=== PATIENT | female | born 1945 | race Caucasian/White ===

== ENCOUNTER 2020-09-14 17:33 | Inpatient (IN) | payer OTHER, MEDICARE ==
[2020-09-14 18:32] VITALS: BMI 41.8
[2020-09-14 18:33] LABS: Absolute Lymphocytes (CBC) 2.8 K/uL (0.7-4.9); Basophils % 0.9 % (0-1.3); Hematocrit 42.2 % (36.0-45.0); Lymphocytes % 29.1 % (15.3-44.8); MPV 9.2 fL (7.6-11.3); RBC Red Blood Cell Count 5.13 M/uL (3.86-4.86)
[2020-09-14 19:06] LABS: Albumin 3.2 g/dL (3.4-5.0); Bilirubin Total 0.3 mg/dL (0.2-1.0); Magnesium 1.7 mg/dL (1.8-2.4); Potassium 4.1 mmol/L (3.5-5.1); Protein, Total 7.8 g/dL (6.4-8.2); Thyroid Stimulating Hormone 3.11 uIU/mL (0.360-3.740)
[2020-09-14] MEDS: CEFTRIAXONE/SWI 1gm 1 GM/10 ML SYR IVP SCH (21:00)
--- NOTE | 2020-09-15 07:11 | HP ---
Date of Admission: 09/14/2020 Chief Complaint: Urinary tract infection. History Of Present Illness: This is a 75-year-old very pleasant female patient, who has ongoing comp laints of urinary frequency, urgency, burning sensation on urination. She was on prophylactic antibi otic with nitrofurantoin 100 mg by mouth daily and last week she had repeat urine culture done while on this prophylactic antibiotic and results came back growing Morganella and it is resistant to all t he oral antibiotics and sensitive to multiple IV antibiotics. The patient came into office today. A fter she was evaluated, results discussed with her and decision was made to admit her to the hospital with failure of outpatient antibiotic therapy. She denies any fever, chills, nausea, vomiting. Medications: List reviewed. Review of Systems: Genitourinary: As mentioned above. Cardiovascular: Chronic leg swelling. All other systems reviewed and negative. Allergies: TO PENICILLIN CAUSING RASH AND ITCHING, SULFA CAUSING RASH AND ITCHING. Past Medical History: Type 2 diabetes mellitus, diabetic retinopathy, hypothyroidism, hypertension, mixed hyperlipidemia, gastroesophageal reflux disease, diverticulosis, osteoarthritis at multiple sit es. Past Surgical History: Cataract surgery, cholecystectomy, hysterectomy, carpal tunnel release. Family History: Father; diabetes and coronary artery disease, lung cancer. Mother; diabetes, hypert ension, kidney cancer. Brother and sister with coronary artery disease. Social History: Negative for smoking and alcohol use. Physical Examination: Vital Signs: Upon admission to the hospital; temperature 98.3, pulse 68, respiratory rate 17, blood pressure 126/65, height 5 feet 6 inches, weight 258 pounds. General: Awake, alert, oriented, not in distress. HEENT: Head atraumatic, normocephalic. Conjunctivae nonerythematous. Sclerae white. Mouth, no thr ush or edema noted. Ears/Nose, no mass, lesion, discharge noted. Neck: Supple. No JVD, lymph nodes, bruit, thyromegaly noted. Lungs: Bilateral good equal air entry. Clear to auscultation. No rhonchi. No rales. Heart: Normal heart sounds, no murmur or gallop. Abdomen: Soft, bowel sounds normal. No guarding, rigidity, tenderness, mass, hepatosplenomegaly, dis tention, or bruit noted. Extremities: Bilateral grade 1 nonpitting pedal edema with dry skin. Skin: No rash, ulcer, cellulitis. Lymphatics: No lymph node enlargement in neck, supraclavicular, infraclavicular region. Neuro: No focal neurological deficit. Chest: Unremarkable. External Genitalia: Deferred. Rectal: Deferred. Laboratory Data: White count 9.5, hemoglobin 14.3, platelets 176. Sodium 141, potassium 4.1, chlori de 107, bicarb 28, BUN 26, creatinine 1.45, glucose 97, estimated GFR 35. Hemoglobin A1c 7.8. Liver function tests unremarkable. Magnesium 1.7. TSH 3.11. Urine culture from 09/05/2020 shows Shavonne caballero. Impression: 1.Urinary tract infection. 2.Hypomagnesemia. 3.Chronic kidney disease, stage 3B. 4.Type 2 diabetes mellitus. 5.Hypertension. 6.Mixed hyperlipidemia. 7.Diverticulosis. 8.Hypothyroidism. Plan: Admit the patient to hospital for further evaluation and management of this problem. The victor hugo ent is appropriate for inpatient and is expected to spend 2 midnights in hospital. We will continue home medications per order. Diabetes will be managed with sliding scale insulin. We will continue h ome medications per order. Start the patient on IV antibiotic, which is ceftriaxone. We will order PICC line and Social Service consultation tomorrow. Details and plan of treatment discussed with her . I will see her tomorrow morning for followup. ISAAC/MODL Voice ID: [id number]
[2020-09-15] MEDS ORDERED: LIDOCAINE 1% MPF 5 ML VIAL IM PRN (08:00)
[2020-09-15] MEDS ORDERED: SODIUM CHLORIDE 0.9% 10ML INJ IV PRN ×2 (08:00)
[2020-09-15] MEDS ORDERED: SODIUM CHLORIDE 0.9% 10ML INJ IV SCH (09:00)
--- NOTE | 2020-09-15 09:12 | RAD REPORT ---
EXAM DESCRIPTION: US - Renal Ultrasound-Complete - 09/15/2020 8:54 am CLINICAL HISTORY: recurrent UTI COMPARISON: Abdomen Pelvis W Contrast dated 03/17/2018 FINDINGS: The right kidney measures 11.4 x 4.7 x 4.8 cm. The left kidney measures 10.2 x 4.6 x 5.6 cm. Cortical thickness is normal in each kidney. There is a slight increase in echogenicity in both k idneys. Given the appearance of the surrounding tissue this is believed to be artifact of body habitu s. No hydronephrosis or suspicious renal mass. Urinary bladder is reported on separate request. IMPRESSION: No hydronephrosis or suspicious renal mass. No other significant findings.
--- NOTE | 2020-09-15 09:14 | RAD REPORT ---
EXAM DESCRIPTION: US - Urinary Bladder - 09/15/2020 8:54 am CLINICAL HISTORY: recurrent UTI COMPARISON: Abdomen Pelvis W Contrast dated 03/17/2018 FINDINGS: Urinary bladder is only partially filled. No bladder wall thickening or mass identified. B ilateral ureteral jets were observed indicating no obstructive process. No stone or other abnormality of the bladder lumen. IMPRESSION: Negative ultrasound of partially filled urinary bladder.
[2020-09-15] MEDS ORDERED: INFLUENZA VACCINE (for 3y+) 0.5 ML DOSE IMVAC ONE (10:00)
[2020-09-15] MEDS ORDERED: PNEUMOCOCCAL VACCINE 0.5 ML IMVAC ONE (10:00)
[2020-09-15] MEDS: CEFTRIAXONE/SWI 1gm 1 GM/10 ML SYR IVP SCH ×2 (10:18→20:56)
[2020-09-15] MEDS: HYDROCODONE/APAP 7.5/325 MG TAB PO SCH ×4 (10:19→22:03)
[2020-09-15] MEDS: PANTOPRAZOLE 40MG TABLET PO SCH (10:20)
[2020-09-15] MEDS: AMILORIDE HCL 5 MG TABLET PO SCH (10:20)
[2020-09-15] MEDS: lisinopriL 20 MG TAB PO SCH (10:20)
[2020-09-15] MEDS: ASPIRIN 81 MG CHEWABLE TABLET PO SCH (10:20)
[2020-09-15] MEDS: atenoloL 50 MG TAB PO SCH (10:20)
[2020-09-15] MEDS: ISOSORBIDE MONO SR 30 MG TAB PO SCH (10:20)
[2020-09-15] MEDS: LEVOTHYROXINE SOD 0.05 MG TABLET PO SCH (10:30)
--- NOTE | 2020-09-15 11:10 | RAD REPORT ---
EXAM DESCRIPTION: RAD - Chest Single View - 09/15/2020 3:00 am CLINICAL HISTORY: Picc line placement COMPARISON: None. TECHNIQUE: AP Chest. FINDINGS: Right subclavian PICC line is positioned in the mid aspect of the superior vena cava. The heart is moderately enlarged. Normal pulmonary vascularity. Lungs are clear. Pleural space are cl ear. Bones appear intact. Left shoulder osteoarthritis is noted. IMPRESSION: 1. Right subclavian PICC line placed without complication. 2. Cardiomegaly. Electronically signed by: Ramona Myrick DO 09/15/2020 3:16 AM FUR FLOOR WORKER Due to temporary technical issues with the PACS/Fluency reporting system, reports are being signed by the in house radiologist without review as a courtesy to ensure prompt reporting. The interpreting r adiologist is fully responsible for the content of the report.
[2020-09-15] MEDS ORDERED: D50W 25 GM/50 ML SYRINGE IV PRN (12:39)
[2020-09-15] MEDS ORDERED: GLUCAGON 1 MG/VIAL IM PRN (12:39)
[2020-09-15] MEDS ORDERED: INSULIN GLARGINE 100 UNITS/ML SQ ONE (12:40)
[2020-09-15] MEDS: INSULIN -REGULAR HUMAN 50 UNIT/0.5 ML ML SQ SCH ×2 (17:24→20:57)
--- NOTE | 2020-09-15 20:10 | DS ---
Date of Discharge: 09/15/2020 Subjective: The patient was seen this morning for followup. No new complaints or problems reported by the patient. Her dysuria complaint has improved after IV antibiotics started. Denies any nausea or vomiting. Objective: Vital Signs: Reviewed. HEENT: Unremarkable. Lungs: Clear to auscultation. Heart: Sounds normal. Abdomen: Soft. Bowel sounds normal. No guarding, rigidity, tenderness, or distention. Extremities: Bilateral chronic leg edema with pink discoloration of skin and dry skin. This are all chronic findings, unchanged. Discharge Medications And Instructions: 1.Continue all prior home medications. 2.Ceftriaxone 1 g IV every 12 hours for 10 days. 3.Follow up at my office next week on Friday or , and the patient to call for appointment . Final Diagnoses: 1.Urinary tract infection. 2.Chronic kidney disease stage 3A. 3.Hypertension. 4.Mixed hyperlipidemia. 5.Diabetes mellitus. Hospital Course: This is a 75-year-old female patient, who came into office and was admitted to the hospital with this urinary tract infection problem. Please see dictated H and P for more information . The patient was taking nitrofurantoin on outpatient basis and her urinalysis and urine culture don e last week has shown evidence of morganella and this particular bacteria is resistant to all old ant ibiotics. After reviewing all these results with her, decision was made to admit her to hospital. S he does have frequency, urgency, and dysuria with this urinary tract infection and today she reported that her dysuria problem has improved. According to sensitivity result, we started her on ceftriaxo ne. PICC line was placed last night and Social Service was consulted to help make arrangements for o utpatient antibiotic therapy and the patient is not able to afford the cost of antibiotics to be give n at home, so Social Service is in process of making arrangements for her to come to hospital 2 times a day for outpatient antibiotic therapy administration for next 10 days. During week days, she will come to same-day surgery for the morning dose and evening dose. She will get it in emergency room a nd . All doses will be in the emergency room. The patient understands this and she is agree able with this treatment plan. Ultrasound of kidney and bladder was ordered today and we will follow up on that result. I have advised her to follow up with her surgeon, who had done her bladder suspe nsion surgery in [place] for this recurrent urinary tract infection that she has been having and the patient informed me that she was told that she does need another surgery, but so far, she has decided not to go for any kind of surgical intervention, but we did discuss about it again today. ISAAC/PAULA Voice ID: [id number] Report ID: [id number]
[2020-09-15] MEDS ORDERED: NORTRIPTYLINE HCL 25 MG CAP PO SCH (21:00)
[2020-09-15] MEDS ORDERED: LOPERAMIDE HCL 2 MG CAPSULE PO PRN (21:31)
[2020-09-16 08:35] VITALS: BP 179/70; TEMP 97.1
[2020-09-16] MEDS: CEFTRIAXONE/SWI 1gm 1 GM/10 ML SYR IVP SCH (09:00)
[2020-09-16] MEDS: LEVOTHYROXINE SOD 0.05 MG TABLET PO SCH (09:03)
[2020-09-16] MEDS: ASPIRIN 81 MG CHEWABLE TABLET PO SCH (09:04)
[2020-09-16] MEDS: lisinopriL 20 MG TAB PO SCH (09:04)
[2020-09-16] MEDS: PANTOPRAZOLE 40MG TABLET PO SCH (09:05)
[2020-09-16] MEDS: HYDROCODONE/APAP 7.5/325 MG TAB PO SCH (09:05)
[2020-09-16] MEDS: ISOSORBIDE MONO SR 30 MG TAB PO SCH (09:05)
[2020-09-16] MEDS: atenoloL 50 MG TAB PO SCH (09:05)
[2020-09-16] MEDS: AMILORIDE HCL 5 MG TABLET PO SCH (09:05)
[2020-09-16] MEDS: INSULIN -REGULAR HUMAN 50 UNIT/0.5 ML ML SQ SCH (09:07)
[2020-09-16 09:20] VITALS: O2SAT 99
--- NOTE | 2020-09-17 03:40 | PN ---
Date of Progress Note: 09/15/2020 Subjective: After I saw the patient, decision was made to go ahead and discharge her to go home. Af ter all the antibiotic arrangements were completed, I did communicate with Social Service during the course of day today and I was informed that the patient will not be able to afford antibiotic treatme nt at home, so other option which was already discussed with the patient by me earlier today was for her to come to emergency room over the weekend and during week days to come to same-day surgery and e mergency room for her antibiotic doses, and the patient was agreeable to do so, so Social Service was informed to go ahead and make that arrangements. After all the arrangements completed, the patient' s antibiotic dose was due at 9 p.m., so she wanted to get the antibiotic dose, then go home instead o f go home, turn around, and come back to emergency room for her nighttime dose and later on after the nighttime dose, the patient requested not to go home until next day morning because she did not have transportation. Physical Examination: HEENT: Unremarkable. Lungs: Clear to auscultation. Heart: Sounds normal. Abdomen: Soft. Bowel sounds normal. No guarding, rigidity, tenderness, or distention. Extremities: Bilateral leg edema, unchanged. Impression: 1.Urinary tract infection. 2.Hypertension. 3.Diabetes mellitus. Plan: We will continue current IV antibiotic, which is ceftriaxone. I will see her tomorrow morning for followup and our plan is to then discharge her to go home tomorrow with outpatient IV antibiotic therapy. ISAAC/MODL Voice ID: [id number] Report ID: [id number]
--- NOTE | 2020-09-17 09:16 | DS ---
Date of Discharge: 09/16/2020 Disposition: Discharged to go home. Discharge Medications And Instructions: 1.Continue all prior home medications. 2.Ceftriaxone 1 g IV every 12 hours for 10 days and the patient to come to same-day surgery for the morning dose during week days and for the evening dose during week and weekend to come to emergen cy room, and morning dose over the weekend will be in emergency room. She was given all the appropri ate instructions. 3.Follow up at my office next week on and the patient will call to schedule appointment. ISAAC/PAULA Voice ID: [id number] Report ID: [id number]
== END 2020-09-16 10:30 | disposition home or self-care (01) | DRG 690 ==
LOC: 2ND 17:33
PROVIDERS: ADMIT Internal Medicine; ATTEND Internal Medicine
PROC: 02HV33Z Insertion of Infusion Device into Superior Vena Cava, Percutaneous Approach (ICD-10-PCS; principal; 2020-09-15)
DX: N39.0 Urinary tract infection, site not specified (principal); K21.9 Gastro-esophageal reflux disease without esophagitis; K57.90 Diverticulosis of intestine, part unspecified, without perforation or abscess without bleeding; E03.9 Hypothyroidism, unspecified; E78.2 Mixed hyperlipidemia; E83.42 Hypomagnesemia; I12.9 Hypertensive chronic kidney disease with stage 1 through stage 4 chronic kidney disease, or unspecified chronic kidney disease; N18.32 Chronic kidney disease, stage 3b; E11.22 Type 2 diabetes mellitus with diabetic chronic kidney disease; Z90.710 Acquired absence of both cervix and uterus; Z88.0 Allergy status to penicillin; Z90.49 Acquired absence of other specified parts of digestive tract; Z88.1 Allergy status to other antibiotic agents; Z20.828 Contact with and (suspected) exposure to other viral communicable diseases
CPT/HCPCS: 36415; 36569; 71045; 76770; 76857; 80053; 82947; 83036; 83735; 84443; 85025; J0696; J1815; U0002

== ENCOUNTER 2021-01-25 13:12 | Inpatient (IN) | payer OTHER, MEDICARE ==
[2021-01-25] MEDS ORDERED: GLUCAGON 1 MG/VIAL IM PRN (15:31)
[2021-01-25] MEDS ORDERED: D50W 25 GM/50 ML VIAL IV PRN (15:46)
--- NOTE | 2021-01-25 16:28 | ER ---
Nurse's Notes [facility] Name: Gladis Cantu Age: 75 yrs Sex: Female : 1945 Arrival Date: 01/25/2021 Time: 13:17 Bed Waiting Private MD: Diagnosis: Pyelonephritis ED Course: 01/25 13:17 Patient arrived in ED. ds1 16:26 Kori Mckeon MD is Hospitalizing Provider. aa5 Administered Medications: No medications were administered Outcome: 16:27 Decision to Hospitalize by Provider. aa5 16:27 Patient left the ED. aa5 16:27 Admitted to Med/surg accompanied by tech, via wheelchair, Other Pt transported to Room aa5 [id number] Signatures: Glenys Hutchinson ds1 Zulema Doherty, RN RN aa5 Rhiannon Madison RN RN ca1 Corrections: (The following items were deleted from the chart) 14:29 14:28 CORONAVIRUS drawn and sent. ca1 EDMS
[2021-01-25 17:14] LABS: Absolute Lymphocytes (CBC) 1.2 K/uL (0.7-4.9); Basophils % 0.6 % (0-1.3); Hematocrit 41.1 % (36.0-45.0); Lymphocytes % 8.8 % (15.3-44.8); MPV 9.3 fL (7.6-11.3); RBC Red Blood Cell Count 4.95 M/uL (3.86-4.86)
[2021-01-25 17:40] LABS: Albumin 2.5 g/dL (3.4-5.0); Bilirubin Total 1.1 mg/dL (0.2-1.0); Magnesium 1.5 mg/dL (1.8-2.4); Potassium 4.1 mmol/L (3.5-5.1); Protein, Total 7.8 g/dL (6.4-8.2)
[2021-01-25] MEDS: Levofloxacin500mg IV 500 MG/100 ML BAG IV SCH (18:19)
[2021-01-25] MEDS: INSULIN -REGULAR HUMAN 50 UNIT/0.5 ML ML SQ SCH ×2 (18:23→21:55)
[2021-01-25 18:33] LABS: Urine Appearance TURBID; Urine Bilirubin NEGATIVE (NEG); Urine Blood 3+ (Negative); Urine Color DK YELLOW; Urine Glucose TRACE (Negative); Urine Protein 3+ (NEG); Urine Specific Gravity 1.015 (1.005-1.030)
[2021-01-25 19:13] VITALS: BMI 40.8
[2021-01-25 19:22] LABS: Urine Bacteria >50 /HPF (<20); Urine RBC >50 /HPF (NONE SEEN)
[2021-01-25] MEDS: ONDANSETRON 4 MG/2 ML VIAL IV PRN (22:21)
[2021-01-26] MEDS: INSULIN -REGULAR HUMAN 50 UNIT/0.5 ML ML SQ SCH ×4 (07:30→22:31)
[2021-01-26] MEDS ORDERED: lisinopriL 20 MG TAB PO ONE (08:23)
[2021-01-26] MEDS ORDERED: atenoloL 50 MG TAB PO ONE (08:30)
[2021-01-26] MEDS: ENOXAPARIN 30 MG/0.3 ML SQ SCH ×2 (08:44→22:27)
[2021-01-26] MEDS ORDERED: atenoloL 25 MG TAB ONE (08:55)
--- NOTE | 2021-01-26 13:02 | RAD REPORT ---
EXAM DESCRIPTION: CT - Stone Protocol - 01/26/2021 12:09 pm CLINICAL HISTORY: Flank pain. r/o stone, use kidney stone protocol COMPARISON: Abdomen Pelvis W Contrast dated 03/17/2018 TECHNIQUE: Axial images were obtained without oral or IV contrast. Lack of contrast limits solid org an and vascular assessment. The [id number] spans the entirety of the system partially obscuring uppermost abdomen and lung bases. Coronal reformatted images were obtained and reviewed. All CT scans are performed using dose optimization technique as appropriate and may include automated exposure control or mA/KV adjustment according to patient size. FINDINGS: The lower lung parra are clear. The liver has a nodular contour compatible with cirrhosis. The spleen is normal sized. The pancreas a nd adrenal glands are normal. Mild bilateral hydronephrosis and hydroureter is seen. No obstructing c alculi identified.Small amount of air is present within the urinary bladder. Moderate fat containing ventral hernia along the midline. No pathologic lymphadenopathy in the abdomen or pelvis. No bowel obstruction, free air, free fluid or abscess. Diverticulosis is present of the colon without diverticulitis.Normal appendix. Mild lumbar degenerative changes are present. Heavy iliac atherosclerosis. IMPRESSION: No urinary tract stones are evident. Bilateral mild hydronephrosis and hydroureter is pr esent appearing similar to prior study from 2018 in may be chronic in this patient. Small amount of air seen in the urinary bladder which may indicate infection or recent instrumentatio n. Nodular liver contour is present suggesting mild cirrhosis.
--- NOTE | 2021-01-26 13:08 | RAD REPORT ---
EXAM DESCRIPTION: US - Urinary Bladder - 01/26/2021 12:36 pm CLINICAL HISTORY: Abdominal pain FINDINGS: Prevoid bladder volume equals 147 cc Bladder wall appears normal. No mass is visualized. No ascites IMPRESSION: No significant abnormality is displayed. However, the bladder is only incompletely diste nded which limits evaluation
--- NOTE | 2021-01-26 13:08 | RAD REPORT ---
EXAM DESCRIPTION: US - Renal Ultrasound-Complete - 01/26/2021 12:43 pm CLINICAL HISTORY: Abdominal pain/pyelonephritis COMPARISON: None FINDINGS: The right kidney measures 10 cm with a normal echotexture. The left kidney measures 11 cm with a normal echotexture. Hydronephrosis is not seen. Renal abscess not noted IMPRESSION: Unremarkable renal ultrasound.
[2021-01-26] MEDS: Levofloxacin500mg IV 500 MG/100 ML BAG IV SCH (16:00)
[2021-01-26] MEDS: ONDANSETRON 4 MG/2 ML VIAL IV PRN (19:59)
--- NOTE | 2021-01-26 20:44 | PN ---
Date of Progress Note: 01/26/2021 Subjective: The patient was seen this morning for followup. No new complaints or problems reported by her. Overall, she feels little better today compared to yesterday. So far, she has received 1 do se of IV Levaquin, which was yesterday, and she will receive second dose today. Denies any nausea or vomiting. Dysuria is still present, but little better. Objective: Vital Signs: Reviewed. HEENT: Unremarkable. Lungs: Clear to auscultation. Heart: Sounds normal. Abdomen: Soft. Bowel sounds normal. No guarding, rigidity, tenderness, or distention. Extremities: Leg edema unchanged. Laboratory Data: The patient had CAT scan of abdomen per kidney stone protocol today, which came nathalie k negative for any kidney stone, shows bilateral mild hydronephrosis, unchanged from prior imaging. Liver has appearance of cirrhosis. No other acute findings. Renal ultrasound was unremarkable and b ladder ultrasound was unremarkable as well. Urine culture growing gram-negative rods. Blood culture negative. Impression: 1.Acute pyelonephritis. 2.Hypertension. 3.Mixed hyperlipidemia. 4.Diabetes mellitus with diabetic retinopathy. Plan: We will go ahead and continue current antibiotic. Follow up on culture results. Hopefully by tomorrow, we should have culture results available to make a final decision on culture specific antibiotics. Meanwhile, continue other current medications and DVT prophylaxis. I will see her paulie rrow for followup. ISAAC/MODL Voice ID: [id number] Report ID: [id number]
--- NOTE | 2021-01-26 22:07 | HP ---
Date of Admission: 01/25/2021 Chief Complaint: Urinary tract infection. History Of Present Illness: This is a 75-year-old very pleasant female patient with history of recur rent urinary tract infection lately, came into office with few days history of urinary frequency, bur tanmay on urination, pain in the lower abdominal area and bladder area as well as pain in her lower nathalie k. The patient also describes having some low-grade fever, chills type of sensation, and having very poor appetite in last 3 days to the extent that her sister informed us that she did not eat anything for last 3 days. She feels very weak. She came into office. After she was evaluated, decision was made to admit her to the hospital. Her urinalysis done at the office was abnormal, consistent with urinary tract infection. Medications: List reviewed. Review of Systems: Genitourinary: As mentioned above. Constitutional: As mentioned above. Cardiovascular: Chronic leg swelling. All other systems reviewed and negative. Allergies: PENICILLIN CAUSING RASH AND ITCHING, SULFA CAUSING RASH AND ITCHING. Past Medical History: Significant for recurrent urinary tract infection, type 2 diabetes mellitus, d iabetic retinopathy, hypothyroidism, hypertension, mixed hyperlipidemia, gastroesophageal reflux dise ase, diverticulosis, osteoarthritis at multiple sites. Past Surgical History: Cataract surgery, cholecystectomy, hysterectomy, carpal tunnel release. Family History: Father had diabetes, coronary artery disease, and lung cancer. Mother with diabetes , hypertension, and kidney cancer. Brother and sister with coronary artery disease. Social History: Negative for smoking or alcohol use. Physical Examination: Vital Signs: Upon admission, temperature 98.8, pulse 66, respiratory rate 20, and blood pressure 175 /71. General: Awake, alert, oriented, not in distress. HEENT: Head atraumatic, normocephalic. Conjunctivae nonerythematous. Sclerae white. Mouth, no thr ush or edema noted. Ears/Nose, no mass, lesion, discharge noted. Neck: Supple. No JVD, lymph nodes, bruit, thyromegaly noted. Lungs: Bilateral good equal air entry. Clear to auscultation. No rhonchi. No rales. Heart: Normal heart sounds. No murmur or gallop. Abdomen: Soft. Bowel sounds normal. No guarding, rigidity, tenderness, mass, hepatosplenomegaly, d istention, or bruit noted. Extremities: Bilateral chronic known pitting leg edema. Left leg has dressing present and the patie nt has wound over left lower extremity, for which [facility] and gets dressing changes as per instruction from Dr. Vaca. Her dressing changes happens every other day with help o f home health nurse. Skin: No rash, ulcer, cellulitis. Lymphatics: No lymph node enlargement in neck, supraclavicular, infraclavicular region. Neuro: No focal neurological deficit. Chest: Unremarkable. External Genitalia: Deferred. Rectal: Deferred. Laboratory Data: White count 13.7, hemoglobin 13.4, and platelet count 147. Sodium 132, potassium 4 .1, chloride 96, bicarb 30, BUN 18, creatinine 1.16, glucose 279, magnesium 1.5, total bilirubin 1.1, AST 15, ALT 17, alkaline phosphatase 106. Urinalysis revealed 3+ leukocyte esterase, WBC more than 50, bacteria more than 50, 3+ protein. COVID-19 test negative. Impression: 1.Acute pyelonephritis. 2.Thrombocytopenia. 3.Hyponatremia. 4.Type 2 diabetes mellitus with diabetic retinopathy. 5.Hypothyroidism. 6.Hypertension. 7.Mixed hyperlipidemia. 8.Lymphedema, legs. 9.Diverticulosis. 10.Osteoarthritis, multiple sites. 11.Gastroesophageal reflux disease. Plan: Admit the patient to the hospital for further evaluation and management of this problem. The patient is appropriate for inpatient and is expected to spend 2 midnights in hospital. We will start empiric antibiotics using Levaquin 500 mg IV every 24 hours and follow up on urine culture and blood culture. Depending on the culture result, we will decide about culture specific antibiotics. Home medications will be continued per order. Diabetes will be managed with insulin per order. We will g renny DVT prophylaxis using Lovenox as per order. Thrombocytopenia and hyponatremia will not require a ny intervention. We will go ahead and do renal ultrasound and CT scan of the abdomen per kidney ston e protocol tomorrow. Details and plan of treatment discussed with the patient and I will see her medhat orrow for followup. ISAAC/MODL Voice ID: [id number]
[2021-01-26 23:49] VITALS: O2SAT 96
[2021-01-27] MEDS: HYDROCODONE/APAP 7.5/325 MG TAB PO PRN ×2 (00:23→12:35)
[2021-01-27 05:30] LABS: Magnesium 1.9 mg/dL (1.8-2.4); Potassium 4.5 mmol/L (3.5-5.1)
[2021-01-27] MEDS: INSULIN -REGULAR HUMAN 50 UNIT/0.5 ML ML SQ SCH ×2 (07:30→11:30)
[2021-01-27] MEDS: ENOXAPARIN 30 MG/0.3 ML SQ SCH (08:13)
[2021-01-27 08:16] VITALS: BP 152/68; TEMP 97.1
[2021-01-27] MEDS: Levofloxacin500mg IV 500 MG/100 ML BAG IV SCH (12:35)
--- NOTE | 2021-01-27 21:00 | DS ---
Date of Discharge: 01/27/2021 Disposition: Discharged to go home. Physical Examination: HEENT: Unremarkable. Lungs: Clear to auscultation. Heart: Sounds normal. Abdomen: Soft. Bowel sounds normal. No guarding, rigidity, tenderness, or distention. Extremities: Bilateral leg edema remains unchanged. Laboratory Data: Upon admission, sodium 132, potassium 4.1, chloride 96, bicarb 30, BUN 18, creatinine 1.16, glucose 279. Liver function tests unremarkable. Today sodium 134, potassium 4.5, chloride 97, bicarb 32, BUN 26, creatinine 1.06. Blood culture negative. Urine culture; Klebsiella sensitive to Levaquin. White count 13.7, hemoglobin 13.4, platelets 147. Kidney ultrasound and bladder ultrasound were unremarkable. CAT scan of the abdomen per kidney stone protocol shows mild hydronephrosis, bilateral, unchanged from before. No other acute abnormality noted. Some changes of cirrhosis of liver noted. Discharge Medications And Instructions: 1. Continue all prior home medications. 2. Take Levaquin 500 mg p.o. daily for 2 weeks. 3. Follow up at my office on 02/01/2021, call office for appointment. Hospital Course: A 75-year-old pleasant female patient, admitted to the hospital with urinary tract infection problem. Please see dictated H and P for more information. After the patient was evaluated at office, she was admitted to the hospital with acute pyelonephritis problem. She was started on empiric IV antibiotic which was Levaquin and blood culture and urine culture was done. Symptoms improved with IV antibiotic therapy and final urine culture results came back today Klebsiella and it is sensitive to multiple different antibiotic including Levaquin that she is currently on. The patient will be discharged to go home in stable condition today with above-mentioned medication and instructions. Final Diagnoses: 1. Acute pyelonephritis. 2. Hyponatremia. 3. Thrombocytopenia. 4. Type 2 diabetes mellitus with diabetic retinopathy. 5. Hypothyroidism. 6. Hypertension. 7. Mixed hyperlipidemia. 8. Lymphedema, legs. 9. Diverticulosis. 10. Osteoarthritis, multiple sites. 11. Gastroesophageal reflux disease. ISAAC/MODL Voice ID: [id number] Report ID: [id number] [facility]
== END 2021-01-27 14:17 | disposition home or self-care (01) | DRG 690 ==
LOC: ER 13:12 → ERHOLD 14:58 → 4TH 16:23
PROVIDERS: ADMIT Internal Medicine; ATTEND Internal Medicine
DX: N10 Acute pyelonephritis (principal); E87.1 Hypo-osmolality and hyponatremia; I10 Essential (primary) hypertension; D69.6 Thrombocytopenia, unspecified; E03.9 Hypothyroidism, unspecified; E78.2 Mixed hyperlipidemia; M19.90 Unspecified osteoarthritis, unspecified site; K21.9 Gastro-esophageal reflux disease without esophagitis; K57.90 Diverticulosis of intestine, part unspecified, without perforation or abscess without bleeding; I89.0 Lymphedema, not elsewhere classified; E11.319 Type 2 diabetes mellitus with unspecified diabetic retinopathy without macular edema; B96.1 Klebsiella pneumoniae [K. pneumoniae] as the cause of diseases classified elsewhere; Z88.0 Allergy status to penicillin; Z88.1 Allergy status to other antibiotic agents; Z90.49 Acquired absence of other specified parts of digestive tract; Z90.710 Acquired absence of both cervix and uterus; Z20.822 Contact with and (suspected) exposure to COVID-19
CPT/HCPCS: 36415; 74176; 76377; 76770; 76857; 80048; 80053; 81001; 82947; 83735; 85025; 87040; 87077; 87086; 87088; 87186; 97116; 97161; J1650; J2405; U0003

== ENCOUNTER 2023-02-28 01:52 | Emergency (ER) | payer OTHER, MEDICARE ==
--- OUTSIDE RECORDS SUMMARY | 2023-02-28 01:55 | XMS REPORT | Continuity of Care Document ---
:1945 Author Organization [facility] t Address [address] [place] [address] Care Team Providers Name Role Phone KEITH BARRIENTOS Primary Care Physician Unavailable [email or web address] Attending Clinician Unavailable Zulma RN, Sirena Attending Clinician Unavailable KATIE BARRIGA Attending Clinician Unavailable Only, Ang Db Test Attending Clinician Unavailable EbrahiKatie Vieira Attending Clinician [email or web address] Admitting Clinician Unavailable Payers Payer Name Policy Type Policy Number Effective Date Expiration Date David jackson MEDICARE B-[place]: [id number] 2007 PlanGrid 00:00:00 [facility] [id number] 2016 OPTIONS (MEDICARE 00:00:00 SUPPLEMENT) Problems Condition Condition Condition Status Onset Resolution Last Treating Co mments Source Name Details Category Date Date Treatment Clinician Date No known No known Disease Metho di active active st problems problems Hospit a l Allergies, Adverse Reactions, Alerts Allergy Allergy Status Severity Reaction(s) Onset Inactive Treating Comm ents Source Name Type Date Date Clinician Codeine Propensi Active 2017-11 Method[facility] ty to 0-12 st adverse 00:00: Hospita reaction 00 l s to drug Penicill Propensi Active Anaphylaxis 2017-11 M ethodi in G ty to 0-12 st adverse 00:00: Hospita reaction 00 l s to drug Sulfa Propensi Active 2017-11 Methodi (Sulfona ty to 0-12 st mide adverse 00:00: Hospita Antibiot reaction 00 l ics) s to drug Pentazoc Propensi Active 2017-11 Method i ine ty to 0-12 st Lactate adverse 00:00: Hospita reaction 00 l s to drug NO KNOWN Drug Active Univers ALLERGIE Class ity of [facility] Family History Family Member Diagnosis Comments Start Date Stop Date Source Natural father Hypertension [facility] Natural father Lung disease [facility] Natural father Arthritis [facility] Natural father Cancer [facility] Natural father Diabetes [facility] Natural father [facility] Natural mother Arthritis [facility] Natural mother Cancer [facility] mother Diabetes [facility] Natural mother Hypertension [facility] Social History Social Habit Start Date Stop Date Quantity Comments Source Exposure to Yes University of SARS-CoV-2 (event) [facility] Gender identity [facility] Sexual orientation [facility] Alcohol intake 2018-08-17 2018-08-17 Current [facility] 00:00:00 00:00:00 non-drinker of Hospital alcohol (finding) Tobacco use and 2018-05-14 2018-05-14 Smokeless [facility] exposure 00:00:00 00:00:00 tobacco non-user Hospital Sex Assigned At [birth year] [facility] 00:00:00 00:00:00 Hospital Smoking Status Start Date Stop Date Source Unknown if ever smoked [facility] y [facility] Never smoked tobacco [facility] Medications Ordered Filled Start Stop Current Ordering Indication Dosage Frequency Signature Comments Components Source Medication Medication Date Date Medication? Clinician (SIG) Name Name insulin asp 2017-11 Yes 56U Inject 56 M ethodi prt-insulin 0-[address] ASPART 10:32: under the Hospit a (NovoLOG 51 skin. l Mix 70-30 U-100 Insuln) 100 unit/mL (70-30) injection insulin asp 2017-11 Yes 56U Inject 56 M ethodi prt-insulin 0-[address] ASPART 10:32: under the Hospit a (NovoLOG 51 skin. l Mix 70-30 U-100 Insuln) 100 unit/mL (70-30) injection insulin asp 2017-11 Yes 56U Inject 56 M ethodi prt-insulin 0-[address] ASPART 10:32: under the Hospit a (NovoLOG 51 skin. l Mix 70-30 U-100 Insuln) 100 unit/mL (70-30) injection AMILoride 0 Yes [facility] (MIDAMOR) 5 - st MG tablet 00:00: Hospita 00 l AMILoride 2018-0 Yes [facility] (MIDAMOR) 5 7- st MG tablet 00:00: Hospita 00 l AMILoride 2018-0 Yes [facility] (MIDAMOR) 5 - st MG tablet 00:00: Hospita 00 l atenolol 2018-0 Yes [facility] (TENORMIN) 05-03 st 50 MG 00:00: Hospita tablet 00 l isosorbide 2018-0 Yes [facility] mononitrate 05-03 st (IMDUR) 30 00:00: Hospita MG 24 hr 00 l tablet levothyroxi 2018-0 Yes Method i ne 05-03 (SYNTHROID, 00:00: Hospit a LEVOXYL) 00 l 175 mcg tablet lisinopril 2018-0 Yes [facility] (PRINIVIL,Z 05-03 ESTRIL) 20 00:00: Hospita mg tablet 00 l atenolol 2018-0 Yes [facility] (TENORMIN) 05-03 50 MG 00:00: Hospita tablet 00 l isosorbide 2018-0 Yes [facility] mononitrate 05-03 (IMDUR) 30 00:00: Hospita MG 24 hr 00 l tablet levothyroxi 2018-0 Yes Method i ne 05-03 (SYNTHROID, 00:00: Hospit a LEVOXYL) 00 l 175 mcg tablet lisinopril 2018-0 Yes [facility] (PRINIVIL,Z 05-03 ESTRIL) 20 00:00: Hospita mg tablet 00 l atenolol 2018-0 Yes [facility] (TENORMIN) 05-03 50 MG 00:00: Hospita tablet 00 l isosorbide 2018-0 Yes [facility] mononitrate 05-03 (IMDUR) 30 00:00: Hospita MG 24 hr 00 l tablet levothyroxi 2018-0 Yes Method i ne 05-03 (SYNTHROID, 00:00: Hospit a LEVOXYL) 00 l 175 mcg tablet lisinopril 2018-0 Yes [facility] (PRINIVIL,Z 05-03 ESTRIL) 20 00:00: Hospita mg tablet 00 l gabapentin 2018-0 Yes [facility] (NEURONTIN) 6-13 st 100 mg 00:00: Hospita capsule 00 l gabapentin 2018-0 Yes [facility] (NEURONTIN) 6-13 st 100 mg 00:00: Hospita capsule 00 l gabapentin 2018-0 Yes [facility] (NEURONTIN) 6-13 st 100 mg 00:00: Hospita capsule 00 l Procedures This patient has no known procedures. Plan of Care Planned Activity Planned Date Details Comments Source Future Scheduled 2023-02-28 COVID-19 VACCINE (#1) [facility] Test 01:54:19 [code = COVID-19 VACCINE (#1)] Future Scheduled 2023-02-28 COLONOSCOPY SCREENING [facility] Test 01:54:19 [code = COLONOSCOPY SCREENING] Future Scheduled 2023-02-28 SHINGLES VACCINES (1 Met [facility] Test 01:54:19 of 2) [code = SHINGLES VACCINES (1 of 2)] Future Scheduled 2023-02-28 65+ [facility] 01:[facility]:19 VACCINE (1 - PCV) [code = 65+ PNEUMOCOCCAL VACCINE (1 - PCV)] Future Scheduled 2023-02-28 INFLUENZA VACCINE [facility] Test 01:54:19 [code = INFLUENZA VACCINE] Future Scheduled 2022-10-17 COVID-19 VACCINE (#1) [facility] Test 04:20:38 [code = COVID-19 VACCINE (#1)] Future Scheduled 2022-10-17 COLONOSCOPY SCREENING [facility] Test 04:20:38 [code = COLONOSCOPY SCREENING] Future Scheduled 2022-10-17 SHINGLES VACCINES (1 Met [facility] Test 04:20:38 of 2) [code = SHINGLES VACCINES (1 of 2)] Future Scheduled 2022-10-17 65+ [facility]OCOCCAL [facility] Test 04:20:38 VACCINE (1 - PCV) [code = 65+ PNEUMOCOCCAL VACCINE (1 - PCV)] Future Scheduled 2022-10-17 INFLUENZA VACCINE [facility] Test 04:20:38 [code = INFLUENZA VACCINE] Future Scheduled 2021-12-04 COVID-19 VACCINE (1) Met [facility] Test 14:20:17 [code = COVID-19 VACCINE (1)] Future Scheduled 2021-12-04 BREAST CANCER [facility] Test 14:20:17 SCREENING [code = BREAST CANCER SCREENING] Future Scheduled 2021-12-04 [facility]ING [facility] Test 14:20:17 [code = COLONOSCOPY SCREENING] Future Scheduled 2021-12-04 SHINGLES VACCINES (#1) [facility] 14:20:17 [code = SHINGLES VACCINES (#1)] Future Scheduled 2021-12-04 65+ [facility]OCOCC[address] [facility] Test 14:20:17 VACCINE (1 of 1 - PPSV23) [code = 65+ PNEUMOCOCCAL VACCINE (1 of 1 - PPSV23)] Future Scheduled 2021-12-04 INFLUENZA VACCINE [facility] Test 14:20:17 [code = INFLUENZA VACCINE] Encounters Start End Encounter Admission Attending Care Care Encounter Source Date/Time Date/Time Type Type Clinicians Facility Department ID 2023-01-21 2023-01-21 Outpatient [facility] PRIV PRIV [id number] [facility] 00:00:00 00:00:00 _Lotze_P [id number] Medic al 2023-01-10 2023-01-10 Outpatient [facility] PRIV PRIV [id number] [facility] 00:00:00 00:00:00 _Lotze_P [id number] Medic al 2023-01-07 2023-01-07 Outpatient [facility] PRIV PRIV [id number] [facility] 00:00:00 00:00:00 _Lotze_P [id number] Medic al 2021-11-18 2021-11-18 Telephone Sirena Maya [id number] Univers 00:00:00 00:00:00 BARBARA [id number] it y of [facility] [id number] Yuriy as [id number] [address] 2021-11-16 2021-11-16 Outpatient R NITHYA [facility] [id number] Univers 14:15:00 15:36:38 KATIE wu [facility] 2021-11-16 2021-11-16 Laboratory Only, Maxim Db Test [facility] [id number] Univers 14:15:00 14:30:00 Only Katie Barriga [facility] [id number] [facility] [id number] Yuriy as PRASHANT?BLEA [id number] Id oscar BARBOSA [address] [place] [address] MEDICAL OFFICE BUILDING Results This patient has no known results.
[2023-02-28] MEDS ORDERED: ONDANSETRON 4 MG/2 ML VIAL ONE (02:32)
[2023-02-28] MEDS ORDERED: FENTANYL CITR 100 MCG/2 ML ONE (02:32)
[2023-02-28] MEDS ORDERED: NA CHLORIDE 0.9% 500 ML ONE (02:32)
[2023-02-28 03:00] LABS: Hematocrit 41.3 % (36.0-45.0); Lymphocytes % 25.3 % (15.3-44.8); MCV 85.3 fL (80-100); MPV 9.2 fL (7.6-11.3); RBC Red Blood Cell Count 4.84 M/uL (3.86-4.86)
[2023-02-28 03:09] LABS: Albumin 2.7 g/dL (3.4-5.0); Bilirubin Total 0.3 mg/dL (0.2-1.0); Potassium 3.8 mEq/L (3.5-5.1)
--- NOTE | 2023-02-28 04:22 | EDPHYS ---
Physician Documentation [facility] Name: Gladis Cantu Age: 77 yrs Sex: Female : 1945 Arrival Date: 02/28/2023 Time: 01:52 Bed 20 Private MD: Lukasz Robledo HPI: 02/28 02:13 This 77 yrs old Female presents to ER via Unassigned with complaints of fall, adolfo back pain. 02:13 Details of fall: The patient fell from an upright position, while standing. Onset: The adolfo symptoms/episode began/occurred just prior to arrival. Associated injuries: The patient sustained upper back injury, injury to the low back. Severity of symptoms: At their worst the symptoms were mild, moderate, in the emergency department the symptoms are unchanged. The patient has not experienced similar symptoms in the past. Historical: - Allergies: 01:55 PENICILLINS; ha1 01:55 Sulfa (Sulfonamide Antibiotics); ha1 01:55 Iodine; ha1 - Home Meds: 01:55 A\T\D ointment [Active]; amlodipine 5 mg tab 1 tab once daily [Active]; aspirin 325 mg ha1 Oral TbEC 1 tab once daily [Active]; atenolol 50 mg Oral tab 1 tab once daily [Active]; lisinopril 20 mg Oral tab 1 tab once daily [Active]; - PMHx: 01:55 Diabetes - IDDM; Hypertension; lypmphoedema; neuropathy; Diverticulitis; ha1 - Immunization history:: Adult Immunizations. - Social history:: Smoking status: unknown. - Family history:: not pertinent. ROS: 02:16 Constitutional: Negative for fever, chills, and weight loss, Eyes: Negative for injury, adolfo pain, redness, and discharge, ENT: Negative for injury, pain, and discharge, Neck: Negative for injury, pain, and swelling, Cardiovascular: Negative for chest pain, palpitations, and edema, Respiratory: Negative for shortness of breath, cough, wheezing, and pleuritic chest pain, Abdomen/GI: Negative for abdominal pain, nausea, vomiting, diarrhea, and constipation, : Negative for injury, bleeding, discharge, and swelling, MS/Extremity: Negative for injury and deformity, Skin: Negative for injury, rash, and discoloration, Neuro: Negative for headache, weakness, numbness, tingling, and seizure, Psych: Negative for depression, anxiety, suicide ideation, homicidal ideation, and hallucinations, Allergy/Immunology: Negative for hives, rash, and allergies, Endocrine: Negative for neck swelling, polydipsia, polyuria, polyphagia, and marked weight changes, Hematologic/Lymphatic: Negative for swollen nodes, abnormal bleeding, and unusual bruising. 02:16 Back: Positive for injury or acute deformity, decreased range of motion, pain at rest, pain with movement, of the thoracic area, left low back and right low back. Exam: 02:16 Constitutional: This is a well developed, well nourished patient who is awake, alert, adolfo and in no acute distress. Head/Face: Normocephalic, atraumatic. Eyes: Pupils equal round and reactive to light, extra-ocular motions intact. Lids and lashes normal. Conjunctiva and sclera are non-icteric and not injected. Cornea within normal limits. Periorbital areas with no swelling, redness, or edema. ENT: Nares patent. No nasal discharge, no septal abnormalities noted. Tympanic membranes are normal and external auditory canals are clear. Oropharynx with no redness, swelling, or masses, exudates, or evidence of obstruction, uvula midline. Mucous membranes moist. Neck: Trachea midline, no thyromegaly or masses palpated, and no cervical lymphadenopathy. Supple, full range of motion without nuchal rigidity, or vertebral point tenderness. No Meningismus. Chest/axilla: Normal chest wall appearance and motion. Nontender with no deformity. No lesions are appreciated. Cardiovascular: Regular rate and rhythm with a normal S1 and S2. No gallops, murmurs, or rubs. Normal PMI, no JVD. No pulse deficits. Respiratory: Lungs have equal breath sounds bilaterally, clear to auscultation and percussion. No rales, rhonchi or wheezes noted. No increased work of breathing, no retractions or nasal flaring. Abdomen/GI: Soft, non-tender, with normal bowel sounds. No distension or tympany. No guarding or rebound. No evidence of tenderness throughout. Female : Normal external genitalia. Skin: Warm, dry with normal turgor. Normal color with no rashes, no lesions, and no evidence of cellulitis. MS/ Extremity: Pulses equal, no cyanosis. Neurovascular intact. Full, normal range of motion. Neuro: Awake and alert, GCS 15, oriented to person, place, time, and situation. Cranial nerves II-XII grossly intact. Motor strength 5/5 in all extremities. Sensory grossly intact. Cerebellar exam normal. Normal gait. Psych: Awake, alert, with orientation to person, place and time. Behavior, mood, and affect are within normal limits. 02:16 Back: pain, that is mild, that is moderate, ROM is painful, normal spinal alignment noted, CVA tenderness, is absent, vertebral tenderness, is not appreciated, muscle spasm, is appreciated in the left low back, left mid back, right mid back and right low back. Vital Signs: 01:55 BP 172 / 93; Pulse 68; Resp 17; Temp 98(O); Pulse Ox 97% on R/A; Weight 117.93 kg (R); aa9 Height 5 ft. 6 in. (R); 01:55 Body Mass Index 41.96 (117.93 kg, 167.64 cm) aa9 MDM: 01:54 Patient medically screened. adolfo 01:54 Patient medically screened. adolfo 02:19 Differential diagnosis: chronic back pain, Fatigue Fracture Neoplasm Obesity Peptic adolfo Ulcer ruptured disc, sickle cell crisis, Ureterolithiasis. Differential diagnosis: closed head injury. Data reviewed: vital signs, nurses notes, EMS record, lab test result(s), radiologic studies, CT scan, plain films. Consideration of Admission/Observation Escalation of care including admission/observation considered. I considered the following discharge prescriptions or medication management in the emergency department Medications were administered in the Emergency Department. See MAR. Test considered but Not performed: MRI: no mri spine. Care significantly affected by the following chronic conditions: Diabetes, Hypertension, neuropathy, diverticulitis. 02/28 01:59 Order name: CBC with Diff; Complete Time: 03:17 [facility] 02/28 01:59 Order name: Comprehensive Metabolic Panel; Complete Time: 03:17 [facility] 02/28 01:59 Order name: Pelvis XRAY [facility] 02/28 01:59 Order name: CT Traumagram (Head C Spine CAP wo con) [facility] 02/28 04:38 Order name: Misc. Order: cath ua [facility] Administered Medications: 02:20 Drug: NS 0.9% IV 500 ml Route: IV; Rate: bolus; Site: left antecubital; ha1 02:23 Drug: Ondansetron IVP 4 mg Route: IVP; Site: left antecubital; ha1 03:00 Follow up: Response: No adverse reaction ha1 02:25 Drug: fentaNYL (PF) IVP 25 mcg Route: IVP; Site: left antecubital; ha1 02:30 Follow up: Response: No adverse reaction; Pain is decreased; RASS: Alert and Calm (0) ha1 04:35 Drug: Rocephin IV 1 grams Route: IV; Rate: per protocol; Site: left antecubital; ha1 04:40 Drug: Flomax PO 0.4 mg Route: PO; ha1 04:50 Follow up: Response: No adverse reaction ha1 07:23 Not Given (Physician Discretion): fentaNYL (PF) IVP 25 mcg IVP once ha1 Disposition Summary: 02/28/23 04:40 Discharge Ordered Location: Home(02/28/23 04:40) adolfo Problem: new(02/28/23 04:40) adolfo Symptoms: have improved(02/28/23 04:40) adolfo Condition: Fair(02/28/23 04:40) adolfo Diagnosis - Fall on same level, unspecified(02/28/23 04:40) adolfo - Morbid (severe) obesity with alveolar hypoventilation adolfo - Strain of muscle and tendon of back wall of thorax adolfo - Lymphedema, not elsewhere classified adolfo - Hydronephrosis with ureteral stricture, not elsewhere classified(02/28/23 04:40) adolfo - UTI/ Urinary tract infection, site not specified adolfo Followup: adolfo - With: Private Physician - When: 2 - 3 days - Reason: Recheck today's complaints, Continuance of care, Re-evaluation by your physician Followup: adolfo - With: Eugenio Mckeon MD - When: 2 - 3 days - Reason: Recheck today's complaints, Continuance of care, Re-evaluation by your physician Followup: adolfo - With: Bryant Ernst MD - When: 2 - 3 days - Reason: Recheck today's complaints, Re-evaluation by your physician Discharge Instructions: - Discharge Summary Sheet adolfo - Acute Back Pain, Adult adolfo - Dysuria adolfo - Fall Prevention in the Home, Adult adolfo - Obesity, Adult adolfo - Urinary Tract Infection, Adult, Ilao-vi-Eock adolfo - Hydronephrosis adolfo Forms: - Medication Reconciliation Form adolfo - Thank You Letter adolfo - Antibiotic Education adolfo - Prescription Opioid Use adolfo Prescriptions: - Flomax 0.4 mg Oral capsule - take 1 capsule by ORAL route every day at bedtime; 20 capsule; Refills: 0, adolfo Product Selection Permitted - acetaminophen-codeine 300-30 mg Oral tablet - take 1 tablet by ORAL route every 4 hours; 20 tablet; Refills: 0, Product adolfo Selection Permitted - Cipro 250 mg Oral Tablet - take 1 tablet by ORAL route every 12 hours; 14 tablet; Refills: 0, Product adolfo Selection Permitted Signatures: Dispatcher [employer] EDLukasz Magana MD MD cha Ayala, Heidy RN RN ha1 Corrections: (The following items were deleted from the chart) 04:39 04:22 Observation adolfo adolfo 04:39 04:22 Diego Glynn adolfo adolfo 04:39 04:22 Telemetry/MedSurg (observation) adolfo adolfo 04:39 04:22 Stable adolfo adolfo 04:39 04:22 new adolfo adolfo 04:39 04:22 have improved adolfo adolfo 04:39 04:22 Standard adolfo adolfo 04:39 04:22 adolfo adolfo 04:39 04:22 Fall on same level, unspecified adolfo adolfo 04:39 04:22 Low back pain adolfo adolfo 04:39 04:22 Hydronephrosis with ureteral stricture, not elsewhere classified adolfo adolfo 04:39 04:22 Morbid (severe) obesity due to excess calories adolfo adolfo
--- NOTE | 2023-02-28 04:22 | ER ---
Nurse's Notes [facility] Name: Gladis Cantu Age: 77 yrs Sex: Female : 1945 Arrival Date: 02/28/2023 Time: 01:52 Bed 20 Private MD: Diagnosis: Fall on same level, unspecified;Morbid (severe) obesity with alveolar hypoventilation;Strain of muscle and tendon of back wall of thorax;Lymphedema, not elsewhere classified;Hydronephrosis with ureteral stricture, not elsewhere classified;UTI/ Urinary tract infection, site not specified Presentation: 02/28 01:54 Chief complaint: EMS states: 77 year old female. reports falling when she was on the ha1 way to the bathroom. she reports hitting her back. she thinks her back is broken. 01:54 Ebola Screen: No symptoms or risks identified at this time. Initial Sepsis Screen: Does ha1 the patient meet any 2 criteria? No. Patient's initial sepsis screen is negative. Does the patient have a suspected source of infection? No. Patient's initial sepsis screen is negative. Risk Assessment: Do you want to hurt yourself or someone else? Patient reports no desire to harm self or others. Onset of symptoms. 01:54 Method Of Arrival: EMS: [facility] ha1 01:54 Acuity: BERNICE 3 ha1 Triage Assessment: 01:55 General: Appears uncomfortable, Behavior is cooperative. Pain: Complains of pain in ha1 back Pain does not radiate. Pain currently is 10 out of 10 on a pain scale. Quality of pain is described as throbbing, Pain began suddenly. EENT: No signs and/or symptoms were reported regarding the EENT system. Neuro: Level of Consciousness is awake, alert, obeys commands, Oriented to person, place, time, situation. Cardiovascular: Capillary refill < 3 seconds Patient's skin is warm and dry. Respiratory: Airway is patent Respiratory effort is even, unlabored, Respiratory pattern is regular, symmetrical. GI: Abdomen is round non-distended. Derm: Skin is pink, warm \T\ dry. Musculoskeletal: Circulation, motion, and sensation intact. Reports pain in back. Historical: - Allergies: 01:55 PENICILLINS; ha1 01:55 Sulfa (Sulfonamide Antibiotics); ha1 01:55 Iodine; ha1 - Home Meds: 01:55 A\T\D ointment [Active]; amlodipine 5 mg tab 1 tab once daily [Active]; aspirin 325 mg ha1 Oral TbEC 1 tab once daily [Active]; atenolol 50 mg Oral tab 1 tab once daily [Active]; lisinopril 20 mg Oral tab 1 tab once daily [Active]; - PMHx: 01:55 Diabetes - IDDM; Hypertension; lypmphoedema; neuropathy; Diverticulitis; ha1 - Immunization history:: Adult Immunizations. - Social history:: Smoking status: unknown. - Family history:: not pertinent. Screenin:23 Abuse screen: Denies threats or abuse. Denies injuries from another. Nutritional ha1 screening: No deficits noted. Tuberculosis screening: No symptoms or risk factors identified. Assessment: 01:55 Reassessment: see triage assessment. ha1 Vital Signs: 01:55 BP 172 / 93; Pulse 68; Resp 17; Temp 98(O); Pulse Ox 97% on R/A; Weight 117.93 kg (R); aa9 Height 5 ft. 6 in. (R); 01:55 Body Mass Index 41.96 (117.93 kg, 167.64 cm) aa9 ED Course: 01:54 Patient arrived in ED. adolfo 01:54 Lukasz Short MD is Attending Physician. adolfo 01:54 Arm band placed on. ha1 01:54 Patient has correct armband on for positive identification. Placed in gown. Bed in low ha1 position. Call light in reach. Side rails up X 1. 02:05 Olga Baumann RN is Primary Nurse. ha1 02:18 Triage completed. ha1 02:22 Maintain EMS IV. Dressing intact. Good blood return noted. Site clean \T\ dry. Gauge \T\ cespedes 1 site: 20 mag at left AC. 02:35 Pelvis XRAY In Process Unspecified. EDMS 02:38 CT Traumagram (Head C Spine CAP wo con) In Process Unspecified. EDMS 02:48 Comprehensive Metabolic Panel Sent. ha1 02:48 CBC with Diff Sent. ha1 04:21 Diego Glynn MD is Hospitalizing Provider. adolfo 04:40 Eugenio Mckeon MD is Referral Physician. adolfo 04:43 Bryant Ernst MD is Referral Physician. adolfo 05:23 IV discontinued, intact, bleeding controlled, No redness/swelling at site. Pressure ha1 dressing applied. 07:21 No provider procedures requiring assistance completed. ha1 Administered Medications: 02:20 Drug: NS 0.9% IV 500 ml Route: IV; Rate: bolus; Site: left antecubital; ha1 02:23 Drug: Ondansetron IVP 4 mg Route: IVP; Site: left antecubital; ha1 03:00 Follow up: Response: No adverse reaction ha1 02:25 Drug: fentaNYL (PF) IVP 25 mcg Route: IVP; Site: left antecubital; ha1 02:30 Follow up: Response: No adverse reaction; Pain is decreased; RASS: Alert and Calm (0) ha1 04:35 Drug: Rocephin IV 1 grams Route: IV; Rate: per protocol; Site: left antecubital; ha1 04:40 Drug: Flomax PO 0.4 mg Route: PO; ha1 04:50 Follow up: Response: No adverse reaction ha1 07:23 Not Given (Physician Discretion): fentaNYL (PF) IVP 25 mcg IVP once ha1 Medication: 05:23 VIS not applicable for this client. ha1 Outcome: 04:22 Decision to Hospitalize by Provider. [facility] 04:40 Discharge ordered by . adolfo 05:23 Patient left the ED. ha1 05:23 Discharged to home via wheelchair, with family. ha1 05:23 Condition: stable ha1 05:23 Discharge instructions given to patient, family, Instructed on discharge instructions, follow up and referral plans. medication usage, Demonstrated understanding of instructions, follow-up care, medications, Prescriptions given X 3. Signatures: Dispatcher [employer] EDLukasz Magana MD MD cha Avalos, Aylin, RN RN aa9 Olga Baumann, RN RN ha1
[2023-02-28] MEDS ORDERED: TAMSULOSIN 0.4 MG SR CAP ONE (05:10)
[2023-02-28] MEDS ORDERED: CEFTRIAXONE 1000 MG/VIAL ONE (05:11)
[2023-02-28 05:32] VITALS: BP 172/93; TEMP 98; O2SAT 97
--- NOTE | 2023-03-01 13:46 | RAD REPORT ---
EXAM DESCRIPTION: RAD - Pelvis - 02/28/2023 2:33 am CLINICAL HISTORY: 77 years, Female, PAIN COMPARISON: None FINDINGS: 1 single frontal view of the pelvis was obtained. Then pelvic brim is intact. No areas of acute bony injuries were demonstrated. No gross soft tissue abnormality is identified. There are no gross intraosseous lesions. No periosteal reaction were seen. Spurring/degenerative changes ar e identified within the anterior superior aspect of the acetabulum as well as iliac bones and greater trochanters. Minimal degenerative changes lower lumbar spine. IMPRESSION: No acute bony injuries were demonstrated. Mild degenerative changes. Electronically signed by: Abdirashid Zayas MD 02/28/2023 2:44 AM CDT Due to temporary technical issues with the PACS/Fluency reporting system, reports are being signed by the in house radiologists without review as a courtesy to insure prompt reporting. The interpreting radiologist is fully responsible for the content of the report.
--- NOTE | 2023-03-01 14:29 | RAD REPORT ---
EXAM DESCRIPTION: CT - Head C Spine Cap Con - 02/28/2023 6:31 am CLINICAL HISTORY: PAIN, FALL TECHNIQUE: Contiguous axial CT images obtained through the brain without IV contrast. Coronal and sa gittal reformatted images were provided. This exam was performed according to our departmental dose-optimization program, which includes autom ated exposure control, adjustment of the mA and/or kV according to patient size and/or use of iterati ve reconstruction technique. COMPARISON: None available for comparison FINDINGS: Brain: No significant white matter changes. No focal mass effect. La-white matter differ entiation is within normal limits. No hemorrhage. Ventricles: No ventriculomegaly or midline shift. Extra-axial spaces: No extra-axial collection or hemorrhage. Paranasal sinuses and mastoid air cells: Well-aerated Bones: Unremarkable Soft tissues: Unremarkable IMPRESSION: No evidence of acute intracranial pathology. EXAM DESCRIPTION: Head C Spine Cap Con CLINICAL HISTORY: PAIN, FALL TECHNIQUE: Contiguous axial CT images obtained through the cervical spine without IV contrast. Cor onal and sagittal reformatted images also provided. This exam was performed according to our departmental dose-optimization program, which includes autom ated exposure control, adjustment of the mA and/or kV according to patient size and/or use of iterati ve reconstruction technique. COMPARISON: None available for comparison FINDINGS: Vertebra: No acute fracture or subluxation. Degenerative changes: Degenerative changes of the cervical spine with multilevel facet joint arthropa thy, large anterior osteophytes and small disc osteophyte complexes. Extensive calcification surround ing the odontoid process. Prevertebral soft tissues: Unremarkable Lung apices: Clear IMPRESSION: No acute cervical spine fracture or malalignment. Degenerative changes of the cervical s pine. EXAM DESCRIPTION: Head C Spine Cap Con CLINICAL HISTORY: PAIN, FALL TECHNIQUE: Contiguous axial images obtained through the chest , abdomen and pelvis without IV contra st. Coronal and sagittal reformatted images provided. This exam was performed according to our departmental dose-optimization program, which includes autom ated exposure control, adjustment of the mA and/or kV according to patient size and/or use of iterati ve reconstruction technique. COMPARISON: No prior exams provided for comparison. FINDINGS: Lungs: No focal consolidation. Airways are patent. Small calcified granuloma in the right middle lobe. Pleura: No effusion. No pneumothorax. Heart and pericardium: The heart is normal in size. No pericardial effusion. Mediastinum and adolph: No pathologically enlarged lymph nodes. Lower neck and chest wall: Unremarkable Vessels: Unremarkable Bones: Unremarkable Liver: Scattered hepatic granuloma. Gallbladder and biliary system: Unremarkable Pancreas: Unremarkable Spleen: Splenic granuloma. Adrenals: Unremarkable Kidneys: Bilateral hydronephrosis with prominent extrarenal pelvis bilaterally. Bilateral hydroureter with tapering distally. No evidence of ureteral calculi. Recommend further eval uation with intravenous contrast for further assessment of the renal collecting systems and ureters. Distal ureteral obstruction or stricture should be considered. Gl : No obstruction. No appreciable mucosal thickening. Scattered colonic diverticula with no evidenc e of diverticulitis. Appendix: No findings to suggest acute appendicitis. Urinary bladder: Cystocele. Reproductive: Status post hysterectomy. Lymph nodes: No pathologically enlarged lymph nodes. Peritoneum: No focal fluid collection. No free air. Vessels: No abdominal aortic aneurysm. Atherosclerotic peripheral vascular disease. Abdominal wall: Fat-containing periumbilical ventral hernia. Bones: Unremarkable IMPRESSION: No evidence of acute thoracic, abdominal or pelvic injury. Evaluation of intra-abdominal viscera is limited without intravenous contrast. Bilateral hydronephrosis with prominent extrarenal pelvis bilaterally. Bilateral hydroureter with tap ering distally. No evidence of ureteral calculi. Distal ureteral obstruction or stricture should be c onsidered. Recommend further evaluation with intravenous contrast for further assessment of the renal collecting systems and ureters. Cystocele. Electronically signed by: Jonas Cruz MD 02/28/2023 4:03 AM CDT Due to temporary technical issues with the PACS/Fluency reporting system, reports are being signed by the in house radiologists without review as a courtesy to insure prompt reporting. The interpreting radiologist is fully responsible for the content of the report.
== END 2023-02-28 05:23 | disposition home or self-care (01) ==
LOC: ER 01:52
DX: S29.012A Strain of muscle and tendon of back wall of thorax, initial encounter (principal); N13.1 Hydronephrosis with ureteral stricture, not elsewhere classified; N39.0 Urinary tract infection, site not specified; I89.0 Lymphedema, not elsewhere classified; E66.2 Morbid (severe) obesity with alveolar hypoventilation; Z68.42 Body mass index [BMI] 45.0-49.9, adult; W18.30XA Fall on same level, unspecified, initial encounter; I10 Essential (primary) hypertension; E11.9 Type 2 diabetes mellitus without complications; Z79.82 Long term (current) use of aspirin; Z88.0 Allergy status to penicillin; Z88.2 Allergy status to sulfonamides; Z91.048 Other nonmedicinal substance allergy status
CPT/HCPCS: 85025; 36415; 80053; 70450; 71250; 72125; 72170; J3010; J2405; J7040; J0696

== ENCOUNTER 2024-09-29 22:14 | Inpatient (IN) | payer OTHER, MEDICARE ==
[2024-09-30] MEDS ORDERED: METOCLOPRAMIDE 10 MG/2mL INJ ONE (00:36)
[2024-09-30] MEDS ORDERED: ONDANSETRON 4 MG/2 ML VIAL ONE (00:36)
[2024-09-30] MEDS ORDERED: FAMOTIDINE 20 MG/2 ML VIAL IV ONE (00:37)
[2024-09-30] MEDS ORDERED: NA CHLORIDE 0.9% 1,000 ML ONE ×2 (00:37→02:08)
[2024-09-30] MEDS ORDERED: MORPHINE 4 MG/ML SYR ONE (00:37)
[2024-09-30 01:01] LABS: Absolute Lymphocytes (CBC) 0.6 K/uL (0.7-4.9); Absolute Monocytes 0.5 K/uL (0.1-1.3); Absolute Neutrophil 11.6 K/uL (1.8-8.0); Basophils % 0.3 % (0-1.3); Eosinophils % 0.2 % (0-4.4); Hematocrit 44.2 % (36.0-45.0); Hemoglobin 14.6 g/dL (12.0-15.0); Lymphocytes % 4.9 % (15.3-44.8); MCH 28.1 pg (27.0-35.0); MCV 85.2 fL (80-100); MPV 9.8 fL (7.6-11.3); Monocytes % 3.9 % (3.3-12.3); Neutrophils % 90.7 % (41.7-73.7); Platelets 132 thou/uL (152-406); RBC Red Blood Cell Count 5.19 M/uL (3.86-4.86); Red Cell Distribution Width 14.1 % (12.1-15.2)
[2024-09-30 01:13] LABS: Albumin 2.4 g/dL (3.4-5.0); Albumin/Globulin Ratio 0.5 (1.1-1.8); Anion Gap 10.3 mEq/L (5.0-15.0); Bilirubin Total 0.7 mg/dL (0.2-1.0); Globulin 4.8 g/dL (2.3-3.5); Potassium 3.3 mEq/L (3.5-5.1); Protein, Total 7.2 g/dL (6.4-8.2); Troponin High Sensitivity 22.4 pg/mL (<58.9)
[2024-09-30 01:19] LABS: C-Reactive Protein 9.39 mg/L (<3.00); Thyroid Stimulating Hormone 1.26 uIU/mL (0.358-3.740)
[2024-09-30] MEDS ORDERED: HALOPERIDOL LACT 5 MG/ML INJ ONE (02:07)
[2024-09-30] MEDS ORDERED: MORPHINE 2 MG/ML SYR ONE (02:08)
[2024-09-30 02:40] LABS: SARS-CoV-2 Antigen CONTROL BLUE LINE VIS/BG OK; SARS-CoV-2 Antigen Rapid Res Negative (Negative)
[2024-09-30 02:54] LABS: Specific Gravity 1.009 (1.005-1.030); Sqamous Epithelial <5 /HPF (None Seen); Urine Bacteria <20 /HPF (<20); Urine Bilirubin NEGATIVE (Negative); Urine Blood Negative (Negative); Urine Clarity Extremely Turbid (Clear); Urine Color Light-Yellow (Yellow); Urine Culture Reflex Order REFLEXED; Urine Glucose 1+ (Negative); Urine Ketones NEGATIVE (Negative); Urine Microscopic Reflex YN ORDER UMIC; Urine Nitrite NEGATIVE (Negative); Urine Protein 3+ (Negative); Urine Urobilinogen Normal (Normal); Urine WBC >50 /HPF (<5); Urine WBC Clump Occasional /HPF (None Seen); Urine pH 6.5 (5.0-7.0)
[2024-09-30 03:53] LABS: Band Neutrophils 23 % (0-1); Differential Total Cells Count 100; Eosinophils 1 % (0-3); Lymphocytes 3 % (15-42); Monocytes 1 % (0-10); Reactive Lymphocytes 1 %; Segmented Neutrophils 71 % (40-80)
[2024-09-30 03:54] LABS: Blood Morphology Comment NOT SEEN (NOT SEEN); Platelet Estimate ADEQ
--- NOTE | 2024-09-30 05:12 | EDPHYS ---
Physician Documentation [facility] Name: Gladis Cantu Age: 79 yrs Sex: Female : 1945 Arrival Date: 09/29/2024 Time: 22:14 Bed 8 Private MD: ED Physician Alejandro Redd HPI: 09/30 05:10 This 79 yrs old Female presents to ER via EMS with complaints of sp4 Nausea/Vomiting/Diarrhea, Abdominal Pain. 06:51 79-year-old female history of diabetes presents with acute nausea vomiting complaint of sp4 abdominal pain and diarrhea starting 3 days ago. Also generalized weakness. Historical: - Allergies: 09/29 22:17 Iodine; al5 22:17 PENICILLINS; al5 22:17 Sulfa (Sulfonamide Antibiotics); al5 - Home Meds: 22:17 atenolol 50 mg Oral tab 1 tab once daily [Active]; gabapentin 100 mg Oral cap [Active]; al5 hydrocodone-acetaminophen 7.5-325 mg Oral tab 1 tab every 6 hours [Active]; nortriptyline 50 mg Oral cap 1 cap once daily [Active]; Novolin 70/30 [place] Sub-Q [Active]; Prilosec 20 mg Oral cpDR 1 cap once daily [Active]; lisinopril 20 mg Oral tab 1 tab once daily [Active]; isosorbide mononitrate 30 mg Oral Tb24 1 tab once daily [Active]; aspirin 81 mg oral tablet, delayed release (enteric coated) 2 times per day [Active]; amiloride 5 mg oral tablet daily [Active]; levothyroxine 175 mcg tablet daily [Active]; - PMHx: 22:17 neuropathy; lypmphoedema; Diverticulitis; Diabetes - IDDM; Hypertension; al5 - Immunization history:: Adult Immunizations up to date. - Infectious Disease History:: Denies. - Social history:: Smoking status: Patient denies any tobacco usage or history of. - Family history:: not pertinent. ROS: 09/30 06:51 Constitutional: Negative for fever, chills, and weight loss, positive nausea vomiting sp4 diarrhea abdominal pain positive generalized weakness All other systems are negative, Exam: 06:51 Constitutional: This is a well developed, well nourished patient who is awake, alert, sp4 and in no acute distress. Head/Face: Normocephalic, atraumatic. Eyes: Pupils equal round and reactive to light, extra-ocular motions intact. Lids and lashes normal. Conjunctiva and sclera are not injected. Cornea within normal limits. Periorbital areas with no swelling, redness, or edema. ENT: Nares patent. No nasal discharge, no septal abnormalities noted. Tympanic membranes are normal and external auditory canals are clear. Oropharynx with no redness, swelling, or masses, exudates, or evidence of obstruction, uvula midline. Mucous membranes moist. Neck: Trachea midline, no thyromegaly or masses palpated, and no cervical lymphadenopathy. Supple, full range of motion without nuchal rigidity, or vertebral point tenderness. Chest/axilla: Normal chest wall appearance and motion. Nontender with no deformity. No lesions are appreciated. Cardiovascular: Regular rate and rhythm with a normal S1 and S2. No gallops, murmurs, or rubs. Normal PMI, no JVD. No pulse deficits. Respiratory: Lungs have equal breath sounds bilaterally, clear to auscultation and percussion. No rales, rhonchi or wheezes noted. No increased work of breathing, no retractions or nasal flaring. Abdomen/GI: Soft, with normal bowel sounds. No distension or tympany. No guarding or rebound. No evidence of tenderness throughout. Back: No spinal tenderness. No costovertebral tenderness. Female : Normal external genitalia. Skin: Warm, dry with normal turgor. Normal color with no rashes, no lesions, and no evidence of cellulitis. MS/ Extremity: Pulses equal, no cyanosis. Neurovascular intact. Full, normal range of motion. Neuro: Awake and alert, GCS 15, oriented to person, place, time, and situation. Cranial nerves II-XII grossly intact. Motor strength 5/5 in all extremities. Sensory grossly intact. Psych: Awake, alert, with orientation to person, place and time. Behavior, mood, and affect are within normal limits 06:51 ECG was reviewed by the Attending Physician. EKG at 0022 normal sinus rhythm rate 68, right bundle branch block otherwise normal. Vital Signs: 09/29 22:16 BP 170 / 57; Pulse 69; Resp 18; Temp 99.5; Pulse Ox 97% on R/A; Weight 107 kg; Height 5 al5 ft. 6 in. ; 23:15 BP 141 / 50; Pulse 65; Resp 16; Pulse Ox 98% on R/A; jb4 09/30 02:00 BP 129 / 54; Pulse 63; Resp 16; Pulse Ox 96% on R/A; jb4 02:30 BP 133 / 48; Pulse 61; Resp 16; Pulse Ox 96% on R/A; al5 03:00 BP 145 / 52; Pulse 62; Resp 14; Pulse Ox 98% on R/A; al5 03:30 BP 134 / 50; Pulse 58; Resp 15; Pulse Ox 100% on R/A; al5 04:00 BP 138 / 51; Pulse 52; Resp 15; Pulse Ox 99% on R/A; al5 04:30 BP 142 / 55; Pulse 57; Resp 17; Pulse Ox 98% on R/A; al5 05:00 BP 167 / 74; Pulse 55; Resp 16; Pulse Ox 99% on R/A; al5 05:30 BP 142 / 43; Pulse 49; Resp 15; Pulse Ox 100% on R/A; al5 06:00 BP 137 / 51; Pulse 51; Resp 17; Pulse Ox 100% on R/A; al5 09/29 22:16 Body Mass Index 38.07 (107.00 kg, 167.64 cm) al5 Holger Coma Score: 06:51 Eye Response: spontaneous(4). Motor Response: obeys commands(6). Verbal Response: sp4 oriented(5). Total: 15. MDM: 09/29 22:31 Medical Screening Exam initiated sp4 09/30 05:03 ED course: COMPARISON: CT Chest Abdomen Pelvis 02/28/2023. FINDINGS: CHEST: Lungs: sp4 Mosaic attenuation. Scattered bilateral subsegmental atelectasis/pleural parenchymal scar. No mass. Pleural space: Unremarkable. No significant effusion. No pneumothorax. Heart: The heart is mildly enlarged. Coronary artery and mitral annular calcification. No significant pericardial effusion. ABDOMEN: Liver: Hepatic parenchymal calcifications compatible with remote granulomatous organism exposure. Gallbladder and bile ducts: The gallbladder is not visualized, presumably surgically absent. Mild biliary dilatation similar to the prior. Pancreas: Mild to moderate pancreatic parenchymal atrophy. No ductal dilation. Spleen: Splenic parenchymal calcifications compatible with remote granulomatous organism exposure. Adrenals: Unremarkable. No mass. Kidneys and ureters: No calculi. No hydronephrosis. Mild to moderate bilateral hydroureter less pronounced on the current study. Stomach and bowel: Colonic diverticula without adjacent inflammatory change. No obstruction. No mucosal thickening. PELVIS: Appendix: Normal caliber appendix. No findings to suggest acute appendicitis. Bladder: The urinary bladder is decompressed by a Ashley catheter. No stones. Reproductive: Unremarkable as visualized. CHEST, ABDOMEN and PELVIS: Intraperitoneal space: Unremarkable. No significant fluid collection. No free air. Bones/joints: Multilevel spondylosis. No acute fracture. No dislocation. Soft tissues: Small to moderate fat-containing periumbilical hernia. Vasculature: Moderate to severe atherosclerotic disease. No aortic aneurysm. Lymph nodes: Unremarkable. No enlarged lymph nodes. IMPRESSION: 1. Mosaic attenuation within the lungs bilaterally. Differential considerations include small airways disease, small vessel disease and interstitial infiltrates. 2. No bowel obstruction. 3. Mild to moderate bilateral hydroureter less pronounced on the current study. No renal, ureteral or bladder calculi. Vesicoureteral reflux or the possibility of distal ureteral strictures may be considered. 4. Other findings as above. . 05:12 Differential diagnosis: Nonspecific abd pain, gastritis, cholecystitis, pancreatitis, sp4 diverticulitis, viral gastroenteritis, gastroenteritis. Data reviewed: vital signs, nurses notes, EMS record, lab test result(s), radiologic studies, CT scan. 06:51 Consideration of Admission/Observation Patient was admitted/placed on observation. sp4 Escalation of care including admission/observation considered. Management of patient was discussed with the following: Primary Care Provider: Linda VALENZUELA . 09/29 22:29 Order name: CBC with Diff; Complete Time: 05:00 sp4 09/29 22:29 Order name: CMP; Complete Time: 05:00 sp4 09/29 22:29 Order name: Lipase; Complete Time: 05:00 sp4 09/29 22:29 Order name: Urinalysis w/ reflexes; Complete Time: 05:00 sp4 09/29 22:29 Order name: Troponin High Sensitivity; Complete Time: 05:00 sp4 09/29 22:29 Order name: BNP; Complete Time: 05:00 sp4 09/29 22:30 Order name: T4 Free; Complete Time: 05:00 sp4 09/29 22:30 Order name: TSH; Complete Time: 05:00 sp4 09/29 22:31 Order name: SARS RAPID; Complete Time: 05:00 4 09/29 22:31 Order name: Influenza Screen (a \T\ B); Complete Time: 05:00 [facility] 09/29 22:31 Order name: CRP; Complete Time: 05:00 [facility] 09/30 01:10 Order name: Manual Differential; Complete Time: 05:00 EDPA 09/30 03:27 Order name: Urine Culture [facility] 09/30 05:03 Order name: Blood Culture Adult (2) [facility] 09/30 00:42 Order name: CT Chest Abdomen Pelvis W/O Contrast [facility] 09/29 22:29 Order name: IV Saline Lock; Complete Time: 00:33 [facility] 09/29 22:29 Order name: Labs collected and sent; Complete Time: : sp4 EC:51 Rate is 68 beats/min. Rhythm is regular, Normal Sinus Rhythm. QRS [place] is Normal. [place] sp4 interval is normal. QRS interval is prolonged. QT interval is normal. No Q waves. T waves are Normal. No ST changes noted. Clinical impression: No evidence of ischemia. Interpreted by me. Reviewed by me. Administered Medications: 00:47 Drug: Famotidine IVP 20 mg IVP once; dilute with 10 mL 0.9% NaCl; give over 2 minutes jb4 Route: IVP; Site: left hand; 02:19 Follow up: Response: No adverse reaction; Marked relief of symptoms jb4 00:47 Drug: Ondansetron IVP 4 mg IVP once; over 2 minutes Route: IVP; Site: left hand; jb4 01:10 Follow up: Response: No adverse reaction; Marked relief of symptoms; Nausea is decreasedjb4 00:47 Drug: morphine IVP or IV 4 mg IVP once over 4 mins Route: IVP; Infused Over: 4 mins; jb4 Site: left hand; 01:10 Follow up: Response: No adverse reaction; Marked relief of symptoms; Pain is decreased; jb4 RASS: Alert and Calm (0) 00:47 Drug: NS 0.9% IV 1000 ml IV at 1 bolus Per protocol; to be given as a bolus over 60 jb4 minutes Route: IV; Rate: 1 bolus; Site: left hand; 01:47 Follow up: Response: No adverse reaction; Marked relief of symptoms; IV Status: jb4 Completed infusion; IV Intake: 1000ml 00:48 Drug: metoCLOPramide IVP 10 mg IVP once; over 1 to 2 minutes Route: IVP; Site: left 4 hand; 02:19 Follow up: Response: No adverse reaction; Marked relief of symptoms; Nausea is decreasedjb4 02:19 Not Given (Other Intervention Used): haloperidol2.5 mg/50 ml 2.5 mg IVP once; Place jb4 patient on a cardiac cath lab manager 02:19 Drug: NS 0.9% IV 1000 ml IV at 125 ml/hr continuous Route: IV; Rate: 125 ml/hr; Site: [facility] left hand; 06:13 Follow up: Response: No adverse reaction; IV Status: Infusion continued upon admission al5 02:19 Drug: morphine IVP or IV 2 mg IVP once over 4 mins Route: IVP; Infused Over: 4 mins; [facility] Site: left hand; 06:12 Follow up: Response: No adverse reaction; Pain is decreased al5 02:21 Drug: Haloperidol Lactate IM 2.5 mg IM once Route: IM; Site: right deltoid; [facility] 06:12 Follow up: Response: No adverse reaction al5 07:10 Drug: Rocephin - Rocephin (cefTRIAXone) IVPB 1 grams IVPB once over 30 mins; (mix in 50 al5 mL NS) Route: IVPB; Infused Over: 30 mins; Site: left hand; 07:10 Follow up: Response: No adverse reaction; IV Status: Infusion continued upon admission al5 07:10 Drug: metroNIDAZOLE IVPB 500 mg 100 ml IVPB at 200 ml/hr once over 30 mins Volume: 100 al5 ml; Route: IVPB; Rate: 200 ml/hr; Infused Over: 30 mins; Site: left hand; 07:10 Follow up: Response: No adverse reaction; IV Status: Infusion continued upon admission al5 Disposition Summary: 09/30/24 05:11 Hospitalization Ordered Notes: Hospitalization Status: Observation sp4 Provider: Eugenio Mckeon sp4 Location: Telemetry/[facility] (observation) sp4 Condition: Stable sp4 Problem: new sp4 Symptoms: have improved sp4 Bed/Room Type: Standard sp4 Room Assignment: 216(09/30/24 06:36) rv1 Diagnosis - Acute viral gastroenteritis, moderate dehydration, acute renal insufficiency sp4 Forms: - Medication Reconciliation Form sp4 - SBAR form sp4 - Leadership Thank You Letter sp4 Signatures: Dispatcher [employer] EDPA Juan Bob, RN RN jb4 Megan Sagastume rv1 Alejandro Redd MD MD sp4 Kira Renteria RN RN al5 Corrections: (The following items were deleted from the chart) 09/29 22:31 22:31 THYROID STIMULAT HORMONE+C.LAB.BRZ ordered. EDMS EDMS 09/30 00:45 09/29 22:29 Abdomen Pelvis W Con+CT.RAD.BRZ ordered. EDMS EDMS 09/30 06:36 05:11 sp4 rv1
--- NOTE | 2024-09-30 05:12 | ER ---
Nurse's Notes [facility] Name: Gladis Cantu Age: 79 yrs Sex: Female : 1945 Arrival Date: 09/29/2024 Time: 22:14 Bed 8 Private MD: Diagnosis: Acute viral gastroenteritis, moderate dehydration, acute renal insufficiency Presentation: 09/29 22:16 Chief complaint: EMS states: c/o n/v/d and abdominal pain. Coronavirus screen: At this al5 time, the client does not indicate any symptoms associated with coronavirus-19. Ebola Screen: No symptoms or risks identified at this time. Initial Sepsis Screen: Does the patient meet any 2 criteria? No. Patient's initial sepsis screen is negative. Does the patient have a suspected source of infection? No. Patient's initial sepsis screen is negative. Risk Assessment: Do you want to hurt yourself or someone else? Patient reports no desire to harm self or others. Onset of symptoms was September 29, 2024. 22:16 Method Of Arrival: EMS: [facility] al5 22:16 Acuity: BERNICE 3 al5 Triage Assessment: 22:22 General: Appears in no apparent distress. uncomfortable, Behavior is calm, cooperative. al5 Pain: Complains of pain in abdomen. EENT: No signs and/or symptoms were reported regarding the EENT system. Neuro: Level of Consciousness is awake, alert, obeys commands, Oriented to person, place, time, situation. Cardiovascular: Capillary refill < 3 seconds Patient's skin is warm and dry. Respiratory: Airway is patent Respiratory effort is even, unlabored, Respiratory pattern is regular, symmetrical. GI: Abdomen is round distended, obese, Reports lower abdominal pain, upper abdominal pain, diarrhea, nausea, vomiting. : No signs and/or symptoms were reported regarding the genitourinary system. Derm: Skin is intact, Skin is pink, warm \T\ dry. normal. Musculoskeletal: No signs and/or symptoms reported regarding the musculoskeletal system. Historical: - Allergies: 22:17 Iodine; al5 22:17 PENICILLINS; al5 22:17 Sulfa (Sulfonamide Antibiotics); al5 - Home Meds: 22:17 atenolol 50 mg Oral tab 1 tab once daily [Active]; gabapentin 100 mg Oral cap [Active]; al5 hydrocodone-acetaminophen 7.5-325 mg Oral tab 1 tab every 6 hours [Active]; nortriptyline 50 mg Oral cap 1 cap once daily [Active]; Novolin 70/30 [place] Sub-Q [Active]; Prilosec 20 mg Oral cpDR 1 cap once daily [Active]; lisinopril 20 mg Oral tab 1 tab once daily [Active]; isosorbide mononitrate 30 mg Oral Tb24 1 tab once daily [Active]; aspirin 81 mg oral tablet, delayed release (enteric coated) 2 times per day [Active]; amiloride 5 mg oral tablet daily [Active]; levothyroxine 175 mcg tablet daily [Active]; - PMHx: 22:17 neuropathy; lypmphoedema; Diverticulitis; Diabetes - IDDM; Hypertension; al5 - Immunization history:: Adult Immunizations up to date. - Infectious Disease History:: Denies. - Social history:: Smoking status: Patient denies any tobacco usage or history of. - Family history:: not pertinent. Screenin:23 [facility] ED Fall Risk Assessment (Adult) History of falling in the last 3 months, al5 including since admission No falls in past 3 months (0 pts) Confusion or Disorientation No (0 pts) Intoxicated or Sedated No (0 pts) Impaired Gait Yes (1 pt) Mobility Assist Device Used Yes (1 pt) Altered Elimination Yes (1 pt) Score/Fall Risk Level 3 or more points = High Risk Oriented to surroundings, Maintained a safe environment, Apply high fall risk patient identification: yellow non skid footwear/ fall signage. Abuse screen: Denies threats or abuse. Denies injuries from another. Nutritional screening: No deficits noted. Tuberculosis screening: No symptoms or risk factors identified. Assessment: 22:23 Reassessment: see triage assessment. al5 23:30 Reassessment: Patient appears in no apparent distress at this time. Patient and/or jb4 family updated on plan of care and expected duration. Pain level reassessed. Patient is alert, oriented x 3, equal unlabored respirations, skin warm/dry/pink. 09/30 00:30 Reassessment: Patient appears in no apparent distress at this time. Patient and/or jb4 family updated on plan of care and expected duration. Pain level reassessed. Patient is alert, oriented x 3, equal unlabored respirations, skin warm/dry/pink. 01:30 Reassessment: Patient appears in no apparent distress at this time. Patient and/or jb4 family updated on plan of care and expected duration. Pain level reassessed. Patient is alert, oriented x 3, equal unlabored respirations, skin warm/dry/pink. Patient states feeling better. 02:23 Reassessment: Patient appears in no apparent distress at this time. Patient and/or jb4 family updated on plan of care and expected duration. Pain level reassessed. Patient is alert, oriented x 3, equal unlabored respirations, skin warm/dry/pink. 04:45 Reassessment: Patient appears in no apparent distress at this time. No changes from al5 previously documented assessment. Patient and/or family updated on plan of care and expected duration. Pain level reassessed. Patient is alert, oriented x 3, equal unlabored respirations, skin warm/dry/pink. 06:09 Reassessment: Patient appears in no apparent distress at this time. No changes from al5 previously documented assessment. Patient and/or family updated on plan of care and expected duration. Pain level reassessed. Patient is alert, oriented x 3, equal unlabored respirations, skin warm/dry/pink. Vital Signs: 09/29 22:16 BP 170 / 57; Pulse 69; Resp 18; Temp 99.5; Pulse Ox 97% on R/A; Weight 107 kg; Height 5 al5 ft. 6 in. ; 23:15 BP 141 / 50; Pulse 65; Resp 16; Pulse Ox 98% on R/A; jb4 09/30 02:00 BP 129 / 54; Pulse 63; Resp 16; Pulse Ox 96% on R/A; jb4 02:30 BP 133 / 48; Pulse 61; Resp 16; Pulse Ox 96% on R/A; al5 03:00 BP 145 / 52; Pulse 62; Resp 14; Pulse Ox 98% on R/A; al5 03:30 BP 134 / 50; Pulse 58; Resp 15; Pulse Ox 100% on R/A; al5 04:00 BP 138 / 51; Pulse 52; Resp 15; Pulse Ox 99% on R/A; al5 04:30 BP 142 / 55; Pulse 57; Resp 17; Pulse Ox 98% on R/A; al5 05:00 BP 167 / 74; Pulse 55; Resp 16; Pulse Ox 99% on R/A; al5 05:30 BP 142 / 43; Pulse 49; Resp 15; Pulse Ox 100% on R/A; al5 06:00 BP 137 / 51; Pulse 51; Resp 17; Pulse Ox 100% on R/A; al5 09/29 22:16 Body Mass Index 38.07 (107.00 kg, 167.64 cm) al5 Holger Coma Score: 06:51 Eye Response: spontaneous(4). Motor Response: obeys commands(6). Verbal Response: sp4 oriented(5). Total: 15. ED Course: 09/29 22:16 Patient arrived in ED. al5 22:17 Triage completed. al5 22:23 Arm band placed on right wrist. Patient placed in the treatment room, on a stretcher. al5 22:24 Kira Renteria RN is Primary Nurse. al5 22:24 Alejandro Redd MD is Attending Physician. al5 22:24 Patient has correct armband on for positive identification. Placed in gown. Bed in low al5 position. Call light in reach. Side rails up X2. Provided Education on: plan of care. 22:24 No provider procedures requiring assistance completed. Maintain EMS IV. Dressing al5 intact. Good blood return noted. Site clean \T\ dry. Gauge \T\ site: 22G L Hand. 09/30 01:05 Ashley cath inserted, using sterile technique, 16 Fr., by me, balloon inflated, to bc6 gravity drainage, urine specimen collected. other CHG WIPES USED IN PLACE OF IODINE DUE TO ALLERGY. 02:06 CT Chest Abdomen Pelvis W/O Contrast In Process Unspecified. EDMS 05:11 Eugenio Mckeon MD is Hospitalizing Provider. sp4 06:12 Patient admitted, IV remains in place. al5 Administered Medications: 00:47 Drug: Famotidine IVP 20 mg IVP once; dilute with 10 mL 0.9% NaCl; give over 2 minutes jb4 Route: IVP; Site: left hand; 02:19 Follow up: Response: No adverse reaction; Marked relief of symptoms jb4 00:47 Drug: Ondansetron IVP 4 mg IVP once; over 2 minutes Route: IVP; Site: left hand; jb4 01:10 Follow up: Response: No adverse reaction; Marked relief of symptoms; Nausea is decreasedjb4 00:47 Drug: morphine IVP or IV 4 mg IVP once over 4 mins Route: IVP; Infused Over: 4 mins; [facility] Site: left hand; 01:10 Follow up: Response: No adverse reaction; Marked relief of symptoms; Pain is decreased; [facility] RASS: Alert and Calm (0) 00:47 Drug: NS 0.9% IV 1000 ml IV at 1 bolus Per protocol; to be given as a bolus over 60 jb4 minutes Route: IV; Rate: 1 bolus; Site: left hand; 01:47 Follow up: Response: No adverse reaction; Marked relief of symptoms; IV Status: 4 Completed infusion; IV Intake: 1000ml 00:48 Drug: metoCLOPramide IVP 10 mg IVP once; over 1 to 2 minutes Route: IVP; Site: left [facility] hand; 02:19 Follow up: Response: No adverse reaction; Marked relief of symptoms; Nausea is decreasedjb4 02:19 Not Given (Other Intervention Used): haloperidol2.5 mg/50 ml 2.5 mg IVP once; Place 4 patient on a rn cardiac rehab 02:19 Drug: NS 0.9% IV 1000 ml IV at 125 ml/hr continuous Route: IV; Rate: 125 ml/hr; Site: [facility] left hand; 06:13 Follow up: Response: No adverse reaction; IV Status: Infusion continued upon admission al5 02:19 Drug: morphine IVP or IV 2 mg IVP once over 4 mins Route: IVP; Infused Over: 4 mins; [facility] Site: left hand; 06:12 Follow up: Response: No adverse reaction; Pain is decreased al5 02:21 Drug: Haloperidol Lactate IM 2.5 mg IM once Route: IM; Site: right deltoid; [facility] 06:12 Follow up: Response: No adverse reaction al5 07:10 Drug: Rocephin - Rocephin (cefTRIAXone) IVPB 1 grams IVPB once over 30 mins; (mix in 50 al5 mL NS) Route: IVPB; Infused Over: 30 mins; Site: left hand; 07:10 Follow up: Response: No adverse reaction; IV Status: Infusion continued upon admission al5 07:10 Drug: metroNIDAZOLE IVPB 500 mg 100 ml IVPB at 200 ml/hr once over 30 mins Volume: 100 al5 ml; Route: IVPB; Rate: 200 ml/hr; Infused Over: 30 mins; Site: left hand; 07:10 Follow up: Response: No adverse reaction; IV Status: Infusion continued upon admission al5 Medication: 09/29 22:23 VIS not applicable for this client. al5 Intake: 09/30 01:47 IV: 1000ml; Total: 1000ml. jb4 Outcome: 05:11 Decision to Hospitalize by Provider. sp4 07:52 Patient left the ED. bp Signatures: Dispatcher [employer] EDJuan Benedict RN RN jb4 Juan Antonio Sheffield RN RN bp Melissa Man Sergey, MD MD sp4 Kira Renteria RN RN al5
--- NOTE | 2024-09-30 05:30 | RAD REPORT ---
EXAM: CT Chest, Abdomen and Pelvis Without Intravenous Contrast CLINICAL HISTORY: Rule out obstruction. TECHNIQUE: Axial computed tomography images of the chest, abdomen and pelvis without intravenous contrast. Sag ittal and coronal reformatted images were created and reviewed. This CT exam was performed using one or more of the following dose reduction techniques: automated exposure control, adjustment of t he mA and/or kV according to patient size, and/or use of iterative reconstruction technique. COMPARISON: CT Chest Abdomen Pelvis 02/28/2023. FINDINGS: CHEST: Lungs: Mosaic attenuation. Scattered bilateral subsegmental atelectasis/pleural parenchymal scar. No mass. Pleural space: Unremarkable. No significant effusion. No pneumothorax. Heart: The heart is mildly enlarged. Coronary artery and mitral annular calcification. No signifi cant pericardial effusion. ABDOMEN: Liver: Hepatic parenchymal calcifications compatible with remote granulomatous organism exposure. Gallbladder and bile ducts: The gallbladder is not visualized, presumably surgically absent. Mild b iliary dilatation similar to the prior. Pancreas: Mild to moderate pancreatic parenchymal atrophy. No ductal dilation. Spleen: Splenic parenchymal calcifications compatible with remote granulomatous organism exposure. Adrenals: Unremarkable. No mass. Kidneys and ureters: No calculi. No hydronephrosis. Mild to moderate bilateral hydroureter less pro nounced on the current study. Stomach and bowel: Colonic diverticula without adjacent inflammatory change. No obstruction. No mucosal thickening. PELVIS: Appendix: Normal caliber appendix. No findings to suggest acute appendicitis. Bladder: The urinary bladder is decompressed by a Ashley catheter. No stones. Reproductive: Unremarkable as visualized. CHEST, ABDOMEN and PELVIS: Intraperitoneal space: Unremarkable. No significant fluid collection. No free air. Bones/joints: Multilevel spondylosis. No acute fracture. No dislocation. Soft tissues: Small to moderate fat-containing periumbilical hernia. Vasculature: Moderate to severe atherosclerotic disease. No aortic aneurysm. Lymph nodes: Unremarkable. No enlarged lymph nodes. IMPRESSION: 1. Mosaic attenuation within the lungs bilaterally. Differential considerations include small airwa ys disease, small vessel disease and interstitial infiltrates. 2. No bowel obstruction. 3. Mild to moderate bilateral hydroureter less pronounced on the current study. No renal, ureteral or bladder calculi. Vesicoureteral reflux or the possibility of distal ureteral strictures may be considered. 4. Other findings as above. Electronically signed by: Jorge Laughlin MD 09/30/2024 03:08 AM [facility] Due to temporary technical issues with the PACS/[employer] reporting system, reports are being rula d by the in-house radiologist without review as a courtesy to ensure prompt reporting the interpreting radiologist is fully responsible for the content of the report. Transcribed Date/Time: 09/30/2024 5:30 AM
[2024-09-30] MEDS ORDERED: CEFTRIAXONE 1000 MG/VIAL ONE (06:55)
[2024-09-30] MEDS ORDERED: NA CHLORIDE 0.9% 50 ML ONE (06:55)
[2024-09-30] MEDS ORDERED: METRONIDAZOLE 500mg IVPB 500 MG/100 ML BAG IV ONE (06:55)
[2024-09-30] MEDS ORDERED: GLUCAGON 1 MG/VIAL IM PRN (08:08)
[2024-09-30] MEDS ORDERED: ACETAMINOPHEN 325 MG TABLET PO PRN (08:08)
[2024-09-30] MEDS ORDERED: D10W 125 ML IV PRN (08:08)
[2024-09-30] MEDS: NA CHLORIDE 0.9% 1,000 ML IV SCH (08:08)
[2024-09-30] MEDS ORDERED: ALBUTEROL 2.5 MG/3 ML NEB SOL NEB PRN (08:08)
[2024-09-30] MEDS ORDERED: ONDANSETRON 4 MG/2 ML VIAL IV PRN (08:08)
[2024-09-30] MEDS: Levofloxacin500mg IV 500 MG/100 ML BAG IV SCH (09:56)
[2024-09-30] MEDS: AMILORIDE HCL 5 MG TABLET PO SCH (09:56)
[2024-09-30] MEDS: ISOSORBIDE MONO SR 30 MG TAB PO SCH (09:57)
[2024-09-30] MEDS: lisinopriL 20 MG TAB PO SCH ×2 (09:57→21:16)
[2024-09-30] MEDS: INSULIN REGULAR (HUMAN) 100 UNIT/ML SQ SCH (09:58)
[2024-09-30 12:34] LABS: Specific Gravity 1.014 (1.005-1.030); Transitional Epithelial <5 /HPF (None Seen); Urine Bacteria <20 /HPF (<20); Urine Bilirubin NEGATIVE (Negative); Urine Blood 3+ (Negative); Urine Clarity Extremely Turbid (Clear); Urine Color Yellow (Yellow); Urine Culture Reflex Order REFLEXED; Urine Glucose 4+ (Over) (Negative); Urine Ketones NEGATIVE (Negative); Urine Microscopic Reflex YN ORDER UMIC; Urine Mucus Slight /HPF (None Seen); Urine Nitrite NEGATIVE (Negative); Urine Protein 3+ (Negative); Urine RBC >50 /HPF (None Seen); Urine Urobilinogen Normal (Normal); Urine WBC >50 /HPF (<5); Urine WBC Clump Occasional /HPF (None Seen)
--- NOTE | 2024-09-30 13:23 | HP ---
Date of Admission: 09/30/2024 Chief Complaint: Nausea, vomiting, and diarrhea. History Of Present Illness: This is a 79-year-old pleasant female patient who came into emergency ro om with about 3-4 days history of diarrhea associated with lot of nausea and some vomiting. She desc ribes her diarrhea as about 3-4 times a day, really watery stool. She has had some chills, but denie s having any fever. After she was evaluated in the emergency room, she was admitted to the hospital. She denies any abdominal pain, but has had some abdominal cramps with this. Allergies: PENICILLIN CAUSING RASH AND ITCHING. SULFA CAUSING RASH AND ITCHING. Review of Systems: GI: As mentioned above. All other systems reviewed and negative. Medications: [place] 7.5 mg, she takes it as needed prescribed by her pain management physician, amilo ride 5 mg daily, aspirin 81 mg daily, atenolol 50 mg daily; Humulin 70/30 insulin and she takes 50-60 units 2 times a day, isosorbide mononitrate 30 mg daily, levothyroxine 200 mcg daily, lisinopril 20 mg two times a day, nortriptyline 50 mg daily at bedtime, Prilosec 20 mg daily, Gabapentin 100 mg 2 t imes a day. Past Medical History: Significant for hypertension, type 2 diabetes mellitus, chronic kidney disease stage 3A, diabetes mellitus with chronic kidney disease, mixed hyperlipidemia, diverticulosis, hypot hyroidism, chronic leg edema, thrombocytopenia, cervical spondylosis, osteoarthritis at multiple site s. Past Surgical History: Significant for cataract surgery, cholecystectomy, hysterectomy, carpal tunne l release. Family History: Father , had coronary artery disease, diabetes, and lung cancer. Mother , h ad diabetes, hypertension and kidney cancer. Brother with coronary artery disease and sister with co ronary artery disease. Social History: Negative for smoking and alcohol use. Physical Examination: Vital Signs: Temperature 99.5, pulse 69, respiratory rate 18, blood pressure 170/57 with oxygen satu ration 97%. Height 5 feet 6 inches, weight 235 pounds. General: Awake, alert, oriented, not in distress. HEENT: Head atraumatic, normocephalic. Conjunctivae nonerythematous. Sclerae white. Mouth, no thr ush or edema noted. Ears/Nose, no mass, lesion, discharge noted. Neck: Supple. No JVD, lymph nodes, bruit, thyromegaly noted. Lungs: Bilateral good equal air entry. Clear to auscultation. No rhonchi. No rales. Heart: Normal heart sounds, no murmur or gallop. Abdomen: Soft, bowel sounds normal. No guarding, rigidity, tenderness, mass, hepatosplenomegaly, dis tention, or bruit noted. Extremities: Bilateral trace leg edema, which is significantly better than where I have seen her as outpatient. Skin: Has significantly dry skin involving both lower legs from the knee all the way down to her toe s and deep of the right great toe and deep of the left second toe has dry scaly callus type of hard s kin. No open wound. No discharge. Lymphatics: No lymph node enlargement in neck, supraclavicular, infraclavicular region. Vascular: Unable to feel pulses in both feet involving dorsalis pedis and posterior tibial. Neuro: No focal neurological deficit. Chest: Unremarkable. External Genitalia: Deferred. Rectal: Deferred. Laboratory Data: WBC 12.7, hemoglobin 14.6, platelets 132. Sodium 135, potassium 3.3, chloride 103, bicarb 25, BUN 19, creatinine 1.18, glucose 145. Liver function tests unremarkable. Troponin 22.4. ProBNP 3501. Lipase 17. TSH 1.260. C-reactive protein 9.39. Urinalysis; leukocyte esterase 500, WBC more than 50, glucose 1+, COVID-19 test negative. CAT scan of the chest, abdomen, pelvis withou t contrast shows mosaic attenuation, scattered bilateral subsegmental atelectasis/pleural and parench ymal scarring. No evidence of bowel obstruction. Mild to moderate bilateral hydroureter less pronou nced on current study compared to prior study. No renal bladder or ureteral calculi presence. Prese nce of splenic parenchymal calcification compatible with granulomatous disease and presence of divert iculosis without any evidence of diverticulitis. Impression: 1.Acute gastroenteritis. 2.Urinary tract infection. 3.Hypertension. 4.Type 2 diabetes mellitus with chronic kidney disease. 5.Chronic kidney disease, stage IIIA. 6.Mixed hyperlipidemia. 7.Hypothyroidism. 8.Diverticulosis. 9.Osteoarthritis, multiple sites. 10.Thrombocytopenia. 11.Peripheral vascular disease. Plan: We will go ahead and admit the patient to hospital for further evaluation and management of th is problem. The patient is appropriate for inpatient and [facility] [place] We will leave her on clear liquid diet for her gastroenteritis and empiric antibiotic Levaquin wa s started. Depending on how she does today, we will make decision regarding advancing her diet tomor row. For urinary tract infection, we will start this antibiotic Levaquin. Follow up on urine cultur e and depending on the culture results, we will decide about culture specific antibiotic. For hypert ension, we will continue her antihypertensive medication and monitor blood pressure and if necessary, adjust medication. Her diabetes will be managed with sliding scale insulin at this time and no need for further intervention. For her hypothyroidism, continue levothyroxine. Per order her TSH is wit hin normal range. I am concerned about peripheral vascular disease and we will go ahead and get an a rterial Doppler study done on her lower extremities. I have reviewed her CAT scan findings and on ba sis of that as well as her clinical picture, I am not concerned about any pneumonia at this point. Steve kemp time spent 85 minutes including review of last office visit record from 07/20/2024, communicatio n with ER physician, review of emergency room visit record, and performing today's evaluation and man agement. Lovenox was ordered for DVT prophylaxis. ISAAC/MODL Voice ID: [id number]
[2024-09-30] MEDS: POTASSIUM CL SA 10 MEQ TAB PO ONE (13:26)
[2024-09-30] MEDS: ENOXAPARIN 40 MG/0.4 ML SQ SCH (18:29)
--- NOTE | 2024-09-30 20:48 | RAD REPORT ---
EXAMINATION: US LOWER EXTREMITIES ARTERIAL DOPPLER BILATERAL CLINICAL INDICATION: Female, 79 years old. PVD TECHNIQUE: Arterial duplex ultrasound was performed of the legs bilaterally with real-time and Dopple r evaluation. [id number]. COMPARISON: No prior exam. FINDINGS: Right leg Doppler: Common femoral artery: Waveform: Biphasic Peak systolic velocity (cm/sec): 70 Femoral : Waveform: Biphasic Peak systolic velocity (cm/sec): 84 Popliteal Waveform: Biphasic Peak systolic velocity (cm/sec): 58 Tibial: Waveform: Biphasic Peak systolic velocity (cm/sec): 40 Left leg Doppler: Common femoral artery: Waveform: Biphasic Peak systolic velocity (cm/sec): 90 Femoral: Waveform: Biphasic Peak systolic velocity (cm/sec): 94 Popliteal Waveform: Biphasic Peak systolic velocity (cm/sec): 36 Tibial: Waveform: Biphasic Peak systolic velocity (cm/sec): 75 IMPRESSION: No acute or significant abnormalities. Biphasic arterial waveforms throughout the lower extremities.
[2024-09-30] MEDS: Mupirocin NASAL 2 APPL/1 GM TUBE NAS SCH (21:16)
[2024-09-30] MEDS: GABAPENTIN 100 MG CAP PO SCH (21:17)
[2024-09-30] MEDS: NORTRIPTYLINE HCL 25 MG CAP PO SCH (21:19)
[2024-09-30] MEDS: HYDROCODONE/APAP 5/325 MG TAB PO PRN (21:26)
[2024-09-30 23:16] VITALS: O2SAT 97
[2024-10-01 05:27] LABS: Absolute Eosinophils 0.2 K/uL (0-0.5); Absolute Lymphocytes (CBC) 1.5 K/uL (0.7-4.9); Absolute Monocytes 0.8 K/uL (0.1-1.3); Absolute Neutrophil 5.9 K/uL (1.8-8.0); Basophils % 0.4 % (0-1.3); Hematocrit 38.4 % (36.0-45.0); Lymphocytes % 17.8 % (15.3-44.8); MCH 28.8 pg (27.0-35.0); MCHC 33.9 g/dL (32.0-36.0); Neutrophils % 70.8 % (41.7-73.7); Nucleated Red Blood Cells % 0.1 % (0-0); Platelets 122 thou/uL (152-406); RBC Red Blood Cell Count 4.51 M/uL (3.86-4.86)
[2024-10-01 05:42] LABS: Anion Gap 7.7 mEq/L (5.0-15.0); Potassium 3.7 mEq/L (3.5-5.1)
[2024-10-01] MEDS: LEVOTHYROXINE SOD 0.1 MG TAB PO SCH (05:42)
[2024-10-01] MEDS: atenoloL 50 MG TAB PO SCH (05:42)
[2024-10-01] MEDS: PANTOPRAZOLE 40MG TABLET PO SCH (05:42)
[2024-10-01] MEDS: cloNIDine HCL 0.1 MG TAB PO PRN (12:33)
[2024-10-01 13:36] VITALS: TEMP 97.4
[2024-10-01 14:58] VITALS: BP 161/70
[2024-10-01 16:55] VITALS: BMI 37.9
--- NOTE | 2024-10-02 11:56 | DS ---
Date of Discharge: 10/01/2024 Disposition: Discharged to go home. Physical Examination: HEENT: Unremarkable. Lungs: Clear to auscultation. Heart: Sounds normal. Abdomen: Soft. Bowel sounds normal. No guarding, rigidity, tenderness, or distention. Extremities: No leg edema. Laboratory Data: Yesterday, sodium 135, potassium 3.3, chloride 103, bicarb 25, BUN 19, creatinine 1 .18, glucose 145. Troponin 22.4. ProBNP 3501. TSH 1.260. WBC 12.7, hemoglobin 14.6, platelets 132 . Urinalysis; 500 leukocyte esterase, 5 to 10 rbc's, more than 50 wbc's. Urine culture is growing S treptococcus hemolyticus. Definite sensitivity result pending, and 1 bottle out of 4 bottles on the blood culture came back positive, which I will follow up on it as outpatient as I suspect this is lik glen going to be skin contamination. COVID-19 test was negative. Today, WBC 8.4, hemoglobin 13, plat elets 122. For chemistry, today, sodium 134, potassium 3.7, chloride 105, bicarb 25, BUN 21, creatin ine 1.13, and her hemoglobin A1c done during this hospitalization is 8.9. Discharge Medications And Instructions: 1.Continue all prior home medications. 2.Start Levaquin 500 mg daily for 1 week. 3.Follow up at my office next week. Hospital Course: A 79-year-old female patient who was admitted to the hospital with nausea, vomiting , and diarrhea. Please see dictated H and P for more information. The patient was admitted to the ostal with these complaints with acute gastroenteritis and urinary tract infection. Her nausea, vo miting, diarrhea problem has resolved. She is tolerating diet very well. For urinary tract infectio n, she was started on Levaquin, which she has tolerated very well. Out of 4 bottles on the blood cul ture, 1 bottle has started to grow some bacteria, which I suspect will likely be going to be skin con taminant. Urine culture, final result is pending, and I will follow up on that on an outpatient kevyn garcia. The patient has tolerated antibiotic very well. Hemodynamically, she is stable for discharge. I did order arterial Doppler on her leg as I am concerned about peripheral vascular disease and has bi phasic waves all throughout both lower extremities. With her longstanding history of hypertension, h yperlipidemia, and diabetes, I suspect she does have some atherosclerosis and peripheral vascular dis ease involving both lower extremities, but there was no hemodynamically significant stenotic lesion. I did discuss with her about this and suggested for her to have a followup with [facility] on outp atient basis for cardiac workup because she is at high risk of having cardiovascular disease in view of her underlying chronic comorbidities. Final Diagnoses: 1.Acute gastroenteritis. 2.Urinary tract infection. 3.Thrombocytopenia. 4.Peripheral vascular disease. 5.Hypertension. 6.Type 2 diabetes mellitus with chronic kidney disease. 7.Type 2 diabetes mellitus, uncontrolled. 8.Chronic kidney disease stage 3A. 9.Mixed hyperlipidemia. 10.Hypothyroidism. 11.Diverticulosis. 12.Osteoarthritis, multiple sites. ISAAC/MODL Voice ID: [id number] Report ID: [id number]
--- NOTE | 2024-10-04 10:22 | EKG ---
Test Date: 2024-09-30 Test Time: 00:22:01 [employer]: MEASUREMENT RESULTS: Intervals: Rate: 68 CO: 194 QRSD: 124 QT: 428 QTc: 455 Mobile: P: 44 CO: 194 QRS: 92 T: 5 INTERPRETIVE STATEMENTS: Normal sinus rhythm with sinus arrhythmia Right bundle branch block Cannot rule out Anterior infarct, age undetermined T wave abnormality, consider inferior ischemia Abnormal ECG Compared to ECG 12/04/2014 07:03:18 Right bundle-branch block now present Myocardial infarct finding now present T-wave abnormality now present Possible ischemia now present Electronically Signed On 10-04-24 10:20:54 FAMILY MEDICINE PHYSICIAN by Axel Capone
== END 2024-10-01 18:04 | disposition home or self-care (01) | DRG 392 ==
LOC: ER 22:14 → 2ND 09-30 06:27 → OBSVTOIN 09-30 12:58
PROVIDERS: ADMIT Internal Medicine; ATTEND Internal Medicine
PROC: 02HV33Z Insertion of Infusion Device into Superior Vena Cava, Percutaneous Approach (ICD-10-PCS; principal; 2024-09-30)
PROC: 0T9B70Z Drainage of Bladder with Drainage Device, Via Natural or Artificial Opening (ICD-10-PCS; 2024-09-30)
DX: A08.4 Viral intestinal infection, unspecified (principal); N39.0 Urinary tract infection, site not specified; E86.0 Dehydration; E78.2 Mixed hyperlipidemia; E03.9 Hypothyroidism, unspecified; I12.9 Hypertensive chronic kidney disease with stage 1 through stage 4 chronic kidney disease, or unspecified chronic kidney disease; N18.31 Chronic kidney disease, stage 3a; E11.22 Type 2 diabetes mellitus with diabetic chronic kidney disease; E11.51 Type 2 diabetes mellitus with diabetic peripheral angiopathy without gangrene; E11.40 Type 2 diabetes mellitus with diabetic neuropathy, unspecified; D69.6 Thrombocytopenia, unspecified; M19.09 Primary osteoarthritis, other specified site; K57.90 Diverticulosis of intestine, part unspecified, without perforation or abscess without bleeding; B95.0 Streptococcus, group A, as the cause of diseases classified elsewhere; Z88.0 Allergy status to penicillin; Z88.2 Allergy status to sulfonamides; Z79.4 Long term (current) use of insulin; Z79.82 Long term (current) use of aspirin; Z11.52 Encounter for screening for COVID-19; Z79.899 Other long term (current) drug therapy; Z90.49 Acquired absence of other specified parts of digestive tract; Z90.710 Acquired absence of both cervix and uterus
CPT/HCPCS: 36415; 51702; 71250; 74176; 80048; 80053; 81001; 82947; 83036; 83690; 83880; 84439; 84443; 84484; 85025; 86140; 87040; 87077; 87086; 87088; 87186; 87205; 87804; 87811; 93005; 93925; 96361; 96372; 96374; 96375; 99284; G0378; J0696; J1630; J1650; J2270; J2405; J2765; J7030

== ENCOUNTER 2024-10-04 17:50 | Inpatient (IN) | payer OTHER, MEDICARE ==
[2024-10-04] MEDS ORDERED: ACETAMINOPHEN 500 MG TAB PO PRN (21:37)
[2024-10-04] MEDS: VANCOMYCIN 1 GM in NA CHLORIDE 0.9% 250 ML IVPB SCH (22:00)
[2024-10-04] MEDS: NORTRIPTYLINE HCL 25 MG CAP PO SCH (22:00)
[2024-10-04] MEDS: GABAPENTIN 100 MG CAP PO SCH (22:16)
[2024-10-04] MEDS: lisinopriL 20 MG TAB PO SCH (22:16)
[2024-10-04 22:27] LABS: Absolute Basophils 0.1 K/uL (0-0.5); Absolute Eosinophils 0.2 K/uL (0-0.5); Absolute Lymphocytes (CBC) 2.4 K/uL (0.7-4.9); Absolute Monocytes 0.6 K/uL (0.1-1.3); Absolute Neutrophil 3.1 K/uL (1.8-8.0); Basophils % 1.2 % (0-1.3); Eosinophils % 2.4 % (0-4.4); Hematocrit 41.2 % (36.0-45.0); Hemoglobin 13.8 g/dL (12.0-15.0); Lymphocytes % 37.9 % (15.3-44.8); MCH 28.5 pg (27.0-35.0); MCHC 33.5 g/dL (32.0-36.0); MPV 9.3 fL (7.6-11.3); Monocytes % 9.6 % (3.3-12.3); Neutrophils % 48.9 % (41.7-73.7); Platelets 145 thou/uL (152-406); RBC Red Blood Cell Count 4.84 M/uL (3.86-4.86); Red Cell Distribution Width 14.2 % (12.1-15.2)
[2024-10-04 22:39] LABS: Albumin 2.4 g/dL (3.4-5.0); Albumin/Globulin Ratio 0.5 (1.1-1.8); Anion Gap 8.2 mEq/L (5.0-15.0); Bilirubin Total 0.4 mg/dL (0.2-1.0); Globulin 4.5 g/dL (2.3-3.5); Magnesium 1.6 mg/dL (1.6-2.4); Potassium 4.2 mEq/L (3.5-5.1); Protein, Total 6.9 g/dL (6.4-8.2)
[2024-10-04] MEDS: NA CHLORIDE 0.9% 500 ML ONE (22:42)
[2024-10-04] MEDS: VANCOMYCIN 2 GM in NA CHLORIDE 0.9% 500 ML IVPB ONE (23:00)
[2024-10-04] MEDS: HYDROCODONE/APAP 5/325 MG TAB PO PRN (23:08)
[2024-10-04] MEDS: VANCOMYCIN 1 GM/VIAL ONE (23:09)
[2024-10-05] MEDS: MAGNESIUM SULFATE 1 gm IVPB 1 GM/100 ML BAG IV ONE (04:16)
[2024-10-05] MEDS: PANTOPRAZOLE 40MG TABLET PO SCH (05:43)
[2024-10-05] MEDS: LEVOTHYROXINE SOD 0.1 MG TAB PO SCH (05:43)
[2024-10-05] MEDS: atenoloL 50 MG TAB PO SCH (05:44)
--- NOTE | 2024-10-05 06:04 | RAD REPORT ---
EXAM DESCRIPTION: Chest Single View CLINICAL HISTORY: RUE PICC placement verification COMPARISON: None TECHNIQUE: Single AP view of the chest. FINDINGS: Right upper extremity PICC tip likely in the superior cavoatrial junction. Lung volumes adequate. Cardiac silhouette is normal in size. No pneumothorax. No large pleural effusion. No focal consolidation. No acute bony finding. IMPRESSION: Right upper extremity PICC tip likely in the superior cavoatrial junction. Electronically signed by: Tara Cintron MD 10/05/2024 05:32 AM [facility] Z9 Due to temporary technical issues with the PACS/[employer] reporting system, reports are being rula d by the in-house radiologist without review as a courtesy to ensure prompt reporting the interpreting radiologist is fully responsible for the content of the report. Transcribed Date/Time: 10/05/2024 6:04 AM
--- NOTE | 2024-10-05 07:48 | PN ---
Date of Progress Note: 10/05/2024 Subjective: The patient was seen this morning for followup. No new complaints or problems reported by the patient. She was lying in bed, not in distress. Has a PICC line in place in her right arm. Physical Examination: Vital Signs: Reviewed. This morning, temperature 97.4, pulse 60, respiratory rate 15, blood pressur e 171/88, oxygen saturation 98%. HEENT: Unremarkable. Lungs: Clear to auscultation. Heart: Sounds normal. Abdomen: Soft. Bowel sounds normal. No guarding, rigidity, tenderness, distention. Extremities: No leg edema. Impression: 1.Sepsis. 2.Urinary tract infection. 3.Hypertension. 4.Type 2 diabetes mellitus. 5.Chronic kidney disease stage IIIA. 6.Hyperlipidemia. Plan: We will go ahead and continue current vancomycin. We will have Social Service make arrangemen ts for home IV antibiotic therapy. We will get echo with Doppler on her today and continue current a ntihypertensive medication. Continue current diabetes management and we will see her tomorrow for yogesh mathews. ISAAC/MODL Voice ID: [id number] Report ID: [id number]
--- NOTE | 2024-10-05 08:12 | HP ---
Date of Admission: 10/04/2024 Reason For Admission: Sepsis. History Of Present Illness: This is a 79-year-old female patient who was admitted to the hospital on 09/30/2024 and was discharged to go home on 10/01/2024. During her last hospital admission, her blo od 1 bottle out of 4 bottles had grown gram-positive cocci and definite final culture result was not available. I informed the patient that this could be very likely skin contamination, but we will con tinue to follow up on the results and once that is available we will communicate with the patient, so I continued to follow up on the results and today we got the final results back and that is showing all her 4 bottles of the blood culture now positive for Staphylococcus aureus and her urine culture h as grown Enterococcus avium. The patient was discharged to go home for urinary tract infection with oral antibiotic, which was Levaquin and obviously after looking at this sensitivity result, decision was made to contact the patient to admit to the hospital. Details about all these test results and p araceli of treatment was discussed with the patient. The patient has had some dysuria in the past that h as improved now. She denies any fever, chills, nausea, vomiting since her discharge from the [facility]. Allergies: TO PENICILLIN CAUSING RASH AND ITCHING. SULFA CAUSING RASH AND ITCHING. Review of Systems: Genitourinary: As mentioned above. All other systems reviewed and negative. Medications: [place] 7.5 mg as prescribed by Pain Management, amiloride 5 mg daily, aspirin 81 mg don y, atenolol 50 mg daily, Humulin 70/30 insulin and takes 50-60 units 2 times a day, isosorbide mononi trate 30 mg daily, levothyroxine 200 mcg daily, lisinopril 20 mg 2 times a day. Nortriptyline 50 mg daily at bedtime. Prilosec 20 mg daily. Gabapentin 100 mg 2 times a day. Levaquin 500 mg daily. Past Medical History: Significant for hypertension; type 2 diabetes mellitus; chronic kidney disease , stage IIIA; diabetes mellitus with chronic kidney disease; mixed hyperlipidemia; diverticulosis; hy pothyroidism; chronic leg edema; thrombocytopenia; cervical spondylosis; osteoarthritis at multiple s ites; peripheral vascular disease. Past Surgical History: Significant for cataract surgery, cholecystectomy, hysterectomy, carpal tunne l release. Family History: Father , had coronary artery disease, diabetes, lung cancer. Mother , had d iabetes, hypertension, kidney cancer. Brother with coronary artery disease and sister with coronary artery disease. Social History: Negative for smoking and alcohol use. Physical Examination: VITAL SIGNS: Temperature 97.6, pulse 88, respiratory rate 16, blood pressure 177/74, oxygen saturati on 99%. Height 5 feet 6 inches, weight 248 pounds. General: Awake, alert, oriented, not in distress. HEENT: Head atraumatic, normocephalic. Conjunctivae nonerythematous. Sclerae white. Mouth, no thr ush or edema noted. Ears/Nose, no mass, lesion, discharge noted. Neck: Supple. No JVD, lymph nodes, bruit, thyromegaly noted. Lungs: Bilateral good equal air entry. Clear to auscultation. No rhonchi. No rales. Heart: Normal heart sounds, no murmur or gallop. Abdomen: Soft, bowel sounds normal. No guarding, rigidity, tenderness, mass, hepatosplenomegaly, dis tention, or bruit noted. Extremities: No leg edema. No calf tenderness. Skin: No rash, ulcer, cellulitis. Lymphatics: No lymph node enlargement in neck, supraclavicular, infraclavicular region. Neuro: No focal neurological deficit. Chest: Unremarkable. External Genitalia: Deferred. Rectal: Deferred. Laboratory Data: White count 6.4, hemoglobin 13.8, platelets 145. Sodium 135, potassium 4.2, chlori de 104, bicarb 27, BUN 19, creatinine 1.56, glucose 296. Liver function tests unremarkable. Impression: 1.Sepsis, organism Staphylococcus aureus. 2.Urinary tract infection. 3.Hypertension. 4.Type 2 diabetes mellitus, uncontrolled. 5.Diabetes mellitus with chronic kidney disease. 6.Chronic kidney disease, stage IIIA. 7.Mixed hyperlipidemia. 8.Diverticulosis. 9.Hypothyroidism. 10.Osteoarthritis, multiple sites. Plan: 1.Admit the patient to hospital for further evaluation and management of this problem. The patient is appropriate for inpatient and is expected to spend 2 midnights in hospital. We will start the pat ient on IV vancomycin therapy per order and a PICC line was ordered. We will continue home medicatio ns per order. We will consult Social Service to make arrangements for home IV antibiotic therapy and plan is for the patient to receive total of 2 weeks of vancomycin therapy. We will get echo with Do [facility] tomorrow. 2.For hypertension, we will continue antihypertensive medication per order. No need for further int ervention. 3.For her diabetes, we will manage that with sliding scale insulin per order. 4.For hypothyroidism, continue to manage that with levothyroxine and no need for further interventio n. 5.For gastroesophageal reflux disease, we will manage that with continuation of her proton pump inhi bitor therapy. 6.Lovenox was ordered for DVT prophylaxis. Total time spent was 90 minutes that includes multiple attempts throughout the day today to contact t he patient to inform her about her need to get hospitalized and finally we were able to get in touch with her and making arrangements for the hospital admission and performing evaluation and management for this hospital admission. I will see her tomorrow for followup. ISAAC/PAULA Voice ID: [id number]
[2024-10-05] MEDS: ISOSORBIDE MONO SR 30 MG TAB PO SCH (08:49)
[2024-10-05] MEDS: ENOXAPARIN 30 MG/0.3 ML SQ SCH (08:49)
[2024-10-05] MEDS: ASPIRIN EC 81 MG TAB PO SCH (08:50)
[2024-10-05] MEDS: Mupirocin NASAL 2 APPL/1 GM TUBE NAS SCH (08:50)
[2024-10-05] MEDS: AMILORIDE HCL 5 MG TABLET PO SCH (08:50)
[2024-10-05] MEDS: INSULIN REGULAR (HUMAN) 100 UNIT/ML SQ SCH (08:50)
[2024-10-05 15:27] VITALS: O2SAT 97
[2024-10-05] MEDS: cloNIDine HCL 0.1 MG TAB PO PRN (17:00)
[2024-10-05] MEDS ORDERED: MAGNESIUM SULFATE 1 gm IVPB 1 GM/100 ML BAG IV ONE (21:00)
[2024-10-05 22:34] VITALS: BMI 38.7
[2024-10-06 05:00] LABS: Anion Gap 8.9 mEq/L (5.0-15.0); Magnesium 1.8 mg/dL (1.6-2.4); Potassium 3.9 mEq/L (3.5-5.1)
[2024-10-06] MEDS: MAGNESIUM SULFATE 1 gm IVPB 1 GM/100 ML BAG IV ONE (06:18)
[2024-10-06] MEDS: cloNIDine HCL 0.1 MG TAB PO SCH (09:24)
[2024-10-06] MEDS: POTASSIUM CL SA 10 MEQ TAB PO ONE (09:25)
--- NOTE | 2024-10-06 18:20 | PN ---
Date of Progress Note: 10/06/2024 Subjective: The patient was seen this morning for followup. She was lying in bed, not in any distre ss. Denies any new complaints this morning. Objective: Vital Signs: Reviewed. HEENT: Unremarkable. Lungs: Clear to auscultation. Heart: Sounds normal. Abdomen: Soft. Bowel sounds normal. No guarding, rigidity, tenderness, distention. Extremities: No leg edema. Labs: Sodium 135, potassium 3.9, chloride 103, bicarb 27, BUN 18, creatinine 1.23, glucose 267, magn esium 1.8. Impression: 1.Sepsis. 2.Urinary tract infection. 3.Diabetes mellitus, uncontrolled. 4.Hypertension. Plan: We will go ahead and continue current medication, continue current antibiotics. Vancomycin tr ough level will be done this evening around 8 p.m., and after that, pharmacy will provide us with rec ommendation about dose of vancomycin that needs to be arranged for outpatient use, so possible discha pa to go home tomorrow. I will see her tomorrow for followup. Continue current antihypertensive me dication order. Clonidine was ordered yesterday for p.r.n. use, but I had ordered it also to be give n 0.1 mg 2 times a day on a scheduled basis and will monitor her blood pressure. Continue diabetes management with sliding scale insulin p er order. ISAAC/MODL Voice ID: [id number] Report ID: [id number]
[2024-10-06] MEDS: VANCOMYCIN 2 GM in NA CHLORIDE 0.9% 500 ML IVPB SCH (20:26)
[2024-10-06 22:16] VITALS: TEMP 97.6
[2024-10-06] MEDS ORDERED: VANCOMYCIN 2 GM in NA CHLORIDE 0.9% 500 ML IVPB SCH (23:00)
[2024-10-07 06:58] LABS: Anion Gap 7.3 mEq/L (5.0-15.0); Magnesium 1.8 mg/dL (1.6-2.4); Potassium 4.3 mEq/L (3.5-5.1)
[2024-10-07] MEDS: ENOXAPARIN 40 MG/0.4 ML SQ SCH (09:08)
[2024-10-07] MEDS: VANCOMYCIN 1 GM in NA CHLORIDE 0.9% 250 ML IVPB SCH (09:08)
[2024-10-07 13:04] VITALS: BP 157/68
--- NOTE | 2024-10-07 13:26 | ECHO ---
HEIGHT: 5 ft 6 in WEIGHT: 240 lb 0 oz DATE OF STUDY: 10/06/[address]: Eugenio Mckeon MD 2-DIMENSIONAL: YES M.MODE: YES DOPPLER: YES COLOR FLOW: YES TDS: YES PORTABLE: YES DEFINITY: NO BUBBLE STUDY: NO DIAGNOSIS: SEPSIS, RULE OUT ENDOCARDITIS CARDIAC HISTORY: CATHERIZATION: NO SURGERY: NO PROSTHETIC VALVE: NO PACEMAKER: NO MEASUREMENTS (cm) DIASTOLIC (NORMALS) SYSTOLIC (NORMALS) IVSd 1.2 (0.6-1.2) LA Diam 2.7 (1.9-4.0) LVEF 60-65% LVIDd 4.6 (3.5-5.7) LVIDs 3.0 (2.0-3.5) %FS 35% LVPWd 1.3 (0.6-1.2) Ao Diam 2.6 (2.0-3.7) 2 DIMENSIONAL ASSESSMENT: RIGHT ATRIUM: NORMAL LEFT ATRIUM: NORMAL RIGHT VENTRICLE: NORMAL LEFT VENTRICLE: NORMAL TRICUSPID VALVE: NORMAL MITRAL VALVE: MODERATE MITRAL ANNULAR CALCIFICATION PULMONIC VALVE: NORMAL AORTIC VALVE: NORMAL PERICARDIAL EFFUSION: NONE AORTIC ROOT: NORMAL LEFT VENTRICULAR WALL MOTION: NORMAL LEFT VENTRICULAR SYSTOLIC FUNCTION. DOPPLER/COLOR FLOW: DIASTOLIC DYSFUNCTION. COMMENTS: 1. NORMAL LEFT VENTRICULAR SYSTOLIC FUNCTION. LEFT VENTRICULAR EJECTION FRACTION 60-65%. NORMAL WALL MOTION. 2. DIASTOLIC DYSFUNCTION. TECHNOLOGIST: TERRY MILNER
== END 2024-10-07 15:07 | disposition home health service (06) | DRG 872 ==
LOC: 2ND 19:51
PROVIDERS: ADMIT Internal Medicine; ATTEND Internal Medicine
DX: A41.01 Sepsis due to Methicillin susceptible Staphylococcus aureus (principal); N39.0 Urinary tract infection, site not specified; A41.81 Sepsis due to Enterococcus; I12.9 Hypertensive chronic kidney disease with stage 1 through stage 4 chronic kidney disease, or unspecified chronic kidney disease; N18.31 Chronic kidney disease, stage 3a; E11.22 Type 2 diabetes mellitus with diabetic chronic kidney disease; E11.51 Type 2 diabetes mellitus with diabetic peripheral angiopathy without gangrene; E03.9 Hypothyroidism, unspecified; E78.2 Mixed hyperlipidemia; K21.9 Gastro-esophageal reflux disease without esophagitis; M19.09 Primary osteoarthritis, other specified site; K57.90 Diverticulosis of intestine, part unspecified, without perforation or abscess without bleeding; Z88.0 Allergy status to penicillin; Z88.2 Allergy status to sulfonamides; Z79.4 Long term (current) use of insulin; Z79.82 Long term (current) use of aspirin; Z90.49 Acquired absence of other specified parts of digestive tract; Z79.890 Hormone replacement therapy; Z79.899 Other long term (current) drug therapy; Z90.710 Acquired absence of both cervix and uterus
CPT/HCPCS: 36415; 36569; 71045; 80048; 80053; 80202; 82947; 83735; 85025; 93306; 97110; 97116; 97161; 97530; J1650; J3475; J7040; J7050

== ENCOUNTER 2024-11-21 23:17 | Inpatient (IN) | payer OTHER, MEDICARE ==
[2024-11-21] MEDS ORDERED: VANCOMYCIN 1 GM/VIAL ONE (23:47)
[2024-11-21] MEDS ORDERED: ACETAMINOPHEN 500 MG TAB ONE (23:47)
[2024-11-21] MEDS ORDERED: IBUPROFEN 400 MG TAB ONE (23:48)
[2024-11-21] MEDS ORDERED: NA CHLORIDE 0.9% 2,000 ML ONE (23:48)
[2024-11-21] MEDS ORDERED: NA CHLORIDE 0.9% 1,000 ML ONE (23:48)
[2024-11-21] MEDS ORDERED: CEFEPIME 2 GM VIAL ONE (23:48)
[2024-11-21] MEDS ORDERED: NA CHLORIDE 0.9% 100 ML ONE (23:49)
[2024-11-22 00:07] LABS: Absolute Lymphocytes (CBC) 0.5 K/uL (0.7-4.9); Absolute Monocytes 0.3 K/uL (0.1-1.3); Absolute Neutrophil 11.6 K/uL (1.8-8.0); Basophils % 0.2 % (0-1.3); Eosinophils % 0.3 % (0-4.4); Hemoglobin 13.8 g/dL (12.0-15.0); Lymphocytes % 3.7 % (15.3-44.8); MCH 28.5 pg (27.0-35.0); MCHC 33.8 g/dL (32.0-36.0); MCV 84.2 fL (80-100); Monocytes % 2.4 % (3.3-12.3); Neutrophils % 93.4 % (41.7-73.7); Nucleated Red Blood Cells % 0.2 % (0-0); Platelets 163 thou/uL (152-406); RBC Red Blood Cell Count 4.86 M/uL (3.86-4.86)
[2024-11-22 00:14] LABS: PT Prothrombin Time 13.2 SECONDS (9.4-12.5)
[2024-11-22 00:15] LABS: PTT, Activated Partial Thromb 27.8 SECONDS (24.3-36.9); Protime INR 1.26
[2024-11-22 00:18] LABS: Albumin 2.3 g/dL (3.4-5.0); Albumin/Globulin Ratio 0.4 (1.1-1.8); Anion Gap 12.2 mEq/L (5.0-15.0); Bilirubin Total 1.3 mg/dL (0.2-1.0); Globulin 5.2 g/dL (2.3-3.5); Potassium 4.2 mEq/L (3.5-5.1); Protein, Total 7.5 g/dL (6.4-8.2)
[2024-11-22 00:37] LABS: SARS-CoV-2 Antigen CONTROL BLUE LINE VIS/BG OK; SARS-CoV-2 Antigen Rapid Res Negative (Negative)
--- NOTE | 2024-11-22 00:55 | RAD REPORT ---
EXAM DESCRIPTION: Head Brain Wo Cont CLINICAL HISTORY: 79 years Female, CONFUSED TECHNIQUE: Helical CT axial images are obtained from the base of skull through the vertex without IV contrast. Multiplanar reconstruction. This exam was performed according to our departmental dose-optimization program, which includes automated exposure control, adjustment of the mA and/or kV according to patient size and/or use of iterative reconstruction technique. COMPARISON: Prior images of CT brain February 28, 2023 were not made available at time of this interpret ation, inference from the prior report may be made. FINDINGS: BRAIN: No infarcts. No parenchymal hemorrhage, intra-axial mass, mass effect, or midline shift. No ab normal extra-axial fluid collections. Mild periventricular white matter hypodensities. VENTRICLES: Ventricles are normal in size and configuration. No hydrocephalus. CALVARIUM: Hyperostosis interna frontalis, normal variant. Bone windows show no skull fracture or chauncey varial lesions. PARANASAL SINUSES AND MASTOIDS: Clear paranasal sinuses. Mastoid air cells are clear. IMPRESSION: 1. No acute intracranial disease. 2. Mild chronic small vessel ischemic white matter changes. Electronically signed by: Judah Bang MD 11/22/2024 12:49 AM [facility] N Due to temporary technical issues with the PACS/[employer] reporting system, reports are being rula d by the in-house radiologist without review as a courtesy to ensure prompt reporting the interpreting radiologist is fully responsible for the content of the report. Transcribed Date/Time: 11/22/2024 12:55 AM
[2024-11-22 01:10] LABS: Thyroid Stimulating Hormone 1.04 uIU/mL (0.358-3.740); Troponin High Sensitivity 17.3 pg/mL (<58.9)
--- NOTE | 2024-11-22 01:10 | RAD REPORT ---
Clinical Indication: Bed Name: 6; ABDOMINAL DISTENTION Comparison: September 30, 2024 TECHNIQUE: Sequential trans-axial images were obtained through the chest, abdomen and pelvis without iodinated contrast or oral contrast. Coronal and sagittal reconstructions were obtained and provided as separate series. All CT scans at this location are performed using dose optimization techniques as appropriate to perf orm the study. Radiation dose reduction technique was utilized including one or more of the following: Automated exp osure control, adjustment of the mA and/or kV according to patient size and use of iterative reconstruction technique. CT Radiation Dose DLP 2632.2 mGy-cm FINDINGS: CT CHEST: LUNG PARENCHYMA AND PLEURA: No pulmonary opacities are noted. . There are no lung nodules. There is n o significant interstitial lung disease. There are no pleural effusions. There is no pneumothorax. AIRWAY: The central airway is patent MEDIASTINUM: No mediastinal lymphadenopathy is noted. HEART: The heart is borderline enlarged with trace pericardial effusion. Extensive mitral valve calci fications are noted. Aortic valve calcifications are seen. Coronary artery calcifications are noted.. VASCULAR STRUCTURES: The pulmonary arteries and great vessels are normal in caliber. The thoracic a amina is normal in caliber. The superior vena cava is unremarkable. Mild pulmonary vascular congestion is noted. The azygos vein is distended measuring 12 mm in diameter. The main pulmonary art viktor is dilated measuring 3.6 cm in diameter. This is consistent with pulmonary hypertension. OSSEOUS STRUCTURES: There are no acute osseous abnormalities seen. ESOPHAGUS: No gross abnormalities. CT ABDOMEN/PELVIS: NON-CONTRAST ENHANCED SOLID ORGANS: LIVER: Calcified granuloma are noted within the liver. GALLBLADDER: The gallbladder is not visualized and may be surgically absent or contracted. INTRAHEPATIC BILE DUCT AND EXTRAHEPATIC BILE DUCT: Unremarkable. PANCREAS: The pancreas is atrophic. SPLEEN: Unremarkable. ADRENALS: Unremarkable. KIDNEYS: The renal contours are normal. There is no hydronephrosis. No calcified renal stones a re noted. No surrounding fat stranding is noted. Moderate bilateral hydroureter is noted. No stones are noted within the distal ureters. These findings could be consistent with vesicoureteral re flux. Bladder outlet obstruction cannot be completely excluded. STOMACH: Evaluation of the stomach and bowel is limited due to lack of oral contrast. No gross abno rmalities of the stomach are noted. BOWEL: The non-contrast opacified small bowel loops in the abdomen and pelvis appear unremarkable. Th e noncontrast opacified colonic loops in the abdomen and pelvis appear unremarkable. APPENDIX: The appendix is normal in caliber without surrounding inflammatory changes. PERITONEUM AND RETROPERITONEUM: No ascites or free air. No loculated fluid collection noted. The abdo tawny aorta is normal in caliber. LYMPH NODES: Unremarkable. PELVIS: No pelvic mass or adenopathy. . The patient is status post hysterectomy. BLADDER: Unremarkable. OSSEOUS STRUCTURES: No acute abnormality seen. SOFT TISSUES: Small umbilical hernia is noted containing fat only. IMPRESSION: 1. Cardiomegaly with mild pulmonary vascular congestion. 2. Bilateral hydroureter. Differential diagnosis would include vesicoureteral reflux and/or bladder o utlet obstruction, less likely. Electronically signed by: Wes Gaffney MD 11/22/2024 01:03 AM [facility] Due to temporary technical issues with the PACS/[employer] reporting system, reports are being rula d by the in-house radiologist without review as a courtesy to ensure prompt reporting the interpreting radiologist is fully responsible for the content of the report. Transcribed Date/Time: 11/22/2024 1:09 AM
[2024-11-22 01:20] LABS: Blood O2 Saturation 96.5 % (92-98.5)
[2024-11-22 01:21] LABS: Arterial Blood Carboxyhemoglob 2.1 % (0-1.5); Blood Gas Oxyhemoglobin 92.6 % (94-97); Blood Gas THB 13.1 g/dl (12-18)
[2024-11-22] MEDS ORDERED: LIDOCAINE 1% 20 ML MDV ONE (01:33)
[2024-11-22 01:48] LABS: Band Neutrophils 14 % (0-1); Blood Morphology Comment NOT SEEN (NOT SEEN); Differential Total Cells Count 100; Lymphocytes 5 % (15-42); Monocytes 2 % (0-10); Platelet Estimate ADEQ; Segmented Neutrophils 79 % (40-80)
[2024-11-22 02:06] LABS: Specific Gravity 1.009 (1.005-1.030); Sqamous Epithelial None Seen /HPF (None Seen); Urine Bacteria None Seen /HPF (<20); Urine Bilirubin NEGATIVE (Negative); Urine Blood 1+ (Negative); Urine Clarity Extremely Turbid (Clear); Urine Color Yellow (Yellow); Urine Culture Reflex Order REFLEXED; Urine Glucose 3+ (Negative); Urine Ketones NEGATIVE (Negative); Urine Microscopic Reflex YN ORDER UMIC; Urine Mucus Slight /HPF (None Seen); Urine Nitrite NEGATIVE (Negative); Urine Protein 3+ (Negative); Urine RBC >50 /HPF (None Seen); Urine Urobilinogen Normal (Normal); Urine WBC >50 /HPF (<5); Urine WBC Clump Many /HPF (None Seen)
--- NOTE | 2024-11-22 02:11 | ER ---
Nurse's Notes [facility] Name: Gladis Cantu Age: 79 yrs Sex: Female : 1945 Arrival Date: 11/21/2024 Time: 23:17 Bed 17 Private MD: Diagnosis: Pyelonephritis acute;Severe sepsis without septic shock;Acute hypoactive delirium, small suprapubic abscess, suprapubic folliculitis,;Right great toe diabetic ulcer with infection;Right great toe distal phalanx osteomyelitis Presentation: 11/21 23:25 Chief complaint: EMS states: altered mental status, weak, and fever. Coronavirus ha1 screen: Client denies travel out of the [place] in the last 14 days. Ebola Screen: No symptoms or risks identified at this time. Initial Sepsis Screen: Does the patient meet any 2 criteria? Temp <36.0*C (96.8*F)) or > 38.3*C (100.9*F). Altered Mental Status. HR > 90 bpm. Yes Does the patient have a suspected source of infection? No. Patient's initial sepsis screen is negative. Risk Assessment: Do you want to hurt yourself or someone else? Patient reports no desire to harm self or others. Onset of symptoms was November 21, 2024. 23:25 Method Of Arrival: EMS: [facility] ha1 23:25 Acuity: BERNICE 2 ha1 Triage Assessment: 23:25 General: Appears uncomfortable, Behavior is cooperative. Pain: Unable to use pain ha1 scale. FLACC scale score is 0 out of 10. Neuro: Level of Consciousness is awake, confused, lethargic, Oriented to person. Cardiovascular: Capillary refill < 3 seconds Patient's skin is warm and dry. Respiratory: Airway is patent Respiratory effort is even, unlabored, Respiratory pattern is regular, symmetrical. GI: Abdomen is round obese. : Swelling noted on labia. Derm: Skin is fragile, Skin is normal, Skin temperature is hot. Musculoskeletal: Circulation, motion, and sensation intact. Historical: - Allergies: 23:27 Iodine; ha1 23:27 PENICILLINS; ha1 23:27 Sulfa (Sulfonamide Antibiotics); ha1 11/22 04:57 Vancomycin; ha1 - Home Meds: 11/21 23:27 amiloride 5 mg Oral Tablet daily [Active]; atenolol 50 mg Oral tab 1 tab once daily ha1 [Active]; gabapentin 100 mg Oral cap [Active]; isosorbide mononitrate 30 mg Oral Tb24 1 tab once daily [Active]; lisinopril 20 mg Oral tab 1 tab once daily [Active]; nortriptyline 50 mg Oral cap 1 cap once daily [Active]; levothyroxine 175 mcg Tablet daily [Active]; hydrocodone-acetaminophen 7.5-325 mg Oral tab 1 tab every 6 hours [Active]; Prilosec 20 mg Oral cpDR 1 cap once daily [Active]; aspirin 81 mg Oral tablet 2 times per day [Active]; Novolin 70/30 Innolet Sub-Q [Active]; 11/22 01:34 Imodium A-D oral for diarrhea [Active]; ha1 - PMHx: 11/21 23:27 Diabetes - IDDM; Diverticulitis; Hypertension; lypmphoedema; neuropathy; Hypothyroidism;ha1 - Immunization history:: Adult Immunizations unknown. - Infectious Disease History:: Denies. - Social history:: Smoking status: unknown. - Family history:: not pertinent. Screenin:32 [facility] ED Fall Risk Assessment (Adult) History of falling in the last 3 months, ha1 including since admission Yes- physiologic fall (2 pts) Confusion or Disorientation Yes (5 pts) Intoxicated or Sedated No (0 pts) Impaired Gait Yes (1 pt) Mobility Assist Device Used Yes (1 pt) Altered Elimination Yes (1 pt) Score/Fall Risk Level 3 or more points = High Risk Oriented to surroundings, Maintained a safe environment, Educated pt \T\ family on fall prevention, incl call for assistance when getting out of bed, Hourly rounding (assess needs \T\ fall precautionary measures) done, Used ambulatory aids as needed (educated on \T\ assisted with), Apply high fall risk patient identification: yellow non skid footwear/ fall signage. Abuse screen: Denies threats or abuse. Denies injuries from another. Nutritional screening: No deficits noted. Tuberculosis screening: No symptoms or risk factors identified. Assessment: 23:55 Reassessment: see triage assessment. ha1 11/22 00:14 Reassessment: Patient and/or family updated on plan of care and expected duration. Pain ha1 level reassessed. Patient is alert, oriented x 3, equal unlabored respirations, skin warm/dry/pink. 01:00 Reassessment: Patient and/or family updated on plan of care and expected duration. Pain ha1 level reassessed. Patient is alert, oriented x 3, equal unlabored respirations, skin warm/dry/pink. 02:17 Reassessment: Patient and/or family updated on plan of care and expected duration. Pain ha1 level reassessed. Patient is alert, oriented x 3, equal unlabored respirations, skin warm/dry/pink. Patient states feeling better. Patient states symptoms have improved. 03:40 Reassessment: Patient and/or family updated on plan of care and expected duration. Pain ha1 level reassessed. Reassessment: NOTIFIED DR. REDD. Derm: Skin is pink, red, on the cheeks and neck. 04:00 Reassessment: Patient and/or family updated on plan of care and expected duration. Pain ha1 level reassessed. Respiratory: Airway is patent Respiratory effort is even, unlabored, Respiratory pattern is regular, symmetrical. 04:15 Reassessment: Patient and/or family updated on plan of care and expected duration. Pain ha1 level reassessed. Patient is alert, oriented x 3, equal unlabored respirations, skin warm/dry/pink. PATIENT DRINKING WATER. 04:30 Reassessment: Patient and/or family updated on plan of care and expected duration. Pain ha1 level reassessed. Patient is alert, oriented x 3, equal unlabored respirations, skin warm/dry/pink. Patient states feeling better. Patient states symptoms have improved. Vital Signs: 11/21 23:25 BP 173 / 74; Pulse 106; Resp 22 S; Temp 101.5; Pulse Ox 98% on R/A; Weight 88.45 kg; ha1 Height 5 ft. 5 in. ; 11/22 00:15 BP 177 / 70; Pulse 102; Resp 20 S; Pulse Ox 99% ; ha1 01:03 BP 135 / 58; Pulse 74; Resp 17 S; Temp 98.1(O); Pulse Ox 100% ; ha1 02:00 BP 122 / 46; Pulse 68; Resp 18 S; Pulse Ox 96% on R/A; ha1 11/21 23:25 Body Mass Index 32.45 (88.45 kg, 165.1 cm) ha1 Holger Coma Score: 02:18 Eye Response: spontaneous(4). Motor Response: obeys commands(6). Verbal Response: sp4 confused(4). Total: 14. ED Course: 11/21 23:24 Patient arrived in ED. vc1 23:25 Patient has correct armband on for positive identification. Placed in gown. Bed in low ha1 position. Call light in reach. Side rails up X2. 23:25 Arm band placed on right wrist. ha1 23:27 Triage completed. ha1 23:32 Alejandro Redd MD is Attending Physician. sp4 23:34 Maintain EMS IV. Dressing intact. Site clean \T\ dry. Gauge \T\ site: 22 G left hand . cespedes 1 Flushed with 10 mL NS. 23:51 Inserted saline lock: 20 gauge in right forearm, using aseptic technique. Blood mm11 collected. Flushed with 10 mL NS. 23:52 CRP Sent. mm11 23:52 BNP Sent. mm11 23:52 Troponin High Sensitivity Sent. mm11 23:52 SARS RAPID Sent. mm11 23:52 Influenza Screen (a \T\ B) Sent. mm11 23:53 Blood Culture Adult (2) Sent. mm11 23:53 CBC with Diff Sent. mm11 23:53 CMP Sent. mm11 23:53 Lactate w/ 2H reflex if indic. Sent. mm11 23:53 Protime (+inr) Sent. mm11 23:53 Ptt, Activated Sent. mm11 11/22 00:12 Olga Baumann, RN is Primary Nurse. ha1 00:12 Blood Culture Adult (2) Sent. ha1 00:12 CBC with Diff Sent. ha1 00:12 CMP Sent. ha1 00:12 Lactate w/ 2H reflex if indic. Sent. ha1 00:12 Protime (+inr) Sent. ha1 00:12 Ptt, Activated Sent. ha1 00:27 CT Head Brain wo Cont In Process Unspecified. EDMS 00:29 CT Chest Abdomen Pelvis W/O Contrast In Process Unspecified. EDMS 01:00 Ashley cath inserted, using sterile technique, 16 Fr., by station mechanic apprentice, balloon inflated, to ha1 gravity drainage, urine specimen collected. 02:10 Eugenio Mckeon MD is Hospitalizing Provider. sp4 03:00 Provided Education on: NEED FOR ADMIT . ha1 03:30 No provider procedures requiring assistance completed. Patient admitted, IV remains in ha1 place. Administered Medications: 11/21 23:50 Drug: Ibuprofen PO 800 mg PO once Route: PO; ha1 11/22 00:40 Follow up: Response: No adverse reaction; Temperature is decreased ha1 11/21 23:50 Drug: NS 0.9% IV (30 ml/kg) 30 ml/kg IV at bolus once; Sepsis Protocol; to be given as ha1 a bolus over 90 minutes Route: IV; Rate: bolus; Site: right forearm; 11/22 04:00 Follow up: Response: No adverse reaction; IV Status: Completed infusion; IV Intake: ha1 2600ml 11/21 23:55 Drug: Acetaminophen PO 1000 mg PO once Route: PO; ha1 11/22 00:40 Follow up: Response: No adverse reaction; Temperature is decreased ha1 00:00 Drug: Cefepime IVPB 2 grams IVPB at 200 ml/hr once over 30 mins; (mix in NS 100 mL) ha1 Route: IVPB; Rate: 200 ml/hr; Infused Over: 30 mins; Site: right forearm; 01:05 Follow up: Response: No adverse reaction; IV Status: Completed infusion; IV Intake: ha1 100ml 01:30 Drug: vancoMYCIN IVPB 2 grams IVPB at calculated rate once Route: IVPB; Rate: ha1 calculated rate; Site: right forearm; 02:00 Follow up: Response: No adverse reaction; IV Status: Infusion continued ha1 03:40 Follow up: Response: Adverse reaction, Physician notified; IV Status: Completed ha1 infusion; IV Intake: 500ml 02:00 Drug: Lidocaine Infiltration (1 %) 20 ml 20 ml Infiltration once; to bedside {Note: ha1 administered by doctor Tramaine .} Volume: 20 ml; Route: Infiltration; 03:50 Drug: diphenhydrAMINE IVP 25 mg IVP once Route: IVP; Site: right forearm; ha1 04:30 Follow up: Response: No adverse reaction; Marked relief of symptoms ha1 Medication: 00:15 VIS not applicable for this client. ha1 Intake: 01:05 IV: 100ml; Total: 100ml. ha1 03:40 IV: 500ml; Total: 600ml. ha1 04:00 IV: 2600ml; Total: 3200ml. ha1 Outcome: 02:10 Decision to Hospitalize by Provider. sp4 03:30 Admitted to ER Hold. Please see [facility] for further documentation. ha1 03:30 Condition: stable 03:30 Instructed on the need for admit, Demonstrated understanding of instructions, 08:21 Patient left the ED. ld1 Signatures: Dispatcher [employer] EDMS Radha Coffman RN RN ld1 Aura Trevino RN RN 1 Olga Baumann RN RN ha1 Alejandro Redd MD MD sp4 emmanuel donald mm11
--- NOTE | 2024-11-22 02:11 | EDPHYS ---
Physician Documentation [facility] Name: Gladis Cantu Age: 79 yrs Sex: Female : 1945 Arrival Date: 11/21/2024 Time: 23:17 Bed 17 Private MD: ED Physician Alejandro Redd HPI: 11/21 23:32 This 79 yrs old Female presents to ER via EMS with complaints of Altered sp4 Mental Status. 11/22 02:23 79-year-old female presents with EMS for acute fever and delirium. Patient has recent sp4 admission here on 10/04/2024 for sepsis secondary to Staphylococcus aureus, UTI, hypertension, type 2 diabetes mellitus, hyperglycemia, chronic kidney disease, mixed hyperlipidemia, diverticulosis, hypothyroidism, and osteoarthritis. Patient has secondary complaint of suprapubic abscess also another complaint of right great toe diabetic ulcer.. Historical: - Allergies: 11/21 23:27 Iodine; ha1 23:27 PENICILLINS; ha1 23:27 Sulfa (Sulfonamide Antibiotics); ha1 11/22 04:57 Vancomycin; ha1 - Home Meds: 11/21 23:27 amiloride 5 mg Oral Tablet daily [Active]; atenolol 50 mg Oral tab 1 tab once daily ha1 [Active]; gabapentin 100 mg Oral cap [Active]; isosorbide mononitrate 30 mg Oral Tb24 1 tab once daily [Active]; lisinopril 20 mg Oral tab 1 tab once daily [Active]; nortriptyline 50 mg Oral cap 1 cap once daily [Active]; levothyroxine 175 mcg Tablet daily [Active]; hydrocodone-acetaminophen 7.5-325 mg Oral tab 1 tab every 6 hours [Active]; Prilosec 20 mg Oral cpDR 1 cap once daily [Active]; aspirin 81 mg Oral tablet 2 times per day [Active]; Novolin 70/30 Innolet Sub-Q [Active]; 11/22 01:34 Imodium A-D oral for diarrhea [Active]; ha1 - PMHx: 11/21 23:27 Diabetes - IDDM; Diverticulitis; Hypertension; lypmphoedema; neuropathy; Hypothyroidism;ha1 - Immunization history:: Adult Immunizations unknown. - Infectious Disease History:: Denies. - Social history:: Smoking status: unknown. - Family history:: not pertinent. ROS: 11/22 02:23 Constitutional: Positive fever, positive altered mental status, positive for right sp4 great toe ulcer, positive suprapubic abscess. All other systems are negative, Unable to obtain ROS due to altered mental status, Exam: 02:18 Constitutional: Patient is frail elderly female, morbidly overweight, ill-appearing sp4 and pale febrile on arrival Head/Face: Normocephalic, atraumatic. Eyes: Pupils equal round and reactive to light, extra-ocular motions intact. Lids and lashes normal. Conjunctiva and sclera are not injected. Cornea within normal limits. Periorbital areas with no swelling, redness, or edema. ENT: Nares patent. No nasal discharge, no septal abnormalities noted. Tympanic membranes are normal and external auditory canals are clear. Oropharynx with no redness, swelling, or masses, exudates, or evidence of obstruction, uvula midline. Mucous membranes moist. Neck: Trachea midline, no thyromegaly or masses palpated, and no cervical lymphadenopathy. Supple, full range of motion without nuchal rigidity, or vertebral point tenderness. Chest/axilla: Normal chest wall appearance and motion. Nontender with no deformity. No lesions are appreciated. Cardiovascular: Regular rate and rhythm with a normal S1 and S2. No gallops, murmurs, or rubs. Normal PMI, no JVD. No pulse deficits. Respiratory: Lungs have equal breath sounds bilaterally, clear to auscultation and percussion. No rales, rhonchi or wheezes noted. No increased work of breathing, no retractions or nasal flaring. Abdomen/GI: Soft, with normal bowel sounds. No distension or tympany. No guarding or rebound. No evidence of tenderness throughout. Back: No spinal tenderness. No costovertebral tenderness. Female : Normal external genitalia. No areas of suprapubic folliculitis also small suprapubic abscess with induration. Skin: Warm, dry with normal turgor. Normal color with no rashes, no lesions, and no evidence of cellulitis. MS/ Extremity: Pulses equal, no cyanosis. Neurovascular intact. Full, normal range of motion. Bilateral lower extremity venous stasis ulcers with bilateral lower extremity chronic appearing edema Neuro: Awake and alert, GCS 14 oriented to person, Cranial nerves II-XII grossly intact. Motor strength 5/5 in all extremities. Sensory grossly intact. Grossly no lateralizing deficits, alert and oriented to self and others. 02:19 ECG was reviewed by the Attending Physician. EKG at 0202 sp4 Vital Signs: 11/21 23:25 BP 173 / 74; Pulse 106; Resp 22 S; Temp 101.5; Pulse Ox 98% on R/A; Weight 88.45 kg; ha1 Height 5 ft. 5 in. ; 11/22 00:15 BP 177 / 70; Pulse 102; Resp 20 S; Pulse Ox 99% ; ha1 01:03 BP 135 / 58; Pulse 74; Resp 17 S; Temp 98.1(O); Pulse Ox 100% ; ha1 02:00 BP 122 / 46; Pulse 68; Resp 18 S; Pulse Ox 96% on R/A; ha1 11/21 23:25 Body Mass Index 32.45 (88.45 kg, 165.1 cm) 1 Holger Coma Score: 02:18 Eye Response: spontaneous(4). Motor Response: obeys commands(6). Verbal Response: sp4 confused(4). Total: 14. Procedures: 02:04 I \T\ D: Incision and drainage was performed for an abscess of the right groin - sp4 suprapubic small abscess just to the right of midline Prepped with Betadine, Anesthetized with 20 ml's 1% Lidocaine. Incised with #11 blade. Drained moderate amount purulent fluid. bloody fluid. Dressing: sterile 4x4 gauze, the patient tolerated the procedure well, Small suprapubic abscess drained in ER . MDM: 11/21 23:35 Medical Screening Exam initiated sp4 11/22 01:19 ED course: EXAM DESCRIPTION: Head Brain Wo Cont CLINICAL HISTORY: 79 years Female, sp4 CONFUSED TECHNIQUE: Helical CT axial images are obtained from the base of skull through the vertex without IV contrast. Multiplanar reconstruction. This exam was performed according to our departmental dose-optimization program, which includes automated exposure control, adjustment of the mA and/or kV according to patient size and/or use of iterative reconstruction technique. COMPARISON: Prior images of CT brainApril 2022 were not made available at time of this interpretation, inference from the prior report may be made. FINDINGS: BRAIN: No infarcts. No parenchymal hemorrhage, intra-axial mass, mass effect, or midline shift. No abnormal extra-axial fluid collections. Mild periventricular white matter hypodensities. VENTRICLES: Ventricles are normal in size and configuration. No hydrocephalus. CALVARIUM: Hyperostosis interna frontalis, normal variant. Bone windows show no skull fracture or calvarial lesions. PARANASAL SINUSES AND MASTOIDS: Clear paranasal sinuses. Mastoid air cells are clear. IMPRESSION: 1. No acute intracranial disease. 2. Mild chronic small vessel ischemic white matter changes.. ED course: STOMACH: Evaluation of the stomach and bowel is limited due to lack of oral contrast. No gross abnormalities of the stomach are noted. BOWEL: The non-contrast opacified small bowel loops in the abdomen and pelvis appear unremarkable. The noncontrast opacified colonic loops in the abdomen and pelvis appear unremarkable. APPENDIX: The appendix is normal in caliber without surrounding inflammatory changes. PERITONEUM AND RETROPERITONEUM: No ascites or free air. No loculated fluid collection noted. The abdominal aorta is normal in caliber. LYMPH NODES: Unremarkable. PELVIS: No pelvic mass or adenopathy. . The patient is status post hysterectomy. BLADDER: Unremarkable. OSSEOUS STRUCTURES: No acute abnormality seen. SOFT TISSUES: Small umbilical hernia is noted containing fat only. IMPRESSION: 1. Cardiomegaly with mild pulmonary vascular congestion. 2. Bilateral hydroureter. Differential diagnosis would include vesicoureteral reflux and/or bladder outlet obstruction, less likely. . 01:37 ED course: Echocardiogram report from - 10/07/2024 COMMENTS: 1. NORMAL LEFT VENTRICULAR sp4 SYSTOLIC FUNCTION. LEFT VENTRICULAR EJECTION FRACTION 60-65%. NORMAL WALL MOTION. 2. DIASTOLIC DYSFUNCTION. TECHNOLOGIST: TERRY MILNER Dictated By: Axel Capone MD 10/07/24 1300. 02:04 Differential Diagnosis: electrolyte abnormality, hypoglycemia, pneumonia, seizure, sp4 sepsis, UTI. Data reviewed: vital signs, nurses notes, EMS record, old medical records, lab test result(s), EKG, radiologic studies, CT scan. Consideration of Admission/Observation Patient was admitted/placed on observation. Escalation of care including admission/observation considered. Management of patient was discussed with the following: Primary Care Provider: Linda VALENZUELA . 02:26 ED course: EXAM DESCRIPTION: Foot Right 3 View RadLex: XR FOOT 3 OR MORE VIEWS RIGHT sp4 CLINICAL HISTORY: 79 years Female, right great toe ulcer COMPARISON: None. FINDINGS: 3 views of the right foot. Osseous demineralization. There is some cortical irregularity and loss at the tip of the great toe distal phalanx, suspicious for acute osteomyelitis. There is some distal soft tissue irregularity/lucency, suspicious for ulceration. Multifocal degenerative changes. Vascular calcifications. Dorsal soft tissue edema. Plantar posterior calcaneal spurs. IMPRESSION: Findings suspicious for acute osteomyelitis at the tip of the of the great toe distal phalanx with overlying soft tissue ulceration. . 11/21 23:33 Order name: Blood Culture Adult (2) 11/21 23:33 Order name: CBC with Diff; Complete Time: 02:07 4 11/21 23:33 Order name: CMP; Complete Time: : [facility] 11/21 23:33 Order name: Lactate w/ 2H reflex if indic.; Complete Time: : 11/21 23:33 Order name: Protime (+inr); Complete Time: : 4 11/21 23:33 Order name: Ptt, Activated; Complete Time: : 11/21 23:33 Order name: Urinalysis w/ reflexes; Complete Time: 03:23 4 11/21 23:33 Order name: ABG; Complete Time: 01:30 4 11/21 23:33 Order name: Influenza Screen (a \T\ B); Complete Time: :12 4 11/21 23:33 Order name: SARS RAPID; Complete Time: :12 4 11/21 23:35 Order name: TSH; Complete Time: : 4 11/21 23:35 Order name: Troponin High Sensitivity; Complete Time: : 11/21 23:35 Order name: BNP; Complete Time: : 4 11/21 23:35 Order name: CRP; Complete Time: : 4 11/22 00:11 Order name: Manual Differential; Complete Time: 02:07 EDMS 11/22 07:41 Order name: Glucose, Ancillary Testing EDPA 11/21 23:34 Order name: CT Head Brain wo Cont 4 11/21 23:34 Order name: CT Chest Abdomen Pelvis W/O Contrast 4 11/22 01:07 Order name: Foot Right 3 View XRAY 4 11/22 05:56 Order name: RAD ED 11/21 23:35 Order name: EKG; Complete Time: 23:35 4 11/21 23:33 Order name: Accucheck; Complete Time: 00:12 4 11/21 23:33 Order name: Cardiac monitoring; Complete Time: 00:10 4 11/21 23:33 Order name: Cath; Complete Time: 02:24 sp4 11/21 23:33 Order name: EKG - Nurse/Tech; Complete Time: 00:10 4 11/21 23:33 Order name: IV Saline Lock - Large Bore; Complete Time: 23:53 sp4 11/21 23:33 Order name: Labs collected and sent; Complete Time: 23:53 4 11/21 23:33 Order name: O2 Per Protocol; Complete Time: 00:12 4 11/21 23:33 Order name: O2 Sat Monitoring; Complete Time: 00:12 4 11/21 23:33 Order name: Vital Signs; Complete Time: 00:12 4 11/22 01:07 Order name: Dressing - Wound; Complete Time: 02:13 4 11/22 01:07 Order name: Gloves, Sterile; Complete Time: 02:13 sp4 11/22 01:07 Order name: Setup Suture Tray; Complete Time: 02:13 4 EC:02 Rate is 102 beats/min. Rhythm is regular, Sinus tachycardia. QRS [place] is Normal. MS sp4 interval is normal. QRS interval is prolonged. QT interval is normal. No Q waves. T waves are Normal. No ST changes noted. Clinical impression: No evidence of ischemia. Interpreted by me. Reviewed by me. Administered Medications: 11/21 23:50 Drug: Ibuprofen PO 800 mg PO once Route: PO; [facility] 11/22 00:40 Follow up: Response: No adverse reaction; Temperature is decreased [facility] 11/21 23:50 Drug: NS 0.9% IV (30 ml/kg) 30 ml/kg IV at bolus once; Sepsis Protocol; to be given as ha1 a bolus over 90 minutes Route: IV; Rate: bolus; Site: right forearm; 11/22 04:00 Follow up: Response: No adverse reaction; IV Status: Completed infusion; IV Intake: ha1 2600ml 11/21 23:55 Drug: Acetaminophen PO 1000 mg PO once Route: PO; 1 11/22 00:40 Follow up: Response: No adverse reaction; Temperature is decreased ha1 00:00 Drug: Cefepime IVPB 2 grams IVPB at 200 ml/hr once over 30 mins; (mix in NS 100 mL) ha1 Route: IVPB; Rate: 200 ml/hr; Infused Over: 30 mins; Site: right forearm; 01:05 Follow up: Response: No adverse reaction; IV Status: Completed infusion; IV Intake: ha1 100ml 01:30 Drug: vancoMYCIN IVPB 2 grams IVPB at calculated rate once Route: IVPB; Rate: ha1 calculated rate; Site: right forearm; 02:00 Follow up: Response: No adverse reaction; IV Status: Infusion continued ha1 03:40 Follow up: Response: Adverse reaction, Physician notified; IV Status: Completed ha1 infusion; IV Intake: 500ml 02:00 Drug: Lidocaine Infiltration (1 %) 20 ml 20 ml Infiltration once; to bedside {Note: ha1 administered by doctor Tramaine .} Volume: 20 ml; Route: Infiltration; 03:50 Drug: diphenhydrAMINE IVP 25 mg IVP once Route: IVP; Site: right forearm; ha1 04:30 Follow up: Response: No adverse reaction; Marked relief of symptoms ha1 Disposition: 02:10 Critical Care:. sp4 Disposition Summary: 11/22/24 02:10 Hospitalization Ordered Notes: Hospitalization Status: Inpatient Admission sp4 Provider: Eugenio Mckeon spDarlyn Condition: Fair sp4 Problem: new sp4 Symptoms: have improved sp4 Bed/Room Type: Standard sp4 Location: Telemetry/MedSurg (Inpatient)(11/22/24 07:28) bd Room Assignment: [id number](11/22/24 07:28) bd Diagnosis - Pyelonephritis acute sp4 - Severe sepsis without septic shock sp4 - Acute hypoactive delirium, small suprapubic abscess, suprapubic folliculitis, sp4 - Right great toe diabetic ulcer with infection sp4 - Right great toe distal phalanx osteomyelitis sp4 Forms: - Medication Reconciliation Form sp4 - SBAR form sp4 - Leadership Thank You Letter sp4 Critical care time excluding procedures: 02:10 Critical care time: Bedside Care: 36 minutes, Consultation: 12 minutes, Family sp4 Intervention: 12 minutes. Total time: 60 minutes Signatures: Dispatcher [employer] Maria Fernandesara Aura Trevino RN RN vc1 Olga Baumann RN RN ha1 Alejandro Redd MD MD sp4 Corrections: (The following items were deleted from the chart) 11/21 23:34 23:34 Arterial Blood Gas+[id number] ordered. [facility] EDMS 11/22 03:13 02:10 Telemetry/MedSurg (Inpatient) sp4 vc1 03:13 02:10 sp4 vc1 07:28 03:13 [facility] ER HOLD vc1 bd 07:28 03:13 ERHOLD- vc1 bd
[2024-11-22] MEDS ORDERED: DIPHENHYDRAMINE 50 MG/ML VIAL ONE (03:50)
--- NOTE | 2024-11-22 05:56 | RAD REPORT ---
EXAM DESCRIPTION: Foot Right 3 View RadLex: XR FOOT 3 OR MORE VIEWS RIGHT CLINICAL HISTORY: 79 years Female, right great toe ulcer COMPARISON: None. FINDINGS: 3 views of the right foot. Osseous demineralization. There is some cortical irregularity and loss at the tip of the great toe distal phalanx, suspicious for acute osteomyelitis. There is some distal soft tissue irregularity/lucency, suspicious for ulceration. Multifocal degenerative changes. Vascula r calcifications. Dorsal soft tissue edema. Plantar posterior calcaneal spurs. IMPRESSION: Findings suspicious for acute osteomyelitis at the tip of the of the great toe distal phalanx with ov erlying soft tissue ulceration. Electronically signed by: Tanya Dia MD 11/22/2024 01:[address] [facility] Due to temporary technical issues with the PACS/Hopela reporting system, reports are being rula d by the in-house radiologist without review as a courtesy to ensure prompt reporting the interpreting radiologist is fully responsible for the content of the report. Transcribed Date/Time: 11/22/2024 5:56 AM
[2024-11-22] MEDS ORDERED: D10W 125 ML IV PRN (07:11)
[2024-11-22] MEDS ORDERED: ALBUTEROL 2.5 MG/3 ML NEB SOL NEB PRN ×2 (07:11→10:49)
[2024-11-22] MEDS ORDERED: ACETAMINOPHEN 325 MG TABLET PO PRN (07:11)
[2024-11-22] MEDS ORDERED: GLUCAGON 1 MG/VIAL IM PRN (07:11)
[2024-11-22] MEDS: NA CHLORIDE 0.9% 1,000 ML IV SCH (07:11)
[2024-11-22] MEDS ORDERED: ONDANSETRON 4 MG/2 ML VIAL IV PRN (07:11)
[2024-11-22] MEDS ORDERED: MAGNESIUM HYDROXIDE 8% 30 ML PO PRN (07:11)
[2024-11-22] MEDS: INSULIN REGULAR (HUMAN) 100 UNIT/ML SQ SCH (07:30)
[2024-11-22] MEDS ORDERED: FLU (Fluarix Triv) TS24-25(6MOS UP)/PF 45 MCG/0.5 ML Syringe IM ONE (07:45)
[2024-11-22] MEDS ORDERED: PNEUMOCOCCAL VACCINE 0.5 ML IMVAC ONE (08:00)
[2024-11-22] MEDS ORDERED: INSULIN REGULAR (HUMAN) 100 UNIT/ML ONE (08:04)
[2024-11-22] MEDS ORDERED: NA CHLORIDE 0.9% 1,000 ML ONE (08:05)
[2024-11-22] MEDS: VANCOMYCIN 1.75 GM in NA CHLORIDE 0.9% 500 ML IVPB SCH (08:20)
--- NOTE | 2024-11-22 12:24 | RAD REPORT ---
EXAMINATION: XR LEFT FOOT CLINICAL INDICATION: r/o ostomyelitis 2nd toe left foot TECHNIQUE: Multiple projections of the left foot were obtained. COMPARISON: 2017 FINDINGS: Bony destructive changes are seen affecting the distal phalanx of the second toe compatible with osteomyelitis. There is prominent soft tissue gas in the region. No fracture. Small calcaneal spurs.
[2024-11-22] MEDS: Levofloxacin 750mg IV 750 MG/150 ML BAG IV SCH (13:26)
--- NOTE | 2024-11-22 16:26 | CON ---
History Of Present Illness: This is a 79-year-old female, who is coming in for fever, delirium. The patient was recently diagnosed with sepsis on October 04. She has significant past medical histor y of hypertension, type 2 diabetes mellitus, hyperglycemia, chronic kidney disease, hyperlipidemia, d iverticulosis, hypothyroidism, osteoarthritis, came in with urinary tract infection. The patient is currently getting Levaquin and vancomycin. X-ray of the foot shows patient has acute osteomyelitis o f the right great toe with inflammatory changes around it. Past Medical History: As per HPI. Social History: Nonsmoker, nondrinker. Family History: Noncontributory. Medications: Vancomycin and Levaquin. See MAR for other medications. Allergies: PENICILLIN, SULFA DRUGS, CODEINE. Review of Systems: A 10-point review was performed. Physical Examination: General: This is a 79-year-old female, lying in bed, not in any acute cardiopulmonary distress. Vital Signs: Temperature 98, pulse 68, respirations 17, blood pressure 104/49. HEENT: Unremarkable. Neck: Supple. Lungs: Basal crackles. Heart: S1, S2. Regular. Abdomen: Soft, nontender. Bowel sounds present. Extremity: Right big toe and left second toe ulceration noted. Laboratory Data: Shows WBC 12.5, hemoglobin 13.8, platelets are 163. Chemistry shows BUN 20, creati nine 1.3, albumin level of 2.3. Urinalysis shows WBC more than 50, RBC more than 50. Micro data is pending. Assessment And Plan: Urinary tract infection and urosepsis in a 79-year-old female with significant history of diabetes mellitus with diabetic neuropathy. Also, currently being treated with Levaquin a nd vancomycin. X-ray shows patient has osteomyelitis of right big toe and has hammertoe deformity ca using her to have left second toe ulceration also with cellulitis of the right foot and osteomyelitis of the big toe. We will recommend to continue treatment for 6 weeks consider applying Betadine and foam dressing to the wound site. Consider vascular surgery evaluation. Consider long-term acute car e. Continue antibiotic for 5 days for urinary tract infection depending on culture results. We will follow this is closely. Thank you Dr. Mckeon for consult. NF/MODL Voice ID: [id number] Report ID: [id number]
--- NOTE | 2024-11-22 18:02 | HP ---
Date of Admission: 11/22/2024 Chief Complaint: Altered mental status. History Of Present Illness: This is a 79-year-old pleasant female patient, who lives at home with her sister, was brought into emergency room via ambulance with altered mental status problem. The patient says she really does not know what happened at home, but she was sent to the hospital in ambulance and her sister called ambulance. She really does not know exactly for what reason, but as per my review from emergency room visit record as well as communication with the ER physician, she was brought in with altered mental status and the patient says her sister called ambulance, but she does not remember ambulance ride at all. This morning, she is offering questions appropriately. She is having some burning sensation on urination. Denies any hematuria. No cough or congestion. No shortness of breath. She also has occasional discharge from her right foot great toe from the tip part of the toe area and has some dry skin over the tip of the right great toe as well as tip of the left second toe. She reports that she has sensation in both feet and toes, but it is not normal and this is chronic from diabetic neuropathy problem. She denies any fever, chills, nausea, vomiting. After she was evaluated in emergency room, she was admitted to hospital with sepsis and urinary tract infection as well as osteomyelitis of the right foot great toe. The patient received 1 dose of cefepime in the emergency room and 1 dose of vancomycin and nurse on the floor informed me that the patient's face had turned red when she was getting vancomycin in the emergency room, so nursing staff has labeled her as allergic to vancomycin and I did discuss with the nurse to inform her that this is Tricia syndrome type of side effect from rather rapid infusion of vancomycin IV and if we slow it down, then she should not have such problem and I have also requested nurse to remove vancomycin allergy label from her chart as this will be vital antibiotic for somebody like her. Allergies: TO PENICILLIN CAUSING RASH AND ITCHING. SULFA CAUSING RASH AND ITCHING. 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 All other systems reviewed and negative. Medications: [place] 7.5 mg as prescribed by Pain Management, amiloride 5 mg daily, aspirin 81 mg daily, atenolol 50 mg daily, Humulin 70/30 insulin and takes 50-60 units 2 times a day, isosorbide mononitrate 30 mg daily, levothyroxine 200 mcg daily, lisinopril 20 mg 2 times a day. Nortriptyline 50 mg daily at bedtime. Prilosec 20 mg daily. Gabapentin 100 mg 2 times a day. Levaquin 500 mg daily. Past Medical History: Significant for hypertension; type 2 diabetes mellitus; chronic kidney disease, stage IIIA; diabetes mellitus with chronic kidney disease; mixed hyperlipidemia; diverticulosis; hypothyroidism; chronic leg edema; thrombocytopenia; cervical spondylosis; osteoarthritis at multiple sites; peripheral vascular disease. Past Surgical History: Significant for cataract surgery, cholecystectomy, hysterectomy, carpal tunnel release. Family History: Father , had coronary artery disease, diabetes, lung cancer. Mother , had diabetes, hypertension, kidney cancer. Brother with coronary artery disease and sister with coronary artery disease. Social History: Negative for smoking and alcohol use. Physical Examination: Vital Signs: This morning, temperature 98.1, pulse 56, respiratory rate 17, blood pressure 104/49, oxygen saturation 98%. Height 5 feet 7 inches, weight 193 pounds. General: Awake, alert, oriented, not in distress. HEENT: Head atraumatic, normocephalic. Conjunctivae nonerythematous. Sclerae white. Mouth, no thrush or edema noted. Ears/Nose, no mass, lesion, discharge noted. Neck: Supple. No JVD, lymph nodes, bruit, thyromegaly noted. Lungs: Bilateral good equal air entry. Clear to auscultation. No rhonchi. No rales. Heart: Normal heart sounds, no murmur or gallop. Abdomen: Soft, bowel sounds normal. No guarding, rigidity, tenderness, mass, hepatosplenomegaly, distention, or bruit noted. Extremities: Bilateral trace leg edema. Right leg skin is slightly pink and warm to touch involving most of the right leg and right foot great toe has pink warm skin and tip of the great toe on the right foot has dry skin. No active discharge or bleeding. Left foot second toe skin is pink and warm and tip of the left foot second toe skin is also dry skin without any discharge or bleeding. Skin: No rash, ulcer, cellulitis. Lymphatics: No lymph node enlargement in neck, supraclavicular, infraclavicular region. Neuro: No focal neurological deficit. Chest: Unremarkable. External Genitalia: Deferred. Rectal: Deferred. Vascular: Peripheral pulses, unable to feel dorsalis pedis or posterior tibial artery pulsation. Laboratory Data: WBC 12.5, hemoglobin 13.8, platelets 163. Arterial blood gas; pH 7.42, pCO2 35.8, pO2 82.3, oxygen saturation 96% on room air. COVID-19 test negative. Sodium 129, potassium 4.2, chloride 96, bicarb 25, BUN 20, creatinine 1.36, glucose 292, lactic acid 1.7. Liver function tests unremarkable. Troponin 17.3. C-reactive protein 113. ProBNP 4052. TSH 1.040. Urinalysis, 1+ blood, 500 leukocytes, more than 50 wbc. X-ray of the right foot shows findings suspicious for acute myelitis at the tip of right great toe distal phalanx. CAT scan of the head was negative for any acute intracranial changes. It did show mild chronic small vessel ischemic changes. CAT scan of chest, abdomen, and pelvis done in emergency room showed cardiomegaly with mild pulmonary vascular congestion, bilateral hydroureter, and this could be due to vesicoureteral reflux or bladder outlet obstruction, which is less likely. Arterial Doppler from September 30, 2024, shows no acute or significant abnormality, but the patient was noted to have biphasic arterial waveforms throughout both lower extremities. Impression: 1. Sepsis. 2. Urinary tract infection. 3. Osteomyelitis, right foot great toe. 4. Rule out osteomyelitis, left foot second toe. 5. Peripheral vascular disease. 6. Type 2 diabetes mellitus, uncontrolled. 7. Diabetes mellitus with peripheral neuropathy. 8. Hypertension. 9. Diabetes mellitus with chronic kidney disease. 10. Chronic kidney disease stage IIIA. 11. Hyperlipidemia. 12. Diverticulosis. 13. Hypothyroidism. 14. Osteoarthritis, multiple sites. Plan: We will admit the patient to hospital for further evaluation and management of this problem. The patient is appropriate for inpatient and is expected to spend 2 midnights in hospital. For her urinary tract infection, we will give empiric antibiotics. I will start her on Levaquin starting today and follow up on urine culture and make adjustment on antibiotic if it becomes necessary. Her sepsis is due to underlying urinary tract infection problem and we will follow up on blood culture and urine culture and then make a decision regarding culture-specific antibiotic. The patient received IV fluid per order in the emergency room. We will continue current maintenance IV fluid. DVT prophylaxis will be given using Lovenox. For osteomyelitis, we will go ahead and get an MRI done on the right foot and I have ordered x-ray and MRI of the left foot. I have also requested consultation from infectious disease specialist, Dr. Sotomayor, as well as general surgeon, Dr. Vaca, who was contacted by me today and details were discussed with him. We will continue vancomycin per order and I have written nursing instruction to give vancomycin IV slowly to avoid any chances of Tricia syndrome type of side effect. Diabetes will be managed with sliding scale insulin and no need for further intervention on it. For neuropathy, she is on gabapentin and we will continue that per order. No need for any further intervention. Peripheral vascular disease, the patient already had arterial Doppler study done about 6 weeks ago. No need to repeat that and no need for any further intervention except to continue aspirin. Continue statin therapy and control diabetes. For her hyperlipidemia, we will continue her statin therapy per order and no need for further intervention. Hypothyroidism will not require any further intervention except continuation of levothyroxine. We will order PICC line as the patient will need 6 weeks of IV antibiotic therapy and I have discussed this with her and she informed me that it will be very difficult for her to go back to her sister's house with what is going on and she is requesting to go to [facility] facility at least for short time and I have requested Social Service consultation to assist with discharge planning and the patient states that she will also talk to her sister about the same thing. Total time spent 85 minutes that includes communication with emergency room physician, review of emergency room visit, communication with general surgeon, Dr. Vaca, review of emergency room visit record, performing today's evaluation and management, and review of last hospital admission record from 10/04/2024 and from September 2024. I will see her tomorrow for followup. ISAAC/MODL Voice ID: [id number] SINGH
[2024-11-22] MEDS: ENOXAPARIN 40 MG/0.4 ML SQ SCH (18:34)
--- NOTE | 2024-11-22 18:54 | RAD REPORT ---
EXAM: Foot Left Wo Cont HISTORY: rule out osteomyelitis COMPARISON: Radiograph 11/22/2024 TECHNIQUE: Multiplanar multisequence MR images were obtained of the imaged foot without contrast. FINDINGS: Soft tissue gas is present at the tip of the second toe. No fluid collections identified. Absent seco nd distal phalangeal tuft which is presumably secondary to osteomyelitis with destruction. The middle and proximal phalanx are intact. IMPRESSION: Near complete osseous destruction of the second distal phalanx with some soft tissue gas. This is pre sumably secondary to osteomyelitis. The second middle phalanx has normal marrow signal and is without evidence of osteomyelitis. No other acute findings identified within the left foot.
--- NOTE | 2024-11-22 19:17 | RAD REPORT ---
EXAM: Foot Right Wo Cont HISTORY: rule out osteomyelitis COMPARISON: 11/22/2024 TECHNIQUE: Multiplanar multisequence MR images were obtained of the imaged foot without contrast. FINDINGS: Destructive osseous changes are present at the tip of the great toe with destruction of the entire gr eat toe distal phalangeal tuft. The mid and proximal portion of the great toe distal phalanx is intact though there is some mild increased T2 signal. This is consistent with osteomyelitis. No absce ss identified. No fracture. IMPRESSION: Osteomyelitis at the great toe distal phalanx with complete destruction of the phalangeal tuft.
--- NOTE | 2024-11-22 19:32 | CON ---
Date of Consultation: 11/22/2024 Reason For Consultation: Infected wounds both lower extremities. History Of Present Illness: The patient is a 79-year-old female who presented to the emergency room with altered mental status. Workup revealed sepsis secondary to UTI and she was also found to have w ounds on her right great toe and left second toe, which she was complaining about and she had x-rays done which findings were significant for osteomyelitis and some gas in the left second toe. Therefor e, I was consulted. The patient is awake, alert. She is confused, but she is not in any acute distr ess. She has had a similar episode of sepsis secondary to UTI back in October. In September, she di d have arterial Dopplers done, which showed biphasic flow with no restrictive lesions identified. No sore throat, runny nose, cough, headaches, or dizziness. No chest pain. No fever or chills. No pu rulent discharge from the wounds. Review of Systems: Otherwise unremarkable. Past Medical History: Significant for hypertension, type 2 diabetes, chronic kidney disease, diabete s with chronic kidney disease, hyperlipidemia, hypothyroidism, chronic leg edema/lymphedema, history of thrombocytopenia, osteoarthritis, peripheral vascular disease. Past Surgical History: Cataract surgery, cholecystectomy, hysterectomy, carpal tunnel disease. Allergies: INCLUDE SULFA AND PENICILLIN. Social History: The patient does not smoke or drink alcohol. Family History: Significant for coronary artery disease, diabetes, lung cancer in the father and kid shaunna cancer in the mother. Physical Examination: Vital Signs: Stable. She is currently afebrile. General: She is awake and alert. Head and Neck: No masses. Chest: Clear. Heart: S1-S2. Abdomen: Soft. Extremities: Toxis-djl-ehwn patient has very dry skin and probably lymphedema. She has dorsalis ped is and posterior tibial palpable slightly diminished, however, equal bilaterally. On the left second toe, she has approximately a 2 cm area of ecchymosis with some flocculence, redness on the forefoot and the toe and edema and some tenderness on the right great toe. She has a similarly 10 cm area of eschar, but no fluctuance as such. There is redness on the top of the foot as well. Skin is very dr y. Laboratory Data: Reviewed. White count is 12.5 with a left shift on admission. INR is 1.26. Chemi stry reviewed. Her sodium is 127. Lactic acid was 1.7. Sugar was slightly elevated. BUN and creat inine are slightly elevated. C-reactive protein, however, was 113. X-ray of the second toe of left foot revealed bony destructive changes are seen affecting the distal phalanx of the second toe, bandar tible with osteo. There is prominent soft tissue gas in the region. No fractures. Small calcaneal spur seen and the patient also had x-ray of the right foot which showed a finding suspicious for acut e osteo at the tip of the great toe distal phalanx with overlying soft tissue ulceration. The patien t's urinalysis shows turbid clarity, 3+ glucose, 1+ blood. Estrace 500, RBC greater than 50, WBC gre ater than 50. Her cultures are pending. Assessment: A 79-year-old female with multiple medical problems including urinary tract infection wi th leukocytosis and bilateral foot osteomyelitis on the right first toe and the left second toe. Recommendation: Patient will need 6 weeks IV antibiotics. The patient's most recent vascular studie s were adequate for wound healing. Therefore, I think we should proceed with debridement of both toe s to get rid of the infected tissues that are present and do OR cultures and wound care. The patient understands risks, benefits, alternatives and agrees to procedure. I will try to contact her sister as well as the patient is somewhat confused at times and discuss the plan of care with Dr. Mckeon. Th e patient would benefit from long-term acute care setting and we will await the recommendations by Infectious Disease for radha t purpose. /MODL Voice ID: [id number] Report ID: [id number]
[2024-11-22] MEDS: NORTRIPTYLINE HCL 25 MG CAP PO SCH (20:16)
[2024-11-22] MEDS: Mupirocin NASAL 2 APPL/1 GM TUBE NAS SCH (20:16)
[2024-11-22] MEDS: lisinopriL 20 MG TAB PO SCH (20:17)
[2024-11-22] MEDS: GABAPENTIN 100 MG CAP PO SCH (20:17)
[2024-11-22] MEDS: HYDROCODONE/APAP 10/325 TAB PO PRN (20:21)
[2024-11-22] MEDS: ZOLPIDEM TARTRATE 5 MG TABLET PO PRN (20:21)
[2024-11-23] MEDS: LEVOTHYROXINE SOD 0.1 MG TAB PO SCH (06:23)
[2024-11-23 07:27] LABS: Anion Gap 10.6 mEq/L (5.0-15.0); Potassium 3.6 mEq/L (3.5-5.1)
[2024-11-23] MEDS ORDERED: propofoL 200 MG/20 ML VIAL IV ONE (08:06)
[2024-11-23] MEDS ORDERED: LIDOCAINE 2% MPF 5 ML VIAL ONE (08:15)
[2024-11-23] MEDS ORDERED: MIDAZOLAM HCL 2 MG/2 ML INJ ONE (08:16)
[2024-11-23] MEDS ORDERED: FENTANYL CITR 100 MCG/2 ML ONE (08:16)
[2024-11-23] MEDS ORDERED: EPHEDRINE SULF 50 MG/ML VIAL ONE (08:16)
[2024-11-23] MEDS ORDERED: SUCCINYLCHOLINE 20 MG/ML (10 ML) IV ONE (08:36)
[2024-11-23] MEDS: Ringers Lactate 1,000 ML IV ONE (08:55)
[2024-11-23] MEDS ORDERED: HOME MED 1 EA UNK (Omeprazole Magnesium [Prilosec Otc] 20 MG Tablet.Dr) PO SCH (09:00)
[2024-11-23] MEDS: INSULIN GLARGINE 100 UNIT/ML SQ SCH (09:00)
[2024-11-23] MEDS ORDERED: LEVOTHYROXINE SODIUM 175 MCG PO SCH (09:00)
[2024-11-23] MEDS ORDERED: KETOROLAC 30 MG/ML INJ ONE (09:29)
[2024-11-23] MEDS ORDERED: ONDANSETRON 4 MG/2 ML VIAL ONE (09:29)
[2024-11-23] MEDS ORDERED: METOCLOPRAMIDE 10 MG/2mL INJ ONE (09:29)
[2024-11-23] MEDS: COLLAGENASE 30 GM OINTMENT TOP ONE (09:50)
--- NOTE | 2024-11-23 09:59 | P.OP ---
Date of Service: 11/23/24 Preop diagnosis: Infected left second toe wound with osteomyelitis, infected right first toe with osteomyelitis Postop diagnosis: Same Procedure performed: Debridement of left second toe infected wound to subcutaneous tissue and bone, debridement of right first toe infected wound to subcutaneous tissue and bone and trimming of toenails Surgeon: Margarito Vaca MD Doping Supervisor: Talisha ZAMORA Estimated blood loss: Minimal Specimen: Pus, tissue and bone for culture Findings: As above Anesthesia: General Complications: None Drains: None Fluids and blood products: Nonapplicable Disposition: Recovery room Operative note: Patient brought to the OR and placed in supine position. General anesthesia began. Patient prepped and draped in the usual sterile fashion. Marcaine 0.5% infiltrated locally for postop pain control. Scissors, bone cutters and rongeur is used to debride both wounds to the bone. On the left second toe there was pus encountered and cultures were done. Bone cultures were done as well. Good healthy tissue was obtained after aggressive debridement of both wounds. Bleeding controlled with pressure and cautery. Patient also had very large toenails which were trimmed. Santyl sterile dressing were applied to both wounds. Patient tolerated the procedure in stable condition taken to recovery room in good general condition. CC: Dr. Mckeon's office
[2024-11-23] MEDS: FENTANYL CITR 100 MCG/2 ML ONE (10:19)
[2024-11-23] MEDS: ONDANSETRON 4 MG/2 ML VIAL ONE (10:27)
[2024-11-23] MEDS: ISOSORBIDE MONO SR 30 MG TAB PO SCH (12:08)
[2024-11-23] MEDS: ASPIRIN 81 MG CHEWABLE TABLET PO SCH (12:09)
[2024-11-23] MEDS: PANTOPRAZOLE 40MG TABLET PO SCH (12:09)
[2024-11-23] MEDS: atenoloL 50 MG TAB PO SCH (12:42)
[2024-11-23] MEDS: VANCOMYCIN 1.5 GM in NA CHLORIDE 0.9% 500 ML IVPB SCH (15:24)
--- NOTE | 2024-11-23 18:40 | PN ---
Date of Progress Note: 11/23/2024 Subjective: The patient was seen this afternoon for followup. She was sitting in chair. No new com plaints or problems reported by her. She had debridement done by Dr. Vaca on her right foot great t oe and left foot second toe. She denies any new complaints today. Objective: Vital Signs: Reviewed. HEENT: Unremarkable. Lungs: Clear to auscultation. Heart: Sounds normal. Abdomen: Soft. Bowel sounds normal. No guarding, rigidity, tenderness, distention. Extremities: Trace leg edema. Surgical dressing present over right foot great toe and left foot sec ond toe. Laboratory Data: Today, sodium 135, potassium 3.6, chloride 104, bicarb 24, BUN 29, creatinine 1.51, glucose 158. Impression: 1.Osteomyelitis, right foot great toe and left foot second toe. 2.Hypertension. 3.Type 2 diabetes mellitus, uncontrolled. 4.Chronic kidney disease, stage IIIB. 5.Diabetes mellitus with chronic kidney disease. Plan: We will go ahead and continue current insulin. For diabetes management, continue current anti hypertensive medication. We will continue current antibiotic. Follow up on culture results. Follow up with infectious disease specialist and yesterday the patient was leaning towards going to either long-term acute care facility or [facility]. Today, she tells me that she has talked to her sister and she would like to go home instead of going to any facility, so we will have Social Service assist her with appropriate arrangements. ISAAC/MODL Voice ID: [id number] Report ID: [id number]
--- NOTE | 2024-11-24 10:34 | PN ---
Date of Progress Note: 11/24/2024 Subjective: The patient is awake, alert. No complaint. Objective: Vital Signs: Stable, afebrile. Extremities: Examination of the wound reveals decreased erythema and edema and warmth. The wound it self is clean. There is no purulent discharge. There is some minimal fibrin present on both sites. Laboratory Data: Blood cultures are growing Staph aureus, sensitive to vancomycin. Her cultures fro m the surgery is pending. She has 3+ gram-negative rods and 3+ Staph coag positive. Assessment: Status post debridement of infected wounds of bilateral lower feet, right first toe and left second toe. Recommendations: Continue IV antibiotics. Check cultures and adjust antibiotics. The patient will need 6 weeks IV antibiotics. Wound care as ordered. [facility] charge. Discharge planning in place. SUZETTE/PAULA Voice ID: [id number] Report ID: [id number]
--- NOTE | 2024-11-24 14:42 | RAD REPORT ---
EXAMINATION: ONE VIEW CHEST XR CLINICAL INDICATION: picc line placement TECHNIQUE: Frontal chest projection is submitted. Examination is limited by patient positioning and t echnique. COMPARISON: 10/05/2024 FINDINGS: Right-sided PICC line is in place with its tip in the SVC. The lungs are grossly clear. The heart is mildly enlarged.
--- NOTE | 2024-11-24 20:23 | PN ---
Date of Progress Note: 11/24/2024 Subjective: The patient was seen this morning for followup. She was sitting with her legs in depend ent position and complaining of bilateral leg swelling and redness of dorsum feet and both lower legs . The patient has been spending lot of time in sitting position with her legs in dependent position and I have advised her to try to keep her legs elevated with her resting in bed all day today and I e xpect her leg to show improvement overnight. Objective: Vital Signs: Reviewed. HEENT: Unremarkable. Lungs: Clear to auscultation. Heart: Sounds normal. Abdomen: Soft. Bowel sounds normal. No guarding, rigidity, tenderness, distention. Extremities: Bilateral grade 1 leg edema and skin over both lower extremities pink and both dorsum f eet swollen with pink discoloration of skin. Laboratory Data: Blood culture is growing Staph aureus. Impression: 1.Sepsis, organism Staph aureus. 2.Osteomyelitis, left foot second toe and right foot great toe. 3.Hypertension. 4.Type 2 diabetes mellitus, uncontrolled. Plan: We will continue current diabetes management. Continue current antihypertensive medication an d we will continue current antibiotic which is Levaquin and vancomycin. Dr. Vaca has obtained some wound culture. We will follow up on those. He also has obtained bone culture along with purulent ma terial that was collected from left foot second toe. This culture results are pending. Social Servi ce consultation was requested as the patient wants to go home and not to go to any facility, so she will need 6 weeks of IV antibiotic therapy upon discharge. I will see her tomorrow for followup. ISAAC/MODL Voice ID: [id number] Report ID: [id number]
[2024-11-25 06:24] LABS: Absolute Eosinophils 0.2 K/uL (0-0.5); Absolute Lymphocytes (CBC) 1.7 K/uL (0.7-4.9); Absolute Monocytes 0.7 K/uL (0.1-1.3); Absolute Neutrophil 4.4 K/uL (1.8-8.0); Basophils % 0.5 % (0-1.3); Eosinophils % 3.2 % (0-4.4); Hematocrit 33.1 % (36.0-45.0); Hemoglobin 11.6 g/dL (12.0-15.0); Lymphocytes % 24.4 % (15.3-44.8); MCH 28.9 pg (27.0-35.0); MCV 82.5 fL (80-100); MPV 8.4 fL (7.6-11.3); Monocytes % 9.6 % (3.3-12.3); Neutrophils % 62.3 % (41.7-73.7); Platelets 152 thou/uL (152-406); RBC Red Blood Cell Count 4.02 M/uL (3.86-4.86); Red Cell Distribution Width 13.8 % (12.1-15.2)
[2024-11-25 06:40] LABS: Anion Gap 8.4 mEq/L (5.0-15.0); Magnesium 1.1 mg/dL (1.6-2.4); Potassium 3.4 mEq/L (3.5-5.1)
[2024-11-25] MEDS: FUROSEMIDE 20 MG/ 2ML VIAL IV ONE (09:02)
[2024-11-25] MEDS: cloNIDine HCL 0.1 MG TAB PO SCH (09:02)
--- NOTE | 2024-11-25 13:05 | EKG ---
Test Date: 2024-11-22 Test Time: 00:02:18 Workforce Management Analyst: EVELIN MEASUREMENT RESULTS: Intervals: Rate: 102 UT: 202 QRSD: 136 QT: 368 QTc: 479 [place]: P: 10 UT: 202 QRS: 86 T: 0 INTERPRETIVE STATEMENTS: Sinus tachycardia Right bundle branch block Inferior infarct, age undetermined Abnormal ECG Compared to ECG 09/30/2024 00:22:01 Sinus rhythm no longer present Sinus arrhythmia no longer present T-wave abnormality no longer present Possible ischemia no longer present Myocardial infarct finding still present Electronically Signed On 11-25-24 13:00:33 DIRECTOR OF PUBLIC HEALTH by Axel Capone
[2024-11-25] MEDS: Meropenem 1,000 MG in NA CHLORIDE 0.9% 100 ML IV SCH (13:42)
[2024-11-25] MEDS ORDERED: CHLORHEXIDINE GLUCO 4% 120 ML TOP SCH (15:00)
--- NOTE | 2024-11-25 15:20 | PN ---
Subjective: Patient lying in bed. No new acute event. Chart reviewed. Objective: Vital Signs: Temperature 97, pulse 78, respirations 16, blood pressure 150/74. Lungs: Basal crackles. Heart: S1, S2. Regular. Abdomen: Soft, nontender. Bowel sounds present. Extremities: Wounds noted on her feet. Laboratory Data: WBC 7.1, down from 12.5, hemoglobin 11.6, platelets are 152. Chemistry shows BUN o f 22, creatinine 1.1. The patient currently on meropenem and vancomycin. Levaquin has been stopped as her cultures are geogre wing Morganella morganii and MRSA from the left foot toe and bone cultures are growing Staph aureus. Urine culture is more than 100,000 colony yeast, most likely contamination. Blood cultures are also growing Staph aureus. We will continue current treatment. Consider long-term acute care. Consider wound care per surgical team. We will follow the patient closely. NF/MODL Voice ID: [id number] Report ID: [id number]
--- NOTE | 2024-11-25 17:56 | PN ---
Date of Progress Note: 11/25/2024 Subjective: The patient is awake, alert, no new complaint. Objective: Vital Signs: Stable, afebrile. Extremities: On physical exam, the dressing is clean, dry, intact. Laboratory Data: Her laboratory data and cultures reviewed. Her left toe wound culture is growing o ut MRSA as well as Morganella morganii. Sensitivities reviewed, sensitive to vancomycin and meropene m which the patient is on. Assessment: Osteomyelitis, cellulitis, infected wounds, bilateral lower extremity in the right first toe and left second toe. Recommendations: Await antibiotic recommendation by Dr. Sotomayor and discharge planning. Wound care a s ordered. The [facility]. /MODL Voice ID: [id number] Report ID: [id number]
--- NOTE | 2024-11-25 21:20 | PN ---
Date of Progress Note: 11/25/2024 Subjective: The patient was seen this morning for followup. No new complaints or problems reported by the patient. She was lying in bed, not in distress. Leg swelling remains unchanged, but redness from lower leg is better today she reports. Objective: Vital Signs: Reviewed. HEENT: Unremarkable. Lungs: Clear to auscultation. Heart: Sounds normal. Abdomen: Soft. Bowel sounds normal. No guarding, rigidity, tenderness, distention. Extremities: Bilateral grade 2 pedal edema. Dry skin over both lower extremity and redness from bot h lower legs and dorsum feet area is better today. Laboratory Data: WBC 7.10, hemoglobin 11.6, platelets 152. Sodium 138, potassium 3.4, chloride 112, bicarb 21, BUN 22, creatinine 1.14, glucose 165, magnesium 1.1. Impression: 1.Osteomyelitis, right foot great toe, left foot second toe. 2.Hypertension. 3.Type 2 diabetes mellitus, uncontrolled. 4.Chronic diastolic heart failure. 5.Chronic kidney disease. 6.Anemia, unspecified. 7.Hypertension. Plan: We will go ahead and start the patient on clonidine 0.1 mg 2 times a day. Give 1 dose of Lasi x 20 mg IV. We will correct low potassium and low magnesium with help of electrolyte replacement pro tocol and continue current antibiotic. Follow up on pending culture results. Continue to follow with Dr. Vaca and Dr. Sotomayor. I will see her tomorrow for paco hayes. ISAAC/MODL Voice ID: [id number] Report ID: [id number]
[2024-11-26] MEDS: VANCOMYCIN 1.25 GM in NA CHLORIDE 0.9% 250 ML IVPB SCH (06:43)
[2024-11-26] MEDS: FUROSEMIDE 20 MG/ 2ML VIAL IV ONE (08:59)
[2024-11-26] MEDS: Meropenem 1,000 MG in NA CHLORIDE 0.9% 100 ML IV SCH (08:59)
--- NOTE | 2024-11-26 17:50 | PN ---
Subjective: The patient is sitting in easy chair. Denies any headache, nausea, vomiting, chest pain , abdominal pain, constipation, or diarrhea. Objective: Vital Signs: Temperature 98, pulse 65, respirations 18, blood pressure 189/62. Lungs: Basal crackles. Heart: S1, S2. Regular. Abdomen: Soft, nontender. Bowel sounds present. Extremities: 1+ edema. Wounds on toes noted. Laboratory Data: Shows WBC 7.1, hemoglobin 11.6, platelets are 152. Chemistry shows BUN 22, creatin ine 1.1. Medications: Currently, patient is on Merrem and vancomycin. Assessment And Plan: Bacteremia secondary to methicillin-resistant Staphylococcus aureus, osteomyeli tis of left foot with cultures growing methicillin-resistant Staphylococcus aureus and Morganella mor ganii. We will continue vancomycin and meropenem for 6 weeks. Continue current treatment. We will follow the patient as needed. NF/MODL Voice ID: [id number] Report ID: [id number]
[2024-11-26 18:14] LABS: Magnesium 1.1 mg/dL (1.6-2.4); Phosphorus 2.8 mg/dL (2.5-4.9); Potassium 3.7 mEq/L (3.5-5.1)
--- NOTE | 2024-11-26 18:59 | PN ---
Date of Progress Note: 11/26/2024 Subjective: The patient was seen this morning for followup. She was lying in bed, not in distress. Denies any new complaints. Continues to have leg swelling, but the redness has improved from dorsal feet. Objective: Vital Signs: Reviewed. HEENT: Unremarkable. Lungs: Clear to auscultation. Heart: Sounds normal. Abdomen: Soft. Bowel sounds normal. No guarding, rigidity, tenderness, distention. Extremities: Bilateral leg edema, unchanged from yesterday. Laboratory Data: No new labs today, but her wound culture from left toe is growing Morganella and it is resistant to Levaquin, but sensitive to meropenem and it is also growing MRSA. Tissue culture fr om the foot and I believe this was collected by Dr. Vaca at the time of surgery is growing Staph aur eus. Impression: 1.Osteomyelitis, right foot great toe and left foot second toe. 2.Sepsis. 3.Peripheral vascular disease. 4.Chronic diastolic heart failure. 5.Hypertension. 6.Hyperlipidemia. 7.Type 2 diabetes mellitus, uncontrolled. Plan: We will go ahead and continue meropenem which was started yesterday and Levaquin was discontin ued. We will continue vancomycin. The patient will need 6 weeks of IV antibiotic therapy with these 2 antibiotics. We still have couple of culture results that is pending and hopefully it will be brooke ilable over the weekend, so we can decide to discharge the patient to go home beginning of next week and this was discussed with her. We will give another dose of Lasix 20 mg IV today. Discontinue IV fluid. Continue current antihypertensive medication and diabetes management and I will see her tomorrow for followup. ISAAC/MODL Voice ID: [id number] Report ID: [id number]
[2024-11-27 06:18] LABS: Absolute Eosinophils 0.2 K/uL (0-0.5); Absolute Lymphocytes (CBC) 2.3 K/uL (0.7-4.9); Absolute Monocytes 0.8 K/uL (0.1-1.3); Absolute Neutrophil 3.9 K/uL (1.8-8.0); Basophils % 0.5 % (0-1.3); Eosinophils % 3.4 % (0-4.4); Hematocrit 33.5 % (36.0-45.0); Hemoglobin 11.6 g/dL (12.0-15.0); Lymphocytes % 31.7 % (15.3-44.8); MCH 28.5 pg (27.0-35.0); MCHC 34.5 g/dL (32.0-36.0); MCV 82.6 fL (80-100); Monocytes % 11.1 % (3.3-12.3); Neutrophils % 53.3 % (41.7-73.7); Nucleated Red Blood Cells % 0.1 % (0-0); Platelets 166 thou/uL (152-406); RBC Red Blood Cell Count 4.06 M/uL (3.86-4.86); Red Cell Distribution Width 13.7 % (12.1-15.2)
[2024-11-27 06:31] LABS: Anion Gap 7.7 mEq/L (5.0-15.0); Magnesium 1.3 mg/dL (1.6-2.4); Potassium 3.7 mEq/L (3.5-5.1)
[2024-11-27] MEDS: Magnesium Sulfate 2gm IVPB 2 G/50 ML BAG IV ONE (07:45)
[2024-11-27] MEDS: POTASSIUM CL SA 10 MEQ TAB PO ONE (08:45)
[2024-11-27] MEDS: APIXABAN 5 MG TABLET PO SCH (09:57)
[2024-11-27] MEDS: FUROSEMIDE 40 MG/4 ML VIAL IV ONE (09:57)
--- NOTE | 2024-11-27 12:01 | PN ---
Date of Progress Note: 11/27/2024 Subjective: Patient was seen this morning for followup. No new complaints or problems reported by h er. She was sitting at bedside, complaining of leg swelling and reported that overnight when she was keeping her leg elevated, it was much better and after she started putting her legs down, it started swelling up again. Denies any shortness of breath at nighttime. Objective: Vital Signs: Reviewed. HEENT: Unremarkable. Lungs: Bilateral good equal air entry. Presence of basal rales. Not using any accessory muscles of respiration. Heart: Sounds normal. Abdomen: Soft. Bowel sounds normal. No guarding, rigidity, tenderness, or distention. Extremities: Grade 3 bilateral leg edema with pink discoloration of the skin over both lower extremi ties unchanged. Laboratory Data: WBC 7.3, hemoglobin 11.6, platelets 166, sodium 138, potassium 3.7, chloride 107, b icarb 27, BUN 21, creatinine 1.34, glucose 97, magnesium 1.3. Impression: 1.Paroxysmal atrial fibrillation. 2.Sepsis. 3.Osteomyelitis: Right foot, great toe; left foot, second toe. 4.Hypertension. 5.Diabetes mellitus, uncontrolled. Plan: The patient had short run of paroxysmal atrial fibrillation last night and she converted to si nus rhythm on her own. Her [id number] score is 7, which is high and I have recommended her to start a nticoagulation therapy which is Eliquis 5 mg 2 times a day and she is agreeable. We will consult car diologist for this atrial fibrillation. Her rate is well controlled right now and she is in sinus rh ythm. We will continue current antibiotic which is meropenem and vancomycin. Social Service was req uested to make arrangements for 5 weeks of IV vancomycin and meropenem to be given at home upon disch arge and possible discharge to go home on Friday or Friday of this coming week. Continue current an tihypertensive medication and diabetes management. The patient wanted me to call her sister at , and she was contacted and details were explained to her. ISAAC/MODL Voice ID: [id number] Report ID: [id number]
[2024-11-27] MEDS: ALTEPLASE 2 MG/VIAL IV SCH (12:39)
[2024-11-27] MEDS ORDERED: APIXABAN 5 MG TABLET PO SCH (21:00)
[2024-11-28] MEDS: Magnesium Sulfate 2gm IVPB 2 G/50 ML BAG IV ONE ×2 (08:06→12:07)
[2024-11-28] MEDS: POTASSIUM CL SA 10 MEQ TAB PO SCH (10:40)
[2024-11-28] MEDS: FUROSEMIDE 40 MG/4 ML VIAL IV SCH (10:43)
--- NOTE | 2024-11-28 11:25 | PN ---
Date of Progress Note: 11/28/2024 Subjective: Patient was seen this morning for followup. She was sitting in chair. Denies any new c omplaints. Objective: HEENT: Unremarkable. Lungs: Clear to auscultation except minimal basal rales, unchanged. Not using accessory muscles of respiration. Heart: Sounds normal. Abdomen: Soft. Bowel sounds normal. No guarding, rigidity, tenderness, distention. Extremities: Bilateral leg edema, slightly better today than yesterday. Her leg edema today is 2+, yesterday it was 3+. Laboratory Data: Vancomycin trough level 20. Impression: 1.Congestive heart failure, chronic, diastolic, with acute exacerbation. 2.Sepsis, organism Staph aureus. 3.Osteomyelitis: Right foot, great toe; left foot, second toe. Organism: Staph aureus, MRSA, and morganella. 4.Hypertension. 5.Type 2 diabetes mellitus. Plan: We will go ahead and continue current blood pressure and diabetes management. Continue vancom ycin and meropenem per order. We will go ahead and have Social Service make arrangements for patient to receive 5 weeks of IV antibiotic at home upon discharge and possible discharge to go home tomorro w. ISAAC/MODL Voice ID: [id number] Report ID: [id number]
[2024-11-28] MEDS: VANCOMYCIN 1 GM in NA CHLORIDE 0.9% 250 ML IVPB SCH (17:49)
[2024-11-28] MEDS: FLUOCINONIDE 0.05% CREAM 30GM TOP PRN (20:28)
[2024-11-29] MEDS: HYDRALAZINE HCL 20 MG/ML VIAL IV PRN (05:02)
[2024-11-29 05:57] LABS: Absolute Eosinophils 0.3 K/uL (0-0.5); Absolute Lymphocytes (CBC) 1.6 K/uL (0.7-4.9); Absolute Monocytes 0.6 K/uL (0.1-1.3); Absolute Neutrophil 3.6 K/uL (1.8-8.0); Basophils % 0.6 % (0-1.3); Eosinophils % 4.7 % (0-4.4); Hematocrit 31.5 % (36.0-45.0); Hemoglobin 10.9 g/dL (12.0-15.0); Lymphocytes % 26.6 % (15.3-44.8); MCH 28.4 pg (27.0-35.0); MCHC 34.7 g/dL (32.0-36.0); MCV 81.7 fL (80-100); MPV 8.5 fL (7.6-11.3); Monocytes % 10.4 % (3.3-12.3); Neutrophils % 57.7 % (41.7-73.7); Nucleated Red Blood Cells % 0.1 % (0-0); Platelets 161 thou/uL (152-406); RBC Red Blood Cell Count 3.85 M/uL (3.86-4.86); Red Cell Distribution Width 13.9 % (12.1-15.2)
[2024-11-29 05:58] LABS: Anion Gap 8.5 mEq/L (5.0-15.0); Magnesium 1.6 mg/dL (1.6-2.4); Potassium 3.5 mEq/L (3.5-5.1)
[2024-11-29] MEDS: DIPHENHYDRAMINE 25 MG TAB/CAP PO ONE (08:25)
--- NOTE | 2024-11-29 12:25 | P.CNS ---
Date of Consult: 11/29/24 Chief Complaint: atrial fibrillation History of Present Illness: Patient with PMH of diastolic heart failure, HTN, presented with OM, sepsis, patient is having paroxysmal AF during her hospital stay, patient report occasional palpitations in the past, also report TRIANA, and chest pain that start around her chest on both sides and move to her back, denies syncope. Allergies Penicillins Allergy (Unknown, Verified 09/14/20 23:27) Anaphylaxis Sulfa (Sulfonamide Antibiotics) Allergy (Unknown, Verified 09/14/20 23:27) Hives codeine Allergy (Verified 09/14/20 23:27) Anaphylaxis pentazocine lactate [From Talwin] Allergy (Verified 09/14/20 23:) Anaphylaxis Home medications list reviewed: Yes Home Medications: Insulin 70/30 NPH/Reg Human [Novolin 70/30*] 56 unit SQ SEECOM 09/14/20 Isosorbide Mononitrate [Isosorbide Mononitrate ER] 30 mg PO DAILY 09/14/20 Levothyroxine Sodium [Euthyrox] 175 mcg PO DAILY 09/14/20 Lisinopril [Zestril] 20 mg PO DAILY 09/14/20 atenoloL [Tenormin] 50 mg PO DAILY 09/14/20 Amiloride HCl 1 tab PO DAILY 12/13/20 Aspirin [Joseph Chewable] 81 mg PO BID 01/25/21 Hydrocodone Bit/Acetaminophen [Hydrocodon-Acetaminoph 7.5-325] 1 each PO Q6HP PRN MDD 4 01/25/21 Nortriptyline HCl [Pamelor] 50 mg PO DAILY 02/26/22 Gabapentin [Neurontin] 100 mg PO DAILY 11/22/24 Loperamide HCl [Imodium A-D] 2 mg PO PRN PRN 11/22/24 Omeprazole Magnesium [Prilosec Otc] 20 mg PO DAILY 11/22/24 - Past Medical/Surgical History Diabetic: Yes -: htn -: hypothyroid -: arrhythmias -: diverticulitis -: lymphedema -: endometrial CA Hx -: IDDM -: neck sx -: hysterectomy -: matthew -: carpal tunnel -: bilateral shoulder sx - Family History Father Medical History: Hypertension, Diabetes, Cancer Mother Medical History: Hypertension, Diabetes, Cancer Brother Medical History: Hypertension, Diabetes Sister Medical History: Diabetes - Social History Smoking Status: Unknown if ever smoked Alcohol use: No CD- Drugs: No Caffeine use: Yes Place of Residence: Home Review of Systems 10-point ROS is otherwise unremarkable Physical Examination Temp Pulse Resp BP Pulse Ox 97.7 F 74 18 181/66 H 98 11/29/24 08:00 11/29/24 08:00 11/29/24 08:00 11/29/24 08:00 11/29/24 08:00 General: Alert, In no apparent distress HEENT: Atraumatic, PERRLA, Mucous membr. moist/pink, EOMI, Sclerae nonicteric Neck: Supple, 2+ carotid pulse no bruit, No LAD, Without JVD or thyroid abnormality Respiratory: Clear to auscultation bilaterally, Normal air movement Cardiovascular: Regular rate/rhythm, Normal S1 S2 Gastrointestinal: Normal bowel sounds, No tenderness Musculoskeletal: No tenderness Integumentary: No rashes Neurological: Normal gait, Normal speech, Normal tone, Normal affect Lymphatics: No axilla or inguinal lymphadenopathy - Problems (1) Atrial fibrillation Current Visit: Yes Status: Acute Plan: patient is currently in sinus rhythm recommend low dose Toprol XL 25 mg daily if BP permit agree with Eliquis 5 mg po BID Outpatient follow up with cardiology. (2) Acute on chronic diastolic heart failure Current Visit: Yes Status: Acute Plan: continue lisinopril continue lasix 40 mg IV BID while in patient then switch to lasix 40 mg daily on discharge. continue to monitor input and output and electrolytes.
--- NOTE | 2024-11-29 16:37 | PN ---
Subjective: The patient sitting in easy chair, not in any acute distress. Objective: Vital Signs: Temperature 97, pulse 74, respirations 18, blood pressure 181/66. Lungs: Basal crackles. Heart: S1, S2. Regular. Abdomen: Soft, nontender. Bowel sounds present. Extremities: Wounds noted. Laboratory Data: Shows WBC 6.3, hemoglobin 10.9, platelets 161. Chemistry shows BUN of 32, creatini ne 1.4. Currently, patient on meropenem and vancomycin. Assessment And Plan: Staph aureus bacteremia and osteomyelitis of left foot which shows MRSA and Mor ganella morganii. Bone cultures are also growing Staph aureus and Morganella morganii. Bacteremia secondary to Staph aureus. Repeat blood cultures are pending. Continue antibiotics for 4 2 days. Diabetes mellitus, diabetic neuropathy, renal insufficiency, anemia of chronic disease. Darius kocytosis has improved. We will follow the patient as needed. NF/MODL Voice ID: [id number] Report ID: [id number]
[2024-11-29] MEDS: VANCOMYCIN 0.75 GM in NA CHLORIDE 0.9% 150 ML IVPB SCH (16:58)
--- NOTE | 2024-11-30 01:34 | PN ---
Date of Progress Note: 11/29/2024 History: The patient was seen this morning for followup, no new complaints or problems reported by t he patient. She was sitting in chair. Denied any new complaints. Physical Examination: Vital Signs: Reviewed. HEENT: Unremarkable. Lungs: Bilateral good equal air entry. Clear to auscultation. Heart: Sounds normal. Abdomen: Soft, bowel sounds normal. No guarding, rigidity, tenderness, or distention. Extremities: Bilateral grade 2 pedal edema, slightly better today than yesterday. Laboratory Data: WBC 6.3, hemoglobin 10.9, platelets 161. Sodium 135, potassium 3.5, chloride 101, bicarb 29, BUN 22, creatinine 1.40, glucose 185, magnesium 1.6. Impression: 1.Sepsis, organism Staph aureus. 2.Osteomyelitis, right foot great toe, left second toe. 3.Type 2 diabetes mellitus, uncontrolled. 4.Hypertension. 5.Chronic kidney disease, stage IIIB. 6.Anemia due to chronic kidney disease. Plan: We will go ahead and continue current medications, continue current antibiotic, which is merop enem and vancomycin. Continue IV Lasix 40 mg twice a day. I will see her tomorrow morning for followup, possible discharge to go home tomorrow. ISAAC/MODL Voice ID: [id number] Report ID: [id number]
[2024-11-30] MEDS: POTASSIUM CL SA 10 MEQ TAB PO SCH (10:32)
[2024-11-30] MEDS: METOLAZONE 2.5 MG TABLET PO SCH (11:39)
--- NOTE | 2024-11-30 12:08 | P.PN ---
Subjective Date of Service: 11/30/24 Chief Complaint: atrial fibrillation Subjective: No new changes, No C/O voiced, Tolerating diet, Ambulating, Improving Review of Systems 10-point ROS is otherwise unremarkable Physical Examination - Vital Signs Temperature: 97.9 F Blood Pressure: 146/64 Pulse: 85 Respirations: 18 Pulse Ox (%): 98 - Physical Exam General: Alert, In no apparent distress HEENT: Atraumatic, PERRLA, EOMI Neck: Supple, JVD not distended Respiratory: Clear to auscultation bilaterally, Normal air movement Cardiovascular: Regular rate/rhythm, Normal S1 S2 Gastrointestinal: Normal bowel sounds, No tenderness Musculoskeletal: No tenderness Integumentary: No rashes Neurological: Normal speech, Normal tone, Normal affect Lymphatics: No axilla or inguinal lymphadenopathy - Studies Medications List Reviewed: Yes Assessment And Plan - Current Problems (Diagnosis) (1) Atrial fibrillation Current Visit: Yes Status: Acute Plan: patient is currently in sinus rhythm recommend low dose Toprol XL 25 mg daily if BP permit agree with Eliquis 5 mg po BID Outpatient follow up with cardiology. (2) Acute on chronic diastolic heart failure Current Visit: Yes Status: Acute Plan: continue lisinopril continue lasix 40 mg IV BID while in patient then switch to lasix 40 mg daily on discharge. continue to monitor input and output and electrolytes.
--- NOTE | 2024-11-30 15:49 | PN ---
Subjective: The patient is sitting in easy chair, not in any acute distress. No new acute event. Objective: Vital Signs: Reviewed. Lungs: Clear to auscultation. Heart: S1, S2. Regular. Abdomen: Soft. Bowel sounds present. Extremities: 2+ edema. Wounds noted. Laboratory Data: Shows hemoglobin of 10.9, BUN of 22, creatinine 1.4, albumin level of 2.3. The patient is currently on meropenem and vancomycin. Assessment And Plan: Bacteremia secondary to Staph aureus. Repeat blood cultures are pending. Cont inue total antibiotic course of 42 days. We will follow the patient as needed. Anemia of chronic di sease. Moderate protein-calorie malnourishment. Diabetes mellitus. Diabetic neuropathy. Diabetic foot ulcers. We will follow the patient as needed. NF/MODL Voice ID: [id number] Report ID: [id number]
[2024-11-30] MEDS: INSULIN REGULAR (HUMAN) 100 UNIT/ML SQ SCH (16:34)
[2024-12-01] MEDS: VANCOMYCIN 0.75 GM in NA CHLORIDE 0.9% 150 ML IVPB SCH (04:22)
[2024-12-01 06:42] LABS: Absolute Eosinophils 0.3 K/uL (0-0.5); Absolute Lymphocytes (CBC) 2.2 K/uL (0.7-4.9); Absolute Monocytes 0.7 K/uL (0.1-1.3); Absolute Neutrophil 2.3 K/uL (1.8-8.0); Basophils % 0.6 % (0-1.3); Eosinophils % 4.9 % (0-4.4); Hematocrit 31.9 % (36.0-45.0); Hemoglobin 10.7 g/dL (12.0-15.0); Lymphocytes % 39.6 % (15.3-44.8); MCHC 33.7 g/dL (32.0-36.0); MPV 8.1 fL (7.6-11.3); Monocytes % 12.5 % (3.3-12.3); Neutrophils % 42.4 % (41.7-73.7); Nucleated Red Blood Cells % 0.2 % (0-0); Platelets 188 thou/uL (152-406); RBC Red Blood Cell Count 3.84 M/uL (3.86-4.86); Red Cell Distribution Width 13.8 % (12.1-15.2)
[2024-12-01] MEDS: DIPHENHYDRAMINE 25 MG TAB/CAP PO ONE (06:58)
[2024-12-01 06:59] LABS: Anion Gap 9.3 mEq/L (5.0-15.0); Magnesium 1.8 mg/dL (1.6-2.4); Potassium 3.3 mEq/L (3.5-5.1)
--- NOTE | 2024-12-01 07:02 | PN ---
Date of Progress Note: 11/30/2024 Subjective: The patient was seen this morning for followup. No new complaints or problems reported by the patient. She was lying in bed, not in distress. No shortness of breath overnight. Objective: Vital Signs: Reviewed. HEENT: Unremarkable. Lungs: Bilateral good equal air entry. Clear to auscultation except minimal basal rales. Heart: Sounds normal. Abdomen: Soft. Bowel sounds normal. No guarding, rigidity, tenderness, distention. Extremities: Bilateral grade 2 to grade 3 pedal edema with skin in both lower leg appears pink in co rishi, which has not changed. Impression: 1.Chronic diastolic heart failure, with acute exacerbation. 2.Sepsis. 3.Osteomyelitis, right foot great toe, left foot second toe. 4.Hypertension. 5.Diabetes mellitus with chronic kidney disease. Plan: Continue current diabetes management. Continue current antihypertensive medication. We will continue current vancomycin and meropenem. Her vancomycin trough level will be done this afternoon a nd then pharmacist will decide if there is any dose adjustment that is required or not. Currently, s he is on 750 mg every 24 hours of vancomycin and meropenem is 1000 mg every 8 hours. Depending on he r trough level and recommendation from pharmacist, Social Service will make arrangements for 5 weeks of outpatient antibiotic therapy. We will continue IV Lasix 40 mg twice a day and as of today, we wi ll add metolazone 2.5 mg daily. We will monitor blood work tomorrow and I will see her tomorrow for followup. Her echocardiogram from September of 2024 reviewed showing normal ejection fraction with diastolic dysfunction. ISAAC/MODL Voice ID: [id number] Report ID: [id number]
[2024-12-01] MEDS: MAGNESIUM SULFATE 1 gm IVPB 1 GM/100 ML BAG IV ONE (09:30)
[2024-12-01] MEDS: Meropenem 1,000 MG in NA CHLORIDE 0.9% 100 ML IV SCH (09:30)
[2024-12-01] MEDS: POTASSIUM 25 MEQ EFFERV TAB PO ONE (09:33)
--- NOTE | 2024-12-01 12:08 | P.PN ---
Subjective Date of Service: 12/01/24 Chief Complaint: atrial fibrillation Subjective: No new changes, No C/O voiced, Tolerating diet, Ambulating, Improving Review of Systems 10-point ROS is otherwise unremarkable Physical Examination - Vital Signs Temperature: 98 F Blood Pressure: 151/69 Pulse: 60 Respirations: 20 Pulse Ox (%): 98 - Physical Exam General: Alert, In no apparent distress HEENT: Atraumatic, PERRLA, EOMI Neck: Supple, JVD not distended Respiratory: Clear to auscultation bilaterally, Normal air movement Cardiovascular: Regular rate/rhythm, Normal S1 S2 Gastrointestinal: Normal bowel sounds, No tenderness Musculoskeletal: No tenderness Integumentary: No rashes Neurological: Normal speech, Normal tone, Normal affect Lymphatics: No axilla or inguinal lymphadenopathy - Studies Medications List Reviewed: Yes Assessment And Plan - Current Problems (Diagnosis) (1) Atrial fibrillation Current Visit: Yes Status: Acute Plan: patient is currently in sinus rhythm continue atenolol 50 mg daily agree with Eliquis 5 mg po BID Outpatient follow up with cardiology. (2) Acute on chronic diastolic heart failure Current Visit: Yes Status: Acute Plan: continue lisinopril continue lasix 40 mg IV BID while in patient then switch to lasix 40 mg daily on discharge. agree with Metolazone would recommend re starting patient Amiloride to help diuresis and maintain K level continue to monitor input and output and electrolytes.
--- NOTE | 2024-12-01 17:38 | PN ---
Subjective: The patient lying in bed. No new acute event. Chart reviewed. Somnolent. Objective: Vital Signs: Temperature 98, pulse 60, respirations 18, blood pressure 151/69. Lungs: B robert crackles. Heart: S1, S2. Regular. Abdomen: Soft, nontender. Bowel sounds present. Extremities: 2+ edema. Laboratory Data: WBC 5.5, hemoglobin 10.7, platelets 188. BUN of 29, creatinine 1.3. Assessment And Plan: Bacteremia secondary to Staph aureus. Repeat cultures pending. Osteomyelitis of foot, status post debridement of the toe, diabetes mellitus, diabetic foot ulcer, diabetic neuropa thy, sepsis improved, anemia of chronic disease, renal insufficiency, osteomyelitis secondary to Meth icillin-resistant Staphylococcus aureus and Morganella morganii bacteremia secondary to Staph aureus. The patient is currently being treated with meropenem and vancomycin. Continue current treatment f or a total of 6 weeks. We will follow the patient as needed. NF/MODL Voice ID: [id number] Report ID: [id number]
--- NOTE | 2024-12-01 21:33 | PN ---
Date of Progress Note: 12/01/2024 Subjective: The patient was seen this morning for followup. No new complaints or problems reported by the patient. She was lying in bed, not in distress. Objective: Vital Signs: Reviewed. HEENT: Unremarkable. Lungs: Bilateral good equal air entry. Clear to auscultation. Heart: Sounds normal. Abdomen: Soft. Bowel sounds normal. No guarding, rigidity, tenderness, distention. Extremities: Bilateral leg edema present, but better today than yesterday. Laboratory Data: WBC 5.5, hemoglobin 10.7, platelets 188. Sodium 135, potassium 3.3, chloride 98, b icarb 31, BUN 29, creatinine 1.33, glucose 150, magnesium 1.8. Yesterday evening, vancomycin trough level was 19.7, this morning was 16.6. Impression: 1. Sepsis. 2. Osteomyelitis, right foot great toe, left foot second toe. 3. Hypertension. 4. Hyperlipidemia. 5. Diabetes mellitus with chronic kidney disease. Plan: We will go ahead and continue meropenem and vancomycin. I have communicated with pharmacist elias carpenter and we will change vancomycin dose to 500 mg IV every 24 hours and meropenem 1000 mg IV every 12 hours. Continue metolazone and Lasix per order. Possible discharge to go home either tomorrow or day after tomorrow depending on her condition. The patient will need 5 weeks of IV antibiotic therapy upon discharge. ISAAC/MODL Voice ID: [id number] Report ID: [id number]
[2024-12-02 04:45] VITALS: BMI 38.7
[2024-12-02 08:16] LABS: Absolute Eosinophils 0.3 K/uL (0-0.5); Absolute Lymphocytes (CBC) 2.3 K/uL (0.7-4.9); Absolute Monocytes 0.6 K/uL (0.1-1.3); Absolute Neutrophil 2.6 K/uL (1.8-8.0); Basophils % 0.5 % (0-1.3); Eosinophils % 5.4 % (0-4.4); Hematocrit 31.2 % (36.0-45.0); Hemoglobin 10.6 g/dL (12.0-15.0); Lymphocytes % 39.7 % (15.3-44.8); MCH 28.2 pg (27.0-35.0); MCHC 33.9 g/dL (32.0-36.0); MCV 83.3 fL (80-100); MPV 8.4 fL (7.6-11.3); Monocytes % 10.3 % (3.3-12.3); Neutrophils % 44.1 % (41.7-73.7); Nucleated Red Blood Cells % 0.1 % (0-0); Platelets 175 thou/uL (152-406); RBC Red Blood Cell Count 3.75 M/uL (3.86-4.86); Red Cell Distribution Width 13.6 % (12.1-15.2)
[2024-12-02 08:22] LABS: Anion Gap 6.3 mEq/L (5.0-15.0); Magnesium 1.8 mg/dL (1.6-2.4); Potassium 3.3 mEq/L (3.5-5.1)
[2024-12-02] MEDS: DIPHENHYDRAMINE 25 MG TAB/CAP PO SCH (08:53)
[2024-12-02] MEDS: VANCOMYCIN 500 MG in NA CHLORIDE 0.9% 100 ML IVPB SCH (08:54)
--- NOTE | 2024-12-02 09:39 | P.PN ---
Subjective Date of Service: 12/02/24 Chief Complaint: atrial fibrillation Subjective: No new changes, No C/O voiced, Tolerating diet, Ambulating, Improving Review of Systems 10-point ROS is otherwise unremarkable Physical Examination - Vital Signs Temperature: 97.4 F Blood Pressure: 171/65 Pulse: 50 Respirations: 18 Pulse Ox (%): 99 - Physical Exam General: Alert, In no apparent distress HEENT: Atraumatic, PERRLA, EOMI Neck: Supple, JVD not distended Respiratory: Clear to auscultation bilaterally, Normal air movement Cardiovascular: Regular rate/rhythm, Normal S1 S2 Gastrointestinal: Normal bowel sounds, No tenderness Musculoskeletal: No tenderness Integumentary: No rashes Neurological: Normal speech, Normal tone, Normal affect Lymphatics: No axilla or inguinal lymphadenopathy - Studies Medications List Reviewed: Yes Assessment And Plan - Current Problems (Diagnosis) (1) Atrial fibrillation Current Visit: Yes Status: Acute Plan: patient is currently in sinus rhythm continue atenolol 50 mg daily agree with Eliquis 5 mg po BID Outpatient follow up with cardiology. (2) Acute on chronic diastolic heart failure Current Visit: Yes Status: Acute Plan: continue lisinopril continue lasix 40 mg IV BID while in patient then switch to lasix 40 mg daily on discharge. agree with Metolazone would recommend re starting patient Amiloride to help diuresis and maintain K level continue to monitor input and output and electrolytes.
[2024-12-02] MEDS: POTASSIUM CL SA 10 MEQ TAB PO ONE (12:09)
[2024-12-02 14:46] VITALS: O2SAT 99
[2024-12-02] MEDS ORDERED: DIPHENHYDRAMINE 25 MG TAB/CAP PO SCH (15:30)
--- NOTE | 2024-12-03 11:50 | PN ---
Date of Progress Note: 12/02/2024 Subjective: The patient was seen this morning for followup. No new complaints or problems reported. The patient was sleeping, not in distress, lying in bed. Denies any new complaints. Objective: Vital Signs: Reviewed. HEENT: Unremarkable. Lungs: Clear to auscultation. Heart: Sounds normal. Abdomen: Soft. Bowel sounds normal. No guarding, rigidity, tenderness, or distention. Extremities: Bilateral leg edema present all the way up to her knee, but better today than yesterday , but still has significant edema about grade 2. Laboratory Data: Reviewed. Impression: 1. Sepsis, organism Staphylococcus aureus. 2. Osteomyelitis, right foot great toe and left foot second toe. 3. Hypertension. 4. Type 2 diabetes mellitus. 5. Chronic diastolic heart failure. Plan: We will go ahead and continue current IV Lasix, and we will also go ahead and continue current oral metolazone. The patient is responding well to this combination therapy. Continue current IV a ntibiotics, which are vancomycin and meropenem and the plan is to discharge her to go home tomorrow. I have discussed this with the patient. ISAAC/MODL Voice ID: [id number] Report ID: [id number]
[2024-12-03 17:25] VITALS: BP 154/67; TEMP 97.6
--- NOTE | 2024-12-03 21:46 | DS ---
Date of Discharge: 12/03/2024 Disposition: Discharged to go home. Physical Examination: HEENT: Unremarkable. Lungs: Clear to auscultation. Heart: Sounds normal. Abdomen: Soft. Bowel sounds normal. No guarding, rigidity, tenderness, distention. Extremities: Bilateral grade 1 pedal edema with brown to pink discoloration of skin. It is more bro wnish discoloration than pink discoloration now since the leg swelling has improved. Discharge Medications And Instructions: Continue all prior home medication except following changes: 1. Start meropenem 1000 mg IV every 12 hours for 5 weeks and vancomycin 500 mg IV every 24 hours for 5 weeks. Last dose of IV antibiotics on 01/03/2025. 2. Home health nurse to draw blood for CBC, basic metabolic panel, and vancomycin trough level every Friday and to bring this specimen to hospital lab for the testing. 3. Furosemide 40 mg take 1 tablet by mouth 2 times a day. 4. Metolazone 2.5 mg take 1 tablet by mouth daily. 5. . 6. . Hospital Course: Ms. Cantu is a 79-year-old pleasant female patient, who came into emergency room w ith altered mental status and after she was evaluated in emergency room, she was admitted to hospital . Initially, we were concerned about sepsis, urinary tract infection, and osteomyelitis of the foot. Further testing proved that the patient has osteomyelitis of the right foot great toe and left foot second toe. Dr. Vaca was consulted from General Surgery and he did perform debridement of this bot h toes and provided daily wound care dressing change instructions. Her blood culture all the 4 bottl es grew Staph aureus and her wound culture from left foot second toe had some purulent material which was collected at the time of debridement by Dr. Vaca and was sent for culture which grew Morganella and MRSA. Her bone culture was also sent by Dr. Vaca which grew Staph aureus and Morganella. The patient was given appropriate culture-specific antibiotic which is vancomycin and meropenem and PICC line was placed. Physical Therapy was consulted. The patient started to ambulate well. She has glenda erated this antibiotic therapy very well. Initially, she thought about going to shelter, but gramajo bsequently she changed her mind after talking to her sister and wanted to go home and I also communic ated with the patient's sister few days ago as per the patient's request and all the details were dis cussed with her as well. The patient will need total 6 weeks of IV antibiotic therapy and her last d ose of IV antibiotic at home will be on January 03, 2025. After that, home health nurse to remove PICC line. The patient had problem with her leg swelling and chronic diastolic heart failure, which was m anaged with IV Lasix and she did not respond as well as expected and once we added metolazone 2.5 mg on a daily basis, she has responded well to it. Today, the patient will be discharged to go home in stable condition with following discharge medications and instructions. Laboratory Data: Blood culture grew Staph aureus all the 4 bottles and wound culture from left foot second toe, wound culture grew Morganella morganii and MRSA, and bone culture grew Staph aureus and M organella. Upon admission, her test results showed . Last blood work shows . M RI of both feet showed osteomyelitis of right foot great toe and left foot second toe. Final Diagnoses: 1. Sepsis, organism Staph aureus. 2. Osteomyelitis, right foot great toe and left foot second toe. Organism: Staph aureus, MRSA, and Morganella. 3. Urinary tract infection. 4. Peripheral vascular disease. 5. Chronic diastolic heart failure, with acute exacerbation. 6. Type 2 diabetes mellitus, uncontrolled. 7. Diabetes mellitus with chronic kidney disease. 8. Diabetes mellitus with peripheral neuropathy. 9. Hypertension. 10. Chronic kidney disease stage IIIA. 11. Hyperlipidemia. 12. Diverticulosis. 13. Hypothyroidism. 14. Osteoarthritis, multiple sites. Discharge Instructions: The patient to follow up at my office next week. Total time spent today 45 minutes. ISAAC/MODL Voice ID: [id number] Report ID: [id number]
== END 2024-12-03 19:20 | disposition home health service (06) | DRG 853 ==
LOC: ER 23:17 → ERHOLD 11-22 01:25 → 4TH 11-22 07:43
PROVIDERS: ADMIT Internal Medicine; ATTEND Internal Medicine
PROC: 4A033R1 Measurement of Arterial Saturation, Peripheral, Percutaneous Approach (ICD-10-PCS; 2024-11-22)
PROC: 0H9AXZZ Drainage of Inguinal Skin, External Approach (ICD-10-PCS; 2024-11-22)
PROC: 0QBR0ZZ Excision of Left Toe Phalanx, Open Approach (ICD-10-PCS; 2024-11-23)
PROC: 0QBQ0ZZ Excision of Right Toe Phalanx, Open Approach (ICD-10-PCS; principal; 2024-11-23 09:00)
PROC: 02HV33Z Insertion of Infusion Device into Superior Vena Cava, Percutaneous Approach (ICD-10-PCS; 2024-11-24)
PROC: 0T9B70Z Drainage of Bladder with Drainage Device, Via Natural or Artificial Opening (ICD-10-PCS; 2024-11-24)
DX: A41.01 Sepsis due to Methicillin susceptible Staphylococcus aureus (principal); I50.33 Acute on chronic diastolic (congestive) heart failure; I13.0 Hypertensive heart and chronic kidney disease with heart failure and stage 1 through stage 4 chronic kidney disease, or unspecified chronic kidney disease; L02.214 Cutaneous abscess of groin; N10 Acute pyelonephritis; M86.171 Other acute osteomyelitis, right ankle and foot; L03.115 Cellulitis of right lower limb; M86.172 Other acute osteomyelitis, left ankle and foot; E44.0 Moderate protein-calorie malnutrition; Z68.41 Body mass index [BMI] 40.0-44.9, adult; E11.52 Type 2 diabetes mellitus with diabetic peripheral angiopathy with gangrene; R65.20 Severe sepsis without septic shock; A41.02 Sepsis due to Methicillin resistant Staphylococcus aureus; A41.89 Other specified sepsis; E11.69 Type 2 diabetes mellitus with other specified complication; E03.9 Hypothyroidism, unspecified; E78.2 Mixed hyperlipidemia; N18.32 Chronic kidney disease, stage 3b; E11.22 Type 2 diabetes mellitus with diabetic chronic kidney disease; E11.42 Type 2 diabetes mellitus with diabetic polyneuropathy; E11.621 Type 2 diabetes mellitus with foot ulcer; L97.519 Non-pressure chronic ulcer of other part of right foot with unspecified severity; D63.1 Anemia in chronic kidney disease; M19.09 Primary osteoarthritis, other specified site; I48.0 Paroxysmal atrial fibrillation; L73.8 Other specified follicular disorders; K57.90 Diverticulosis of intestine, part unspecified, without perforation or abscess without bleeding; Z11.52 Encounter for screening for COVID-19; Z88.0 Allergy status to penicillin; Z88.2 Allergy status to sulfonamides; Z88.1 Allergy status to other antibiotic agents; Z79.82 Long term (current) use of aspirin; Z79.890 Hormone replacement therapy; Z79.899 Other long term (current) drug therapy
CPT/HCPCS: 36415; 36600; 51702; 70450; 71045; 71250; 74176; 80048; 80053; 80202; 81001; 82805; 82947; 83605; 83735; 83880; 84100; 84132; 84443; 84484; 85025; 85610; 85730; 86140; 87040; 87070; 87075; 87077; 87086; 87088; 87176; 87186; 87205; 87804; 87811; 88304; 93005; 94010; 94760; 96365; 96366; 96367; 96375; 97110; 97116; 97161; 97530; 99285; J0360; J0692; J1200; J1650; J1940; J2003; J2185; J2250; J2405; J2704; J2765; J2997; J3010; J3475; J3590; J7030; J7040; J7050; J7120

== ENCOUNTER 2024-12-23 12:43 | Observation (INO) | payer OTHER, MEDICARE ==
[2024-12-23 14:03] LABS: Absolute Basophils 0.1 K/uL (0-0.5); Absolute Eosinophils 0.5 K/uL (0-0.5); Absolute Lymphocytes (CBC) 1.9 K/uL (0.7-4.9); Absolute Monocytes 0.7 K/uL (0.1-1.3); Absolute Neutrophil 3.4 K/uL (1.8-8.0); Basophils % 0.9 % (0-1.3); Eosinophils % 8.2 % (0-4.4); Hematocrit 37.3 % (36.0-45.0); Hemoglobin 12.4 g/dL (12.0-15.0); Lymphocytes % 29.3 % (15.3-44.8); MCH 27.4 pg (27.0-35.0); MCHC 33.3 g/dL (32.0-36.0); MCV 82.2 fL (80-100); MPV 9.8 fL (7.6-11.3); Monocytes % 9.9 % (3.3-12.3); Neutrophils % 51.7 % (41.7-73.7); Platelets 123 thou/uL (152-406); RBC Red Blood Cell Count 4.54 M/uL (3.86-4.86); Red Cell Distribution Width 13.7 % (12.1-15.2)
--- NOTE | 2024-12-23 14:11 | RAD REPORT ---
EXAMINATION: ONE VIEW CHEST XR CLINICAL INDICATION: CHEST PAIN TECHNIQUE: Frontal chest projection is submitted. Examination is limited by patient positioning and t echnique. COMPARISON: 11/24/2024 FINDINGS: The lungs are well inflated and clear. The heart is moderately enlarged. No displaced fractures ident ified. Right-sided PICC line is tip in SVC.
[2024-12-23 14:24] LABS: ALT/SGPT 16 U/L (13-56); AST/SGOT 19 U/L (15-37); Albumin 2.5 g/dL (3.4-5.0); Albumin/Globulin Ratio 0.5 (1.1-1.8); Alkaline Phosphatase 115 U/L (45-117); Anion Gap 6.2 mEq/L (5.0-15.0); BUN Blood Urea Nitrogen 52 mg/dL (7-18); Bicarbonate 36 mEq/L (21-32); Bilirubin Total 0.7 mg/dL (0.2-1.0); Globulin 5.3 g/dL (2.3-3.5); Glomerular Filtration Rate 24 ml/min (=/>90); Glucose Level 206 mg/dL (74-106); Magnesium 1.8 mg/dL (1.6-2.4); NT PRO-BNP 2188 pg/mL (<450); Potassium 3.2 mEq/L (3.5-5.1); Protein, Total 7.8 g/dL (6.4-8.2); Sodium Level 132 mEq/L (136-145)
[2024-12-23 14:25] LABS: Bilirubin Direct < 0.2 mg/dL (0-0.2); Bilirubin Indirect, Calculated 0.5 mg/dL (0.2-0.8)
[2024-12-23 15:13] LABS: PT Prothrombin Time 16.8 SECONDS (9.4-12.5); Protime INR 1.61
[2024-12-23] MEDS ORDERED: NA CHLORIDE 0.9% 1,000 ML ONE (15:24)
--- NOTE | 2024-12-23 15:24 | EDPHYS ---
Physician Documentation [facility] Name: Gladis Cantu Age: 79 yrs Sex: Female : 1945 Arrival Date: 12/23/2024 Time: 12:43 Bed 14 Private MD: ED Physician Zoran Perez HPI: 12/23 13:16 This 79 yrs old Female presents to ER via Ambulatory with complaints of Low BP. sp3 13:16 79-year-old female with history of diabetes, hypertension, lymphedema, recent sepsis sp3 due to UTI presents to the ED with chief complaint chest pain and episodes of low diastolic blood pressure in the early hours of this morning spanning systolic in the 130s and diastolic in the 40s. Patient currently is having no active chest pain. She contacted her PCP Dr. Mckeon who advised her to come to the ED for further evaluation. She denies any headache, fever, ongoing chest pain, back pain, shortness of breath, abdominal pain, nausea, vomit, diarrhea, syncope, near syncope, fever, known sick contacts, prolonged immobilization, or any other signs or symptoms on ROS at this time.. Historical: - Allergies: 12:57 Iodine; ap3 12:57 PENICILLINS; ap3 12:57 Sulfa (Sulfonamide Antibiotics); ap3 12:57 Vancomycin; ap3 - PMHx: 12:57 Diabetes - IDDM; Diverticulitis; Hypertension; Hypothyroidism; lypmphoedema; neuropathy;ap3 - Immunization history:: Client reports having NOT received the Covid vaccine. Flu vaccine is not up to date. - Infectious Disease History:: Denies. - Social history:: Smoking status: Patient denies any tobacco usage or history of. ROS: 13:17 Constitutional: Negative for fever, chills, and weight loss, Eyes: Negative for injury, sp3 pain, redness, and discharge, ENT: Negative for injury, pain, and discharge, Neck: Negative for injury, pain, and swelling, Cardiovascular: Negative for chest pain, palpitations, and edema, Respiratory: Negative for shortness of breath, cough, wheezing, and pleuritic chest pain, Abdomen/GI: Negative for abdominal pain, nausea, vomiting, diarrhea, and constipation, Back: Negative for injury and pain, Skin: Negative for injury, rash, and discoloration, Neuro: Negative for headache, weakness, numbness, tingling, and seizure, 13:17 All other systems are negative, Exam: 13:17 Constitutional: This is a well developed, well nourished patient who is awake, alert, sp3 and in no acute distress. Head/Face: Normocephalic, atraumatic. Eyes: Pupils equal round and reactive to light, extra-ocular motions intact. Lids and lashes normal. Conjunctiva and sclera are non-icteric and not injected. Cornea within normal limits. Periorbital areas with no swelling, redness, or edema. ENT: Nares patent. No nasal discharge, no septal abnormalities noted. External auditory canals are clear. Oropharynx with no redness, swelling, or masses, exudates, or evidence of obstruction, uvula midline. Mucous membranes moist. Neck: Trachea midline, no thyromegaly or masses palpated, and no cervical lymphadenopathy. Supple, full range of motion without nuchal rigidity, or vertebral point tenderness. No Meningismus. Chest/axilla: Normal chest wall appearance and motion. Nontender with no deformity. No lesions are appreciated. Cardiovascular: Regular rate and rhythm with a normal S1 and S2. No gallops, murmurs, or rubs. Normal PMI, no JVD. No pulse deficits. Respiratory: Lungs have equal breath sounds bilaterally, clear to auscultation and percussion. No rales, rhonchi or wheezes noted. No increased work of breathing, no retractions or nasal flaring. Abdomen/GI: Soft, non-tender, with normal bowel sounds. No distension or tympany. No guarding or rebound. No evidence of tenderness throughout. Back: No spinal tenderness. No costovertebral tenderness. Full range of motion. Skin: Warm, dry with normal turgor. Normal color with no rashes, no lesions, and no evidence of cellulitis. MS/ Extremity: Pulses equal, no cyanosis. Neurovascular intact. Full, normal range of motion. Neuro: Awake and alert, GCS 15, oriented to person, place, time, and situation. Cranial nerves II-XII grossly intact. Motor strength 5/5 in all extremities. Sensory grossly intact. Cerebellar exam normal. Normal gait. Psych: Awake, alert, with orientation to person, place and time. Behavior, mood, and affect are within normal limits. 14:01 ECG was reviewed by the Attending Physician. EKG demonstrates sinus bradycardia at 54 sp3 bpm with a first-degree AV block with OK interval 244 with a QTc of 455 and right bundle branch block with nonspecific diffuse ST changes without evidence of acute ischemia. Vital Signs: 12:53 BP 191 / 75; Pulse 73; Resp 18; Temp 98.5(O); Pulse Ox 100% ; Weight 113.4 kg; Height 5 ap3 ft. 6 in. ; Pain 7/10; 15:30 BP 199 / 75; Pulse 60; Resp 16; Pulse Ox 99% on R/A; db 16:30 BP 199 / 70; Pulse 58; Resp 18; Pulse Ox 98% on R/A; db 17:30 BP 194 / 64; Pulse 53; Resp 18; Pulse Ox 100% on R/A; db 18:30 BP 191 / 67; Pulse 56; Resp 18; Pulse Ox 100% on R/A; db 12:53 Body Mass Index 40.35 (113.40 kg, 167.64 cm) ap3 12:53 Pain Scale: Adult ap3 MDM: 13:02 Medical Screening Exam initiated sp3 13:18 Data reviewed: vital signs, nurses notes, old medical records, lab test result(s), EKG, sp3 radiologic studies. ED course: 79-year-old female with PMH above now with chest pain. Differential diagnosis includes faulty blood pressure reading, acute coronary syndrome, recurrent sepsis, other electrolyte abnormality, pneumonia, pleurisy, musculoskeletal pain, among others. I am not highly suspicious of PE, aortic pathology or or any other critical process. Workup will include EKG, chest x-ray and routine labs including troponin. Disposition pending workup and patient course with possible admission to Dr. Mckeon if indicated.. 15:23 ED course: Discussed with Dr. Mckeon. Will place patient in observation and continue sp3 hydration. She is on outpatient vancomycin and meropenem I do not believe she has an active ongoing infection. Her outpatient meds to her PICC line are for her osteomyelitis recent admission.. 12/23 13:03 Order name: Basic Metabolic Panel; Complete Time: 15:14 sp3 12/23 13:03 Order name: CBC with Diff; Complete Time: 14:25 sp3 12/23 13:03 Order name: LFT's; Complete Time: 15:14 sp3 12/23 13:03 Order name: Magnesium; Complete Time: 15:14 sp3 12/23 13:03 Order name: NT PRO-BNP; Complete Time: 15:14 sp3 12/23 13:03 Order name: PT-INR; Complete Time: 15:14 sp3 12/23 13:03 Order name: Troponin HS; Complete Time: 15:14 sp3 12/23 15:18 Order name: UAM sp3 12/23 16:07 Order name: Urine Culture EDMS 12/23 16:23 Order name: Basic Metabolic Panel EDMS 12/23 16:23 Order name: Basic Metabolic Panel EDMS 12/23 16:23 Order name: CBC with Automated Diff EDMS 12/23 16:23 Order name: CBC with Automated Diff EDMS 12/23 16:23 Order name: Troponin High Sensitivity EDMS 12/23 16:23 Order name: Troponin High Sensitivity EDMS 12/23 16:23 Order name: Troponin High Sensitivity EDMS 12/23 18:22 Order name: Vancomycin Level Trough EDMS 12/23 21:43 Order name: Glucose, Ancillary Testing EDMS 12/23 13:03 Order name: XRAY Chest (1 view); Complete Time: 14:25 3 12/23 13:03 Order name: EKG; Complete Time: 13:04 3 12/23 16:23 Order name: EKG Electrocardiogram EDMS 12/23 16:23 Order name: EKG Electrocardiogram EDMS 12/23 16:23 Order name: EKG Electrocardiogram EDMS 12/23 16:23 Order name: EKG Electrocardiogram EDMS 12/23 13:03 Order name: Cardiac monitoring; Complete Time: 13:58 3 12/23 13:03 Order name: EKG - Nurse/Tech; Complete Time: 13:58 3 12/23 13:03 Order name: IV Saline Lock; Complete Time: 13:58 3 12/23 13:03 Order name: Labs collected and sent; Complete Time: 13:58 3 12/23 13:03 Order name: O2 Per Protocol; Complete Time: 13:58 3 12/23 13:03 Order name: O2 Sat Monitoring; Complete Time: 13:58 3 12/23 14:08 Order name: Labs - recollect needed: blue top (fill to top); Complete Time: 15:14 bc6 Administered Medications: 15:30 Drug: NS 0.9% IV 1000 ml IV at 1 bolus Per protocol; to be given as a bolus over 60 db minutes Route: IV; Rate: 1 bolus; Site: left antecubital; 19:04 Follow up: Response: No adverse reaction; IV Status: Completed infusion; IV Intake: db 1000ml Disposition Summary: 12/23/24 15:24 Hospitalization Ordered Notes: Hospitalization Status: Observation sp3 Provider: Eugenio Mckeon sp3 Condition: Stable sp3 Problem: an acute exacerbation sp3 Symptoms: have worsened sp3 Bed/Room Type: Standard 3 Location: Telemetry/MedSurg (observation)(12/24/24 04:23) cg Room Assignment: [facility](12/24/24 04:23) Diagnosis - Dehydration, acute on chronic renal insufficiency, prerenal azotemia, hyponatremia, sp3 hypokalemia Forms: - Medication Reconciliation Form sp3 - SBAR form sp3 - Leadership Thank You Letter sp3 Signatures: Dispatcher [employer] EDMS Bri Moran RN RN Kira Guy RN RN ap3 Zoran Perez MD MD sp3 Kaylyn Apple RN RN db Melissa Man bc6 Corrections: (The following items were deleted from the chart) 21:38 15:24 Telemetry/MedSurg (observation) sp3 21:38 15:24 sp3 cg 12/24 03:04 12/23 16:23 Troponin High Sensitivity ordered. EDTN EDMS 12/24 04:23 12/23 21:38 [facility] ER HOLD cg cg 12/24 04:23 12/23 21:38 ERHOLD- cg cg
--- NOTE | 2024-12-23 15:24 | ER ---
Nurse's Notes [facility] Name: Gladis Cantu Age: 79 yrs Sex: Female : 1945 Arrival Date: 12/23/2024 Time: 12:43 Bed 14 Private MD: Diagnosis: Dehydration, acute on chronic renal insufficiency, prerenal azotemia, hyponatremia, hypokalemia Presentation: 12/23 12:53 Chief complaint: Patient states: she woke up this morning, and was more uncomfortable ap3 this morning with pain in her shoulders and neck. family reports the patients blood pressure machine was reading "error" then was given a reading of 131/46. Patient's family called the patients PCP, who told them to come get evaluated. Patient reports that during that time she was feeling "terrible and feeling tight around my chest but once i got up and moving i felt better". Coronavirus screen: At this time, the client does not indicate any symptoms associated with coronavirus-19. Ebola Screen: No symptoms or risks identified at this time. Initial Sepsis Screen: Does the patient meet any 2 criteria? No. Patient's initial sepsis screen is negative. Does the patient have a suspected source of infection? No. Patient's initial sepsis screen is negative. Risk Assessment: Do you want to hurt yourself or someone else? Patient reports no desire to harm self or others. Onset of symptoms was December 23, 2024. 12:53 Method Of Arrival: Ambulatory ap3 12:53 Acuity: BERNICE 2 ap3 Triage Assessment: 12:58 General: Appears in no apparent distress. Behavior is calm, cooperative, appropriate ap3 for age. Pain: Complains of pain in left trapezius, right trapezius and chest Pain currently is 7 out of 10 on a pain scale. Neuro: Level of Consciousness is awake, alert, obeys commands, Oriented to person, place, time, situation, Appropriate for age. Cardiovascular: Reports chest pain, chest tightness that goes through to her back and up into her neck Patient's skin is warm and dry. Respiratory: Airway is patent Respiratory effort is even, unlabored, Respiratory pattern is regular, symmetrical. Historical: - Allergies: 12:57 Iodine; ap3 12:57 PENICILLINS; ap3 12:57 Sulfa (Sulfonamide Antibiotics); ap3 12:57 Vancomycin; ap3 - PMHx: 12:57 Diabetes - IDDM; Diverticulitis; Hypertension; Hypothyroidism; lypmphoedema; neuropathy;ap3 - Immunization history:: Client reports having NOT received the Covid vaccine. Flu vaccine is not up to date. - Infectious Disease History:: Denies. - Social history:: Smoking status: Patient denies any tobacco usage or history of. Screenin:59 Abuse screen: Denies threats or abuse. Nutritional screening: No deficits noted. ap3 Tuberculosis screening: No symptoms or risk factors identified. 19:05 [facility] ED Fall Risk Assessment (Adult) History of falling in the last 3 months, rg5 including since admission No falls in past 3 months (0 pts) Confusion or Disorientation No (0 pts) Intoxicated or Sedated No (0 pts) Impaired Gait Yes (1 pt) Mobility Assist Device Used Yes (1 pt) Altered Elimination No (0 pt) Score/Fall Risk Level 0 - 2 = Low Risk Oriented to surroundings, Maintained a safe environment, Provided non-skid footwear, Hourly rounding (assess needs \\T\\ fall precautionary measures) done. Assessment: 01:15 Reassessment: Patient appears in no apparent distress at this time. Patient and/or db family updated on plan of care and expected duration. Pain level reassessed. Patient is alert, oriented x 3, equal unlabored respirations, skin warm/dry/pink. 16:00 Reassessment: Patient appears in no apparent distress at this time. Patient and/or db family updated on plan of care and expected duration. Pain level reassessed. Patient is alert, oriented x 3, equal unlabored respirations, skin warm/dry/pink. General: Appears in no apparent distress. comfortable, Behavior is calm, cooperative. Neuro: Level of Consciousness is awake, alert, obeys commands, Oriented to person, place, time, situation. Respiratory: Airway is patent Respiratory effort is even, unlabored, Respiratory pattern is regular, symmetrical. 17:10 Reassessment: Patient appears in no apparent distress at this time. Patient and/or db family updated on plan of care and expected duration. Pain level reassessed. Patient is alert, oriented x 3, equal unlabored respirations, skin warm/dry/pink. PATIENT AMBULATORY TO RESTROOM. 19:05 General: Appears in no apparent distress. comfortable, Behavior is appropriate for age. rg5 19:05 Pain: Denies pain. Neuro: Level of Consciousness is awake, alert, obeys commands, rg5 Oriented to person, place, time, situation. Cardiovascular: Denies chest pain. Respiratory: Airway is patent Trachea midline Respiratory effort is even, unlabored, Respiratory pattern is regular, symmetrical. GI: Abdomen is round non-distended. : No signs and/or symptoms were reported regarding the genitourinary system. EENT: No deficits noted. Derm: Skin is intact, Skin is dry, Skin is normal, Skin temperature is warm. Musculoskeletal: Circulation, motion, and sensation intact. Range of motion: intact in all extremities. Vital Signs: 12:53 BP 191 / 75; Pulse 73; Resp 18; Temp 98.5(O); Pulse Ox 100% ; Weight 113.4 kg; Height 5 ap3 ft. 6 in. ; Pain 7/10; 15:30 BP 199 / 75; Pulse 60; Resp 16; Pulse Ox 99% on R/A; db 16:30 BP 199 / 70; Pulse 58; Resp 18; Pulse Ox 98% on R/A; db 17:30 BP 194 / 64; Pulse 53; Resp 18; Pulse Ox 100% on R/A; db 18:30 BP 191 / 67; Pulse 56; Resp 18; Pulse Ox 100% on R/A; db 12:53 Body Mass Index 40.35 (113.40 kg, 167.64 cm) ap3 12:53 Pain Scale: Adult ap3 ED Course: 12:46 Patient arrived in ED. mr 12:49 Zoran Perez MD is Attending Physician. sp3 12:57 Triage completed. ap3 12:59 Arm band placed on left wrist. ap3 13:02 Patient placed in an exam room, on a stretcher. ll1 13:55 Kaylyn Apple, JOLANTA is Primary Nurse. db 13:58 Inserted saline lock: 22 gauge in left forearm, using aseptic technique. Blood kc6 collected. Flushed with 10 mL NS. 14:04 XRAY Chest (1 view) In Process Unspecified. EDMS 15:23 Eugenio Mckeon MD is Hospitalizing Provider. sp3 19:05 Patient has correct armband on for positive identification. Placed in gown. Bed in low rg5 position. Call light in reach. Side rails up X 1. Door closed. Noise minimized. Warm blanket given. 19:05 No provider procedures requiring assistance completed. Patient admitted, IV remains in rg5 place. intact, No redness/swelling at site. 19:10 Provided Education on: need for admit. rg5 19:11 Aleaxnder Hardy, RN is Primary Nurse. rg5 Administered Medications: 15:30 Drug: NS 0.9% IV 1000 ml IV at 1 bolus Per protocol; to be given as a bolus over 60 db minutes Route: IV; Rate: 1 bolus; Site: left antecubital; 19:04 Follow up: Response: No adverse reaction; IV Status: Completed infusion; IV Intake: db 1000ml Medication: 19:05 VIS not applicable for this client. rg5 Intake: 19:04 IV: 1000ml; Total: 1000ml. db Outcome: 15:24 Decision to Hospitalize by Provider. sp3 19:05 Admitted to ER Hold. Please see [facility] for further documentation. rg5 19:05 Condition: stable 19:05 Instructed on the need for admit, 12/24 05:30 Patient left the ED. rg5 Signatures: Dispatcher [employer] EDMS RejiFaith, Reg Reg mr AjithalieKira, RN RN ap3 Yunior Mraley, RN RN ll1 Zoran Perez MD MD sp3 Brittani Cummins RN RN kc6 Kaylyn Apple RN RN db Alexander Hardy, RN RN rg5
[2024-12-23 16:02] LABS: Specific Gravity 1.008 (1.005-1.030); Sqamous Epithelial None Seen /HPF (None Seen); Urine Bacteria None Seen /HPF (<20); Urine Bilirubin NEGATIVE (Negative); Urine Blood 1+ (Negative); Urine Clarity Turbid (Clear); Urine Color Colorless (Yellow); Urine Culture Reflex Order REFLEXED; Urine Glucose NEGATIVE (Negative); Urine Ketones NEGATIVE (Negative); Urine Micro Reflex YN NO BILL MICROSCOPIC; Urine Nitrite NEGATIVE (Negative); Urine Protein 1+ (Negative); Urine RBC 21-50 /HPF (None Seen); Urine Urobilinogen Normal (Normal); Urine WBC >50 /HPF (<5); Urine WBC Clump Rare /HPF (None Seen); Urine Yeast (Budding) Occasional /HPF (None Seen); Urine pH 6.5 (5.0-7.0)
[2024-12-23] MEDS ORDERED: ONDANSETRON 4 MG/2 ML VIAL IV PRN (16:17)
[2024-12-23] MEDS: NA CHLORIDE 0.9% 1,000 ML IV SCH (17:00)
--- NOTE | 2024-12-23 20:51 | HP ---
Date of Admission: 12/23/2024 Chief Complaint: Low blood pressure and pain. History Of Present Illness: This is a 79-year-old female patient, who started to have pain in her mid back and upper back area today and yesterday she had 4 episodes of diarrhea and her blood pressure was low today with systolic blood pressure around 100. She called office with this and was asked to come to emergency room and after she was evaluated in ER, decision was made to admit her to hospital. The patient's sister also informed that the patient was weaker than normal and more sleepier at home today, so we were concerned about dehydration, sepsis, or any myocardial infarction type of problem and she was instructed to come to emergency room. Initially, she was refusing, but subsequently upon recurrent request from office, she did come to emergency room and after she was evaluated, ER physician contacted me and decision was made to admit her to hospital for observation. I saw her in emergency room this evening for this admission. She denies any chest pain or any shortness of breath. No abdominal pain. No nausea, vomiting. No blood in stool. She takes her IV antibiotics at home, which is meropenem as well as vancomycin. Allergies: TO PENICILLIN CAUSING RASH AND ITCHING. SULFA CAUSING RASH AND ITCHING. Review of Systems: Cardiovascular: As mentioned above. All other systems reviewed and negative. Medications: [place] 7.5 mg as prescribed by Pain Management, atenolol 50 mg daily, Humulin 70/30 insulin and takes 50-60 units 2 times a day, isosorbide mononitrate 30 mg daily, levothyroxine 200 mcg daily, lisinopril 20 mg 2 times a day. Nortriptyline 50 mg daily at bedtime. Prilosec 20 mg daily. Gabapentin 100 mg 2 times a day. meropenem 1000 mg 2 times a day, vancomycin 500 mg IV daily, eliquis 5 mg 2 times a day, furosemide 40 mg 2 times a day, metolazone 2.5 mg daily, clonidine 0.2 mg 2 times a day, potassium chloride 20 meq 2 times a day, magnesium oxide 400 mg 2 times a day. Past Medical History: Significant for paroxysmal atrial fibrillation, chronic diastolic heart failure, hypertension; type 2 diabetes mellitus; chronic kidney disease, stage IIIA; diabetes mellitus with chronic kidney disease; mixed hyperlipidemia; diverticulosis; hypothyroidism; chronic leg edema; thrombocytopenia; cervical spondylosis; osteoarthritis at multiple sites; peripheral vascular disease. Past Surgical History: Significant for cataract surgery, cholecystectomy, hysterectomy, carpal tunnel release. Family History: Father , had coronary artery disease, diabetes, lung cancer. Mother , had diabetes, hypertension, kidney cancer. Brother with coronary artery disease and sister with coronary artery disease. Social History: Negative for smoking and alcohol use. Physical Examination: Vital Signs: Height 5 feet 6 inches, weight 113.4 kg, temperature 98.5, pulse 73, respiratory rate 18, blood pressure 191/75, oxygen saturation 100%. General: Awake, alert, oriented, not in distress. HEENT: Head atraumatic, normocephalic. Conjunctivae nonerythematous. Sclerae white. Mouth, no thrush or edema noted. Ears/Nose, no mass, lesion, discharge noted. Neck: Supple. No JVD, lymph nodes, bruit, thyromegaly noted. Lungs: Bilateral good equal air entry. Clear to auscultation. No rhonchi. No rales. Heart: Normal heart sounds, no murmur or gallop. Abdomen: Soft, bowel sounds normal. No guarding, rigidity, tenderness, mass, hepatosplenomegaly, distention, or bruit noted. Extremities: Bilateral lower leg has dressing present over both feet, which was not removed and she is under care of Dr. Vaca at [facility]. The patient has fine PICC line present in right arm and PICC line site appears normal. Skin: No rash, ulcer, cellulitis. Lymphatics: No lymph node enlargement in neck, supraclavicular, infraclavicular region. Neuro: No focal neurological deficit. Chest: Unremarkable. External Genitalia: Deferred. Rectal: Deferred. Laboratory Data: WBC 6.6, hemoglobin 12.4, platelets 123. Sodium 132, potassium 3.2, chloride 93, bicarb 36, BUN 52, creatinine 2.05, glucose 206. Liver function tests unremarkable. Troponin 22. ProBNP 2188. Liver function tests unremarkable. Urinalysis, leukocyte esterase 250, rbc 21 to 50, wbc more than 50, bacteria not seen. Chest x-ray, no acute cardiopulmonary changes. Impression: 1. Acute kidney injury. 2. Volume depletion. 3. Hypokalemia. 4. Sepsis, organism Staph aureus. 5. Osteomyelitis, right foot great toe and left foot second toe, organism Staph aureus, MRSA, and Morganella. 6. Peripheral vascular disease. 7. Chronic diastolic heart failure. 8. Type 2 diabetes mellitus, uncontrolled. 9. Diabetes mellitus with peripheral neuropathy. 10. Hypertension. 11. Hyperlipidemia. 12. Diverticulosis. 13. Hypothyroidism. 14. Osteoarthritis, multiple sites. 15. Paroxysmal atrial fibrillation. Plan: We will go ahead and admit the patient to hospital for further evaluation and management of this problem. The patient is appropriate for observation. We will continue IV fluid per order. Repeat blood work tomorrow morning. We will get serial cardiac enzymes to rule out myocardial infarction, which appears to be less likely at this point as a possibility. For her sepsis and osteomyelitis, she is on meropenem as well as vancomycin. We will continue this as per order. For her hypertension, we will not give any antihypertensive medication, but starting tonight, we will restart her lisinopril and clonidine. For chronic diastolic heart failure, she takes furosemide and metolazone. We will only start furosemide and not metolazone. For diabetes, we will give long- acting insulin, Semglee 20 units daily at bedtime and sliding scale insulin was ordered. The patient is on Eliquis 5 mg twice a day for her atrial fibrillation. We will continue that. I have reviewed last hospital admission record from 11/22/2024 including H and P, discharge summary, lab results, and outpatient lab results which she had it last week and week before after her hospital discharge. Total time spent today 80 minutes including communication with the patient and the patient's sister prior to this hospital admission, communication with ER physician, performing today's evaluation and management, and review of prior office and hospital record as outlined above. I will see her tomorrow morning for followup. ISAAC/MODL Voice ID: [id number] MTDD
[2024-12-23] MEDS ORDERED: ENOXAPARIN 40 MG/0.4 ML SQ SCH (21:00)
[2024-12-23] MEDS: INSULIN GLARGINE 100 UNIT/ML SQ SCH (21:00)
[2024-12-23] MEDS: INSULIN REGULAR (HUMAN) 100 UNIT/ML SQ SCH (21:00)
[2024-12-23] MEDS: VANCOMYCIN 2 GM in NA CHLORIDE 0.9% 500 ML IV SCH (23:00)
[2024-12-24] MEDS: APIXABAN 5 MG TABLET PO SCH
[2024-12-24] MEDS: cloNIDine HCL 0.1 MG TAB PO SCH
[2024-12-24] MEDS: POTASSIUM CL SA 10 MEQ TAB PO SCH
[2024-12-24] MEDS: lisinopriL 20 MG TAB PO SCH
[2024-12-24] MEDS: Meropenem 1,000 MG in NA CHLORIDE 0.9% 100 ML IV SCH (01:00)
[2024-12-24] MEDS ORDERED: APIXABAN 5 MG TABLET ONE (03:06)
[2024-12-24] MEDS ORDERED: POTASSIUM CL SA 10 MEQ TAB PO ONE ×2 (03:06→11:14)
[2024-12-24] MEDS ORDERED: lisinopriL 20 MG TAB ONE (03:06)
[2024-12-24] MEDS ORDERED: cloNIDine HCL 0.1 MG TAB ONE (03:07)
[2024-12-24] MEDS ORDERED: NA CHLORIDE 0.9% 1,000 ML ONE (03:07)
[2024-12-24] MEDS ORDERED: Meropenem 1000 MG/VIAL IV ONE (03:07)
[2024-12-24] MEDS ORDERED: NA CHLORIDE 0.9% 100 ML ONE (03:07)
[2024-12-24 05:41] LABS: Absolute Basophils 0.1 K/uL (0-0.5); Absolute Eosinophils 0.5 K/uL (0-0.5); Absolute Lymphocytes (CBC) 2.3 K/uL (0.7-4.9); Absolute Monocytes 0.9 K/uL (0.1-1.3); Absolute Neutrophil 5.2 K/uL (1.8-8.0); Basophils % 1.1 % (0-1.3); Eosinophils % 5.7 % (0-4.4); Hematocrit 39.1 % (36.0-45.0); Hemoglobin 13.5 g/dL (12.0-15.0); Lymphocytes % 25.9 % (15.3-44.8); MCH 28.3 pg (27.0-35.0); MCHC 34.5 g/dL (32.0-36.0); MPV 9.8 fL (7.6-11.3); Monocytes % 9.8 % (3.3-12.3); Neutrophils % 57.5 % (41.7-73.7); Nucleated Red Blood Cells % 0.1 % (0-0); Platelets 158 thou/uL (152-406); RBC Red Blood Cell Count 4.77 M/uL (3.86-4.86); Red Cell Distribution Width 13.8 % (12.1-15.2)
[2024-12-24 05:44] VITALS: BMI 40.3
[2024-12-24 05:57] LABS: Anion Gap 9.1 mEq/L (5.0-15.0); Potassium 3.1 mEq/L (3.5-5.1)
[2024-12-24] MEDS: FUROSEMIDE 40 MG TABLET PO SCH (08:43)
--- NOTE | 2024-12-24 11:16 | DS ---
Date of Discharge: 12/24/2024 Disposition: The patient will be discharged to go home. Physical Examination: HEENT: Unremarkable. Lungs: Clear to auscultation. Heart: Sounds normal. Abdomen: Soft. Bowel sounds normal. No guarding, rigidity, tenderness, distention. Extremities: No leg edema. Laboratory Data: Upon admission yesterday, sodium 132, potassium 3.2, chloride 93, bicarb 36, BUN 52, creatinine 2.05, glucose 206. Liver function tests unremarkable. ProBNP 2188. Troponin first set, 22 seconds at 32.3, third set 41.5. This morning, sodium 137, potassium 3.1, chloride 96, bicarb 35, BUN 43, creatinine 1.63, glucose 343. For CBC yesterday, white count 6.6, hemoglobin 12.4, platelets 123. This morning, white count 9, hemoglobin 13.5, platelets 158. Final Diagnoses: 1. Acute kidney injury. 2. Volume depletion. 3. Hypokalemia. 4. Sepsis, organism Staph aureus. 5. Osteomyelitis, right foot great toe, left foot second toe, organism Morganella and Staph aureus, methicillin-resistant Staphylococcus aureus. 6. Peripheral vascular disease. 7. Chronic diastolic heart failure. 8. Type 2 diabetes mellitus, uncontrolled. 9. Diabetes mellitus with peripheral neuropathy. 10. Hypertension. 11. Hyperlipidemia. 12. Diverticulosis. 13. Osteoarthritis, multiple sites. 14. Hypothyroidism. 15. Paroxysmal atrial fibrillation. Hospital Course: This is a 79-year-old female patient who was admitted to the hospital after she came into emergency room yesterday with pain and diarrhea and low blood pressure. Please see dictated H and P for more information. After patient was evaluated, admitted to the hospital, she was given IV fluid and her volume depletion and acute kidney injury problem has improved. The patient continues to have hypokalemia, which will continue to replace and monitor. On outpatient basis, she has had hypokalemia also which is nothing new for her. The patient started to have diarrhea probably 2 days before she came into the hospital and last night after I saw her in the emergency room between that time and this morning, the patient states she had 2 diarrhea stool also. Denies any blood in stool. We will go ahead and order stool for C difficile. Plan to discharge her to go home sometime this afternoon. She takes metolazone 2.5 mg tablets daily and I have instructed her to take it every other day. Discharge Medications And Instructions: Continue all prior medications except following changes: 1. Metolazone 2.5 mg, take 1 tablet by mouth every other day. 2. Potassium chloride 20 meq, take 1 tablet by mouth three times a day. 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 Home health nurse to draw blood next week on Friday or Friday for Vancomycin trough leve, CBC, BMP and send result to Dr Mckeon's office. Home health nurse to remove PICC line after last dose of IV antibiotic on 01/03/2025. Followup with Dr Mckeon next week Total time spent today, 40 minutes. ISAAC/MODL Voice ID: [id number] Report ID: [id number] MTDNena
[2024-12-24] MEDS ORDERED: COLLAGENASE 30 GM OINTMENT TOP SCH (12:00)
[2024-12-25 01:19] VITALS: TEMP 98.5
[2024-12-25 01:24] VITALS: O2SAT 100
[2024-12-25 01:26] VITALS: BP 191/67
--- NOTE | 2024-12-27 12:16 | EKG ---
Test Date: 2024-12-23 Test Time: 13:21:41 [employer] Quality Leader: DANTE MEASUREMENT RESULTS: Intervals: Rate: 54 PA: 244 QRSD: 146 QT: 480 QTc: 455 [place]: P: -6 PA: 244 QRS: -20 T: 48 INTERPRETIVE STATEMENTS: Sinus bradycardia with 1st degree AV block Right bundle branch block Abnormal ECG Compared to ECG 11/22/2024 00:02:18 First degree AV block now present Sinus tachycardia no longer present Myocardial infarct finding no longer present Electronically Signed On 12-27-24 12:12:36 BUS DRIVER/MONITOR by Axel Capone
== END 2024-12-24 12:15 | disposition home or self-care (01) ==
LOC: ER 12:43 → ERHOLD 12-24 04:10 → INTOOBSV 12-24 04:10 → 4TH 12-24 05:10
PROVIDERS: ADMIT Internal Medicine; ATTEND Internal Medicine
DX: A41.02 Sepsis due to Methicillin resistant Staphylococcus aureus (principal); R65.20 Severe sepsis without septic shock; B95.62 Methicillin resistant Staphylococcus aureus infection as the cause of diseases classified elsewhere; N17.9 Acute kidney failure, unspecified; E86.9 Volume depletion, unspecified; E87.6 Hypokalemia; M86.8X7 Other osteomyelitis, ankle and foot; N18.9 Chronic kidney disease, unspecified; R79.89 Other specified abnormal findings of blood chemistry; I95.9 Hypotension, unspecified; R19.7 Diarrhea, unspecified; E87.1 Hypo-osmolality and hyponatremia; E86.0 Dehydration; M54.9 Dorsalgia, unspecified; I73.9 Peripheral vascular disease, unspecified; I50.32 Chronic diastolic (congestive) heart failure; E11.9 Type 2 diabetes mellitus without complications; I10 Essential (primary) hypertension; E78.5 Hyperlipidemia, unspecified; E03.9 Hypothyroidism, unspecified; K57.90 Diverticulosis of intestine, part unspecified, without perforation or abscess without bleeding; I48.0 Paroxysmal atrial fibrillation; Z88.0 Allergy status to penicillin
CPT/HCPCS: 96361; 93005; 87088; 85025 ×2; 81001; 87086; 80048 ×2; 36415; 83735; 85610; 82947 ×2; 80076; 84484 ×3; 83880; 71045; 96360; 99285; J3590; J2185 ×2; J7040; J7030 ×2; G0378

== ENCOUNTER 2025-02-03 15:40 | Inpatient (IN) | payer OTHER, MEDICARE ==
[2025-02-03 20:42] LABS: Absolute Basophils 0.1 K/uL (0-0.5); Absolute Eosinophils 0.6 K/uL (0-0.5); Absolute Lymphocytes (CBC) 1.7 K/uL (0.7-4.9); Absolute Neutrophil 9.8 K/uL (1.8-8.0); Basophils % 0.5 % (0-1.3); Eosinophils % 4.9 % (0-4.4); Hematocrit 37.2 % (36.0-45.0); Hemoglobin 12.6 g/dL (12.0-15.0); Lymphocytes % 12.9 % (15.3-44.8); MCH 27.7 pg (27.0-35.0); MCHC 33.8 g/dL (32.0-36.0); MCV 81.7 fL (80-100); MPV 9.1 fL (7.6-11.3); Monocytes % 7.7 % (3.3-12.3); Platelets 183 thou/uL (152-406); RBC Red Blood Cell Count 4.55 M/uL (3.86-4.86); Red Cell Distribution Width 14.1 % (12.1-15.2)
[2025-02-03] MEDS: NORTRIPTYLINE HCL 25 MG CAP PO SCH (21:00)
[2025-02-03] MEDS ORDERED: CEFEPIME 1 GM in NA CHLORIDE 0.9% 100 ML IV SCH (21:00)
[2025-02-03] MEDS: CEFEPIME 1 GM in NA CHLORIDE 0.9% 100 ML IV SCH (21:05)
[2025-02-03] MEDS: HYDRALAZINE HCL 10 MG TABLET PO SCH (21:12)
[2025-02-03] MEDS: cloNIDine HCL 0.1 MG TAB PO SCH (21:12)
[2025-02-03] MEDS: INSULIN REGULAR (HUMAN) 100 UNIT/ML SQ SCH (21:13)
[2025-02-03] MEDS: GABAPENTIN 100 MG CAP PO SCH (21:13)
[2025-02-03] MEDS: POTASSIUM CL SA 10 MEQ TAB PO SCH (21:13)
[2025-02-03] MEDS: MAGNESIUM OXIDE 400 MG TAB PO SCH (21:13)
[2025-02-03] MEDS: APIXABAN 5 MG TABLET PO SCH (21:13)
[2025-02-03 21:22] LABS: ALT/SGPT < 14 U/L (13-56); AST/SGOT 13 U/L (15-37); Albumin 2.7 g/dL (3.4-5.0); Albumin/Globulin Ratio 0.5 (1.1-1.8); Alkaline Phosphatase 134 U/L (45-117); Anion Gap 9.9 mEq/L (5.0-15.0); BUN Blood Urea Nitrogen 48 mg/dL (7-18); Bicarbonate 31 mEq/L (21-32); Bilirubin Total 0.6 mg/dL (0.2-1.0); Globulin 5.4 g/dL (2.3-3.5); Glomerular Filtration Rate 27 ml/min (=/>90); Glucose Level 369 mg/dL (74-106); Magnesium 1.9 mg/dL (1.6-2.4); Potassium 2.9 mEq/L (3.5-5.1); Protein, Total 8.1 g/dL (6.4-8.2); Sodium Level 131 mEq/L (136-145)
[2025-02-03] MEDS: CETIRIZINE HCL 5 MG TABLET PO SCH (22:00)
[2025-02-03] MEDS: DIPHENHYDRAMINE 25 MG TAB/CAP PO PRN (22:18)
[2025-02-03] MEDS: INSULIN GLARGINE 100 UNIT/ML SQ SCH (22:20)
--- NOTE | 2025-02-03 22:20 | HP ---
Date of Admission: 02/03/2025 Chief Complaint: Itching. History Of Present Illness: This is a 79-year-old female patient who came into office today with 3 days history of itching and rash over different parts of her body. She denies any fever. Because of her itching problem, she has been scratching her leg also and was noted to have significant area of cellulitis involving right lower extremity, and after patient was evaluated, decision was made to admit her to the hospital with this cellulitis problem. The [facility] and she does not know exactly when was the last time she went to [facility], but reports that after her last visit at [facility], she noted that her toe is turning black. Denies any injury to her foot. After I saw her, decision was made to admit her to hospital for further evaluation and management of this problem. Arrangements were made for the patient to be admitted to hospital. Allergies: TO PENICILLIN, CAUSING RASH AND ITCHING AND SULFA ALSO CAUSING RASH AND ITCHING. Medications: List reviewed. Review of Systems: Dermatology: As mentioned above. All other systems reviewed and negative. Medications: [place] 7.5 mg as prescribed by Pain Management, atenolol 50 mg daily, Humulin 70/30 insulin and takes 50-60 units 2 times a day, isosorbide mononitrate 30 mg daily, levothyroxine 200 mcg daily, lisinopril 20 mg 2 times aday. Nortriptyline 50 mg daily at bedtime. Prilosec 20 mg daily. Gabapentin 100 mg 2 times a day. eliquis 5 mg 2 times a day, furosemide 40 mg 2 times a day, metolazone 2.5 mg every other day, clonidine 0.2 mg 2 times a day, potassium chloride 20 meq 3 times a day, magnesium oxide 400 mg 2 times a day. Past Medical History: Significant for paroxysmal atrial fibrillation, chronic diastolic heart failure, hypertension; type 2 diabetes mellitus; chronic kidney disease, stage IIIA; diabetes mellitus with chronic kidney disease; mixed hyperlipidemia; diverticulosis; hypothyroidism; chronic leg edema; thrombocytopenia; cervical spondylosis; osteoarthritis at multiple sites; peripheral vascular disease. Past Surgical History: Significant for cataract surgery, cholecystectomy, hysterectomy, carpal tunnel release. Family History: Father , had coronary artery disease, diabetes, lung cancer.Mother , had diabetes, hypertension, kidney cancer. Brother with coronary artery disease and sister with coronary artery disease. Social History: Negative for smoking and alcohol use. Physical Examination: Vital Signs: Blood pressure was 180/81, pulse 88, temperature 97.3, respiratory rate 16, weight 222.6 pounds, and height 65 inches. General: Awake, alert, oriented, not in distress. HEENT: Head atraumatic, normocephalic. Conjunctivae nonerythematous. Sclerae white. Mouth, no thrush or edema noted. Ears/Nose, no mass, lesion, discharge noted. Neck: Supple. No JVD, lymph nodes, bruit, thyromegaly noted. Lungs: Bilateral good equal air entry. Clear to auscultation. No rhonchi. No rales. Heart: Normal heart sounds, no murmur or gallop. Abdomen: Soft, bowel sounds normal. No guarding, rigidity, tenderness, mass, hepatosplenomegaly, distention, or bruit noted. Extremities: Bilateral leg edema present involving both lower extremity and right lower extremity between knee and ankle, one-half to two-third of the skin has pink warm skin. The patient has some pink macular rash over her back. Right foot plantar aspect proximal to base of 5th toe has about 4 to 5 cm black color skin, no discharge or bleeding. Skin: No rash, ulcer, cellulitis. Lymphatics: No lymph node enlargement in neck, supraclavicular, infraclavicular region. Neuro: No focal neurological deficit. Chest: Unremarkable. External Genitalia: Deferred. Rectal: Deferred. Laboratory Data: WBC 13.3, hemoglobin 12.6 platelets 183. Sodium , potassium , chloride , bicarb , BUN , creatinine , glucose, , liver function tests , magnesium . Impression: 1. Cellulitis, right leg. 2. Rule out osteomyelitis right foot 3. Hypertension. 4. Type 2 diabetes mellitus with polyneuropathy. 5. Hypothyroidism. 6. Mixed hyperlipidemia. 7. Gastroesophageal reflux disease. 8. Diverticulosis. 9. Osteoarthritis, multiple sites. 10. Chronic kidney disease stage 3A. Plan: We will go ahead and admit the patient to hospital for further evaluation and management of this problem. The patient is appropriate for inpatient and is expected to spend 2 midnights in hospital. We will go ahead and start the patient on empiric antibiotic cefepime per order. We will consult general surgeon for further evaluation and management of the presenting problem. For hypertension, we will continue antihypertensive medication per order and monitor blood pressure, if necessary adjust medication. For her diabetes, we will monitor fingerstick blood sugar and manage it with sliding scale and long-acting insulin. For hypothyroidism, continue levothyroxine. No need for any further intervention. For gastroesophageal reflux disease, continue pantoprazole and no need for further intervention. The patient has hypomagnesemia and takes magnesium replacement therapy, which we will continue that and monitor blood was while in the hospital. Total time spent 80 minutes including review for last hospital admission as well as last office visit record, making arrangements for today's admission, performing today's evaluation and management. She normally sees Dr. Vaca on outpatient basis. Dr. Vaca will be out of town as per my discussion with him, so we will go ahead and consult Dr. Carlisle and I will discuss details with him. ISAAC/MODL Voice ID: [id number] SINGH
[2025-02-04] MEDS: HYDROCODONE/APAP 5/325 MG TAB PO PRN (01:58)
[2025-02-04] MEDS: PANTOPRAZOLE 40MG TABLET PO SCH (05:31)
[2025-02-04] MEDS: LEVOTHYROXINE SOD 0.1 MG TAB PO SCH (05:31)
[2025-02-04] MEDS: atenoloL 50 MG TAB PO SCH (05:31)
[2025-02-04] MEDS: FUROSEMIDE 40 MG TABLET PO SCH (09:29)
[2025-02-04] MEDS: METOLAZONE 2.5 MG TABLET PO SCH (09:30)
[2025-02-04] MEDS: FEXOFENADINE 180 MG TAB PO SCH (09:38)
--- NOTE | 2025-02-04 09:56 | RAD REPORT ---
EXAMINATION: XR RIGHT FOOT CLINICAL INDICATION: Female, 79 years old. rule out osteomyelitis R 5th metatarsal TECHNIQUE: Multiple views of the right foot were obtained. COMPARISON: No prior exam. FINDINGS: Moderate destructive changes distal phalanx great toe with surrounding soft tissue swelling likely representing osteomyelitis. Diffuse osteopenia is seen elsewhere without definitive destructive changes. Moderate soft tissue swelling. Large calcaneal spurs.
--- NOTE | 2025-02-04 12:29 | RAD REPORT ---
EXAMINATION:Lower Extremity Arterial Bilat CLINICAL INDICATION: Female, 79 years old. PVD TECHNIQUE: Arterial duplex ultrasound was performed of the bilateral lower extremities with real-time , color-flow, and spectral wave Doppler evaluation. Ankle brachial indices were not performed. COMPARISON: No prior exam. FINDINGS: Mild plaque throughout the evaluated arterial system. Biphasic waveforms are seen throughout the evaluated left lower extremity arterial system, to the lev el of the dorsalis pedis artery. No other suspicious findings. Monophasic waveforms are seen throughout the evaluated right lower extremity arterial system, to the level of the dorsalis pedis artery. No other suspicious findings. IMPRESSION: Diffusely monophasic and blunted waveforms seen right lower extremity arterial system suggests signif icant inflow stenosis.
--- NOTE | 2025-02-04 14:50 | PN ---
Date of Progress Note: 02/04/2025 Subjective: The patient was seen this morning for followup. No new complaints or problems reported by the patient. She was lying in bed, not in distress. No new complaints. Objective: Vital Signs: Reviewed. HEENT: Unremarkable. Lungs: Clear to auscultation. Heart: Sounds normal. Abdomen: Soft. Bowel sounds normal. No guarding, rigidity, tenderness, or distention. Extremities: Redness from right lower extremity is slightly better today than yesterday. A black ar ea on the right plantar aspect of the foot proximal to the base of the fifth toe, has remained unchan ged. Impression: 1. Cellulitis, right leg. 2. Rule out osteomyelitis, right foot. 3. Peripheral vascular disease. 4. Hypertension. 5. Type 2 diabetes mellitus. Plan: We will go ahead and continue current antibiotic. Follow up with general surgeon. Get MRI of the right foot along with x-ray of the right foot. Arterial Doppler of both lower extremity. Last arterial Doppler test was September 2024, results reviewed. Continue current antihypertensive medicat ion and current diabetes management. We will continue current antibiotic. The patient has itching a ll over her body and it is something that she started in last few days. She was ordered to receive Z yrtec which she did not take it last night and just took Benadryl and I have instructed her to take Zyrtec as prescribed and as of this morning I cespedes ve added Heather. ISAAC/MODL Voice ID: [id number] Report ID: [id number]
--- NOTE | 2025-02-04 16:55 | RAD REPORT ---
EXAM: Foot Right Wo Cont HISTORY: rule out osteomyelitis R 5th metatarsal COMPARISON: Same-day radiograph, MRI would 25 TECHNIQUE: Multiplanar multisequence MR images were obtained of the imaged foot without contrast. FINDINGS: Suboptimal evaluation of the fifth toe due to poor signal along the lateral aspect of the foot. There is suspected bone marrow edema and cortical destruction at the fifth toe involving the fifth middle and proximal phalanx. Findings are suspicious for abnormal bone marrow edema at the fifth meta tarsal head though this is more equivocal. No abscess identified. Question operative changes from partial amputation of the right toe distal phalanx. Generalized subcutaneous edema present of the foot. IMPRESSION: Bone marrow edema at the fifth middle and proximal phalanx concerning for osteomyelitis. Equivocal findings at the fifth metatarsal head for osteomyelitis.
[2025-02-04] MEDS: INSULIN REGULAR (HUMAN) 100 UNIT/ML ONE (21:03)
[2025-02-05 08:13] LABS: Absolute Basophils 0.1 K/uL (0-0.5); Absolute Eosinophils 0.6 K/uL (0-0.5); Absolute Lymphocytes (CBC) 1.6 K/uL (0.7-4.9); Absolute Monocytes 0.9 K/uL (0.1-1.3); Absolute Neutrophil 7.1 K/uL (1.8-8.0); Basophils % 0.6 % (0-1.3); Eosinophils % 5.6 % (0-4.4); Hemoglobin 11.4 g/dL (12.0-15.0); Lymphocytes % 16.1 % (15.3-44.8); MCH 27.7 pg (27.0-35.0); MCHC 34.5 g/dL (32.0-36.0); MCV 80.3 fL (80-100); MPV 9.2 fL (7.6-11.3); Monocytes % 8.6 % (3.3-12.3); Neutrophils % 69.1 % (41.7-73.7); Nucleated Red Blood Cells % 0.1 % (0-0); Platelets 173 thou/uL (152-406); RBC Red Blood Cell Count 4.12 M/uL (3.86-4.86); Red Cell Distribution Width 13.9 % (12.1-15.2)
[2025-02-05 08:20] LABS: Anion Gap 9.6 mEq/L (5.0-15.0); Magnesium 1.3 mg/dL (1.6-2.4); Potassium 3.6 mEq/L (3.5-5.1)
[2025-02-05] MEDS: MONTELUKAST 10 MG TAB PO SCH (08:42)
--- NOTE | 2025-02-05 09:10 | PN ---
Date of Progress Note: 02/05/2025 Subjective: The patient was seen this morning for followup. No new complaints or problems reported by patient except ongoing generalized itching, which is something she started few days before she cam e to the hospital. Physical Examination: Vital Signs: Reviewed. HEENT: Unremarkable. Lungs: Clear to auscultation. Heart: Sounds normal. Abdomen: Soft. Bowel sounds normal. No guarding, rigidity, tenderness, distention. Extremities: Right leg redness remains unchanged from yesterday. Right foot exam remains unchanged. Laboratory Data: CBC and chemistry from this morning is pending. Fingerstick blood sugar readings r eviewed. Yesterday's foot x-ray and MRI of the right foot both have shown osteomyelitis and arterial Doppler shows some significant peripheral vascular disease involving right leg. Impression: 1. Osteomyelitis, right foot. 2. Cellulitis, right leg. 3. Peripheral vascular disease. 4. Diabetes mellitus, type 2, uncontrolled. 5. Hypertension. 6. Itching. Plan: The patient has generalized itching and that started few days before this hospitalization. Patria kelly took Levaquin that was given from [facility] about 2 weeks ago or so, but oth erwise she has not taken any new medication. I have gone over her last 3 hospital admission records and medication changes made during those admission and I will go ahead and discontinue her metolazone . We will continue her Benadryl as needed. Continue Heather in the morning, Zyrtec and I have added montelukast to see if that helps with her itching. If she does not improve, we may have to consider adding a short course of steroid therapy. For her peripheral vascular disease, consultation was armani silveira from clinical study manager and for osteomyelitis, I have requested consultation from general surgeon an d infectious disease specialist. She will continue insulin sliding scale and her long-acting insulin . She takes 20 units at bedtime, will be increased to 30 units at bedtime starting tonight. ISAAC/MODL Voice ID: [id number] Report ID: [id number]
--- NOTE | 2025-02-05 15:25 | CON ---
History Of Present Illness: This is the case of a 79-year-old patient admitted to the hospital with cellulitis of the bilateral lower extremities. I saw the patient briefly yesterday before she was go ing to MRI. I could not evaluate her since she was going to MRI. I came today and I got some inform ation on her. She has been dealing with this for some time. It is hard to understand what is she tr eating at this moment, but apparently she has been at the wound healing center before, I believe Dr. Vaca is the one taking care of her, so we are going to have to contact him to see and get some infor mation about wound care. She came here with cellulitis. Apparently, she told me she just finished 6 weeks of IV antibiotics that she claimed is for the legs. Apparently, she went to the primary docto r 3 days ago with itchiness and found to have once again cellulitis of the area and the patient was a dmitted to the hospital. Allergies: PENICILLIN, SULFA. Medications: As above. Social History: She does not smoke. She does not drink alcohol. Medications reviewed. Past Medical History: Include atrial fibrillation, heart disease, diabetes, venous stasis disease. Past Surgical History: Cholecystectomy, cataracts, hysterectomy. Physical Examination: Vital Signs: Reviewed. General: The patient is awake, alert, in no distress. HEENT: Pupils anicteric. Chest: Clear. Abdomen: Soft and depressible. Extremities: The patient has other right leg area cellulitis from just below the knee all the way do wn to her toes. There is necrotic ulcer at the base of the right fifth toe. It looks dry. No fluct uance seen. Also the first toe, she has a tiny ulcer present in that area. Data: Blood work reviewed with a white count of 13. Plan: Continue the antibiotics. I am going to trying to review this with the Wound Center if it is possible to see what has been the plan for that ulcer or this is something new. I discussed with the patient the possibility of debridement in the next 24-48 hours, but we cannot lose focus on the cell ulitis of the entire leg. This may or may not be the source of it. The white count is 13.3. The MR I of the foot shows bone marrow edema of the fifth, middle and proximal phalanx concerning for osteom yelitis. Once again, I am not sure if this is new or old. I have to review with the Wound Center. The arterial Doppler shows diffusely monophasic waveforms. I am trying to see if there is any venous Doppler done recently. I see arterial but not venous. Since she has been worked up for the last fe w weeks I am going to discuss possibly with Dr. Vaca since he took the patient a few months ago to [facility] for debridement of the right first toe. JACQUES/PAULA Voice ID: [id number] Report ID: [id number]
[2025-02-05] MEDS: INSULIN GLARGINE 100 UNIT/ML SQ SCH (20:47)
[2025-02-06] MEDS: PANTOPRAZOLE 40MG TABLET PO SCH (08:31)
[2025-02-06] MEDS: COLLAGENASE 30 GM OINTMENT TOP SCH (10:45)
--- NOTE | 2025-02-06 11:26 | PN ---
Date of Progress Note: 02/06/2025 Subjective: The patient was seen this morning for followup. No new complaints or problems reported by the patient. She continues to have itching, which has not changed any since yesterday. Objective: Vital Signs: Reviewed. HEENT: Unremarkable. Lungs: Clear to auscultation. Heart: Sounds normal. Abdomen: Soft. Bowel sounds normal. No guarding, rigidity, tenderness, or distention. Extremities: Bilateral grade 1 edema, right lower extremity. Redness of skin between knee and ankle have remained unchanged. Impression: 1. Cellulitis, right leg. 2. Osteomyelitis, right foot. 3. Type 2 diabetes mellitus, uncontrolled. 4. Hypertension. 5. Peripheral vascular disease. Plan: We will go ahead and continue current diabetes management. Fingerstick blood sugar readings r eviewed, and after increasing dose of long-acting insulin yesterday, this morning her blood sugar is much better. We will continue current empiric antibiotic. I have requested consultation from Infect ious Disease specialist, Dr. Sotomayor, for antibiotic management for osteomyelitis and cellulitis. Con sultation from Dr. Carlisle is appreciated, and we will continue to follow up with him. Yesterday, m etolazone was discontinued to see whether that helps to improve her itching problem or not. We will go ahead and continue current furosemide and I will see her tomorrow for followup. Continue current ant ihypertensive medication. ISAAC/MODL Voice ID: [id number] Report ID: [id number]
[2025-02-06 16:25] VITALS: BMI 40.1
--- NOTE | 2025-02-06 18:39 | P.CNS ---
Date of Consult: 02/06/25 Chief Complaint: PAD/OM History of Present Illness: Patient presented with right lower extremity redness, swelling and possible OM getting treated with IV ABX, arterial doppler done and shows monophasic flow in the right lower extremity, cardiology were consulted for PAD. Allergies Penicillins Allergy (Unknown, Verified 09/14/20 23:27) Anaphylaxis Sulfa (Sulfonamide Antibiotics) Allergy (Unknown, Verified 09/14/20 23:27) Hives codeine Allergy (Verified 09/14/20 23:27) Anaphylaxis pentazocine lactate [From Talwin] Allergy (Verified 09/14/20 23:27) Anaphylaxis Home medications list reviewed: Yes Home Medications: Insulin 70/30 NPH/Reg Human [Novolin 70/30*] 28 unit SQ BID 09/14/20 Isosorbide Mononitrate [Isosorbide Mononitrate ER] 30 mg PO DAILY 09/14/20 Levothyroxine Sodium [Euthyrox] 200 mcg PO DAILY 09/14/20 atenoloL [Tenormin] 1 tab PO DAILY 09/14/20 lisinopriL [Zestril] 1 tab PO BID 09/14/20 Hydrocodone Bit/Acetaminophen [Hydrocodon-Acetaminoph 7.5-325] 1 each PO Q6HP PRN MDD 4 01/25/21 Nortriptyline HCl [Pamelor] 1 cap PO DAILY 02/26/22 Gabapentin [Neurontin] 100 mg PO BID 11/22/24 Omeprazole Magnesium [Prilosec Otc] 1 tab PO DAILY 11/22/24 Apixaban [Eliquis] 1 tab PO BID 12/24/24 Clonidine HCl [Catapres*] 1 tab PO BID 12/24/24 Diphenhydramine [Benadryl Tab/Cap] 1 tab PO DAILY PRN 12/24/24 Furosemide [Lasix] 40 mg PO BID 12/24/24 Magnesium Oxide [Mag 0X Tab] 400 mg PO BID 12/24/24 Potassium Chloride [Klor-Con M20] 20 meq PO BID 12/24/24 metOLazone [Zaroxolyn] 2.5 mg PO DAILY 12/24/24 - Past Medical/Surgical History Diabetic: Yes -: htn -: hypothyroid -: arrhythmias -: diverticulitis -: lymphedema -: endometrial CA Hx -: IDDM -: neck sx -: hysterectomy -: matthew -: carpal tunnel -: bilateral shoulder sx - Family History Father Medical History: Hypertension, Diabetes, Cancer Mother Medical History: Hypertension, Diabetes, Cancer Brother Medical History: Hypertension, Diabetes Sister Medical History: Diabetes - Social History Smoking Status: Unknown if ever smoked Alcohol use: No CD- Drugs: No Caffeine use: No Place of Residence: Home Review of Systems 10-point ROS is otherwise unremarkable Physical Examination Temp Pulse Resp BP Pulse Ox 98 F 50 18 187/80 H 97 02/06/25 16:00 02/06/25 16:00 02/06/25 16:00 02/06/25 16:00 02/06/25 16:00 General: Alert, In no apparent distress HEENT: Atraumatic, PERRLA, Mucous membr. moist/pink, EOMI, Sclerae nonicteric Neck: Supple, 2+ carotid pulse no bruit, No LAD, Without JVD or thyroid abnormality Respiratory: Clear to auscultation bilaterally, Normal air movement Cardiovascular: Regular rate/rhythm, Normal S1 S2 Gastrointestinal: Normal bowel sounds, No tenderness Musculoskeletal: No tenderness Integumentary: No rashes Neurological: Normal gait, Normal speech, Normal tone, Normal affect Lymphatics: No axilla or inguinal lymphadenopathy - Problems (1) PAD (peripheral artery disease) Current Visit: Yes Status: Acute Plan: Aterial duplex shows significant right PAD, discussed with patient risks and benefits of periphral angiogram, plan is to proceed with peripheral angiogram in am, Hold Eliquis (2) Chronic diastolic heart failure Current Visit: Yes Status: Acute Plan: Patient looks euvolemic on exam. continue current medications (3) Atrial fibrillation Current Visit: No Status: Acute Plan: continue to monitor on tele hold eliquis for peripheral angiogram.
--- NOTE | 2025-02-06 20:51 | PN ---
Date of Progress Note: 02/06/2025 Reason For Service: Right lower extremity necrotic ulcer and cellulitis. Subjective: The patient is doing better. She has bilateral lower extremity cellulitis, right side m ore than left. Right side happened to have also a necrotic ulcer on the lateral aspect of the foot. That area will need debridement. She is right now being worked up for multiple medical things inclu ding IV antibiotics and there is also possibility of an angio. Objective: Chest: Clear. Abdomen: Soft and depressible. Extremities: Good capillary refill except diminished pulses bilaterally and also on the right latera l foot area, patient has a necrotic wound present. Plan: Will be for excisional debridement of the right foot. The benefits, alternatives, and risks w ere fully explained, which include, but not limited to infection, bleeding, damage to adjacent struct ures, anesthesia complication, nonhealing wound, [place], and even . She also understands this may n ot relieve symptoms. She might need more than one surgical intervention. I noted Dr. Vaca did surg viktor on her in November. He is not available at this moment. I will see how it goes tomorrow. If by any chance tomorrow the angio is not done. Then, we will proceed with debridement. If the angio is done, then we might have to wait until we have clearance from them and then at that moment, we will d ecide if Dr. Vaca or me will do the debridement. JACQUES/PAULA Voice ID: [id number] Report ID: [id number]
[2025-02-07 08:28] LABS: Absolute Basophils 0.1 K/uL (0-0.5); Absolute Eosinophils 0.7 K/uL (0-0.5); Absolute Lymphocytes (CBC) 1.6 K/uL (0.7-4.9); Absolute Monocytes 0.9 K/uL (0.1-1.3); Absolute Neutrophil 6.8 K/uL (1.8-8.0); Basophils % 0.7 % (0-1.3); Eosinophils % 7.1 % (0-4.4); Hematocrit 34.2 % (36.0-45.0); Hemoglobin 11.7 g/dL (12.0-15.0); Lymphocytes % 15.9 % (15.3-44.8); MCH 27.9 pg (27.0-35.0); MCHC 34.4 g/dL (32.0-36.0); MCV 81.1 fL (80-100); MPV 8.9 fL (7.6-11.3); Monocytes % 8.7 % (3.3-12.3); Neutrophils % 67.6 % (41.7-73.7); Platelets 194 thou/uL (152-406); RBC Red Blood Cell Count 4.21 M/uL (3.86-4.86); Red Cell Distribution Width 14.1 % (12.1-15.2)
[2025-02-07] MEDS ORDERED: LIDOCAINE 1% 20 ML MDV ONE (08:53)
[2025-02-07] MEDS ORDERED: HEPA 1000U/500MLS 2,000 UNIT/1,000 ML BAG IV ONE (08:53)
[2025-02-07] MEDS ORDERED: ASPIRIN 325 MG TAB ONE (08:53)
[2025-02-07] MEDS ORDERED: TICAGRELOR 90 MG TABLET PO ONE (08:53)
[2025-02-07] MEDS ORDERED: HEPARIN 10,000 UNIT/10 ML VIAL IV ONE (08:53)
[2025-02-07] MEDS ORDERED: MIDAZOLAM HCL 2 MG/2 ML INJ ONE (08:53)
[2025-02-07] MEDS ORDERED: CLOPIDOGREL 75 MG TABLET ONE (08:53)
[2025-02-07] MEDS ORDERED: FLUMAZENIL 0.1 MG/ML (5 mL VIAL) IV ONE (08:54)
[2025-02-07] MEDS ORDERED: FENTANYL CITR 100 MCG/2 ML ONE (08:54)
[2025-02-07] MEDS ORDERED: NALOXONE 0.4 MG/ML VIAL ONE (08:54)
[2025-02-07] MEDS ORDERED: NA CHLORIDE 0.9% 500 ML ONE (09:23)
[2025-02-07] MEDS ORDERED: HYDRALAZINE HCL 20 MG/ML VIAL ONE (10:00)
--- NOTE | 2025-02-07 11:04 | P.PN ---
Subjective Date of Service: 02/07/25 Chief Complaint: PAD/OM Subjective: No new changes, No C/O voiced, Tolerating diet, Ambulating, Improving Review of Systems 10-point ROS is otherwise unremarkable Physical Examination - Vital Signs Temperature: 97.5 F Blood Pressure: 209/85 Pulse: 57 Respirations: 18 Pulse Ox (%): 97 - Physical Exam General: Alert, In no apparent distress HEENT: Atraumatic, PERRLA, EOMI Neck: Supple, JVD not distended Respiratory: Clear to auscultation bilaterally, Normal air movement Cardiovascular: Regular rate/rhythm, Normal S1 S2 Gastrointestinal: Normal bowel sounds, No tenderness Musculoskeletal: No tenderness Integumentary: No rashes Neurological: Normal speech, Normal tone, Normal affect Lymphatics: No axilla or inguinal lymphadenopathy - Studies Laboratory Data (last 24 hrs) 02/07/25 02/07/25 08:10 08:10 WBC 10.10 Hgb 11.7 L Hct 34.2 L Plt Count 194 Sodium 133 L Potassium 4.0 BUN 39 H Creatinine 1.51 H Glucose 212 H Medications List Reviewed: Yes Assessment And Plan - Current Problems (Diagnosis) (1) PAD (peripheral artery disease) Current Visit: Yes Status: Acute Plan: Aterial duplex shows significant right PAD, Peripheral angiogram done today and shown significant right 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 ASA 81 mg daily Plavix 75 mg daily for 12 months Lipitor 40 mg daily (2) Chronic diastolic heart failure Current Visit: Yes Status: Acute Plan: Patient looks euvolemic on exam. continue current medications (3) Atrial fibrillation Current Visit: No Status: Acute Plan: continue to monitor on tele Eliquis was on hold for peripheral angiogram, patient still surgical debridement can resume after surgery.
[2025-02-07] MEDS: CLOPIDOGREL 75 MG TABLET PO ONE (20:19)
--- NOTE | 2025-02-07 20:59 | P.CNS ---
Date of Consult: 02/07/25 Reason for consult: RLE cellulitis with possible OM HPI: Pt is a 79 years old female here for RLE cellulitis. it is unknown how long she was on abx previously before but pt states that she had itching since she was put on her last abx. According to her H&P from Dec, she was on vanco and meropenem. Allergies: PCN and sulfa abx PMH: paroxysmal atrial fibrillation, chronic diastolic heart failure, hypertension; type 2 diabetes mellitus; chronic kidney disease, mixed hyperlipidemia; diverticulosis; hypothyroidism; chronic leg edema; thrombocytopenia; cervical spondylosis; osteoarthritis at multiple sites; peripheral vascular disease. ROS: pt report itching everywhere in her body constanza her hands and back. She stated she started itching since she started abx but wasnt able to give a date. otherwise all other ROS are negative PE: Temp Pulse Resp BP Pulse Ox 97.6 F 55 18 176/76 H 98 02/07/25 16:00 02/07/25 16:00 02/07/25 16:00 02/07/25 16:00 02/07/25 16:00 General: Awake, alert, oriented, not in distress. HEENT: Head atraumatic, normocephalic. PERRLA Neck: Supple. No JVD Lungs: Clear to auscultation. Heart: Normal heart sounds, no murmur or gallop. Abdomen: Soft, bowel sounds normal. ND Extremities: Bilateral leg edema Skin: RLE cellulitis. rashes on hands, anterior chest and back. dressing to right foot. theres also necrotic ulcer noted on 5th toe near plantar side Neuro: AOx3. Imaging right foot MRI 02/04/25: Bone marrow edema at the fifth middle and proximal p halanx concerning for osteomyelitis. Equivocal findings at the fifth metatarsal head for osteomyelitis. Labs: wbc 10.10 hgb 11.7, BUN 39, cr 1.51 Assessment and planning RLE cellulitis with right foot OM pending excisional debridement of right foot continue cefepime IV start on doxycyline 100 mg bid. continue both abx for a total of 6 weeks itching and rashes continue roger and vee thank you for consult case reviewed and in agreement with Dr white
--- NOTE | 2025-02-07 21:17 | OP ---
Date of Procedure: 02/07/2025 Surgeon: Axel Capone Procedures Performed: 1. Peripheral angiogram. 2. QUICK SERVICE TECHNICIAN of the right common femoral artery with a 7.0 drug-coated balloon. Indication For Procedure: Peripheral artery disease, abnormal JOAO with right foot osteomyelitis. Complications: None. Estimated Blood Loss: Less than 50 cc. Access: Left common femoral artery, closed by an Angio-Seal. Sedation Time: 30 minutes with 2 of Versed and 50 of fentanyl. Description Of Procedure: After risks, benefits, and alternatives were explained to the patient, the patient agreed to proceed with procedure and signed informed consent. The patient was moved back to the laboratory supervisor, prepped and draped in sterile fashion. Time-out was performed. Sedation was administ ered. Next, ultrasound-guided left common femoral artery access was obtained using ultrasound-guided micropuncture technique. We introduced a 5-St Helenian sheath. Then, an Omni Flush catheter was advance d to the lower abdominal aorta for the abdominal aortogram and iliacs and that was exchanged for an I MA catheter for the right lower extremity runoff and that was later exchanged with 6-St Helenian destinati on sheath over a [place] advanced wire. We pre-dilated the common femoral artery stenosis with regular balloon 6 mm in size and then that was followed by QUICK SERVICE TECHNICIAN with a drug-coated balloon 7 mm for 2 minutes . Repeat angiogram shows CAITIE-3 flow. At the end of procedure, we pulled back the wire. We pulled back the destination sheath and the left lower extremity runoff was done through the 6-St Helenian sheath. At the end of procedure, sheath was removed. Angio-Seal was applied. Hemostasis was achieved and the patient was moved back to recovery in stable condition. Findings: 1. Lower abdominal aorta is patent. 2. Right common iliac/internal iliac/external iliac arteries are patent. 3. Right common femoral artery with focal calcified 60% to 70% disease, status post QUICK SERVICE TECHNICIAN, stenosis is down to less than 10% to 20% after QUICK SERVICE TECHNICIAN with drug-coated balloon. 4. Right SFA/profunda/popliteal is patent. 5. Right anterior tibial/posterior tibial/peroneal arteries are patent. 6. Three vessel runoff on the right lower extremity. 7. Left common iliac artery is patent. 8. Left internal iliac/external iliac/common femoral artery/profunda is patent. 9. Left popliteal artery is patent. 10. Left anterior tibial/peroneal is patent. 11. Left posterior tibial diffuse moderate disease. 12. Three vessel runoff on the left leg. Assessment: 1. Significant right common femoral artery disease, status post QUICK SERVICE TECHNICIAN with drug-coated balloon, stenosi s is down to 10% after QUICK SERVICE TECHNICIAN. 2. Three runoff on both legs. Plan: 1. Aspirin 81 mg daily for life. 2. Plavix 75 mg daily for 12 months. Continue medical management for PAD. LISA/PAULA Voice ID: [id number] Report ID: [id number]
[2025-02-07] MEDS: DOXYCYCLINE 100 MG CAP PO SCH (21:36)
--- NOTE | 2025-02-07 23:57 | PN ---
Date of Progress Note: 02/07/2025 Subjective: The patient was seen this morning for followup. No new complaints or problems reported by the patient. She continues to have generalized itching. Objective: Vital Signs: Reviewed. HEENT: Unremarkable. Lungs: Clear to auscultation. Heart: Sounds normal. Abdomen: Soft. Bowel sounds normal. No guarding, rigidity, tenderness, distention. Extremities: Leg edema unchanged. Skin: Right leg redness remains unchanged. Impression: 1. Osteomyelitis, right foot. 2. Cellulitis, right leg. 3. Hypertension. 4. Type 2 diabetes mellitus, uncontrolled. 5. Peripheral vascular disease. Plan: Continue current medications. Continue current Eliquis antibiotic. Continue to follow up wit h general surgeon and consultation from Infectious Disease specialist is pending for final recommenda tion on antibiotic therapy. We will continue Heather, Zyrtec, and Benadryl. The patient continues t o have generalized itching problem and today she had angiogram with angioplasty of right leg without any stent placement and Dr. Capone called me and informed me that he wants patient to stay on aspirin , Plavix, and Eliquis for 2 weeks and after that, aspirin can be discontinued and he would like for t he patient to stay on Plavix and Eliquis, and he has communicated details with Dr. Carlisle as well. I will see her tomorrow for followup. ISAAC/MODL Voice ID: [id number] Report ID: [id number]
[2025-02-08] MEDS: METHYLPREDNISOLONE 40 MG INJ IV ONE (07:15)
[2025-02-08] MEDS: ASPIRIN 81 MG CHEWABLE TABLET PO SCH (08:38)
[2025-02-08] MEDS: CLOPIDOGREL 75 MG TABLET PO SCH (08:38)
--- NOTE | 2025-02-08 09:24 | P.PN ---
Subjective Date of Service: 02/08/25 Chief Complaint: PAD/OM Subjective: No new changes, No C/O voiced, Tolerating diet, Ambulating, Improving Review of Systems 10-point ROS is otherwise unremarkable Physical Examination - Vital Signs Temperature: 97.6 F Blood Pressure: 162/64 Pulse: 58 Respirations: 16 Pulse Ox (%): 99 - Physical Exam General: Alert, In no apparent distress HEENT: Atraumatic, PERRLA, EOMI Neck: Supple, JVD not distended Respiratory: Clear to auscultation bilaterally, Normal air movement Cardiovascular: Regular rate/rhythm, Normal S1 S2 Gastrointestinal: Normal bowel sounds, No tenderness Musculoskeletal: No tenderness Integumentary: No rashes Neurological: Normal speech, Normal tone, Normal affect Lymphatics: No axilla or inguinal lymphadenopathy - Studies Medications List Reviewed: Yes Assessment And Plan - Current Problems (Diagnosis) (1) PAD (peripheral artery disease) Current Visit: Yes Status: Acute Plan: Aterial duplex shows significant right PAD, Peripheral angiogram done and shown 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 ASA 81 mg daily for 14 days then stop Plavix 75 mg daily for 6 months Lipitor 40 mg daily (2) Chronic diastolic heart failure Current Visit: Yes Status: Acute Plan: Patient looks euvolemic on exam. continue current medications (3) Atrial fibrillation Current Visit: No Status: Acute Plan: continue to monitor on tele she is on Eliquis 5 mg po BID can resume after surgery.
[2025-02-08] MEDS: NA CHLORIDE 0.9% 1,000 ML ONE (11:40)
[2025-02-08] MEDS ORDERED: LIDOCAINE 2% MPF 5 ML VIAL ONE (13:12)
[2025-02-08] MEDS ORDERED: ONDANSETRON 4 MG/2 ML VIAL ONE (13:12)
[2025-02-08] MEDS ORDERED: propofoL 200 MG/20 ML VIAL IV ONE (13:13)
[2025-02-08] MEDS ORDERED: FENTANYL CITR 100 MCG/2 ML ONE (13:13)
[2025-02-08] MEDS ORDERED: EPHEDRINE SULF 50 MG/ML VIAL ONE (13:28)
--- NOTE | 2025-02-08 14:04 | P.BOP ---
Preoperative diagnosis: right foor necrotic ulcer Postoperative diagnosis: same Primary procedure: Excisional debridement of right foot necrotic ulcer 7x5.5 cm Estimated blood loss: <10cc Specimen: culture Findings: necrotic tissue Anesthesia: General Complications: None Transferred to: Recovery Room Condition: Good
--- NOTE | 2025-02-08 16:03 | PN ---
Subjective: The patient is going for surgery today. Denies any other problems. Objective: Vital Signs: Reviewed. Lungs: Basal crackles. Heart: S1, S2. Regular. Abdomen: Soft, nontender. Bowel sounds present. Extremities: Wound noted. Laboratory Data: WBC 10.1, hemoglobin 11.7, platelets 194. Chemistry: BUN of 39, creatinine 1.5. Glucose is 273. MRI of the foot on February 04 showed the patient has bone marrow edema of the fifth, mi ddle, and proximal phalanx and osteomyelitis. Assessment And Plan: 1. Right foot osteomyelitis of the fifth toe. Continue current antibiotics with cefepime and doxycyc line, total of 6 weeks. 2. Diabetes mellitus. 3. Hypothyroidism. 4. Right lower extremity cellulitis. 5. Peripheral vascular disease. Continue current antibiotics and wound care. We will follow the patient as needed. NF/MODL Voice ID: [id number] Report ID: [id number]
[2025-02-08] MEDS: INSULIN GLARGINE 100 UNIT/ML SQ SCH (21:09)
--- NOTE | 2025-02-08 21:09 | OP ---
Date of Procedure: 02/08/2025 Surgeon: Tarun Carlisle MD Preoperative Diagnosis: Diabetic necrotic foot ulcer. Postoperative Diagnosis: Diabetic necrotic foot ulcer. Procedure: Excisional debridement of the right foot necrotic ulcer, 7 x 5.5 cm. Estimated Blood Loss: Less than 10 cc. Specimen: Culture. Findings: Necrotic tissue. Anesthesia: General plus local. Indications: This is a case of a 79-year-old patient who comes to us with necrotic ulcer on the righ t foot and history of diabetes, here for debridement. The benefits, alternatives, and risks of debri nazia were fully explained, which include, but not limited to infection, bleeding, damage to adjacen t structures, anesthesia complication, nonhealing wound, PR, and even . She also understands th is may not relieve symptoms. She might need more than one surgical intervention. She also understan ds the need for diabetes control, offloading, and proper wound care. She signed a consent. The area of concern was marked by me and the patient in the holding room. Description Of Procedure: The patient was brought to the operating room, placed in supine position. Anesthesia was done without complication. Right foot was prepped and draped in sterile fashion. Lo chauncey anesthesia was applied after time-out. Then, using a sharp knife, we proceeded to do sharp debri nazia of the necrotic ulcer. Hemostasis was obtained with Bovie and pressure. The patient tolerated the procedure well. Area was covered with sterile dressings. The patient was sent to [facility] in stable condition. JACQUES/PAULA Voice ID: [id number] Report ID: [id number]
--- NOTE | 2025-02-09 05:48 | PN ---
Date of Progress Note: 02/08/2025 Subjective: The patient was seen this morning for followup. She was lying in bed. Continues to hav e generalized itching, has not improved since she has been in the hospital, and this started a few da ys prior to hospital admission. Objective: Vital Signs: Reviewed. HEENT: Unremarkable. Lungs: Clear to auscultation. Heart: Sounds normal. Abdomen: Soft. Bowel sounds normal. No guarding, rigidity, tenderness, distention. Extremities: Leg edema remains unchanged, but redness from right leg is better today; instead of pin k discoloration, it has started to look little brownish-color discoloration between knee and ankle on the right leg. Impression: 1. Cellulitis, right leg. 2. Osteomyelitis, right foot. 3. Peripheral vascular disease, status post angioplasty of right leg. 4. Hypertension. 5. Type 2 diabetes mellitus, uncontrolled. Plan: We will go ahead and continue current medication. Continue current antibiotic. Consultation from Infectious Disease appreciated. The patient is on cefepime. Doxycycline was added by Infectiou s Disease and we will continue that. Continue current diabetes management. Fingerstick blood sugar readings reviewed, and I will increase the dose of insulin from 30 units to 35 units daily at bedtime . I have ordered 1 dose of Solu-Medrol 40 mg IV this morning to help deal with her itching problem. Continue Heather and Zyrtec per order. I will see her tomorr ow for followup. ISAAC/MODL Voice ID: [id number] Report ID: [id number]
[2025-02-09] MEDS: METHYLPREDNISOLONE 40 MG INJ IV ONE (08:47)
--- NOTE | 2025-02-09 15:44 | P.PN ---
Date of Service: 02/09/25 Subjective: The patient report did debridement yday 02/08/25. Denies any other problems.report itching has improved Objective: Vital Signs: Reviewed. Temp Pulse Resp BP Pulse Ox 97.5 F 48 L 16 128/60 94 02/09/25 12:00 02/09/25 12:00 02/09/25 13:47 02/09/25 12:00 02/09/25 13:47 Neuro: aox3 Lungs: CTA Heart: S1, S2. Regular. Abdomen: Soft, nontender. Bowel sounds present. Extremities: Wound debridement to right lateral side of foot. sanguineous drainage noted. skin: rashes noted to anterior chest and hands Laboratory Data: WBC 10.1, hemoglobin 11.7, platelets 194. Chemistry: BUN of 39, creatinine 1.5. Glucose is 273. MRI of the foot on February 04: Bone marrow edema at the fifth middle and proximal phalanx concerning for osteomyelitis. Equivocal findings at the fifth metatarsal head for osteomyelitis. middle, and proximal phalanx and osteomyelitis. Assessment And Plan: 1. Right foot osteomyelitis of the fifth toe. Continue current antibiotics with cefepime and doxycycline, total of 6 weeks. 2. Diabetes mellitus. 3. Hypothyroidism. 4. Right lower extremity cellulitis. 5. Peripheral vascular disease. Continue current antibiotics and wound care. We will follow the patient as needed.
[2025-02-09 19:19] LABS: Magnesium 1.8 mg/dL (1.6-2.4)
[2025-02-09] MEDS: SOD POLYSTYREN SUL 15 GM/60 ML UCUP PO ONE (20:03)
[2025-02-09] MEDS: INSULIN GLARGINE 100 UNIT/ML SQ SCH (20:45)
--- NOTE | 2025-02-09 22:19 | PN ---
Date of Progress Note: 02/09/2025 Subjective: The patient was seen this morning for followup. No new complaints or problems reported by the patient except ongoing itching, which is not improving any. She received first dose of IV roxy roid yesterday, which really has not helped. Objective: Vital Signs: Reviewed. HEENT: Unremarkable. Lungs: Clear to auscultation. Heart: Sounds normal. Abdomen: Soft. Bowel sounds normal. No guarding, rigidity, tenderness, distention. Extremities: No leg edema. Right leg skin between knee and ankle is brown in color and as of yester day this has started to look much better than before. Laboratory Data: Fingerstick blood sugar readings reviewed. Impression: 1. Osteomyelitis, right foot. 2. Cellulitis, right leg. 3. Type 2 diabetes mellitus, uncontrolled. 4. Hypertension. 5. Itching. Plan: We will go ahead and discontinue Eliquis, which was one of the new medications started in last couple of months. Metolazone was discontinued few days ago, which was also one of the newer medicat ions for her. We will increase the insulin dose to 45 units subcutaneous injection daily. Continue sliding scale insulin, and 40 mg of Solu-Medrol IV was ordered to be given 1 time this morning. Cont inue current antibiotic. I will see her tomorrow for followup. Eliquis was discontinued and starting tomorrow we will consider to start her on Xarelto. ISAAC/MODL Voice ID: [id number] Report ID: [id number]
[2025-02-09 23:32] VITALS: O2SAT 99
[2025-02-10] MEDS: METHYLPREDNISOLONE 40 MG INJ IV ONE (08:10)
[2025-02-10] MEDS: Mupirocin NASAL 2 APPL/1 GM TUBE NAS SCH (09:36)
[2025-02-10] MEDS: POTASSIUM CL SA 10 MEQ TAB PO SCH (12:00)
--- NOTE | 2025-02-10 19:49 | PN ---
Date of Progress Note: 02/10/2025 Subjective: Status post debridement of the right foot. Patient is doing well. Objective: Chest: Clear. Abdomen: Soft and depressible. Extremities: Good capillary refill. Intact surgical site. Plan: Continue dressing changes. Offloading. [facility] gets [facility]. JACQUES/PAULA Voice ID: [id number] Report ID: [id number]
--- NOTE | 2025-02-10 20:14 | PN ---
Date of Progress Note: 02/10/2025 Subjective: The patient was seen this morning for followup. She was lying in bed, not in distress. Her itching was little bit better, not much. No new complaints or problems reported. Objective: Vital Signs: Reviewed. HEENT: Unremarkable. Lungs: Clear to auscultation. Heart: Sounds normal. Abdomen: Soft. Bowel sounds normal. No guarding, rigidity, tenderness, distention. Extremities: Trace leg edema. Right leg exam, area of cellulitis has significantly improved. Skin between right knee and right ankle has very faint brown discoloration and overall this is significant ly better than before. Impression: 1. Cellulitis, right leg. 2. Osteomyelitis, right foot. 3. Hypertension. 4. Type 2 diabetes mellitus. 5. Hyperkalemia. Plan: Yesterday, patient's potassium was high, so Kayexalate was ordered. Potassium will be discont inued. We will continue current antibiotic, which is cefepime and doxycycline. Continue to follow w [facility] general surgeon as well as Infectious Disease specialist. PICC line was ordered, so Social Servi ce can subsequently assist with discharge planning. We will give another dose of Solu-Medrol 40 mg I V today and we will consider to start her on Xarelto as Eliquis was discontinued because of her itching problem not knowing if it is a potential side effect of Eliquis o r something else. ISAAC/MODL Voice ID: [id number] Report ID: [id number]
--- NOTE | 2025-02-10 21:50 | RAD REPORT ---
EXAMINATION: ONE VIEW CHEST XR CLINICAL INDICATION: Female, 79 years old.,picc placement TECHNIQUE: Frontal chest projection is submitted. Examination is limited by patient positioning and t echnique. COMPARISON: 12/23/2024 FINDINGS: The lungs are well inflated and clear allowing for somewhat kyphotic positioning. Right arm PICC in p lace with catheter tip at the superior cavoatrial junction. No pneumothorax or sizable effusion. The heart is normal in size. Mediastinal contours are unremarkable. IMPRESSION: Satisfactory right arm PICC positioning. No acute intrathoracic abnormalities.
--- NOTE | 2025-02-10 22:44 | PN ---
Date of Progress Note: 02/10/2025 Subjective: The patient is lying in bed. No new complaints. Denies any chest pain, abdominal pain, constipation, or diarrhea. Objective: Vital Signs: Temperature 96.3, pulse 52, respirations 16, blood pressure 169/70. Lungs: Basilar crackles. Heart: S1, S2. Regular. Abdomen: Soft, nontender. Bowel sounds present. Extremities: Wound noted. Laboratory Data: WBC 10, hemoglobin 11.7, platelets are 194 from 02/07. Wound culture grew Staph au reus. Assessment And Plan: 1. Right foot osteomyelitis of the fifth toe, status post debridement. Continue current antibiotic, total of 42 days or 6 weeks. 2. Diabetes mellitus. 3. Hypothyroidism. 4. Right lower extremity cellulitis. 5. Peripheral vascular disease. 6. Monitor signs of infection with WBC and fever trends. NF/MODL Voice ID: [id number] Report ID: [id number]
[2025-02-11 06:19] LABS: Absolute Basophils 0.1 K/uL (0-0.5); Absolute Eosinophils 0.4 K/uL (0-0.5); Absolute Lymphocytes (CBC) 2.8 K/uL (0.7-4.9); Absolute Monocytes 0.7 K/uL (0.1-1.3); Absolute Neutrophil 4.4 K/uL (1.8-8.0); Basophils % 0.8 % (0-1.3); Eosinophils % 5.3 % (0-4.4); Hematocrit 27.1 % (36.0-45.0); Hemoglobin 9.2 g/dL (12.0-15.0); Lymphocytes % 33.2 % (15.3-44.8); MCH 27.9 pg (27.0-35.0); MPV 8.9 fL (7.6-11.3); Monocytes % 8.2 % (3.3-12.3); Neutrophils % 52.5 % (41.7-73.7); Nucleated Red Blood Cells % 0.2 % (0-0); Platelets 164 thou/uL (152-406); Red Cell Distribution Width 14.4 % (12.1-15.2)
[2025-02-11 06:49] LABS: Anion Gap 7.4 mEq/L (5.0-15.0); Magnesium 1.4 mg/dL (1.6-2.4); Potassium 3.4 mEq/L (3.5-5.1)
[2025-02-11] MEDS: POTASSIUM CL SA 10 MEQ TAB PO ONE (09:55)
[2025-02-11] MEDS: Magnesium Sulfate 2gm IVPB 2 G/50 ML BAG IV ONE (11:31)
--- NOTE | 2025-02-11 12:15 | PN ---
Date of Progress Note: 02/11/2025 Subjective: The patient was seen this morning for followup. She was sleeping, easily arousable. He r itching is better she says, still has it, but little bit better compared to before as she reports. Objective: Vital Signs: Reviewed. HEENT: Unremarkable. Lungs: Clear to auscultation. Heart: Sounds normal. Abdomen: Soft. Bowel sounds normal. No guarding, rigidity, tenderness, distention. Extremities: Right leg exam remains unchanged from yesterday. Laboratory Data: WBC 8.3, hemoglobin 9.2, platelets 164. Sodium 137, potassium 3.4, chloride 102, b icarb 31, BUN 49, creatinine 1.52, glucose 119, magnesium 1.4. Impression: 1. Cellulitis, right leg. 2. Osteomyelitis, right foot. 3. Hypokalemia. 4. Hypertension. 5. Type 2 diabetes mellitus, uncontrolled. 6. Itching. Plan: We will go ahead and continue current antibiotic which is cefepime and doxycycline. The patie nt has a PICC line present now in right arm. Social Service was consulted to help make arrangements for home IV antibiotic with cefepime and we will continue current antihypertensive medication. We wi ll continue current insulin and antihypertensive medication. The patient was advised to use skin lot ion couple of times a day and that may help her with some itching sensation. Possible discharge to go home over the weekend depending on her condition. ISAAC/MODL Voice ID: [id number] Report ID: [id number]
[2025-02-11] MEDS: RIVAROXABAN 20 MG TABLET PO SCH (17:46)
[2025-02-11 18:10] LABS: Magnesium 1.9 mg/dL (1.6-2.4)
--- NOTE | 2025-02-11 18:37 | P.PN ---
Date of Service: 02/11/25 Subjective: Denies any concern . report itching has improved Objective: Vital Signs: Reviewed. Temp Pulse Resp BP Pulse Ox 97.5 F 48 L 16 128/60 94 02/09/25 12:00 02/09/25 12:00 02/09/25 13:47 02/09/25 12:00 02/09/25 13:47 Neuro: aox3 Lungs: CTA Heart: S1, S2. Regular. Abdomen: Soft, nontender. Bowel sounds present. Extremities: Wound debridement to right lateral side of foot covered with dressing. skin: rashes noted to anterior chest and hands Laboratory Data: WBC 8.3, hemoglobin 9.2, platelets 164. Chemistry: BUN of 49, creatinine 1.52. Glucose is 273. MRI of the foot on February 04: Bone marrow edema at the fifth middle and proximal phalanx concerning for osteomyelitis. Equivocal findings at the fifth metatarsal head for osteomyelitis. middle, and proximal phalanx and osteomyelitis. wound culture 02/08/25 staph aureus Assessment And Plan: 1. Right foot osteomyelitis of the fifth toe s/p debridement on 02/09/25. Continue current antibiotics with cefepime and doxycycline, total of 6 weeks. 2. Diabetes mellitus. 3. Hypothyroidism. 4. Right lower extremity cellulitis. 5. Peripheral vascular disease. Continue current antibiotics and wound care. We will follow the patient as needed. case discussed AND In agreement with Dr white
--- NOTE | 2025-02-12 10:05 | PN ---
Date of Progress Note: 02/12/2025 Subjective: The patient was seen this morning for followup. Her itching is better, so in last 2 day s, she has shown slight improvement, but progressive improvement in her itching. Today, she also glenda d me that in last 2 days she just has not felt strong enough and just has this generalized weakness a nd fatigue problem where she feels like she is not able to do as much therapy and ambulation najera. S he is not able to do as much as she did before and also describes some sensation of chest heaviness a cross her chest as if elephant sitting on her chest in her exact words. No diaphoresis or shortness of breath. Objective: Vital Signs: Reviewed. HEENT: Unremarkable. Lungs: Clear to auscultation. Heart: Sounds normal. Abdomen: Soft. Bowel sounds normal. No guarding, rigidity, tenderness, distention. Extremities: Leg edema and brownish discoloration from right leg remains unchanged. Laboratory Data: After I saw her, stat EKG was done which has not shown any acute ST-T changes and h er troponin level was done, which came back 11.2. Impression: 1. Osteomyelitis, right foot. 2. Cellulitis, right leg. 3. Chest pain, atypical. 4. Hypertension. 5. Hyperlipidemia. 6. Type 2 diabetes mellitus, uncontrolled. Plan: We will go ahead and continue current antibiotic which is doxycycline and cefepime. Continue current diabetes management and current antihypertensive medications. The patient is on Heather in t he morning and Zyrtec at bedtime which we will continue that, but I will discontinue her Benadryl to see the symptoms that she described today is due to Benadryl or not. Depending on how her itching is and how she is responding when I see her tomorrow, we will decide if we can discontinue her Zyrtec o r not. The patient received steroid for 3 to 4 days. Now I am not giving her any more steroid and h er itching has improved in last 2 days and I believe that if the itching continues to show improvemen t, then I will have to think about Eliquis as underlying cause of the itching as Eliquis was disconti nued few days ago and then her itching started to improve. ISAAC/MODL Voice ID: [id number] Report ID: [id number]
[2025-02-12] MEDS: LOPERAMIDE HCL 2 MG CAPSULE PO PRN (20:17)
[2025-02-13 05:52] LABS: Absolute Basophils 0.1 K/uL (0-0.5); Absolute Eosinophils 0.6 K/uL (0-0.5); Absolute Lymphocytes (CBC) 2.4 K/uL (0.7-4.9); Absolute Monocytes 0.9 K/uL (0.1-1.3); Absolute Neutrophil 4.9 K/uL (1.8-8.0); Basophils % 0.6 % (0-1.3); Eosinophils % 7.3 % (0-4.4); Hematocrit 26.5 % (36.0-45.0); Hemoglobin 9.2 g/dL (12.0-15.0); Lymphocytes % 27.2 % (15.3-44.8); MCH 28.3 pg (27.0-35.0); MCHC 34.5 g/dL (32.0-36.0); MPV 8.6 fL (7.6-11.3); Monocytes % 9.6 % (3.3-12.3); Neutrophils % 55.3 % (41.7-73.7); Nucleated Red Blood Cells % 0.1 % (0-0); Platelets 158 thou/uL (152-406); RBC Red Blood Cell Count 3.23 M/uL (3.86-4.86); Red Cell Distribution Width 14.4 % (12.1-15.2)
[2025-02-13 06:00] LABS: Anion Gap 6.1 mEq/L (5.0-15.0); Magnesium 1.6 mg/dL (1.6-2.4); Potassium 4.1 mEq/L (3.5-5.1)
[2025-02-13] MEDS: MAGNESIUM SULFATE 1 gm IVPB 1 GM/100 ML BAG IV ONE (07:25)
--- NOTE | 2025-02-13 13:06 | PN ---
Date of Progress Note: 02/13/2025 Subjective: The patient was seen this morning for followup. She still feels sluggish and tired as s he reports. Her itching problem has improved over last 3 days, but still continues to have some itch ing. I had instructed her to try to resist and avoid any itching and use her skin lotion 2-3 times a day. Objective: Vital Signs: Reviewed. HEENT: Unremarkable. Lungs: Clear to auscultation. Heart: Sounds normal. Abdomen: Soft. Bowel sounds normal. No guarding, rigidity, tenderness, or distention. Extremities: Trace leg edema and right lower extremity has very faint brown discoloration of the ski n that has remained unchanged in the last 2-3 days. Laboratory Data: WBC 8.9, hemoglobin 9.2, platelets 158. Sodium 140, potassium 4.1, chloride 106, b icarb 32, BUN 40, creatinine 1.35, glucose 83, and subsequently her last glucose was 65 this morning with magnesium 1.6. Impression: 1. Right leg cellulitis. 2. Right foot osteomyelitis. 3. Atrial fibrillation. 4. Chronic anticoagulation therapy. 5. Hypertension. 6. Type 2 diabetes mellitus. 7. Hypoglycemia. Plan: We will go ahead and reduce her dose of long-acting insulin, she takes 45 units at bedtime, an d I will reduce it to 20 units at bedtime considering this low blood sugar problem, this morning. Th e patient did require higher dose of insulin when she was taking IV steroid which we have stopped it now about 2 days ago or so. Yesterday, her Benadryl was discontinued. Today, I will discontinue Zyr joaquin and we will see if that helps to improve her sluggishness, tiredness that she is feeling. There is no other medication that I can think about would be contributing or causing such problem, at this time. She takes Heather in the morning, we will continue that, and add Claritin 10 mg daily at bedti me. Continue current antibiotic, cefepime, and doxycycline. Possible discharge to go home tomorrow depending on her condition. ISAAC/MODL Voice ID: [id number] Report ID: [id number]
[2025-02-13] MEDS: INSULIN GLARGINE 100 UNIT/ML SQ SCH (20:26)
[2025-02-13] MEDS: LORATADINE 10 MG TAB PO SCH (20:26)
--- NOTE | 2025-02-14 10:53 | EKG ---
Test Date: 2025-02-12 Test Time: 07:42:57 Aerial Sprayer: [place] MEASUREMENT RESULTS: Intervals: Rate: 54 [place]: 244 QRSD: 140 QT: 486 QTc: 460 [place]: P: 56 [place]: 244 QRS: 83 T: 10 INTERPRETIVE STATEMENTS: Sinus bradycardia with marked sinus arrhythmia with 1st degree AV block Right bundle branch block Abnormal ECG Compared to ECG 12/23/2024 13:21:41 No significant changes Electronically Signed On 02-14-25 10:49:03 CDT by Axel Capone
--- NOTE | 2025-02-14 12:06 | P.PN ---
Subjective Date of Service: 02/14/25 Chief Complaint: PAD/OM Subjective: Tolerating diet, Improving Physical Examination - Vital Signs Temperature: 97.8 F Blood Pressure: 119/56 Pulse: 62 Respirations: 20 Pulse Ox (%): 100 - Physical Exam General: Alert, In no apparent distress HEENT: PERRLA Neck: Supple Respiratory: Normal air movement Gastrointestinal: Soft and benign Integumentary: Diabetic ulcer (Right foot hand dry cleaner with granulation forming) - Studies Microbiology Data (last 24 hrs): 02/08/25 13:49 Body Fluid - Other Gram Stain - Final 02/08/25 13:49 Body Fluid - Other Anaerobic Culture - Final NO ANAEROBES GROWN. Medications List Reviewed: Yes Assessment And Plan - Plan mercedes farrar foot off loading diabetes control f/u at [facility] Dipesh
--- NOTE | 2025-02-14 16:57 | P.PN ---
Date of Service: 02/14/25 Subjective: Denies any concern . report itching has improved Objective: Vital Signs: Reviewed. Temp Pulse Resp BP Pulse Ox 97.8 F 62 20 119/56 L 100 02/14/25 12:05 02/14/25 12:05 02/14/25 12:05 02/14/25 12:05 02/14/25 12:05 Neuro: aox3 Lungs: CTA Heart: S1, S2. Regular. Abdomen: Soft, nontender. Bowel sounds present. Extremities: Wound dressing to right lateral side of foot skin: rashes noted to anterior chest and hands Laboratory Data: WBC 8.3, hemoglobin 9.2, platelets 164. Chemistry: BUN of 49, c reatinine 1.52. Glucose is 273. MRI of the foot on February 04: Bone marrow edema at the fifth middle and proximal phalanx concerning for osteomyelitis. Equivocal findings at the fifth metatarsal head for osteomyelitis. middle, and proximal phalanx and osteomyelitis. wound culture 02/08/25 staph aureus Assessment And Plan: 1. Right foot osteomyelitis of the fifth toe s/p debridement on 02/09/25. Continue current antibiotics with cefepime and doxycycline, total of 6 weeks. 2. Diabetes mellitus. 3. Hypothyroidism. 4. Right lower extremity cellulitis. 5. Peripheral vascular disease. Continue current antibiotics and wound care. We will follow the patient as needed. case discussed AND In agreement with Dr white
[2025-02-14 17:08] VITALS: BP 180/74; TEMP 97.4
[2025-02-14] MEDS ORDERED: ATORVASTATIN 40 MG TAB PO SCH (21:00)
--- NOTE | 2025-02-15 06:26 | DS ---
Date of Discharge: 02/14/2025 Disposition: Discharged to go home. Physical Examination: HEENT: Unremarkable. Lungs: Clear to auscultation. Heart: Sounds normal. Abdomen: Soft. Bowel sounds normal. No guarding, rigidity, tenderness, distention. Extremities: Bilateral leg edema unchanged. Skin: Right leg between knee and ankle has faint brown discoloration of the skin, which is chronic a nd unchanged today compared to last few days. Laboratory Data: Upon admission, WBC 13.3, hemoglobin 12.6, platelets 183. Yesterday, WBC 8.9, hemo globin 9.2, and platelets 158. Chemistry: Yesterday, sodium 140, potassium 4.1, chloride 106, bicar b 32, BUN 40, creatinine 1.35, glucose 83. Magnesium 1.6. Upon admission, sodium 131, potassium 2.9 , chloride 93, bicarb 31, BUN 48, creatinine 1.90, glucose 369. Liver function test unremarkable. Hospital Course: This is a 79-year-old female patient who came into office with complaints of genera lized itching. Please see dictated H and P for more information. The patient also reported that she had some black discoloration of the right foot fifth toe area. After the patient was evaluated, she was admitted to the hospital. There were no new medications started recently except Eliquis and met olazone were started within last 2 months or so, but her itching just started few days prior to her h ospital admission. The [facility], and I saw th at she had necrotic type of area involving right lateral foot, proximal to the base of the fifth toe on the plantar aspect. X-ray and MRI of the foot was done. Arterial Doppler of lower extremity was done. Arterial Doppler showed some significant peripheral vascular disease. An x-ray and MRI of the foot showed evidence of osteomyelitis involving the right foot fifth metatarsal bone. Dr. Carlisle was consulted from General Surgery since Dr. Vaca was out of town and he did perform debridement, bu t prior to debridement, Dr. Capone from Cardiology did angiogram with angioplasty of the right leg fo r severe proximal stenosis of her leg. Physical Therapy was consulted. The patient was started on I V antibiotic, which was cefepime and Infectious Disease consultation was obtained from Dr. Sotomayor who also added doxycycline. He has suggested both antibiotics to be given for a total of 6 weeks. The patient has tolerated medications very well, antibiotics very well. For her generalized itching, we were not sure about the exact underlying etiology, so we started her on antihistamine, which she did not respond quite as well, so we also had to start her on IV steroids. She received Solu-Medrol 40 m g IV daily for a few days and then we discontinued that as her itching started to get better. She wa s given Heather in the morning, Zyrtec at bedtime, and Benadryl as needed, but with this combination of medication, she started to have excess amount of drowsiness and just feeling weak, tired, and slee py, so initially we discontinued her Benadryl and subsequently we discontinued Zyrtec. After removin g both of those medications, she started to show improvement. Now what we have her on is Heather in the morning and Claritin in the evening time. Social Service was consulted to help make arrangements for antibiotics therapy to be continued at home and PICC line was placed. I did communicate details with Dr. Carlisle today. From his point of view, the patient can go home. Medically, she is stable for discharge. The patient was discharged to go home in stable condition with following discharge m edications and instructions. I did communicate after her angioplasty with cafe cook and he wanted the patient to be on aspirin, Plavix, and anticoagulation therapy, which was Eliquis, so triple ther apy and after 2 weeks of triple therapy, he informed me that we can discontinue aspirin, but the victor hugo ent should continue her Eliquis and Plavix until further notice, so we did provide this recommended t herapy, but subsequently during this hospitalization, I did make a decision to discontinue Eliquis be cause her itching did not improve. After we discontinued Eliquis and metolazone, which was discontin ued originally, during later part of this hospital stay, we saw that her itching was getting better. We did start her on Xarelto 20 mg daily to replace Eliquis. Discharge Diagnoses: 1. Osteomyelitis, acute, right foot. 2. Cellulitis, right leg. 3. Peripheral vascular disease, bilateral legs. 4. Itching. 5. Hypertension. 6. Type 2 diabetes mellitus with polyneuropathy. 7. Type 2 diabetes mellitus, uncontrolled. 8. Hypothyroidism. 9. Mixed hyperlipidemia. 10. Gastroesophageal reflux disease. 11. Diverticulosis. 12. Osteoarthritis, multiple sites. 13. Chronic kidney disease, stage 3A. Discharge Medications And Instructions: 1. . 2. . 3. . Total time spent today 45 minutes. ISAAC/PAULA Voice ID: [id number] Report ID: [id number]
== END 2025-02-14 17:13 | disposition home health service (06) | DRG 253 ==
LOC: 2ND 15:40
PROVIDERS: ADMIT Internal Medicine; ATTEND Internal Medicine
PROC: 047K3Z1 Dilation of Right Femoral Artery using Drug-Coated Balloon, Percutaneous Approach (ICD-10-PCS; principal; 2025-02-07)
PROC: 0JBQ0ZZ Excision of Right Foot Subcutaneous Tissue and Fascia, Open Approach (ICD-10-PCS; 2025-02-08)
PROC: 02HV33Z Insertion of Infusion Device into Superior Vena Cava, Percutaneous Approach (ICD-10-PCS; 2025-02-10)
DX: E11.52 Type 2 diabetes mellitus with diabetic peripheral angiopathy with gangrene (principal); I13.0 Hypertensive heart and chronic kidney disease with heart failure and stage 1 through stage 4 chronic kidney disease, or unspecified chronic kidney disease; L03.115 Cellulitis of right lower limb; I50.32 Chronic diastolic (congestive) heart failure; M86.171 Other acute osteomyelitis, right ankle and foot; E11.69 Type 2 diabetes mellitus with other specified complication; E11.649 Type 2 diabetes mellitus with hypoglycemia without coma; E11.42 Type 2 diabetes mellitus with diabetic polyneuropathy; E11.22 Type 2 diabetes mellitus with diabetic chronic kidney disease; E11.51 Type 2 diabetes mellitus with diabetic peripheral angiopathy without gangrene; N18.31 Chronic kidney disease, stage 3a; E78.2 Mixed hyperlipidemia; I48.0 Paroxysmal atrial fibrillation; M19.09 Primary osteoarthritis, other specified site; E87.5 Hyperkalemia; E87.6 Hypokalemia; E03.9 Hypothyroidism, unspecified; K21.9 Gastro-esophageal reflux disease without esophagitis; K57.90 Diverticulosis of intestine, part unspecified, without perforation or abscess without bleeding; R07.89 Other chest pain; Z88.0 Allergy status to penicillin; Z88.2 Allergy status to sulfonamides; Z90.49 Acquired absence of other specified parts of digestive tract; Z90.710 Acquired absence of both cervix and uterus
CPT/HCPCS: 36200; 36415; 71045; 75630; 76937; 80048; 80053; 82947; 83735; 84132; 84484; 85025; 85347; 87070; 87075; 87077; 87186; 87205; 88304; 92920; 93005; 93925; 99152; 99153; C1725; C1760; C1769; C1893; G0269; J0360; J0692; J1815; J2003; J2250; J2310; J2405; J2704; J2919; J3010; J3475; J3590; J7030; J7040

== ENCOUNTER 2025-06-07 20:35 | Inpatient (IN) | payer OTHER, MEDICARE ==
--- NOTE | 2025-06-07 21:18 | RAD REPORT ---
EXAMINATION: ONE VIEW CHEST XR CLINICAL INDICATION: syncope TECHNIQUE: Frontal chest projection is submitted. Examination is limited by patient positioning and t echnique. COMPARISON: 05/02/2025 FINDINGS: Mild bilateral pulmonary edema is suspected. The heart is moderately enlarged in size. No displaced f ractures identified. Aortic atherosclerosis. IMPRESSION: Mild CHF versus volume overload pattern is suspected.
[2025-06-07 21:48] LABS: PT Prothrombin Time 13.5 SECONDS (10-13.0); PTT, Activated Partial Thromb 30.6 SECONDS (27.2-37.4); Protime INR 1.2
[2025-06-07 21:53] LABS: Absolute Lymphocytes (CBC) 2.1 K/uL (0.7-4.9); Hematocrit 34.0 % (36.0-45.0); Hemoglobin 10.9 g/dL (12.0-15.0); MCH 24.4 pg (27.0-35.0); MCHC 32.1 g/dL (32.0-36.0); MCV 76.0 fL (80-100); MPV 8.3 fL (7.6-11.3); Nucleated RBC Absolute Count 0.0 (0-0); Nucleated Red Blood Cells % 0.1 % (0-0); RBC Red Blood Cell Count 4.48 M/uL (3.86-4.86); White Blood Count 14.40 thou/uL (4.3-10.9)
[2025-06-07 21:53] LABS: Influenza A Ag Negative; Influenza B Ag Negative; SARS-CoV-2 Antigen Rapid Res Negative (Negative)
[2025-06-07 21:56] LABS: AST/SGOT 19 U/L (15-37); Albumin 2.3 g/dL (3.4-5.0); Albumin/Globulin Ratio 0.5 (1.1-1.8); Alkaline Phosphatase 219 U/L (45-117); Anion Gap 9.6 mEq/L (5.0-15.0); BUN Blood Urea Nitrogen 28 mg/dL (7-18); Globulin 5.1 g/dL (2.3-3.5); Glucose Level 275 mg/dL (74-106); Magnesium 1.8 mg/dL (1.6-2.4); Potassium 4.6 mEq/L (3.5-5.1); Troponin High Sensitivity 7.6 pg/mL (<58.9)
[2025-06-07 22:09] LABS: ALT/SGPT < 14 U/L (13-56); Bilirubin Indirect, Calculated 0.1 mg/dL (0.2-0.8)
[2025-06-07 23:33] LABS: Sqamous Epithelial <5 /HPF (None Seen); Urine Culture Reflex Order REFLEXED; Urine Microscopic Reflex YN ORDER UMIC; Urine WBC Clump Occasional /HPF (None Seen); Urine Yeast (Budding) Occasional /HPF (None Seen)
[2025-06-08] MEDS ORDERED: CEFTRIAXONE 1000 MG/VIAL ONE (01:30)
[2025-06-08] MEDS ORDERED: AZITHROMYCIN 500 MG INJ IVPB ONE (02:18)
[2025-06-08] MEDS ORDERED: NA CHLORIDE 0.9% 250 ML ONE (02:18)
--- NOTE | 2025-06-08 02:26 | ER ---
Nurse's Notes [facility] Name: Gladis Cantu Age: 79 yrs Sex: Female : 1945 Arrival Date: 06/07/2025 Time: 20:35 Bed 15 Private MD: Diagnosis: UTI/ Urinary tract infection, site not specified;Pneumonia in diseases classified elsewhere;Syncope Presentation: 06/07 20:41 Chief complaint: EMS states: facility staff where pt lives reports syncopal episode. kj2 Coronavirus screen: Client denies travel out of the [place] in the last 14 days. Ebola Screen: No symptoms or risks identified at this time. 20:41 Method Of Arrival: EMS: [facility] kj2 20:48 Initial Sepsis Screen: Does the patient meet any 2 criteria? No. Patient's initial kj2 sepsis screen is negative. Does the patient have a suspected source of infection? No. Patient's initial sepsis screen is negative. Risk Assessment: Do you want to hurt yourself or someone else? Patient reports no desire to harm self or others. Onset of symptoms was June 07, 2025. 20:48 Acuity: BERNICE 3 kj2 Triage Assessment: 20:43 General: Appears in no apparent distress. Behavior is calm, cooperative. Pain: kj2 Complains of pain in back of neck Pain currently is 4 out of 10 on a pain scale. Neuro: Level of Consciousness is awake, alert, Oriented to person, place, Reports. Cardiovascular: Patient's skin is warm and dry. Respiratory: Airway is patent Respiratory effort is unlabored. GI: No signs and/or symptoms were reported involving the gastrointestinal system. : No signs and/or symptoms were reported regarding the genitourinary system. Historical: - Allergies: 20:43 Iodine; kj2 20:43 PENICILLINS; kj2 20:43 Sulfa (Sulfonamide Antibiotics); kj2 - PMHx: 20:43 Diabetes - IDDM; Diverticulitis; Hypertension; Hypothyroidism; lypmphoedema; neuropathy;kj2 - Immunization history:: Adult Immunizations unknown. - Infectious Disease History:: Denies. - Social history:: Smoking status: unknown. Screenin:47 [facility] ED Fall Risk Assessment (Adult) History of falling in the last 3 months, kj2 including since admission No falls in past 3 months (0 pts) Confusion or Disorientation No (0 pts) Intoxicated or Sedated No (0 pts) Impaired Gait Yes (1 pt) Mobility Assist Device Used Yes (1 pt) Altered Elimination No (0 pt) Score/Fall Risk Level 0 - 2 = Low Risk Maintained a safe environment, Hourly rounding (assess needs \T\ fall precautionary measures) done. Abuse screen: Denies threats or abuse. Denies injuries from another. Nutritional screening: No deficits noted. Tuberculosis screening: No symptoms or risk factors identified. Assessment: 20:45 General: see triage assessment. kj2 21:45 Reassessment: Patient appears in no apparent distress at this time. Patient and/or kj2 family updated on plan of care and expected duration. Pain level reassessed. Patient is alert, oriented x 3, equal unlabored respirations, skin warm/dry/pink. 22:40 Reassessment: Patient appears in no apparent distress at this time. Patient and/or kj2 family updated on plan of care and expected duration. Pain level reassessed. Patient is alert, oriented x 3, equal unlabored respirations, skin warm/dry/pink. 23:52 Reassessment: Patient appears in no apparent distress at this time. Patient and/or kj2 family updated on plan of care and expected duration. Pain level reassessed. Patient is alert, oriented x 3, equal unlabored respirations, skin warm/dry/pink. 06/08 01:44 Reassessment: Patient is alert, oriented x 3, equal unlabored respirations, skin tb4 warm/dry/pink. General: Appears in no apparent distress. received in bed with eyes close, no s/s of distress noted, respiration even and unlabored.. Neuro: Level of Consciousness is unresponsive, Oriented to Patient is sleeping, family is at bedside. Cardiovascular: Rhythm is sinus rhythm. Respiratory: Airway is patent Trachea midline Respiratory effort is even, unlabored, Respiratory pattern is regular, symmetrical. GI: Abdomen is round obese, Bowel sounds present X 4 quads. : Patient is incontinent of urine. Musculoskeletal: Capillary refill < 3 seconds, is brisk, in bilateral fingers. Vital Signs: 06/07 20:41 BP 156 / 49; Pulse 76; Resp 18; Pulse Ox 98% ; kj2 20:47 Weight 48.08 kg; Height 5 ft. 6 in. ; kj2 21:45 BP 138 / 61; Pulse 70; Resp 18; Pulse Ox 98% on R/A; kj2 23:52 BP 119 / 58; Pulse 70; Resp 18; Pulse Ox 100% on R/A; kj2 06/08 01:00 BP 121 / 52; Pulse 64; Resp 18; Temp 97.6(A); Pulse Ox 100% on R/A; Pain 0/10; tb4 02:15 BP 144 / 53; Pulse 67; Resp 18; Pulse Ox 97% on R/A; tb4 03:11 BP 125 / 50; Pulse 66; Resp 18; Temp 97.3(A); Pulse Ox 97% on R/A; tb4 06/07 20:47 Body Mass Index 17.11 (48.08 kg, 167.64 cm) kj2 06/08 01:00 Pain Scale: Adult tb4 ED Course: 06/07 20:40 Patient arrived in ED. kj2 20:42 Lukasz Fox PA is PHCP. cp 20:44 Lukasz Fox PA is PHCP. cp 20:44 Jonathan Glynn MD is Attending Physician. cp 20:47 Arm band placed on Patient placed on a stretcher. kj2 20:48 Triage completed. kj2 20:48 Patient has correct armband on for positive identification. Bed in low position. Call kj2 light in reach. Side rails up X 1. Provided Education on: call light. 21:14 Chest Single View XRAY In Process Unspecified. EDMS 21:26 Karina Fong, JOLANTA is Primary Nurse. kj2 21:27 Inserted saline lock: 20 gauge in left antecubital area, using aseptic technique. Blood kj2 collected. Flushed with 10 mL NS. 06/08 00:02 EKG done, by ED staff, reviewed by Lukasz LEWIS. hw 00:17 CT Head Brain wo Cont In Process Unspecified. EDMS 00:17 CT Chest Abdomen Pelvis W/O Contrast In Process Unspecified. EDMS 01:25 First set of blood cultures drawn by [facility]. tb4 01:31 Blood Culture Adult (2) Sent. tb4 01:31 Lactate w/ 2H reflex if indic. Sent. tb4 01:31 BNP Sent. tb4 01:40 Second set of blood cultures drawn by [facility]. tb4 02:24 Daniel Tovar, RN is Hospitalizing Provider. cp 04:05 No provider procedures requiring assistance completed. tb4 Administered Medications: 01:34 Drug: Rocephin IV 1 grams IV at calculated rate once; Given slow IV push per pharmacy tb4 instructions Route: IV; Rate: calculated rate; Site: left antecubital; 01:54 Follow up: Response: No adverse reaction; IV Status: Completed infusion tb4 02:28 Drug: Zithromax IVPB 500 mg IVPB once over 1 hrs; mix in 250 mL NS Route: IVPB; Infused tb4 Over: 1 hrs; Site: left antecubital; 04:49 Follow up: Response: No adverse reaction; IV Status: Completed infusion tb4 Medication: 06/07 20:48 VIS not applicable for this client. kj2 Outcome: 06/08 02:25 Decision to Hospitalize by Provider. cp 04:50 Patient left the ED. tb4 Signatures: Dispatcher [employer] EDMS Lukasz Fox PA PA cp Jordan, Krystal RN RN kj2 Soumya Castrejon Terri RN RN tb4
--- NOTE | 2025-06-08 02:26 | EDPHYS ---
Physician Documentation [facility] Name: Gladis Cantu Age: 79 yrs Sex: Female : 1945 Arrival Date: 06/07/2025 Time: 20:35 Bed 15 Private MD: ED Physician Jonathan Glynn HPI: 06/07 20:55 This 79 yrs old Female presents to ER via EMS with complaints of Syncope. cp 20:55 The patient has experienced syncope, lost consciousness. Onset: The symptoms/episode cp began/occurred today, at an unknown time. Duration: This was a single episode. Associated injury: The patient did not suffer any apparent associated injury. 20:55 Associated signs and symptoms: Pertinent positives: headache, right side neck pain, cp Pertinent negatives: abdominal pain, chest pain. 20:55 Current symptoms: headache, alert times 3. cp Historical: - Allergies: 20:43 Iodine; kj2 20:43 PENICILLINS; kj2 20:43 Sulfa (Sulfonamide Antibiotics); kj2 - PMHx: 20:43 Diabetes - IDDM; Diverticulitis; Hypertension; Hypothyroidism; lypmphoedema; neuropathy;kj2 - Immunization history:: Adult Immunizations unknown. - Infectious Disease History:: Denies. - Social history:: Smoking status: unknown. ROS: 21:00 Cardiovascular: Positive for edema, Negative for chest pain, palpitations, cp 21:00 Eyes: Negative for injury, pain, redness, and discharge, cp 21:00 Constitutional: Negative for fever, poor PO intake, 21:00 Neck: Positive for pain with movement, pain at rest, of the right lateral neck, 21:00 Respiratory: Negative for shortness of breath, wheezing, 21:00 Abdomen/GI: Negative for abdominal pain, vomiting, diarrhea, constipation, black/tarry stool, rectal bleeding, 21:00 Neuro: Positive for headache, syncope, Negative for altered mental status, 21:00 All other systems are negative, Exam: 21:05 Constitutional: The patient appears in no acute distress, alert, awake, cp non-diaphoretic, non-toxic, well developed, well nourished, overweight 21:05 Head/Face: Normocephalic, atraumatic. cp 21:05 Eyes: Periorbital structures: appear normal, Pupils: equal, round, and reactive to light and accomodation, Conjunctiva: normal, no exudate, no injection, Sclera: no appreciated abnormality, Lids and lashes: appear normal, bilaterally, 21:05 ENT: External ear(s): are unremarkable, Nose: is normal, Mouth: Lips: moist, Oral mucosa: moist, Posterior pharynx: Airway: no evidence of obstruction, patent, 21:05 Neck: C-spine: vertebral tenderness, is not appreciated, crepitus, is not appreciated, mild tenderness to palpation right lateral neck, 21:05 Chest/axilla: Inspection: normal, Palpation: is normal, no crepitus, no tenderness, 21:05 Cardiovascular: Rate: normal, Rhythm: regular, Edema: ankle edema, that is moderate, JVD: is not appreciated, 21:05 Respiratory: the patient does not display signs of respiratory distress, Respirations: labored breathing, is not present, intercostal retractions, are absent, Breath sounds: decreased breath sounds, are not appreciated, stridor, is not appreciated, wheezing: is not appreciated, 21:05 Abdomen/GI: Inspection: abdomen appears normal, Bowel sounds: active, all quadrants, Palpation: abdomen is soft and non-tender, in all quadrants, 21:05 Back: pain, is absent, 21:05 Skin: cellulitis, is not appreciated, no rash present. 21:05 Neuro: Orientation: to person, place \T\ time. Mentation: is normal, Motor: no focal deficits, Sensation: no obvious gross deficits, 22:40 ECG was reviewed by the Attending Physician. cp Vital Signs: 20:41 BP 156 / 49; Pulse 76; Resp 18; Pulse Ox 98% ; kj2 20:47 Weight 48.08 kg; Height 5 ft. 6 in. ; kj2 21:45 BP 138 / 61; Pulse 70; Resp 18; Pulse Ox 98% on R/A; kj2 23:52 BP 119 / 58; Pulse 70; Resp 18; Pulse Ox 100% on R/A; kj2 0806 01:00 BP 121 / 52; Pulse 64; Resp 18; Temp 97.6(A); Pulse Ox 100% on R/A; Pain 0/10; tb4 02:15 BP 144 / 53; Pulse 67; Resp 18; Pulse Ox 97% on R/A; tb4 03:11 BP 125 / 50; Pulse 66; Resp 18; Temp 97.3(A); Pulse Ox 97% on R/A; tb4 06/07 20:47 Body Mass Index 17.11 (48.08 kg, 167.64 cm) kj2 06/08 01:00 Pain Scale: Adult tb4 MDM: 06/07 20:44 Medical Screening Exam initiated cp 22:00 Differential Diagnosis: cardiac arrhythmia, GI bleed, pseudo seizure, seizure, sepsis. 06/08 02:25 Data reviewed: vital signs, nurses notes, lab test result(s), EKG, radiologic studies, cp CT scan, plain films, I have discussed the patient's presentation/case with the attending Emergency Department Physician; and as a result, I will admit patient. 02:25 Management of patient was discussed with the following: Hospitalist: MR Tovar will cp admit after discussion. I considered the following discharge prescriptions or medication management in the emergency department Medications were administered in the Emergency Department. See MAR. Independent interpretation of the following test(s) in the Emergency Department EKG: See my EKG interpretation above. Care significantly affected by the following chronic conditions: Diabetes, Hypertension. Counseling: I had a detailed discussion with the patient and/or guardian regarding the historical points, exam findings, and any diagnostic results supporting the discharge/admit diagnosis, lab results, radiology results, the need for further work-up and treatment in the hospital. Response to treatment: the patient's symptoms have mildly improved after treatment. 06/07 20:52 Order name: Basic Metabolic Panel; Complete Time: 23:26 06/07 23:27 Interpretation: Normal except: NA 130; CL 95; GLUC 275; BUN 28; CRE 1.44; GFR 37; CA cp 8.3. 06/07 20:52 Order name: CBC with Diff; Complete Time: 23:26 cp 06/07 20:52 Order name: Hepatic Function; Complete Time: 23:26 cp 06/07 23:27 Interpretation: Normal except: ALK 219; IBILI, CALC 0.1; ALB 2.3; GLOB 5.1; A/G 0.5. cp 06/07 20:52 Order name: Magnesium; Complete Time: 23:26 cp 06/07 20:52 Order name: Protime (+inr); Complete Time: 23:26 cp 08/05 20:52 Order name: Ptt, Activated; Complete Time: 23:26 cp 08/05 20:52 Order name: Troponin High Sensitivity; Complete Time: 23:26 cp 08/ 20:52 Order name: Group A Streptococcus Rapid; Complete Time: 23:26 cp 08/05 20:52 Order name: COVID-19 Ag + Flu A+B Ag; Complete Time: 23:26 cp 08/ 20:52 Order name: UA Rfx Hubert Cult if indicated; Complete Time: 00:39 cp 08/ 00:39 Interpretation: Reviewed. cp 08/05 21:56 Order name: Throat Culture EDMS / 23:41 Order name: Urine Culture EDMS 06/08 00:43 Order name: BNP; Complete Time: 02:21 cp 08/ 02:21 Interpretation: Reviewed. cp 08 00:43 Order name: Blood Culture Adult (2) cp 08/ 00:43 Order name: Lactate w/ 2H reflex if indic.; Complete Time: 02:23 cp 08 03:04 Order name: Glucose, Ancillary Testing EDMS 08/ 03:18 Order name: CBC with Automated Diff EDMS 08/06 03:18 Order name: CBC with Automated Diff EDMS 08/06 03:18 Order name: CBC with Automated Diff EDMS 08/06 03:18 Order name: CBC with Automated Diff EDMS 08/06 03:18 Order name: Comprehensive Metabolic Panel EDMS 08/ 03:18 Order name: Comprehensive Metabolic Panel EDMS 08/06 03:18 Order name: Comprehensive Metabolic Panel EDMS 08/ 03:18 Order name: Comprehensive Metabolic Panel EDMS 08/ 03:18 Order name: Lipid Profile EDMS 08/06 03:18 Order name: Lipid Profile EDMS 08/06 03:18 Order name: Magnesium EDMS 08/06 03:18 Order name: Magnesium EDMS 08/06 03:18 Order name: Magnesium EDMS 08/06 03:18 Order name: Magnesium EDMS 08/06 03:18 Order name: NT PRO-BNP EDMS 08/ 03:18 Order name: NT PRO-BNP EDMS 08/ 03:18 Order name: NT PRO-BNP EDMS 08/ 03:18 Order name: NT PRO-BNP EDMS 08/ 20:52 Order name: Chest Single View XRAY; Complete Time: 21:38 cp 08/05 21:38 Interpretation: Report review. 06/07 23:37 Order name: CT Head Brain wo Cont cp 06/07 23:37 Order name: CT Chest Abdomen Pelvis W/O Contrast 06/07 20:52 Order name: EKG; Complete Time: 20:52 cp 06/08 03:13 Order name: Social Service Consult EDMS 06/07 20:52 Order name: Cardiac monitoring; Complete Time: 22:28 cp 06/07 20:52 Order name: EKG - Nurse/Tech; Complete Time: 22:28 cp 06/07 20:52 Order name: IV Saline Lock; Complete Time: 22:29 cp 06/07 20:52 Order name: Labs collected and sent; Complete Time: 22:29 cp 06/07 20:52 Order name: NPO; Complete Time: 22:29 cp 06/07 20:52 Order name: O2 Per Protocol; Complete Time: 22:28 cp 06/07 20:52 Order name: O2 Sat Monitoring; Complete Time: 22:28 cp 06/07 20:52 Order name: Cath; Complete Time: 23:17 cp 06/08 00:43 Order name: Vital Signs: please update to include temp; Complete Time: 01:54 cp EC/05 22:40 Rate is 70 beats/min. Rhythm is regular. LA interval is prolonged at 234 msec. QRS cp interval is prolonged at 156 msec. QT interval is normal. T waves are Inverted in lead aVR. Interpreted by me. Reviewed by me. Administered Medications: 06/08 01:34 Drug: Rocephin IV 1 grams IV at calculated rate once; Given slow IV push per pharmacy tb4 instructions Route: IV; Rate: calculated rate; Site: left antecubital; 01:54 Follow up: Response: No adverse reaction; IV Status: Completed infusion tb4 02:28 Drug: Zithromax IVPB 500 mg IVPB once over 1 hrs; mix in 250 mL NS Route: IVPB; Infused tb4 Over: 1 hrs; Site: left antecubital; 04:49 Follow up: Response: No adverse reaction; IV Status: Completed infusion tb4 Disposition: 06:49 Co-signature as Attending Physician, Jonathan Glynn MD I reviewed the patient's care rn provided by the Advanced Practice Provider and agree with the diagnosis and treatment plan. Disposition Summary: 06/08/25 02:25 Hospitalization Ordered Notes: Hospitalization Status: Inpatient Admission cp Provider: Daniel Tovar cp Location: Telemetry/MedSurg (Inpatient) cp Condition: Stable cp Problem: new cp Symptoms: have improved cp Bed/Room Type: Standard cp Room Assignment: 217(06/08/25 03:54) cg Diagnosis - UTI/ Urinary tract infection, site not specified cp - Pneumonia in diseases classified elsewhere cp - Syncope cp Forms: - Medication Reconciliation Form cp - SBAR form cp - Leadership Thank You Letter cp Signatures: Dispatcher [employer] EDJonathan Arauz MD MD rn Lukasz Fox PA PA cp Bri Moran RN RN Karina Mazariegos RN RN kj2 Vianca Sheikh RN RN tb4 Corrections: (The following items were deleted from the chart) 03:54 02:25 cp cg
--- NOTE | 2025-06-08 03:10 | P.HP ---
Certification for Inpatient Patient admitted to: Inpatient With expected LOS: >2 Midnights Patient will require the following post-hospital care: Senior Care Practitioner: I am a practitioner with admitting privileges, knowledge of patient current condition, hospital course, and medical plan of care. Services: Services provided to patient in accordance with Admission requirements found in Title 42 Section 412.3 of the Code of Federal Regulations <Daniel Tovar - Last Filed: 06/08/25 05:44> Patient History Date of Service: 06/08/25 Reason for admission: UTI, pneumonia, deconditioning. History of Present Illness: Patient is a 79-year-old female who is a current resident at a retirement with past medical history of type 2 diabetes mellitus, diverticulitis, CHF, hypertension, hypothyroidism, lymphedema bilateral lower extremities, neuropathy, morbid obesity, brought to the ER due to syncope. Since patient is not able to provide information at this time, the report received from ER provider, and the nurse, states EMS mentioned that patient had a syncope episode with loss of consciousness while at the facility with no associated hypoxia. During admission assessment, patient was fairly deep asleep, not able to answer questions at this time, respond to deep sternal rub, blood sugar was checked and patient has not hypoglycemia. Patient vital signs remained stable at this time. No family member available at this time to provide further information. Course in ER: Patient had CT head without intravenous contrast. Impression: No acute intracranial findings. Patient had CT chest, abdomen, and pelvis without intravenous contrast. Impression: (1) Patchy bilateral perihilar groundglass opacities (atelectasis and/or infiltrate). (2) mild to moderate bilateral hydroureteronephrosis. A similar findings was mention on the previous report. This can be seen in the setting of vesicoureteral reflux. (3) findings which may reflect nonspecific proctitis. Direct visualization may be necessary in order to exclude an underlying mass. - Past Medical/Surgical History Diabetic: Yes -: htn -: hypothyroid -: arrhythmias -: diverticulitis -: lymphedema -: endometrial CA Hx -: IDDM -: neck sx -: hysterectomy -: matthew -: carpal tunnel -: bilateral shoulder sx - Family History Father -: Hypertension, Diabetes, Cancer Mother -: Hypertension, Diabetes, Cancer Brother -: Hypertension, Diabetes Sister -: Diabetes - Social History Smoking Status: Unknown if ever smoked Alcohol use: No CD- Drugs: No Caffeine use: Yes Place of Residence: Group Home <Daniel Tovar - Last Filed: 06/08/25 05:44> Date of Service: 06/08/25 <Tessa Hayes - Last Filed: 06/10/25 02:31> Allergies Penicillins Allergy (Unknown, Verified 06/08/25 05:16) Anaphylaxis Sulfa (Sulfonamide Antibiotics) Allergy (Unknown, Verified 06/08/25 05:16) Hives codeine Allergy (Verified 06/08/25 05:16) Anaphylaxis pentazocine lactate [From Talwin] Allergy (Verified 06/08/25 05:16) Anaphylaxis vancomycin Allergy (Verified 06/08/25 05:16) Hives/Rash Home Medications: Famotidine [Pepcid*] 20 mg PO BID 05/02/25 Gabapentin [Neurontin*] 100 mg PO BID 05/02/25 Hydralazine HCl [Apresoline] 50 mg PO BID 05/02/25 Hydrocodone 7.5/APAP 325 [Lowry 7.5/325 mg*] 1 tab PO TID PRN 05/02/25 Insulin NPH Hum/Reg Insulin Hm [Humulin 70-30 Vial] 16 units SQ BID 05/02/25 Isosorbide Mononitrate [Isosorbide Mononitrate ER] 30 mg PO DAILY 05/02/25 Levothyroxine Sodium [Synthroid] 200 mcg PO DAILY 05/02/25 Magnesium Oxide [Mag 0X*] 400 mg PO BID 05/02/25 Nortriptyline HCl [Pamelor] 50 mg PO BEDTIME 05/02/25 Spironolactone [Aldactone*] 25 mg PO DAILY 05/02/25 atenoloL [Tenormin*] 50 mg PO DAILY 05/02/25 lisinopriL [Prinivil*] 20 mg PO BID 05/02/25 Bumetanide 1 mg PO DAILY 06/08/25 Review of Systems is unable to be obtained (Patient is deep asleep at this time and unable to provide information) <Daniel Tovar - Last Filed: 06/08/25 05:44> Physical Examination - Physical Exam General: Other (Patient is deep asleep at this time and not able to provide information. Respond to sternal rub) HEENT: Atraumatic, Normocephalic, PERRLA, Mucous membr. moist/pink, Sclerae nonicteric Neck: Supple, 2+ carotid pulse no bruit, Without JVD or thyroid abnormality Respiratory: Clear to auscultation bilaterally, Normal air movement Cardiovascular: Normal pulses, Regular rate/rhythm, Normal S1 S2, No gallops, No rubs, No murmurs Capillary refill: <2 Seconds Gastrointestinal: No ascites, No masses, No rebound, Other (Unable to assess fu rther because patient is deep at sleep.), Distended (Secondary to morbid obesity) Musculoskeletal: No clubbing, No warmth, Other (Bilateral lymphedema) Integumentary: Other (Bilateral lymphedema.) Neurological: Other (Unable to fully assess at this time because patient is deep asleep.) Lymphatics: No axilla or inguinal lymphadenopathy - Studies Laboratory Data (last 24 hrs) 06/07/25 06/07/25 06/07/25 21:15 21:15 21:15 WBC 14.40 H Hgb 10.9 L Hct 34.0 L Plt Count 219 PT 13.5 H INR 1.20 APTT 30.6 Sodium 130 L Potassium 4.6 BUN 28 H Creatinine 1.44 H Glucose 275 H Magnesium 1.8 Total Bilirubin 0.3 AST 19 ALT < 14 Alkaline Phosphatase 219 H <Daniel Tovar - Last Filed: 06/08/25 05:44> Male Exam - Male Exam Inguinal exam: No hernias <Daniel Tovar - Last Filed: 06/08/25 05:44> Assessment and Plan - Plan Patient is a 79-year-old female who is a current resident at the retirement, brought to the ER due to syncope episode. Workup in the ER negative CT of the head. Patient currently has UTI with questionable pneumonia based on CT of the chest. Patient has a left shift, WBC 14.40. (1) UTI, and CAP. -Azithromycin 500 mg IV daily. -Rocephin 1 g IV daily. -DuoNeb as needed every 6 hours. (2)Chronic type 2 diabetes mellitus. -Moderate sliding scale coverage. -ACHS. (3)Chronic hypertension. - Continue on hydralazine 50 mg p.o. twice daily. -Continue amlodipine 10 mg p.o. daily. -Continue isosorbide mononitrate 30 mg p.o. daily. (4)Deconditioning. -Consult physical therapy for endurance and strengthening. Discharge Plan: Group Home Plan to discharge in: Greater than 2 days - Advance Directives Does patient have a Living Will: No Does patient have a Durable POA for Healthcare: No - Code Status/Comfort Care Code Status Assessed: No (Patient not able to provide at this time.) Code Status: Full Code Critical Care: No Time Spent Managing Pts Care (In Minutes): 55 <Daniel Tovar - Last Filed: 06/08/25 05:44> Date of Service: 06/08/25 Patient was seen and examined. Events of the last 24 hours have been noted. Spoke with with TYREE regarding patient's clinical picture after evaluating and examining the patient independently. I performed a substantial part of the MDM during this patient's care today. I personally made or approved the documented management plan and acknowledge its risk of complications. I agree with the findings and documentation provided in the TYREE's notes. Patient follows up with Dr. Mckeon and will follow-up with him by discharge. Patient will go back to [facility] once antibiotics stabilize patient's current infectious process. Continue with current plan of care at this time. <Tessa Hayes - Last Filed: 06/10/25 02:31>
[2025-06-08] MEDS ORDERED: IPRATROPIUM BROM 0.5MG/2.5ML NEB PRN (03:18)
--- NOTE | 2025-06-08 04:41 | RAD REPORT ---
EXAM: CT Head Without Intravenous Contrast CLINICAL HISTORY: The patient is 79 years old and is Female; SYNCOPE TECHNIQUE: Axial computed tomography images of the head/brain without intravenous contrast. Sagittal and cor onal reformatted images were created and reviewed. This CT exam was performed using one or more of the following dose reduction techniques: automated exposure control, adjustment of the mA and/or kV according to patient size, and/or use of iterative reconstruction technique. COMPARISON: Correlation with prior report of May 12, 2025, images were not available for review. FINDINGS: BRAIN: There is diffuse cerebral atrophy present. There is patchy hypoattenuation of the deep w wilton matter which is non-specific, but most likely owing to chronic small vessel ischemic change in a patient of this age group. No intracranial hemorrhage, mass effect or midline shift is seen. Ther e are no extra-axial fluid collections. VENTRICLES: Unremarkable. No ventriculomegaly. BONES/JOINTS: Hyperostosis frontalis is noted. SOFT TISSUES: Unremarkable. VASCULATURE: Atherosclerosis of intracranial vasculature is present. SINUSES: Unremarkable as visualized. No acute sinusitis. MASTOID AIR CELLS: Unremarkable as visualized. No mastoid effusion. ORBITS: Unremarkable as visualized. IMPRESSION: No acute intracranial findings. Electronically signed by: Sara Rodriguez MD 06/08/2025 01:57 AM CDT RP Due to temporary technical issues with the PACS/[facility] [employer] reporting system, reports are being rula d by the in-house radiologist without review as a courtesy to ensure prompt reporting the interpreting radiologist is fully responsible for the content of the report. Transcribed Date/Time: 06/08/2025 4:41 AM
--- NOTE | 2025-06-08 04:43 | RAD REPORT ---
EXAM: CT Chest, Abdomen and Pelvis Without Intravenous Contrast CLINICAL HISTORY: syncope TECHNIQUE: Axial computed tomography images of the chest, abdomen and pelvis without intravenous contrast. Sag ittal and coronal reformatted images were created and reviewed. This CT exam was performed using one or more of the following dose reduction techniques: automated exposure control, adjustment of t he mA and/or kV according to patient size, and/or use of iterative reconstruction technique. COMPARISON: Correlation is made with report only from study dated 05/21/2025 FINDINGS: CHEST: Lungs and pleural spaces: Mosaic attenuation which can be seen in the setting of air-trapping. Patc hy bilateral perihilar groundglass opacities. No significant effusion. Heart: The heart is mildly to moderately enlarged. Coronary artery and mitral annular calcification . No significant pericardial effusion. Mediastinum: Borderline prominent precarinal and subcarinal lymph nodes measuring up to 12 mm in sh ort axis. ABDOMEN: Liver: Hepatic parenchymal calcifications compatible with remote granulomatous organism exposure. S urface contour nodularity suggestive of cirrhosis. Gallbladder and bile ducts: Unremarkable. No calcified stones. No ductal dilation. Pancreas: Moderate to severe pancreatic parenchymal atrophy. No ductal dilation. Spleen: Splenic parenchymal calcifications compatible with remote granulomatous organism exposure. Adrenals: Unremarkable. No mass. Kidneys and ureters: Mild to moderate bilateral hydroureteronephrosis. A similar finding was mentio juan luis on the previous report. Stomach and bowel: Colonic diverticula without adjacent inflammatory change. Moderate stool. No b owel obstruction. Mild to moderate rectal wall thickening. PELVIS: Appendix: Normal caliber appendix. No findings to suggest acute appendicitis. Bladder: Unremarkable. No stones. Reproductive: There has been a hysterectomy. No adnexal cysts or masses are identified. CHEST, ABDOMEN and PELVIS: Intraperitoneal space: Unremarkable. No significant fluid collection. No free air. Bones/joints: Multilevel spondylosis. No acute fracture. Soft tissues: Small to moderate fat-containing periumbilical hernia. Vasculature: Moderate atherosclerotic disease. No aortic aneurysm. Prominence of the main and rig ht pulmonary arteries which can be seen in the setting of pulmonary arterial hypertension. Lymph nodes: See above. IMPRESSION: 1. Patchy bilateral perihilar groundglass opacities (atelectasis and/or infiltrate). 2. Mild to moderate bilateral hydroureteronephrosis. A similar finding was mentioned on the previou s report. This can be seen in the setting of vesicoureteral reflux. 3. Findings which may reflect nonspecific proctitis. Direct visualization may be necessary in order to exclude an underlying mass. 4. Other findings as above. Electronically signed by: Jorge Laughlin MD 06/08/2025 02:02 AM CDT Due to temporary technical issues with the PACS/[employer] reporting system, reports are being rula d by the in-house radiologist without review as a courtesy to ensure prompt reporting the interpreting radiologist is fully responsible for the content of the report. Transcribed Date/Time: 06/08/2025 4:43 AM
[2025-06-08] MEDS: ALBUTEROL 2.5 MG/3 ML NEB SOL NEB SCH (07:00)
[2025-06-08] MEDS: HEPARIN 5000 UNIT/ML 1 ML VIAL SQ SCH (10:51)
[2025-06-08] MEDS: AZITHROMYCIN IV 500 MG in NA CHLORIDE 0.9% 250 ML IVPB SCH (10:51)
[2025-06-08] MEDS: HYDRALAZINE HCL 25 MG TABLET PO SCH (10:51)
[2025-06-08] MEDS: ISOSORBIDE MONO SR 30 MG TAB PO SCH (10:51)
[2025-06-08] MEDS: INSULIN REGULAR (HUMAN) 100 UNIT/ML SQ SCH (10:52)
[2025-06-08] MEDS: AMLODIPINE 10 MG TAB PO SCH (10:52)
[2025-06-08] MEDS ORDERED: ZINC OXIDE 20% OINTMENT 60gm TOP PRN (12:06)
[2025-06-08] MEDS ORDERED: D50W 25 GM/50 ML SYRINGE IV PRN (15:48)
[2025-06-08] MEDS ORDERED: HYDROCODONE/APAP 7.5/325 MG TAB PO PRN (15:48)
[2025-06-08] MEDS ORDERED: GLUCAGON 1 MG/VIAL IM PRN (15:48)
--- NOTE | 2025-06-08 15:51 | P.CNS ---
Date of Consult: 06/08/25 Reason for Consult: Abnormal CXRY Chief Complaint: UTI, pneumonia, deconditioning. History of Present Illness: Age 79 NH resident admitted with fall. Ambulate with assistance/ No pulmonary complaints. abnormalCXRY CT scan Allergies Penicillins Allergy (Unknown, Verified 06/08/25 05:16) Anaphylaxis Sulfa (Sulfonamide Antibiotics) Allergy (Unknown, Verified 06/08/25 05:16) Hives codeine Allergy (Verified 06/08/25 05:16) Anaphylaxis pentazocine lactate [From Talwin] Allergy (Verified 06/08/25 05:16) Anaphylaxis vancomycin Allergy (Verified 06/08/25 05:16) Hives/Rash Home Medications: Famotidine [Pepcid*] 20 mg PO BID 05/02/25 Gabapentin [Neurontin*] 100 mg PO BID 05/02/25 Hydralazine HCl [Apresoline] 50 mg PO BID 05/02/25 Hydrocodone 7.5/APAP 325 [Springer 7.5/325 mg*] 1 tab PO TID PRN 05/02/25 Insulin NPH Hum/Reg Insulin Hm [Humulin 70-30 Vial] 16 units SQ BID 05/02/25 Isosorbide Mononitrate [Isosorbide Mononitrate ER] 30 mg PO DAILY 05/02/25 Levothyroxine Sodium [Synthroid] 200 mcg PO DAILY 05/02/25 Magnesium Oxide [Mag 0X*] 400 mg PO BID 05/02/25 Nortriptyline HCl [Pamelor] 50 mg PO BEDTIME 05/02/25 Spironolactone [Aldactone*] 25 mg PO DAILY 05/02/25 atenoloL [Tenormin*] 50 mg PO DAILY 05/02/25 lisinopriL [Prinivil*] 20 mg PO BID 05/02/25 Bumetanide 1 mg PO DAILY 06/08/25 - Past Medical/Surgical History Diabetic: Yes -: htn -: hypothyroid -: arrhythmias -: diverticulitis -: lymphedema -: endometrial CA Hx -: IDDM -: neck sx -: hysterectomy -: matthew -: carpal tunnel -: bilateral shoulder sx - Family History Father Medical History: Hypertension, Diabetes, Cancer Mother Medical History: Hypertension, Diabetes, Cancer Brother Medical History: Hypertension, Diabetes Sister Medical History: Diabetes - Social History Smoking Status: Unknown if ever smoked Alcohol use: No CD- Drugs: No Caffeine use: Yes Place of Residence: [facility] Review of Systems 10-point ROS is otherwise unremarkable General: Weakness Physical Examination Temp Pulse Resp BP Pulse Ox 97.7 F 78 16 118/56 L 99 06/08/25 12:00 06/08/25 12:00 06/08/25 12:00 06/08/25 12:00 06/08/25 12:00 General: Alert, In no apparent distress, Oriented x3 Neck: Supple Respiratory: Clear to auscultation bilaterally Cardiovascular: Edema (Dsicolaration of lower extremities) Laboratory Data (last 24 hrs) 06/07/25 06/07/25 06/07/25 21:15 21:15 21:15 WBC 14.40 H Hgb 10.9 L Hct 34.0 L Plt Count 219 PT 13.5 H INR 1.20 APTT 30.6 Sodium 130 L Potassium 4.6 BUN 28 H Creatinine 1.44 H Glucose 275 H Magnesium 1.8 Total Bilirubin 0.3 AST 19 ALT < 14 Alkaline Phosphatase 219 H - Problems (1) Acute on chronic diastolic (congestive) heart failure Current Visit: Yes Status: Acute Plan: 9 yrs of age admitted with fall. Denies any pulmonry complaints. CT findings, CXRY, elevated BNP and prior ECHO consistent with CHF, Resume home meds. Add x1 lasix, DC home am . PT Doubt pneumonia. DC Antibiotics
[2025-06-08] MEDS: FUROSEMIDE 40 MG/4 ML VIAL IV SCH (17:14)
[2025-06-08] MEDS: NYSTATIN PWDR 100000 UNIT/GM TOP SCH (20:14)
[2025-06-08] MEDS: NORTRIPTYLINE HCL 25 MG CAP PO SCH (20:16)
[2025-06-08] MEDS: GABAPENTIN 100 MG CAP PO SCH (20:16)
[2025-06-08] MEDS: FAMOTIDINE 20 MG TAB PO SCH (20:16)
[2025-06-08] MEDS ORDERED: CEFTRIAXONE 1,000 MG in NA CHLORIDE 0.9% 50 ML IVPB SCH (21:00)
[2025-06-08] MEDS: INSULIN 70/30 100 UNITS/ML SQ SCH (21:00)
[2025-06-09 04:35] VITALS: BMI 17.1
[2025-06-09] MEDS: LEVOTHYROXINE SOD 0.1 MG TAB PO SCH (05:03)
[2025-06-09 06:23] LABS: ALT/SGPT 15.0 U/L (13-56); AST/SGOT 20.0 U/L (15-37); Albumin 2.0 g/dL (3.4-5.0); Albumin/Globulin Ratio 0.4 (1.1-1.8); Alkaline Phosphatase 155.0 U/L (45-117); Anion Gap 8.3 mEq/L (5.0-15.0); BUN Blood Urea Nitrogen 21.0 mg/dL (7-18); Globulin 4.8 g/dL (2.3-3.5); Glucose Level 149.0 mg/dL (74-106); HDL Cholesterol 40.0 mg/dL (40-60); LDL Cholesterol, Calculated 49.0 mg/dL (<130); LDL Cholesterol,Calc NonReport 49.0; Magnesium 1.7 mg/dL (1.6-2.4); NT PRO-BNP 2005.0 pg/mL (<450); Potassium 4.3 mEq/L (3.5-5.1)
[2025-06-09 06:41] LABS: Absolute Lymphocytes (CBC) 2.3 K/uL (0.7-4.9); Hematocrit 30.9 % (36.0-45.0); Hemoglobin 10.1 g/dL (12.0-15.0); MCH 25.0 pg (27.0-35.0); MCHC 32.6 g/dL (32.0-36.0); MCV 76.7 fL (80-100); MPV 8.7 fL (7.6-11.3); Nucleated RBC Absolute Count 0.0 (0-0); Nucleated Red Blood Cells % 0.1 % (0-0); RBC Red Blood Cell Count 4.04 M/uL (3.86-4.86); White Blood Count 7.80 thou/uL (4.3-10.9)
[2025-06-09] MEDS ORDERED: ISOSORBIDE MONO SR 30 MG TAB PO SCH (09:00)
[2025-06-09] MEDS: SPIRONOLACTONE 25 MG TABLET PO SCH (09:00)
[2025-06-09] MEDS: CEFTRIAXONE 1,000 MG in NA CHLORIDE 0.9% 50 ML IVPB SCH (09:00)
[2025-06-09] MEDS: BUMETANIDE 1 MG TABLET PO SCH (09:00)
[2025-06-09] MEDS: MAGNESIUM SULFATE 1 gm IVPB 1 GM/100 ML BAG IV ONE (13:06)
--- NOTE | 2025-06-10 02:36 | P.PN ---
Date of Service: 06/09/25 Subjective We will keep her in the hospital and continue with monitoring neurologic status. As long as she continues to do well then anticipate discharge in a.m.. Patient is clinically stable. She appears little more confused today. Physical Examination -Vitals Reviewed - Physical Exam General: Other (Patient is deep asleep at this time and not able to provide information. Respond to sternal rub) Respiratory: Clear to auscultation bilaterally, Normal air movement Cardiovascular: Normal pulses, Regular rate/rhythm, Normal S1 S2, No gallops Gastrointestinal: No ascites, No masses, No rebound, mildly tender,, Distended (Secondary to morbid obesity) Musculoskeletal: No clubbing, No warmth, Other (Bilateral lymphedema) Integumentary: Other (Bilateral lymphedema.) Neurological: Awake and alert and oriented but confused Assessment and Plan -Assessment/Plan Patient is a 79-year-old female who is a current resident at the custod[facility], brought to the ER due to syncope episode. Workup in the ER negative CT of the head. Patient currently has UTI with questionable pneumonia based on CT of the chest. Patient has a left shift, WBC 14.40. (1) UTI, and CAP. -Continue with antibiotic regimen: Azithromycin 500 mg IV daily along with Rocephin 1 g IV daily. -DuoNeb as needed every 6 hours. (2)Chronic type 2 diabetes mellitus. -Moderate sliding scale coverage. -ACHS. - Strict blood sugar control (3)Chronic hypertension. -Continue with antihypertensives -Continue on hydralazine 50 mg p.o. twice daily. -Continue amlodipine 10 mg p.o. daily. -Continue isosorbide mononitrate 30 mg p.o. daily. (4)Deconditioning. -Consult physical therapy for endurance and strengthening. Discharge Plan: [facility] Plan to discharge in: Greater than 2 days - Advance Directives Does patient have a Living Will: No Does patient have a Durable POA for Healthcare: No - Code Status/Comfort Care Code Status Assessed: No (Patient not able to provide at this time.) Code Status: Full Code Critical Care: No Time Spent Managing Pts Care (In Minutes): 30
[2025-06-10 05:44] LABS: Absolute Lymphocytes (CBC) 2.2 K/uL (0.7-4.9); Hematocrit 29.5 % (36.0-45.0); Hemoglobin 9.6 g/dL (12.0-15.0); MCH 25.0 pg (27.0-35.0); MCHC 32.7 g/dL (32.0-36.0); MCV 76.6 fL (80-100); MPV 7.9 fL (7.6-11.3); Nucleated RBC Absolute Count 0.0 (0-0); Nucleated Red Blood Cells % 0.1 % (0-0); RBC Red Blood Cell Count 3.85 M/uL (3.86-4.86); White Blood Count 7.00 thou/uL (4.3-10.9)
[2025-06-10 06:06] LABS: ALT/SGPT 22.0 U/L (13-56); AST/SGOT 21.0 U/L (15-37); Albumin 2.0 g/dL (3.4-5.0); Albumin/Globulin Ratio 0.5 (1.1-1.8); Alkaline Phosphatase 153.0 U/L (45-117); Anion Gap 7.0 mEq/L (5.0-15.0); BUN Blood Urea Nitrogen 22.0 mg/dL (7-18); Globulin 4.4 g/dL (2.3-3.5); Glucose Level 131.0 mg/dL (74-106); Magnesium 1.9 mg/dL (1.6-2.4); NT PRO-BNP 2397.0 pg/mL (<450); Potassium 4.0 mEq/L (3.5-5.1)
--- NOTE | 2025-06-10 12:28 | CON ---
Date of Consultation: 06/10/2025 Reason For Consultation: Sacral decubitus. History Of Present Illness: The patient is a 79-year-old female who presented to the hospital with U TI, pneumonia and deconditioning issues being evaluated by Dr. Mckeon today and was found to have a sta ge II wounds on her sacrum and I was consulted. She is awake, alert. Denies any fever, chills, or p urulent discharge. She has been treated with calamine lotion and foam at the assisted. She is a wake, alert. Review of Systems: Otherwise unremarkable. Medical History: Significant for hypertension, hypothyroidism, arrhythmias, lymphedema, history of e ndometrial carcinoma, insulin-dependent diabetes. Past Surgical History: Hysterectomy, cholecystectomy, carpal tunnel surgery, neck surgery, bilateral shoulder surgery. Allergies: REVIEWED INCLUDE SULFA, CODEINE, VANCOMYCIN, AND PENTAZOCINE. Social History: The patient does not smoke or drink. Family History: Noncontributory. Physical Examination: Vital Signs: Stable. She is afebrile. General: She is awake, alert. Head and Neck: No masses. Chest: Clear. Heart: S1, S2. Abdomen: Soft. Extremities: Neurovascularly intact. Neuro: Nonfocal. On the sacrum, there is a small area on the left upper sacrum near the gluteal cre ase approximately 2 cm area of stage II ulcer and there may be 1 on the other side, but there is jackson mine lotion on her skin, so it is hard to tell, but there is no surrounding erythema, warmth or edema . Assessment: Sacral decubitus, stage II. Recommendation: Nutritional optimization, offloading, dressing and foam. The [facility]. /MODL Voice ID: [id number] Report ID: [id number]
--- NOTE | 2025-06-10 17:13 | PN ---
Date of Progress Note: 06/09/2025 Subjective: The patient was seen this evening for followup visit. This patient has been my patient for many, many years. Unfortunately, when she came into emergency room this time, ER physician admit malini her to hospitalist service and either ER physician or hospitalist did not recognize that this was my patient, so hospitalist team did call me and my instruction at that time after they already had a dmitted the patient was for them to continue to look after this patient and today Dr. Bean called manuela kelly and it appeared that due to some misunderstanding, hospitalist team did not see her today, and he w as asking me what to do, and at that time, I informed him that I will take over this patient's care a s of today. So, I did go see patient this evening and I have reviewed current hospital admission adolfo rt. She is lying in bed. Has generalized weakness, but denies any other specific complaints. No ch est pain or shortness of breath. No nausea or vomiting. Objective: Vital Signs: Reviewed. HEENT: Unremarkable. Lungs: Clear to auscultation. Heart: Sounds normal. Abdomen: Soft. Bowel sounds normal. No guarding, rigidity, tenderness, distention. Extremities: No leg edema. Right foot exam, lateral foot had wound during last hospital admission a nd this wound has completely healed up. There is no open wound on the foot. Laboratory Data: When she first came in, her WBC was 14.4 on 06/07/2025 with hemoglobin 10.9, platel ets 219. Today, WBC 7.8, hemoglobin 10.1, platelets 205. Her initial chemistry: Sodium 130, potass ium 4.6, chloride 95, bicarb 30, BUN 28, creatinine 1.44, glucose 275. Liver function tests were unr emarkable, and today her sodium 133, potassium 4.3, chloride 102, bicarb 27, BUN 21, creatinine 1.19, glucose 149, proBNP 2005. Her urinalysis when she came in was abnormal with appearance extremely tu rbid, leukocytes 500, rbc 11 to 20, wbc more than 50, bacteria more than 50, and urine culture result is still pending. Blood culture has remained negative, so far. Impression: 1. Urinary tract infection. 2. Hypertension. 3. Type 2 diabetes mellitus. 4. Hyperlipidemia. 5. Anemia. Plan: We will go ahead and continue current medications. Continue current empiric antibiotic. Foll ow up on urine culture. Once the urine culture result comes back, then we will decide about discharg ing her with culture-specific antibiotic. Physical Therapy to continue to work with the patient and the patient was sent to [facility] at the time of discharge from the hospital during last hospital stay and that is why she came into hospital from [facility], this time and barbara scott's sister had called my office today and informed my office staff that she does not want patient to go back to this half-way and she would prefer for the patient to come back home. I will see her tomorrow for followup. ISAAC/MODL Voice ID: [id number] Report ID: [id number]
--- NOTE | 2025-06-10 19:38 | PN ---
Date of Progress Note: 06/10/2025 Subjective: The patient was seen this morning for followup. She was lying in bed, not in distress. Denies any new complaints. Objective: Vital Signs: Reviewed. HEENT: Unremarkable. Lungs: Clear to auscultation. Heart: Sounds normal. Abdomen: Soft. Bowel sounds normal. No guarding, rigidity, tenderness, distention. Extremities: No leg edema. Skin: The patient has 2 small superficial stage II decubitus over sacrococcygeal region about 5 mm in size. Surrounding skin is little irritated and no evidence of any infection. No discharge. No bleeding. Laboratory Data: WBC 7, hemoglobin 9.6, platelets 204. Chemistry, sodium 134, potassium 4, chloride 102, bicarb 29, BUN 22, creatinine 1.27, glucose 131. Liver function tests unremarkable. ProBNP 2397. Her urine culture came back growing Klebsiella and blood culture remains negative. Throat culture growing Staph aureus. Klebsiella is sensitive to cefepime. It is also sensitive to Cipro and Levaquin. Staph aureus on the occult culture is intermediate sensitive to levofloxacin and it is sensitive to tetracycline. Impression: 1. Urinary tract infection. 2. Hypertension. 3. Hyperlipidemia. 4. Type 2 diabetes mellitus. 5. Generalized weakness. 6. Anemia. Plan: We will go ahead and continue current antibiotic. I did call patient's sister, Yareli and discussed all the pertinent details and also talked about discharge planning and she informed me that she has other family members at home and they will be able to help with patient's need and they have been visiting patient almost on daily basis and assisting her and they feel like they will be able to handle things at home. Physical Therapy consultation is already in place and the patient was encouraged to work with physical therapy in order for her to be able to go home and I did discuss all those details with her. I will see her tomorrow for followup. ISAAC/MODL Voice ID: [id number] Report ID: [id number] SINGH
[2025-06-11 05:20] LABS: Absolute Lymphocytes (CBC) 1.9 K/uL (0.7-4.9); Hematocrit 31.0 % (36.0-45.0); Hemoglobin 10.0 g/dL (12.0-15.0); MCH 24.7 pg (27.0-35.0); MCHC 32.4 g/dL (32.0-36.0); MCV 76.1 fL (80-100); MPV 7.8 fL (7.6-11.3); Nucleated RBC Absolute Count 0.0 (0-0); Nucleated Red Blood Cells % 0.0 % (0-0); RBC Red Blood Cell Count 4.07 M/uL (3.86-4.86); White Blood Count 5.80 thou/uL (4.3-10.9)
[2025-06-11 05:46] LABS: ALT/SGPT 18.0 U/L (13-56); AST/SGOT 22.0 U/L (15-37); Albumin 2.0 g/dL (3.4-5.0); Albumin/Globulin Ratio 0.4 (1.1-1.8); Alkaline Phosphatase 148.0 U/L (45-117); Anion Gap 9.0 mEq/L (5.0-15.0); BUN Blood Urea Nitrogen 21.0 mg/dL (7-18); Globulin 4.5 g/dL (2.3-3.5); Glucose Level 116.0 mg/dL (74-106); Magnesium 1.6 mg/dL (1.6-2.4); NT PRO-BNP 2596.0 pg/mL (<450); Potassium 4.0 mEq/L (3.5-5.1)
[2025-06-11 08:45] VITALS: O2SAT 99
[2025-06-11] MEDS: MAGNESIUM SULFATE 1 gm IVPB 1 GM/100 ML BAG IV ONE (09:01)
[2025-06-11 12:09] VITALS: BP 154/69; TEMP 98.2
== END 2025-06-11 13:49 | disposition home or self-care (01) | DRG 689 ==
LOC: ER 20:35 → INTOOBSV 06-08 03:08 → 2ND 06-08 03:08 → OBSVTOIN 06-09 17:39
PROVIDERS: ADMIT Hospitalist; ATTEND Internal Medicine
DX: N39.0 Urinary tract infection, site not specified (principal); I50.33 Acute on chronic diastolic (congestive) heart failure; I11.0 Hypertensive heart disease with heart failure; E03.9 Hypothyroidism, unspecified; E78.5 Hyperlipidemia, unspecified; D64.9 Anemia, unspecified; L89.152 Pressure ulcer of sacral region, stage 2; E11.40 Type 2 diabetes mellitus with diabetic neuropathy, unspecified; B96.1 Klebsiella pneumoniae [K. pneumoniae] as the cause of diseases classified elsewhere; B95.61 Methicillin susceptible Staphylococcus aureus infection as the cause of diseases classified elsewhere; Z88.2 Allergy status to sulfonamides; Z88.0 Allergy status to penicillin; Z11.52 Encounter for screening for COVID-19; Z90.710 Acquired absence of both cervix and uterus; Z90.49 Acquired absence of other specified parts of digestive tract; Z88.5 Allergy status to narcotic agent; Z88.1 Allergy status to other antibiotic agents; Z79.4 Long term (current) use of insulin; Z79.890 Hormone replacement therapy; Z79.899 Other long term (current) drug therapy
CPT/HCPCS: 36415; 70450; 71045; 71250; 74176; 80048; 80053; 80061; 80076; 81001; 82947; 83605; 83735; 83880; 84484; 85025; 85610; 85730; 87040; 87070; 87077; 87086; 87088; 87186; 87428; 93005; 94640; 94760; 96365; 96366; 96367; 97116; 97161; 97530; 99284; G0378; J0456; J0696; J1644; J1815; J1938; J3475; J7050; J7613

== ENCOUNTER 2025-06-16 09:55 | Emergency (ER) | payer OTHER, MEDICARE ==
[2025-06-16 10:15] LABS: Absolute Lymphocytes (CBC) 2.6 K/uL (0.7-4.9); Hematocrit 32.1 % (36.0-45.0); Hemoglobin 10.7 g/dL (12.0-15.0); MCH 25.2 pg (27.0-35.0); MCHC 33.2 g/dL (32.0-36.0); MCV 75.8 fL (80-100); MPV 7.4 fL (7.6-11.3); Nucleated RBC Absolute Count 0.0 (0-0); Nucleated Red Blood Cells % 0.2 % (0-0); RBC Red Blood Cell Count 4.24 M/uL (3.86-4.86); White Blood Count 6.90 thou/uL (4.3-10.9)
[2025-06-16 10:34] LABS: ALT/SGPT 26 U/L (13-56); AST/SGOT 26 U/L (15-37); Albumin 2.1 g/dL (3.4-5.0); Albumin/Globulin Ratio 0.5 (1.1-1.8); Alkaline Phosphatase 163 U/L (45-117); Anion Gap 5.3 mEq/L (5.0-15.0); BUN Blood Urea Nitrogen 26 mg/dL (7-18); Globulin 4.4 g/dL (2.3-3.5); Glucose Level 170 mg/dL (74-106); Magnesium 1.7 mg/dL (1.6-2.4); Potassium 4.3 mEq/L (3.5-5.1); Troponin High Sensitivity 11.6 pg/mL (<58.9)
[2025-06-16 10:35] LABS: Bilirubin Indirect, Calculated 0.2 mg/dL (0.2-0.8)
[2025-06-16 10:48] LABS: Sqamous Epithelial <5 /HPF (None Seen); Urine Crystals Unidentified Few /HPF (None Seen); Urine Culture Reflex Order REFLEXED; Urine Microscopic Reflex YN ORDER UMIC; Urine WBC Clump Few /HPF (None Seen); Urine Yeast (Budding) Moderate /HPF (None Seen)
--- NOTE | 2025-06-16 11:09 | RAD REPORT ---
Procedure: Chest Single View HISTORY: Fatigue COMPARISON: June 07, 2025 FINDINGS: The lungs appear clear of acute infiltrate. No significant pleural effusion noted. The heart is mildly enlarged. IMPRESSION: No acute abnormality is displayed.
--- NOTE | 2025-06-16 14:04 | RAD REPORT ---
EXAM: CT brain without contrast HISTORY: fall COMPARISON: None TECHNIQUE: Multiple contiguous axial images were obtained and a CT of the brain without contrast. Sag ittal and coronal reformats were performed. One or more of the following dose reduction techniques were used: Automated exposure control, adjust ment of the mA and/or kV according to patient size, and/or iterative reconstruction. FINDINGS: No evidence of hydrocephalus, intracranial hemorrhage, or extra-axial fluid collection. Moderate brain atrophy with moderate periventricular and deep white matter chronic microvascular isc hemic changes present. No evidence of midline shift or areas of brain edema. The calvarium is intact. The visualized paranasal sinuses and mastoid air cells are essentially clear . EXAM: CT of the cervical spine without contrast HISTORY: Neck pain, injury fall TECHNIQUE: Multiple contiguous axial images were obtained in a CT of the cervical spine without contr ast. Sagittal and coronal reformats were performed. FINDINGS: The vertebral bodies demonstrate normal height and alignment. No evidence of acute fracture or subluxation.. There is advanced C1-2 degenerative changes present with bony hypertrophy. Spondylosis in the form of posterior osteophyte/disc complexes are seen in the mid and lower cervical levels. No prevertebral soft tissue swelling is seen. Mild carotid atherosclerosis. Groundglass opacity in both upper lobes. COMBINED IMPRESSION: No evidence of acute intracranial abnormality. No evidence of acute osseous abnormality of the cervical spine.
--- NOTE | 2025-06-16 14:15 | EDPHYS ---
Physician Documentation [facility] Name: Gladis Cantu Age: 79 yrs Sex: Female : 1945 Arrival Date: 06/16/2025 Time: 09:55 Bed 3 Private MD: ED Physician Edmar Coffman HPI: 06/16 10:01 This 79 yrs old Female presents to ER via EMS with complaints of General Weakness. ms3 10:01 79-year-old female past medical history of hypertension, diabetes, diverticulitis, ms3 lymphedema, neuropathy, hypothyroidism presents to the emergency department via [facility] for fatigue. EMS states family members stated to them it was difficult to wake her from sleeping today. Patient recently has had intracranial hemorrhage and urinary tract infection. EMS notes patient's blood pressure to be 150s over 60s, heart rate in the 60s, 98% on room air, blood glucose level 252. Patient states she feels fatigued. Patient denies fevers, chills, nausea, vomiting, headache.. Historical: - Allergies: 09:59 Iodine; ph 09:59 PENICILLINS; ph 09:59 Sulfa (Sulfonamide Antibiotics); ph - PMHx: 09:59 Diabetes - IDDM; Diverticulitis; Hypertension; Hypothyroidism; lypmphoedema; neuropathy;ph - Immunization history:: Adult Immunizations unknown. - Infectious Disease History:: Denies. - Social history:: Smoking status: Patient denies any tobacco usage or history of. ROS: 10:01 Cardiovascular: Negative for chest pain, and palpitations. Respiratory: Negative for ms3 shortness of breath, cough, wheezing, and pleuritic chest pain, 10:01 Abdomen/GI: Negative for abdominal pain, nausea, vomiting, diarrhea, and constipation, MS/Extremity: Negative for injury and deformity, Skin: Negative for injury, rash, and discoloration, 10:01 Constitutional: Positive for fatigue, Exam: 10:01 Constitutional: This is a well developed, well nourished patient who is awake, alert, ms3 and in no acute distress. Cardiovascular: Regular rate and rhythm with a normal S1 and S2. No gallops, murmurs, or rubs. Normal PMI, no JVD. No pulse deficits. Respiratory: Lungs have equal breath sounds bilaterally, clear to auscultation and percussion. No rales, rhonchi or wheezes noted. No increased work of breathing, no retractions or nasal flaring. Abdomen/GI: Soft, non-tender, with normal bowel sounds. No distension or tympany. No guarding or rebound. No evidence of tenderness throughout. Skin: Warm, dry with normal turgor. Normal color with no rashes, no lesions, and no evidence of cellulitis. Sacral decubitus with hematoma present 11:59 ECG was reviewed by the Attending Physician. ms3 Vital Signs: 09:57 BP 150 / 59; Pulse 65; Resp 18; Temp 98.4(O); Pulse Ox 99% ; Weight 95.25 kg; ph 11:01 BP 146 / 93; Pulse 68; Resp 15; Pulse Ox 99% on R/A; ph 12:30 BP 155 / 58; Pulse 87; Resp 19; Pulse Ox 99% ; bp 13:17 BP 148 / 59; Pulse 63; Resp 18; Pulse Ox 99% on R/A; ph 14:12 BP 143 / 51; Pulse 88; Resp 18; Pulse Ox 98% on R/A; ph MDM: 09:59 Medical Screening Exam initiated ms3 10:01 Differential Diagnosis UTI vs PNA vs Anemia vs Electrolyte abnormality vs MN. ms3 12:39 ED course: Patient nephew states patient has had recent falls. Will obtain CT Head and ms3 neck.. 19:25 Data reviewed: vital signs, nurses notes, lab test result(s), EKG, radiologic studies, ms3 and as a result, I will discharge patient. Management of patient was discussed with the following: Primary Care Provider: Discussed case with Dr. Mckeon. Patient has to follow-up with Dr. Vaca today. Independent interpretation of the following test(s) in the Emergency Department CT Scan: My interpretation is CT head images reviewed by me do not reveal intracranial hemorrhage. Counseling: I had a detailed discussion with the patient and/or guardian regarding the historical points, exam findings, and any diagnostic results supporting the discharge/admit diagnosis, lab results, radiology results, the need for outpatient follow up, to return to the emergency department if symptoms worsen or persist or if there are any questions or concerns that arise at home. Special discussion: I discussed with the patient/guardian in detail that at this point there is no indication for admission to the hospital. It is understood, however, that if the symptoms persist or worsen the patient needs to return immediately for re-evaluation. ED course: Discussed imaging and labs with the patient and her nephew. Patient to follow-up with Dr. Mckeon in 2 to 3 days. Patient to follow-up in wound clinic today. All questions were answered. Return precautions discussed include worsening symptoms, or any other concerns.. 06/16 10:00 Order name: Basic Metabolic Panel; Complete Time: 11:59 ms3 06/16 10:00 Order name: CBC with Diff; Complete Time: 11:59 ms3 06/16 10:00 Order name: LFT's; Complete Time: 11:59 ms3 06/16 10:00 Order name: Magnesium; Complete Time: 11:59 ms3 06/16 10:00 Order name: Troponin HS; Complete Time: 11:59 ms3 06/16 10:36 Order name: UA Rfx Hubert Cult if indicated; Complete Time: 11:59 ph 06/16 11:04 Order name: Urine Culture EDRI 06/16 10:00 Order name: XRAY Chest (1 view); Complete Time: 11:59 ms3 06/16 12:39 Order name: CT Head C Spine; Complete Time: 14:13 ms3 06/16 10:00 Order name: EKG; Complete Time: 10:00 ms3 06/16 10:00 Order name: Cardiac monitoring; Complete Time: 10:12 ms3 06/16 10:00 Order name: EKG - Nurse/Tech; Complete Time: 10: ms3 06/16 10:00 Order name: IV Saline Lock; Complete Time: 10: ms3 06/16 10:00 Order name: Labs collected and sent; Complete Time: 10: ms3 06/16 10:00 Order name: O2 Per Protocol; Complete Time: 10: ms3 06/16 10:00 Order name: O2 Sat Monitoring; Complete Time: 10:04 ms3 EC:59 Rate is 67 beats/min. Rhythm is regular. QRS [place] is Normal. [place] interval is prolonged. ms3 QRS interval is normal. Clinical impression: 1st degree heart block and RBBB. Interpreted by me. Reviewed by me. Administered Medications: No medications were administered Disposition Summary: 06/16/25 14:14 Discharge Ordered Notes: Location: Home ms3 Condition: Stable ms3 Diagnosis - Other malaise and fatigue ms3 - Fall on same level, unspecified ms3 - Pressure ulcer of sacral region, unspecified stage ms3 - Essential (primary) hypertension ms3 Followup: ms3 - With: Kori Mckeon MD - When: 2 - 3 days - Reason: Recheck today's complaints Followup: ms3 - With: Margarito Vaca MD - When: Today - Reason: Discharge Instructions: - Discharge Summary Sheet ms3 - Hypertension, Adult ms3 - Preventing Pressure Injuries ms3 - DASH Eating Plan ms3 Forms: - Medication Reconciliation Form ms3 - Antibiotic Education ms3 - Prescription Opioid Use ms3 - Patient Portal Instructions ms3 - Leadership Thank You Letter ms3 Signatures: Dispatcher [employer] Kimberli Lau RN RN ph Edmar Coffman DO DO ms3 Corrections: (The following items were deleted from the chart) 19:27 10:01 Constitutional: This is a well developed, well nourished patient who is awake, ms3 alert, and in no acute distress. Cardiovascular: Regular rate and rhythm with a normal S1 and S2. No gallops, murmurs, or rubs. Normal PMI, no JVD. No pulse deficits. Respiratory: Lungs have equal breath sounds bilaterally, clear to auscultation and percussion. No rales, rhonchi or wheezes noted. No increased work of breathing, no retractions or nasal flaring. Abdomen/GI: Soft, non-tender, with normal bowel sounds. No distension or tympany. No guarding or rebound. No evidence of tenderness throughout. Skin: Warm, dry with normal turgor. Normal color with no rashes, no lesions, and no evidence of cellulitis. ms3
--- NOTE | 2025-06-16 14:15 | ER ---
Nurse's Notes [facility] Name: Gladis Cantu Age: 79 yrs Sex: Female : 1945 Arrival Date: 06/16/2025 Time: 09:55 Bed 3 Private MD: Diagnosis: Other malaise and fatigue;Fall on same level, unspecified;Pressure ulcer of sacral region, unspecified stage;Essential (primary) hypertension Presentation: 06/16 09:57 Chief complaint: EMS states: Family unable to wake her up this morning, when EMS ph arrived pt was minimally responsive but became more awake when placed in ambulance, pt has no complaints other than feeling tired, BGL 200s, other VSS, no fever. Coronavirus screen: Vaccine status: Patient reports being unvaccinated. Ebola Screen: No symptoms or risks identified at this time. Initial Sepsis Screen: Does the patient meet any 2 criteria? No. Patient's initial sepsis screen is negative. Does the patient have a suspected source of infection? No. Patient's initial sepsis screen is negative. Risk Assessment: Do you want to hurt yourself or someone else? Patient reports no desire to harm self or others. 09:57 Method Of Arrival: EMS: [facility] 09:57 Acuity: BERNICE 3 ph 10:02 Onset of symptoms was June 16, 2025. Triage Assessment: 10:02 General: Appears in no apparent distress. comfortable, Behavior is cooperative, drowsy, ph flat, Reports fatigue for. Pain: Denies pain. Neuro: Level of Consciousness is awake, obeys commands, lethargic, Oriented to person, place, time, situation, Reports weakness. Cardiovascular: Reports fatigue, Denies chest pain, Capillary refill < 3 seconds in bilateral fingers. Respiratory: Airway is patent Respiratory effort is even, unlabored. GI: No signs and/or symptoms were reported involving the gastrointestinal system. Derm: Skin is dry, Skin is pale, Skin temperature is warm. Historical: - Allergies: 09:59 Iodine; ph 09:59 PENICILLINS; ph 09:59 Sulfa (Sulfonamide Antibiotics); ph - PMHx: 09:59 Diabetes - IDDM; Diverticulitis; Hypertension; Hypothyroidism; lypmphoedema; neuropathy;ph - Immunization history:: Adult Immunizations unknown. - Infectious Disease History:: Denies. - Social history:: Smoking status: Patient denies any tobacco usage or history of. Screenin:01 [facility] ED Fall Risk Assessment (Adult) History of falling in the last 3 months, ph including since admission Yes- fall prone (multiple falls) (3 pts) Confusion or Disorientation No (0 pts) Intoxicated or Sedated No (0 pts) Impaired Gait Yes (1 pt) Mobility Assist Device Used Yes (1 pt) Altered Elimination Yes (1 pt) Score/Fall Risk Level 3 or more points = High Risk Oriented to surroundings, Maintained a safe environment, Hourly rounding (assess needs \T\ fall precautionary measures) done, Used ambulatory aids as needed (educated on \T\ assisted with). Abuse screen: Denies threats or abuse. Denies injuries from another. Nutritional screening: No deficits noted. Tuberculosis screening: No symptoms or risk factors identified. Assessment: 10:04 General: SEE TRIAGE ASSESSMENT. ph 10:40 Derm: Skin excoriation noted under bilateral breasts, under abdominal fold, and groin. ar8 DTI noted to sacrum, half dollar sized blackened area noted with surrounding purple discoloration to skin. 12:31 Reassessment: No changes from previously documented assessment. Patient is alert, bp oriented x 3, equal unlabored respirations, skin warm/dry/pink. Vital Signs: 09:57 BP 150 / 59; Pulse 65; Resp 18; Temp 98.4(O); Pulse Ox 99% ; Weight 95.25 kg; ph 11:01 BP 146 / 93; Pulse 68; Resp 15; Pulse Ox 99% on R/A; ph 12:30 BP 155 / 58; Pulse 87; Resp 19; Pulse Ox 99% ; bp 13:17 BP 148 / 59; Pulse 63; Resp 18; Pulse Ox 99% on R/A; ph 14:12 BP 143 / 51; Pulse 88; Resp 18; Pulse Ox 98% on R/A; ph ED Course: 09:57 Patient arrived in ED. ph 09:59 Edmar Coffman DO is Attending Physician. ms3 09:59 Triage completed. ph 10:00 Arm band placed on Patient placed in an exam room, on a stretcher, on site monitor, ph on pulse oximetry. 10:02 Patient has correct armband on for positive identification. Call light in reach. Side ph rails up X 1. Door closed. Noise minimized. Warm blanket given. Pillow given. 10:04 Kimberli Ruiz, RN is Primary Nurse. ph 10:09 Inserted saline lock: 22 gauge in right forearm, using aseptic technique. Blood ar8 collected. Flushed with 10 mL NS. 10:12 Basic Metabolic Panel Sent. ar8 10:12 CBC with Diff Sent. ar8 10:12 LFT's Sent. ar8 10:12 Magnesium Sent. ar8 10:12 Troponin HS Sent. ar8 10:35 Urine collected: straight cath specimen, cloudy, gabriella colored, Amount Returned: 400mL. ar8 10:37 XRAY Chest (1 view) In Process Unspecified. EDMS 12:56 CT Head C Spine In Process Unspecified. EDMS 14:13 Koir Mckeon MD is Referral Physician. ms3 14:14 Margarito Vaca MD is Referral Physician. ms3 14:55 No provider procedures requiring assistance completed. IV discontinued, intact, ph bleeding controlled, No redness/swelling at site. Pressure dressing applied. Administered Medications: No medications were administered Medication: 10:02 VIS not applicable for this client. ph Outcome: 14:14 Discharge ordered by MD. ms3 14:55 Discharged to home via wheelchair, with family, ph 14:55 Condition: good 14:55 Discharge instructions given to patient, family, Instructed on discharge instructions, follow up and referral plans. Demonstrated understanding of instructions, follow-up care, 14:55 Patient left the ED. ph Signatures: Dispatcher [employer] [facility] Kimberli Ruiz, RN RN Juan Antonio Carlos, RN RN Edmar Rodriguez DO DO ms3 Reyes Tim, RN RN ar8
[2025-06-16 16:48] VITALS: TEMP 98.4
[2025-06-16 16:54] VITALS: BP 143/51; O2SAT 98
== END 2025-06-16 14:55 | disposition home or self-care (01) ==
LOC: ER 09:55
DX: R53.1 Weakness (principal); R53.81 Other malaise; R53.83 Other fatigue; L89.159 Pressure ulcer of sacral region, unspecified stage; I10 Essential (primary) hypertension; W18.30XA Fall on same level, unspecified, initial encounter; E11.9 Type 2 diabetes mellitus without complications
CPT/HCPCS: 36415; 70450; 71045; 72125; 80048; 80076; 81001; 83735; 84484; 85025; 87077; 87086; 87088; 87186; 93005; 99284

== ENCOUNTER 2025-08-08 09:28 | Inpatient (IN) | payer OTHER, MEDICARE ==
[2025-08-08 10:11] LABS: Absolute Lymphocytes (CBC) 1.9 K/uL (0.7-4.9); Hematocrit 30.8 % (36.0-45.0); Hemoglobin 10.3 g/dL (12.0-15.0); MCH 25.7 pg (27.0-35.0); MCHC 33.3 g/dL (32.0-36.0); MCV 77.3 fL (80-100); MPV 7.8 fL (7.6-11.3); Nucleated RBC Absolute Count 0.0 (0-0); Nucleated Red Blood Cells % 0.1 % (0-0); RBC Red Blood Cell Count 3.99 M/uL (3.86-4.86); White Blood Count 6.10 thou/uL (4.3-10.9)
[2025-08-08 10:16] LABS: Urine Crystals Unidentified Moderate /HPF (None Seen); Urine Culture Reflex Order REFLEXED; Urine Microscopic Reflex YN ORDER UMIC; Urine WBC Clump Many /HPF (None Seen); Urine Yeast (Budding) Many /HPF (None Seen)
[2025-08-08 10:23] LABS: PT Prothrombin Time 14.5 SECONDS (10-13.0); PTT, Activated Partial Thromb 28.8 SECONDS (27.2-37.4); Protime INR 1.29
[2025-08-08 10:41] LABS: ALT/SGPT 18.0 U/L (13-56); AST/SGOT 20.0 U/L (15-37); Albumin 1.9 g/dL (3.4-5.0); Albumin/Globulin Ratio 0.4 (1.1-1.8); Alkaline Phosphatase 144.0 U/L (45-117); Anion Gap 8.2 mEq/L (5.0-15.0); BUN Blood Urea Nitrogen 10.0 mg/dL (7-18); Globulin 4.6 g/dL (2.3-3.5); Glucose Level 172.0 mg/dL (74-106); NT PRO-BNP 7332.0 pg/mL (<450); Potassium 3.2 mEq/L (3.5-5.1); Troponin High Sensitivity 23.2 pg/mL (<58.9)
--- NOTE | 2025-08-08 11:00 | EDPHYS ---
Physician Documentation [facility] Name: Gladis Cantu Age: 80 yrs Sex: Female : 1945 Arrival Date: 08/08/2025 Time: 09:28 Bed 8 Private MD: ED Physician Zoran Perez HPI: 08/08 09:33 This 80 yrs old Female presents to ER via EMS with complaints of General Weakness. sp3 09:40 80-year-old female with history of diabetes, hypertension, lymphedema presents via EMS sp3 from home with family calling due to generalized weakness, decreased energy and also a new rash that they happen and noticed on her back over the last 2 days. She has been treated for a decubitus ulcer by Dr. Vaca which has been healing well. Patient also states has been nauseated and has had some vomiting and been unable to keep food down. She denies any fever, headache, chest pain, shortness of breath, abdominal pain, syncope, known sick contacts, or any other signs or symptoms on ROS at this time.. Historical: - Allergies: 09:33 Iodine; jp5 09:33 PENICILLINS; jp5 09:33 Sulfa (Sulfonamide Antibiotics); jp5 09:33 Talwin; jp5 - PMHx: 09:33 Diabetes - IDDM; Diverticulitis; neuropathy; lypmphoedema; Hypothyroidism; Hypertension;jp5 - PSHx: 09:33 Cholecystectomy; Toes (at); Total abdominal hysterectomy; jp5 - Immunization history:: Adult Immunizations up to date. - Infectious Disease History:: Denies. - Social history:: Smoking status: Patient denies any tobacco usage or history of. ROS: 09:44 Constitutional: Negative for fever, chills, and weight loss, Eyes: Negative for injury, sp3 pain, redness, and discharge, Neck: Negative for injury, pain, and swelling, Cardiovascular: Negative for chest pain, palpitations, and edema, Respiratory: Negative for shortness of breath, cough, wheezing, and pleuritic chest pain, Back: Negative for injury and pain, MS/Extremity: Negative for injury and deformity, Skin: Negative for injury, rash, and discoloration, Psych: Negative for depression, anxiety, suicide ideation, homicidal ideation, and hallucinations, Allergy/Immunology: Negative for hives, rash, and allergies, Endocrine: Negative for neck swelling, polydipsia, polyuria, polyphagia, and marked weight changes, 09:44 All other systems are negative, Exam: 09:45 Constitutional: This is a well developed, well nourished patient who is awake, alert, sp3 and in no acute distress. Head/Face: Normocephalic, atraumatic. Eyes: Pupils equal round and reactive to light, extra-ocular motions intact. Lids and lashes normal. Conjunctiva and sclera are non-icteric and not injected. Cornea within normal limits. Periorbital areas with no swelling, redness, or edema. Neck: Trachea midline, no thyromegaly or masses palpated, and no cervical lymphadenopathy. Supple, full range of motion without nuchal rigidity, or vertebral point tenderness. No Meningismus. Chest/axilla: Normal chest wall appearance and motion. Nontender with no deformity. No lesions are appreciated. Cardiovascular: Regular rate and rhythm with a normal S1 and S2. No gallops, murmurs, or rubs. Normal PMI, no JVD. No pulse deficits. Respiratory: Lungs have equal breath sounds bilaterally, clear to auscultation and percussion. No rales, rhonchi or wheezes noted. No increased work of breathing, no retractions or nasal flaring. Abdomen/GI: Soft, non-tender, with normal bowel sounds. No distension or tympany. No guarding or rebound. No evidence of tenderness throughout. MS/ Extremity: Pulses equal, no cyanosis. Neurovascular intact. Full, normal range of motion. Neuro: Awake and alert, GCS 15, oriented to person, place, time, and situation. Cranial nerves II-XII grossly intact. Motor strength 5/5 in all extremities. Sensory grossly intact. Cerebellar exam normal. Normal gait. Psych: Awake, alert, with orientation to person, place and time. Behavior, mood, and affect are within normal limits. 09:45 Skin: Small erythematous maculopapular rash noted on the left lumbar area. 10:18 ECG was reviewed by the Attending Physician. EKG demonstrates normal sinus rhythm at 71 sp3 bpm with first-degree AV block with NJ interval 222 ms, QTc of 460, right bundle branch block nonspecific diffuse ST/T changes without evidence of acute ischemia. Vital Signs: 09:30 BP 175 / 59 LA Supine; Pulse 67; Resp 18; Temp 98.7(O); Pulse Ox 99% on R/A; jp5 10:30 BP 172 / 67; Pulse 70; Resp 18; Pulse Ox 97% on R/A; Weight 105.23 kg; Height 5 ft. 6 mb9 in. ; 11:00 BP 177 / 81; Pulse 70; Resp 18; Pulse Ox 98% on R/A; jp5 12:00 BP 172 / 66; Pulse 94; Resp 18; Temp 98.5; Pulse Ox 97% on R/A; jp5 12:36 BP 173 / 78; Pulse 91; Resp 18; Pulse Ox 99% on R/A; jp5 10:30 Body Mass Index 37.44 (105.23 kg, 167.64 cm) 9 MDM: 09:29 Medical Screening Exam initiated sp3 09:45 Data reviewed: vital signs, nurses notes, EMS record, old medical records, lab test sp3 result(s), EKG, radiologic studies. ED course: Differential diagnosis includes viral illness, UTI, dehydration, other intra-abdominal process, and to a lesser degree ACS, pneumonia or other similar issue. Workup will be broad and include full sepsis workup including cardiac markers, UA, chest x-ray, viral swabs, cultures with disposition pending workup and patient course.. 10:58 ED course: Patient with positive UTI and also elevated BNP. Patient will be admitted to [facility] her PCP Dr. Mckeon. Clarisa has been started.. 10 09:30 Order name: BNP; Complete Time: 10:51 sp3 08/08 09:30 Order name: Blood Culture Adult (2) sp3 08/08 09:30 Order name: CBC with Diff; Complete Time: 10:51 sp3 08/08 09:30 Order name: CMP; Complete Time: 10:51 sp3 08/08 09:30 Order name: Lactate w/ 2H reflex if indic.; Complete Time: 10:51 sp3 08/08 09:30 Order name: Protime (+inr); Complete Time: 10:51 sp3 08/08 09:30 Order name: Ptt, Activated; Complete Time: 10:51 sp3 08/08 09:30 Order name: Troponin HS; Complete Time: 10:51 sp3 08/08 09:30 Order name: COVID-19 Ag + Flu A+B Ag; Complete Time: 12:23 sp3 08/08 09:30 Order name: UA Rfx Hubert Cult if indicated; Complete Time: 10:51 sp3 08/08 10:24 Order name: Urine Culture EDMS 08/08 12:00 Order name: Basic Metabolic Panel EDMS 08/08 12:00 Order name: Basic Metabolic Panel EDMS 08/08 12:00 Order name: Basic Metabolic Panel EDMS 08/08 12:00 Order name: Basic Metabolic Panel EDMS 08/08 12:00 Order name: CBC without Diff EDMS 08/08 12:00 Order name: CBC without Diff EDMS 08/08 12:00 Order name: CBC without Diff EDMS 08/08 12:00 Order name: CBC without Diff EDMS 08/08 09:30 Order name: Chest Single View XRAY; Complete Time: 12:23 sp3 08/08 12:00 Order name: Physical Therapy Consult EDMS 08/08 09:30 Order name: Cardiac monitoring; Complete Time: 10:03 sp3 08/08 09:30 Order name: EKG - Nurse/Tech; Complete Time: 10:03 sp3 08/08 09:30 Order name: IV Saline Lock - Large Bore; Complete Time: 10:03 sp3 08/08 09:30 Order name: Labs collected and sent; Complete Time: 10:03 sp3 08/08 09:30 Order name: O2 Per Protocol; Complete Time: 10:03 sp3 08/08 09:30 Order name: O2 Sat Monitoring; Complete Time: 10:03 sp3 08/08 09:30 Order name: Vital Signs; Complete Time: 10:03 sp3 Administered Medications: 11:22 Drug: levofloxacin IVPB 500 mg 100 ml IVPB once over 60 mins Volume: 100 ml; Route: jp5 IVPB; Infused Over: 60 mins; Site: left forearm; 12:22 Follow up: Response: No adverse reaction; IV Status: Completed infusion; IV Intake: jp5 100ml Disposition Summary: 08/08/25 10:59 Hospitalization Ordered Notes: Hospitalization Status: Inpatient Admission sp3 Provider: Kori Mckeon Location: Telemetry/[facility] (Inpatient) sp3 Condition: Stable sp3 Problem: an acute exacerbation sp3 Symptoms: have worsened sp3 Bed/Room Type: Standard sp3 Room Assignment: 202(08/08/25 12:01) bd Diagnosis - Urinary tract infection, general deconditioning, mild CHF sp3 Forms: - Medication Reconciliation Form sp3 - SBAR form sp3 - Leadership Thank You Letter sp3 Signatures: Dispatcher [employer] [facility] Shelby Conrad Setul, MD MD sp3 Therese Milan RN RN jp5 Corrections: (The following items were deleted from the chart) 09:31 09:31 Chest Single View+RAD.RAD.BRZ ordered. [facility] 12:01 10:59 sp3 bd
--- NOTE | 2025-08-08 11:00 | ER ---
Nurse's Notes [facility] Name: Gladis Cantu Age: 80 yrs Sex: Female : 1945 Arrival Date: 08/08/2025 Time: 09:28 Bed 8 Private MD: Diagnosis: Urinary tract infection, general deconditioning, mild CHF Presentation: 08/08 09:30 Chief complaint: EMS states: EMS reports pt's family states pt has been weaker and jp5 lethargic, more than normal since yesterday. Also noted a rash to left lower back 2 days ago and burning with urination. Pt c/o nausea and unable to eat for the last 2 days. Coronavirus screen: Client denies travel out of the [place] in the last 14 days. At this time, the client does not indicate any symptoms associated with coronavirus-19. Ebola Screen: No symptoms or risks identified at this time. Initial Sepsis Screen: Does the patient meet any 2 criteria? No. Patient's initial sepsis screen is negative. Does the patient have a suspected source of infection? No. Patient's initial sepsis screen is negative. Risk Assessment: Do you want to hurt yourself or someone else? Patient reports no desire to harm self or others. Onset of symptoms was August 06, 2025. 09:30 Method Of Arrival: EMS: [facility] jp5 09:30 Acuity: BERNICE 3 jp5 Triage Assessment: 09:34 General: Appears in no apparent distress. comfortable, Behavior is calm, cooperative, jp5 appropriate for age. Pain: Denies pain. Historical: - Allergies: 09:33 Iodine; jp5 09:33 PENICILLINS; jp5 09:33 Sulfa (Sulfonamide Antibiotics); jp5 09:33 Talwin; jp5 - PMHx: 09:33 Diabetes - IDDM; Diverticulitis; neuropathy; lypmphoedema; Hypothyroidism; Hypertension;jp5 - PSHx: 09:33 Cholecystectomy; Toes (at); Total abdominal hysterectomy; jp5 - Immunization history:: Adult Immunizations up to date. - Infectious Disease History:: Denies. - Social history:: Smoking status: Patient denies any tobacco usage or history of. Screenin:45 [facility] ED Fall Risk Assessment (Adult) History of falling in the last 3 months, jp5 including since admission No falls in past 3 months (0 pts) Confusion or Disorientation No (0 pts) Intoxicated or Sedated No (0 pts) Impaired Gait Yes (1 pt) Mobility Assist Device Used Yes (1 pt) Altered Elimination No (0 pt) Score/Fall Risk Level 0 - 2 = Low Risk Oriented to surroundings, Maintained a safe environment, Educated pt \T\ family on fall prevention, incl call for assistance when getting out of bed, Assessed \T\ reinforced patient's understanding of fall precautions, Provided non-skid footwear, Hourly rounding (assess needs \T\ fall precautionary measures) done, Used ambulatory aids as needed (educated on \T\ assisted with), Used gait belt as appropriate. Abuse screen: Denies threats or abuse. Denies injuries from another. Nutritional screening: No deficits noted. Tuberculosis screening: No symptoms or risk factors identified. Assessment: 09:35 General: Appears in no apparent distress. Behavior is calm, cooperative, appropriate jp5 for age. Neuro: Level of Consciousness is awake, alert, obeys commands, Oriented to person, place, time, situation, Appropriate for age. GI: Reports lower abdominal pain, intolerance of food, nausea. : Reports burning with urination, since 2 days ago, has hx of frequent UTI's. Derm: Rash noted that is red, on left low back. 10:35 Reassessment: Patient appears in no apparent distress at this time. No changes from jp5 previously documented assessment. Patient and/or family updated on plan of care and expected duration. Pain level reassessed. Patient is alert, oriented x 3, equal unlabored respirations, skin warm/dry/pink. Patient denies pain at this time. 11:35 Reassessment: Patient appears in no apparent distress at this time. No changes from jp5 previously documented assessment. Patient and/or family updated on plan of care and expected duration. Pain level reassessed. Patient is alert, oriented x 3, equal unlabored respirations, skin warm/dry/pink. Patient denies pain at this time. 12:35 Reassessment: Patient appears in no apparent distress at this time. No changes from jp5 previously documented assessment. Patient and/or family updated on plan of care and expected duration. Pain level reassessed. Patient is alert, oriented x 3, equal unlabored respirations, skin warm/dry/pink. Patient denies pain at this time. Vital Signs: 09:30 BP 175 / 59 LA Supine; Pulse 67; Resp 18; Temp 98.7(O); Pulse Ox 99% on R/A; jp5 10:30 BP 172 / 67; Pulse 70; Resp 18; Pulse Ox 97% on R/A; Weight 105.23 kg; Height 5 ft. 6 [facility] in. ; 11:00 BP 177 / 81; Pulse 70; Resp 18; Pulse Ox 98% on R/A; jp5 12:00 BP 172 / 66; Pulse 94; Resp 18; Temp 98.5; Pulse Ox 97% on R/A; jp5 12:36 BP 173 / 78; Pulse 91; Resp 18; Pulse Ox 99% on R/A; jp5 10:30 Body Mass Index 37.44 (105.23 kg, 167.64 cm) 9 ED Course: 09:29 Patient arrived in ED. jp5 09:29 Zoran Perez MD is Attending Physician. sp3 09:33 Triage completed. jp5 09:34 Arm band placed on left wrist. jp5 09:45 Patient has correct armband on for positive identification. Bed in low position. Call jp5 light in reach. Side rails up X 1. Provided Education on: call light use. teletypesetter monitor on. Pulse ox on. NIBP on. Warm blanket given. 09:45 Inserted saline lock: 20 gauge in left forearm, using aseptic technique. Blood jp5 collected. Flushed with 10 mL NS. 09:45 First set of blood cultures drawn by me. jp5 09:53 Radiology exam delayed due to patient getting blood work done at this time. md2 09:57 Second set of blood cultures drawn by me. jp5 10:00 No provider procedures requiring assistance completed. jp5 10:02 BNP Sent. jp5 10:02 Blood Culture Adult (2) Sent. jp5 10:02 CBC with Diff Sent. jp5 10:02 CMP Sent. jp5 10:02 Lactate w/ 2H reflex if indic. Sent. jp5 10:02 Protime (+inr) Sent. jp5 10:02 Ptt, Activated Sent. jp5 10:03 Troponin HS Sent. jp5 10:03 UA Rfx Hubert Cult if indicated Sent. jp5 10:09 EKG done, by ED staff, reviewed by Zoran Perez MD. jp5 10:59 Kori Mckeon MD is Hospitalizing Provider. sp3 11:24 Therese Milan, RN is Primary Nurse. jp5 11:30 Chest Single View XRAY In Process Unspecified. EDMS 12:30 Report given to SBAR, yellow sheet, and EKG faxed to 2nd floor. JOLANTA Huber confirmed jp5 received. 12:50 Cleaned of incontinence. jp5 Administered Medications: 11:22 Drug: levofloxacin IVPB 500 mg 100 ml IVPB once over 60 mins Volume: 100 ml; Route: jp5 IVPB; Infused Over: 60 mins; Site: left forearm; 12:22 Follow up: Response: No adverse reaction; IV Status: Completed infusion; IV Intake: jp5 100ml Medication: 10:00 VIS not applicable for this client. jp5 Intake: 12:22 IV: 100ml; Total: 100ml. jp5 Outcome: 10:59 Decision to Hospitalize by Provider. sp3 13:00 Admitted to Med/surg accompanied by nurse, via wheelchair, room 202, with chart, jp5 13:00 Condition: stable 13:00 Instructed on the need for admit, Demonstrated understanding of instructions, 13:20 Patient left the ED. jp5 Signatures: Dispatcher [employer] EDMS Zoran Perez MD MD sp3 Allie Raymond Mary Beth, RN RN mb9 Therese Milan, RN RN jp5 Corrections: (The following items were deleted from the chart) 11:15 10:30 BP 172 / 67; Pulse 18bpm; Resp 70bpm; Pulse Ox 97% RA; 105.23 kg; Height 5 ft. 6 mb9 in.; BMI: 37.4; jp5
[2025-08-08] MEDS ORDERED: Levofloxacin500mg IV 500 MG/100 ML BAG IV ONE (11:17)
[2025-08-08 11:23] LABS: Influenza A Ag Negative; Influenza B Ag Negative; SARS-CoV-2 Antigen Rapid Res Negative (Negative)
--- NOTE | 2025-08-08 11:46 | RAD REPORT ---
Procedure: Chest Single View HISTORY: Malaise COMPARISON: June 2025 FINDINGS: The lungs appear clear of acute infiltrate. No significant pleural effusion noted. The heart is mildly enlarged IMPRESSION: No acute abnormality is displayed.
[2025-08-08] MEDS ORDERED: ACETAMINOPHEN 325 MG TABLET PO PRN (11:57)
[2025-08-08] MEDS ORDERED: ONDANSETRON 4 MG/2 ML VIAL IV PRN (11:57)
[2025-08-08] MEDS ORDERED: D50W 25 GM/50 ML SYRINGE IV PRN (12:09)
[2025-08-08] MEDS ORDERED: GLUCAGON 1 MG/VIAL IM PRN (12:09)
[2025-08-08 13:20] VITALS: BMI 37.4
[2025-08-08] MEDS: INSULIN REGULAR (HUMAN) 100 UNIT/ML SQ SCH (16:30)
[2025-08-08] MEDS: DOCUSATE NA 100 MG CAP PO SCH (20:35)
[2025-08-08] MEDS: ATORVASTATIN 40 MG TAB PO SCH (20:35)
[2025-08-08] MEDS: GABAPENTIN 100 MG CAP PO SCH (20:36)
[2025-08-08] MEDS: NORTRIPTYLINE HCL 25 MG CAP PO SCH (20:37)
[2025-08-08] MEDS ORDERED: HOME MED 1 EA UNK (Nortriptyline Hcl [Pamelor] 50 MG Capsule) PO SCH (21:00)
[2025-08-08] MEDS: HYDROCODONE/APAP 7.5/325 MG TAB PO PRN (22:35)
--- NOTE | 2025-08-09 03:33 | HP ---
Date of Admission: 08/08/2025 Chief Complaint: Nausea, vomiting, burning on urination, and feeling weak. History Of Present Illness: This is a 80-year-old female patient, who has history of multiple recurrent urinary tract infection, lives at home, was brought into emergency room today after office was contacted by family member with above-mentioned complaints and she was asked to come to emergency room and after she was evaluated in ER, I was contacted requesting admission to the hospital. The patient denies any constipation or diarrhea. No fever. No chills. Medications: 1. Amlodipine 10 mg, take 1 tablet by mouth daily. 2. Atenolol 50 mg, take 1 tablet by mouth daily. 3. Vitamin B12, 1000 mcg, take 1 tablet by mouth daily. 4. Famotidine 20 mg, take 1 tablet by mouth two times a day. 5. Gabapentin 100 mg, take 2 capsules by mouth two times a day. 6. Hydralazine 50 mg, take 1 tablet by mouth two times a day. 7. [place] 7.5 mg, take 1 tablet by mouth three times a day as needed for pain as prescribed by your pain management physician. 8. Novolin insulin 70/30: Take 16 units subcutaneously two times a day. 9. Isosorbide mononitrate 30 mg, take 1 tablet by mouth daily. 10. Levothyroxine 200 mcg, take 1 tablet by mouth daily. 11. Aspirin 81 mg, take 1 tablet by mouth daily with food. 12. Furosemide 40 mg, take 1 tablet by mouth daily. 13. Lisinopril 20 mg, take 1 tablet by mouth two times a day. 14. Nortriptyline 50 mg, take 1 tablet by mouth daily at bedtime. 15. Atorvastatin 40 mg, take 1 tablet by mouth daily at bedtime. 16. Potassium chloride 20 mEq, take 1 tablet by mouth daily. Allergies: TO PENICILLIN, CAUSING RASH AND ITCHING AND SULFA ALSO CAUSING RASH AND ITCHING. Review of Systems: Constitutional: As mentioned above. GI: As mentioned above. : As mentioned above. All other systems reviewed and negative. Past Medical History: Significant for paroxysmal atrial fibrillation, chronic diastolic heart failure, hypertension; type 2 diabetes mellitus; chronic kidney disease, stage IIIA; diabetes mellitus with chronic kidney disease; mixed hyperlipidemia; diverticulosis; hypothyroidism; chronic leg edema; thrombocytopenia; cervical spondylosis; osteoarthritis at multiple sites; peripheral vascular disease. Past Surgical History: Significant for cataract surgery, cholecystectomy, hysterectomy, carpal tunnel release. Family History: Father , had coronary artery disease, diabetes, lung cancer.Mother , had diabetes, hypertension, kidney cancer. Brother with coronary artery disease and sister with coronary artery disease. Social History: Negative for smoking and alcohol use Physical Examination: Vital Signs: Height 5 feet 6 inches, weight 232 pounds. Temperature 97.9, pulse 71, respiratory rate 18, blood pressure 181/83, oxygen saturation 96%. General: Awake, alert, oriented, not in distress. HEENT: Head atraumatic, normocephalic. Conjunctivae nonerythematous. Sclerae white. Mouth, no thrush or edema noted. Ears/Nose, no mass, lesion, discharge noted. Neck: Supple. No JVD, lymph nodes, bruit, thyromegaly noted. Lungs: Bilateral good equal air entry. Clear to auscultation. No rhonchi. No rales. Heart: Normal heart sounds, no murmur or gallop. Abdomen: Soft, bowel sounds normal. No guarding, rigidity, tenderness, mass, hepatosplenomegaly, distention, or bruit noted. Extremities: No leg edema. No calf tenderness. Skin: No rash, ulcer, cellulitis. Lymphatics: No lymph node enlargement in neck, supraclavicular, infraclavicular region. Neuro: No focal neurological deficit. Chest: Unremarkable. External Genitalia: Deferred. Rectal: Deferred. Laboratory Data: WBC 6.10, hemoglobin 10.3, platelets 171. Sodium 131, potassium 3.2, chloride 98, bicarb 28, BUN 10, creatinine 1.08, glucose 172, lactic acid 1.2. Liver function tests unremarkable. Troponin 23.2. ProBNP 7332. Urinalysis, extremely turbid appearance, 3+ blood, 1+ nitrite, 500 leukocyte esterase, more than 50 rbc, more than 50 wbc, less than 20 bacteria. Influenza A, B, and COVID-19 test negative. Chest x-ray, no acute cardiopulmonary changes. Impression: 1. Urinary tract infection. 2. Anemia, unspecified. 3. Hypokalemia. 4. Hyponatremia. 5. Chronic kidney disease stage IIIA. 6. Type 2 diabetes mellitus, uncontrolled. 7. Diabetes mellitus with polyneuropathy. 8. Hypertension. 9. Hyperlipidemia, mixed. 10. History of stroke with right thalamic hemorrhage. 11. Hypothyroidism. 12. Gastroesophageal reflux disease. 13. Osteoarthritis, multiple sites. 14. Diverticulosis. Plan: Admit the patient to hospital for further evaluation and management of this problem. The patient is appropriate for inpatient and is expected to spend 2 midnights in hospital. For urinary tract infection, appropriate cultures were sent from emergency room and empiric antibiotic Levaquin was started which we will continue that. Once urine culture result is available, then we will decide about culture-specific antibiotics. DVT prophylaxis will be given per order. We will consult Physical Therapy to help ambulate. The patient has been seeing Dr. Vaca at [facility] for her decubitus ulcer over buttocks and we will consult him and I have called and discussed details with him requesting consultation. Diabetes will be managed with insulin per order and for hypertension, we will continue antihypertensive medication. Monitor blood pressure and if necessary, adjust medication. For hyperlipidemia, continue her statin therapy. No need for further intervention. Anemia, will not require any further intervention except monitoring. Hypokalemia, we will monitor electrolytes again tomorrow and replace it as it becomes necessary. Hyponatremia will not require any further intervention. For hypothyroidism, she is on levothyroxine, which we will continue that, no need for further intervention. Total time spent today 65 minutes including communication with emergency room physician, review of emergency room visit record, performing today's evaluation and management as well as review of last hospital admission record from 06/29/2025. ISAAC/PAULA Voice ID: [id number] SINGH
[2025-08-09] MEDS: LEVOTHYROXINE SOD 0.1 MG TAB PO SCH (05:40)
[2025-08-09 06:32] LABS: Hematocrit 32.5 % (36.0-45.0); Hemoglobin 11.0 g/dL (12.0-15.0); MCH 26.0 pg (27.0-35.0); MCHC 33.7 g/dL (32.0-36.0); MCV 77.0 fL (80-100); MPV 8.3 fL (7.6-11.3); RBC Red Blood Cell Count 4.22 M/uL (3.86-4.86); White Blood Count 5.50 thou/uL (4.3-10.9)
[2025-08-09 06:56] LABS: Anion Gap 6.9 mEq/L (5.0-15.0); BUN Blood Urea Nitrogen 9.0 mg/dL (7-18); Glucose Level 169.0 mg/dL (74-106); Potassium 2.9 mEq/L (3.5-5.1)
[2025-08-09] MEDS: NA CHLORIDE 0.9% 250 ML ONE (08:03)
[2025-08-09] MEDS: ISOSORBIDE MONO SR 30 MG TAB PO SCH (08:06)
[2025-08-09] MEDS: HYDRALAZINE HCL 25 MG TABLET PO SCH (08:06)
[2025-08-09] MEDS: AMLODIPINE 10 MG TAB PO SCH (08:06)
[2025-08-09] MEDS: GABAPENTIN 100 MG CAP PO SCH (08:07)
[2025-08-09] MEDS: POTASSIUM CL SA 10 MEQ TAB PO SCH (08:07)
[2025-08-09] MEDS: FUROSEMIDE 40 MG TABLET PO SCH (08:07)
[2025-08-09] MEDS: FAMOTIDINE 20 MG TAB PO SCH (08:08)
[2025-08-09] MEDS: Levofloxacin 250mg IV 250 MG/50 ML BAG IV SCH (08:08)
[2025-08-09] MEDS: CYANOCOBALAMIN 1,000 MCG TAB PO SCH (08:08)
[2025-08-09] MEDS: ASPIRIN EC 81 MG TAB PO SCH (08:08)
[2025-08-09] MEDS: KCL 20 MEQ/100 mL IVPB 20 MEQ/100 ML BAG IV SCH (08:09)
[2025-08-09] MEDS ORDERED: ASPIRIN EC 81 MG TAB PO SCH (09:00)
[2025-08-09] MEDS ORDERED: HOME MED 1 EA UNK (Levothyroxine Sodium [Synthroid] 200 MCG Tablet) PO SCH (09:00)
[2025-08-09] MEDS ORDERED: FAMOTIDINE 20 MG TAB PO SCH (09:00)
[2025-08-09] MEDS: DIGOXIN 0.25 MG/ML AMP ONE (12:13)
[2025-08-09] MEDS: DIGOXIN 0.25 MG/ML AMP IV ONE (12:14)
--- NOTE | 2025-08-09 14:13 | CON ---
Date of Consultation: 08/09/2025 Reason For Consultation: Sacral decubitus. History Of Present Illness: The patient is a 80-year-old female with multiple medical problems, was admitted with symptoms of UTI and being treated by Dr. Mckeon and was noted to have a sacral decubitus which we were following [facility]. The patient denies any fever, chills, or purule nt discharge. She stated there is no pain associated with the wound also. Review of Systems: Otherwise, unremarkable. Past Medical History: Significant for chronic kidney disease, type 2 diabetes, morbid obesity, hyper tension, hyperlipidemia, stroke, hypothyroidism. Allergies: INCLUDE PENICILLIN, SULFA, CODEINE. Social History: The patient does not smoke or drink alcohol. Family History: Noncontributory. Physical Examination: Vital Signs: Stable. Blood pressure is slightly high and systolically is 193. She is afebrile. General: She is awake and alert. Head and Neck: No masses. Chest: Clear. Heart: S1, S2. Abdomen: Soft. Extremities: Neurovascularly intact. Neuro: Nonfocal. Skin: Sacral exam reveals approximately a 2.5 x 3 cm stage III sacral decubitus with good granulatio n tissue. No surrounding erythema, warmth, or edema. No evidence of any significant fibrin either. Assessment: Sacral decubitus. Recommendations: Continue as discussed with the patient in the [facility]ound Clinic. Alyssa dres sing, foam, and follow offloading. The patient to follow up in the [facility] after discha rge. /MODL Voice ID: [id number] Report ID: [id number]
[2025-08-09] MEDS ORDERED: ALPRAZOLAM 0.25 MG TABLET PO PRN (20:22)
--- NOTE | 2025-08-09 20:29 | PN ---
Date of Progress Note: 08/09/2025 Subjective: The patient was seen this morning for followup. No new complaints or problems reported by her overnight. Physical Examination: Vital Signs: Reviewed. Blood pressure was elevated this morning. HEENT: Unremarkable. Lungs: Clear to auscultation. Heart: Sounds normal. Abdomen: Soft. Bowel sounds normal. No guarding, rigidity, tenderness, distention. Extremities: No leg edema. Laboratory Data: WBC 5.5, hemoglobin 11, platelets 157. Sodium 134, potassium 2.9, chloride 99, bicarb 31, BUN 9, creatinine 0.92, glucose 169. Impression: 1. Urinary tract infection. 2. Hypokalemia. 3. Hypertension. 4. Type 2 diabetes mellitus, uncontrolled. 5. Orthostatic hypotension. Plan: We will go ahead and continue current antihypertensive medication per order. Continue antibiotics per order. Urine culture and blood culture result is pending. During the course of day today, nurse contacted me and informed me that the patient was assisted to go to the bathroom and while she was sitting on the commode, all of a sudden she felt extremely lightheaded and on alarm security or surveillance monitor, her heart rate was around 130 beats per minute and nurse contacted me with this. The patient denies any chest pain at that time or any shortness of breath. Nurse was advised to get blood pressure because of her prior history of orthostatic hypotension and her blood pressure was indeed low at that time after this episode, the patient was assisted to get back into the bed and slowly her blood pressure started to come up and when she was back in the bed, her repeat blood pressure was better. I will review her prior hospital records because at some point I believe we might have started midodrine on her and I will have to look at details to see why it was not continued. We will make further decision after that review process. Physical Therapy was consulted to assist the patient with ambulation. ISAAC/MODL Voice ID: [id number] Report ID: [id number] SINGH
[2025-08-09] MEDS: POTASSIUM CL SA 10 MEQ TAB PO ONE (21:18)
[2025-08-09] MEDS: ALPRAZOLAM 0.25 MG TABLET PO SCH (23:04)
[2025-08-10 06:11] LABS: Hematocrit 33.0 % (36.0-45.0); Hemoglobin 10.9 g/dL (12.0-15.0); MCH 25.6 pg (27.0-35.0); MCHC 33.1 g/dL (32.0-36.0); MCV 77.3 fL (80-100); MPV 8.1 fL (7.6-11.3); RBC Red Blood Cell Count 4.26 M/uL (3.86-4.86); White Blood Count 6.00 thou/uL (4.3-10.9)
[2025-08-10 06:24] LABS: Anion Gap 7.7 mEq/L (5.0-15.0); BUN Blood Urea Nitrogen 12.0 mg/dL (7-18); Glucose Level 128.0 mg/dL (74-106); Potassium 3.7 mEq/L (3.5-5.1)
[2025-08-10 22:04] VITALS: O2SAT 95
--- NOTE | 2025-08-11 07:10 | PN ---
Date of Progress Note: 08/10/2025 Subjective: The patient was seen this morning for followup. No new complaints or problems reported by the patient. She was lying in bed, not in distress. Objective: Vital Signs: Reviewed. HEENT: Unremarkable. Lungs: Clear to auscultation. Heart: Sounds normal. Abdomen: Soft. Bowel sounds normal. No guarding, rigidity, tenderness, distention. Extremities: No leg edema. Laboratory Data: Today, WBC 6, hemoglobin 10.9, platelets 168. Sodium 134, potassium 3.7, chloride 99, bicarb 31, BUN 12, creatinine 1.18, glucose 128. Impression: 1. Urinary tract infection. 2. Diabetes mellitus, uncontrolled. 3. Hypertension. 4. Hyperlipidemia. 5. Orthostatic hypotension. Plan: We will go ahead and continue current antibiotic. Urine culture result is still pending. We will continue empiric antibiotic at this point for urinary tract infection. Continue current antihyp ertensive medication and diabetes management. Nurse was asked to check for orthostatic vital signs t pauline and results reviewed. The patient has significant symptoms related to her orthostatic hypotension and we will consider starting midodrine 2.5 mg tablet 2 times a day. ISAAC/MODL Voice ID: [id number] Report ID: [id number]
[2025-08-11] MEDS: MIDODRINE HCL 5 MG TABLET PO SCH (08:24)
[2025-08-11 09:22] LABS: Hematocrit 34.3 % (36.0-45.0); Hemoglobin 11.2 g/dL (12.0-15.0); MCH 25.7 pg (27.0-35.0); MCHC 32.7 g/dL (32.0-36.0); MCV 78.4 fL (80-100); MPV 8.1 fL (7.6-11.3); RBC Red Blood Cell Count 4.38 M/uL (3.86-4.86); White Blood Count 6.70 thou/uL (4.3-10.9)
[2025-08-11 09:39] LABS: Anion Gap 7.5 mEq/L (5.0-15.0); BUN Blood Urea Nitrogen 13.0 mg/dL (7-18); Glucose Level 180.0 mg/dL (74-106); Potassium 3.5 mEq/L (3.5-5.1)
[2025-08-11] MEDS: NITROFURAN MACRO 100 MG CAP PO SCH (20:26)
--- NOTE | 2025-08-11 21:39 | PN ---
Date of Progress Note: 08/11/2025 Subjective: The patient was seen this morning for followup. She was lying in bed, not in distress. No new complaints or problems reported. Objective: Vital Signs: Reviewed. HEENT: Unremarkable. Lungs: Clear to auscultation. Heart: Sounds normal. Abdomen: Soft. Bowel sounds normal. No guarding, rigidity, tenderness, distention. Extremities: No leg edema. Laboratory Data: Urine culture grew Staphylococcus aureus and sensitivity results reviewed. Impression: 1. Urinary tract infection. 2. Hypertension. 3. Type 2 diabetes mellitus, uncontrolled. 4. Hyperlipidemia. 5. Orthostatic hypotension. Plan: We will continue current medications. Continue current antihypertensive medication. We will start patient on midodrine 2.5 mg 2 times a day to be given at 7:00 a.m. and 2:00 p.m. and we will se e how she responds to that. Start the patient on nitrofurantoin for this urinary tract infection. S he is on Levaquin since admission for the urinary tract infection as well. The patient will be ready for possible discharge as early as tomorrow and Social Service consultation was requested to make ar rangements for discharge in terms of Home Health care services for snf care as well as home physical therapy. I will see h er tomorrow morning for followup. ISAAC/MODL Voice ID: [id number] Report ID: [id number]
[2025-08-12 13:24] VITALS: BP 168/73; TEMP 97.7
--- NOTE | 2025-08-13 04:35 | DS ---
Date of Discharge: 08/12/2025 Disposition: Discharged to go home. Physical Examination: HEENT: Unremarkable. Lungs: Clear to auscultation. Heart: Sounds normal. Abdomen: Soft, bowel sounds normal. No guarding, rigidity, tenderness, distention. Extremities: No leg edema. Discharge Medications/instructions: Continue all prior home medications as below: 1. Amlodipine 10 mg, take 1 tablet by mouth daily. 2. Atenolol 50 mg, take 1 tablet by mouth daily. 3. Vitamin B12, 1000 mcg, take 1 tablet by mouth daily. 4. Famotidine 20 mg, take 1 tablet by mouth two times a day. 5. Gabapentin 100 mg, take 2 capsules by mouth two times a day. 6. Hydralazine 50 mg, take 1 tablet by mouth two times a day. 7. [place] 7.5 mg, take 1 tablet by mouth three times a day as needed for pain as prescribed by your pain management physician. 8. Novolin insulin 70/30: Take 16 units subcutaneously two times a day. 9. Isosorbide mononitrate 30 mg, take 1 tablet by mouth daily. 10. Levothyroxine 200 mcg, take 1 tablet by mouth daily. 11. Aspirin 81 mg, take 1 tablet by mouth daily with food. 12. Furosemide 40 mg, take 1 tablet by mouth daily. 13. Lisinopril 20 mg, take 1 tablet by mouth two times a day. 14. Nortriptyline 50 mg, take 1 tablet by mouth daily at bedtime. 15. Atorvastatin 40 mg, take 1 tablet by mouth daily at bedtime. 16. Potassium chloride 20 mEq, take 1 tablet by mouth daily. New medications (prescriptions will be sent to your [facility] pharmacy from Dr. Mckeon's office): Start Nitrofurantoin 100 mg, take 1 capsule by mouth two times a day for ten days. Start Midodrine 2.5 mg, take 1 tablet by mouth two times a day (take it at 7 am and 2 pm). Follow up with Dr. Mckeon week after next. Follow up [facility] Dr[facility]. Laboratory Data: WBC 6.10, hemoglobin 10.3, platelets 171. Sodium 131, potassium 3.2, chloride 98, bicarb 28, BUN 10, creatinine 1.08, glucose 172, lactic acid 1.2. Liver function tests unremarkable. Troponin 23.2. ProBNP 7332. Urinalysis, extremely turbid appearance, 3+ blood, 1+ nitrite, 500 leukocyte esterase, more than 50 rbc, more than 50 wbc, less than 20 bacteria. Influenza A, B, and COVID-19 test negative. Chest x-ray, no acute cardiopulmonary changes. Discharge Diagnoses: 1. Urinary tract infection. 2. Anemia, unspecified. 3. Hypokalemia. 4. Hyponatremia. 5. Chronic kidney disease stage IIIA. 6. Type 2 diabetes mellitus, uncontrolled. 7. Diabetes mellitus with polyneuropathy. 8. Hypertension. 9. Hyperlipidemia, mixed. 10. History of stroke with right thalamic hemorrhage. 11. Hypothyroidism. 12. Gastroesophageal reflux disease. 13. Osteoarthritis, multiple sites. 14. Diverticulosis. Hospital Course: This is a 80-year-old pleasant female patient who was admitted to the hospital with urinary tract infection. Please see dictated H and P for more information. After patient was evaluated in the emergency room, she was admitted to the hospital. She was started on IV antibiotics which was Levaquin. The patient has significant deconditioning of her body with generalized weakness and debility. Physical therapy was consulted and she participated well with physical therapy. The patient had episode with orthostatic hypotension and while she was sitting on the commode, she felt as if she was going to faint and nurse was with her, so this did not result in any fall or injury. This significant orthostatic changes did impair her ability to participate with physical therapy and as of yesterday we started her on midodrine 2.5 mg 2 times a day and she has tolerated that very well. In fact, she reports that yesterday she did very well with physical therapy and did not have any fainting type of feeling. Today she looks a lot better compared to last few days. Her urine culture came back Staphylococcus aureus and Enterococcus and sensitivity result for Staphylococcus reviewed Enterococcus sensitivities not available and I have asked nursing staff to call [facility] to get more information after that. Our plan is to discharge her to go home with oral antibiotic. Social Service was consulted to make arrangements for home health and home physical therapy. Total time spent 35 minutes. ISAAC/PAULA Voice ID: [id number] Report ID: [id number] SINGH
== END 2025-08-12 14:35 | disposition home or self-care (01) | DRG 689 ==
LOC: ER 09:28 → 2ND 11:56
PROVIDERS: ADMIT Internal Medicine; ATTEND Internal Medicine
DX: N39.0 Urinary tract infection, site not specified (principal); L89.153 Pressure ulcer of sacral region, stage 3; I50.32 Chronic diastolic (congestive) heart failure; I13.0 Hypertensive heart and chronic kidney disease with heart failure and stage 1 through stage 4 chronic kidney disease, or unspecified chronic kidney disease; E87.1 Hypo-osmolality and hyponatremia; N18.31 Chronic kidney disease, stage 3a; E11.22 Type 2 diabetes mellitus with diabetic chronic kidney disease; E11.42 Type 2 diabetes mellitus with diabetic polyneuropathy; E11.51 Type 2 diabetes mellitus with diabetic peripheral angiopathy without gangrene; D63.1 Anemia in chronic kidney disease; I48.0 Paroxysmal atrial fibrillation; E87.6 Hypokalemia; E78.2 Mixed hyperlipidemia; I95.1 Orthostatic hypotension; E03.9 Hypothyroidism, unspecified; E66.01 Morbid (severe) obesity due to excess calories; M19.09 Primary osteoarthritis, other specified site; K57.90 Diverticulosis of intestine, part unspecified, without perforation or abscess without bleeding; B95.61 Methicillin susceptible Staphylococcus aureus infection as the cause of diseases classified elsewhere; Z88.0 Allergy status to penicillin; Z88.2 Allergy status to sulfonamides; Z68.37 Body mass index [BMI] 37.0-37.9, adult; Z11.52 Encounter for screening for COVID-19; Z90.49 Acquired absence of other specified parts of digestive tract; Z86.73 Personal history of transient ischemic attack (TIA), and cerebral infarction without residual deficits; Z90.710 Acquired absence of both cervix and uterus
CPT/HCPCS: 36415; 71045; 80048; 80053; 81001; 82947; 83605; 83880; 84132; 84484; 85025; 85027; 85610; 85730; 87040; 87077; 87086; 87088; 87186; 87428; 93005; 96365; 97110; 97116; 97161; 97530; 99285; J1160; J1815; J3480; J7050